=== PATIENT | female | born 1945 | race Caucasian/White ===

== ENCOUNTER → 2016-11-27 | Day surgery (SDC) | payer OTHER ==
[2016-11-24 07:38] VITALS: Ht 160 cm; Wt 76.8 kg
[~2016-11-27] VITALS: Ht 160 cm; Wt 76.8 kg
[~2016-11-27] MED LIST: BUPIVACAINE/EPINEPHRINE 0.5% MPF 1:200,000 30 ML VIAL ONE; CEFAZOLIN 1000MG/55 ML D5W IV SCH; FENTANYL CITRATE INJ 50 MCG/1 ML 2 ML VIAL ONE; HYDROCODONE/ACETAMOPHEN 5/325MG TAB PO PRN; INSUINJ12 SC; LACTATED RINGER'S 1000ML 1,000 ML IV PRN; LACTATED RINGER'S 1000ML 1,000 ML IV SCH; LIDOCAINE HCL 2% 2 ML VIAL (20MG/ML) ONE; LOSA1TAB PO; LVMI SC; MIDAZOLAM HCL 1 MG/ML 2ML VIAL ONE; MoRPHine SULFATE 2 MG/ML CARP IV PRN; ONDANSETRON INJ 2 MG/ML 2 ML VIAL IV PRN; PRLSR20 PO; PROPOFOL IV EMULSION 10 MG/ML 20 ML VIAL IV ONE
--- NOTE | 2016-11-27 07:36 | History & Physical Bridge Note ---
H&P Re-Evaluation Bridge Note: I have examined the patient, reviewed the History & Physical and in the interval since the performance of the History & Physical I have noted the following changes of clinical significance: No changes noted
--- NOTE | 2016-11-27 07:38 | Discharge Instructions-SurgCtr ---
Discharge Instructions Visit Reason for Visit: Port In Place; Hx Of Indolent Lymphoma Discharge Discharge Diagnosis / Problem: desire for port removal Discharge Goals Goal(s): Decrease discomfort, Improve function Activity Recommendations Activity Limitations: resume your previous activity Exercise/Sports Limitations: as tolerated Shower/Bathe: tomorrow Anesthesia . Post Anesthesia Instructions: If you have had General Anesthesia or IV Sedation: * Do not drive today. * Resume driving when surgeon permits. * Do not make important decisions or sign legal documents today. * Call surgeon for: 1. Temperature elevations greater than 101 degrees F. 2. Uncontrollable pain. 3. Excessive bleeding. 4. Persistent nausea and vomiting. 5. Medication intolerance (nausea, vomiting or rash). * For nausea and vomiting use only clear liquids such as: tea, soda, bouillon until nausea subsides, then gradually increase diet as tolerated. * If you have any concerns or questions, call your surgeon's office. If physician is unavailable and it is an emergency, call 911 or go to the nearest emergency room. . Diet Recommendations Home Diet: resume previous diet Procedures Procedures Performed: removal right subclavian mediport Pending Studies Studies pending at discharge: no Medical Emergencies . Who to Call and When: Medical Emergencies: If at any time you feel your situation is an emergency, please call 911 immediately. . Non-Emergent Contact Non-Emergency issues call your: Primary Care Provider, Surgeon Call Non-Emergent contact if: temperature is above 101, wound has increased drainage, wound has increased redness . . "Provider Documentation" section prepared by Reji Russell.
[2016-11-27 08:16] VITALS: TEMP 36.3
--- NOTE | 2016-11-27 08:21 | [facility] Operative Report ---
Operative Report Operative Date Nov 27, 2016. Pre-Operative Diagnosis Port in Place, Hx of Indolent Lymphoma Post-Operative Diagnosis desire for port removal Surgeon Dr. Willie Russell [employer] Surgeon(s) 0 Estimated Blood Loss 5CC Findings normal appearing metal mediport Specimens A. Removed A-Port Anesthesia MAC Complication(s) None Disposition Recovery Room / PACU I attest to the content of the Intraoperative Record and any orders documented therein. Any exceptions are noted below.
--- NOTE | 2016-11-27 08:37 | OPERATIVE REPORT ---
DATE OF OPERATION: 11/27/2016 PREOPERATIVE DIAGNOSIS: Desire for removal of right subclavian MediPort. POSTOPERATIVE DIAGNOSIS: Same. PROCEDURE: Removal of right subclavian MediPort. SURGEON: Dr. Russell. ESTIMATED BLOOD LOSS: 5 mL. COMPLICATIONS: No immediate. ANESTHESIA: Monitored anesthesia care. OPERATION AND FINDINGS: OPERATIVE NOTE: After informed consent was obtained, the patient was taken to the operating suite, placed in supine position. IV sedation was administered by anesthesia and titrated to effect. After adequate sedation was obtained, the right upper chest wall area was sterilely prepped and draped in usual fashion. Marcaine with epinephrine was injected around the previous incision around the port housing itself. Once we had this localized I then made an incision directly over the previous incision. This was carried down through the soft tissue using electrocautery. We were able to bluntly dissect free capsule around the MediPort itself. Once we had the capsule excised I was able cut the previous sutures and gently remove the port with the catheter intact. Pressure was held over the incision site for several. We then thoroughly irrigated the wound. I closed it with 3-0 Vicryl and 4-0 Monocryl. Dermabond glue was used as a dressing. The patient was awakened and transferred to recovery in stable condition. I attest to the content of the Intraoperative Record and any orders documented therein. Any exceptio ns are noted below.
[2016-11-27 08:42] VITALS: BP 135/66; PULSE 58; O2SAT 98
--- NOTE | 2016-11-27 08:45 | Anesthesia Progress Nt - [facility] ---
Anesthesia Post Op Note Date & Time Nov 27, 2016 at 08:44 Vital Signs Pain Intensity: 0 Vital Signs Past 12 Hours Date Time Temp Pulse Resp B/P Pulse Ox O2 Delivery O2 Flow Rate FiO2 11/27/16 08:16 36.3 65 18 114/64 95 Room Air 11/27/16 07:04 36.7 70 18 150/75 96 Room Air Notes Mental Status: alert / awake / arousable, participated in evaluation Nausea / Vomiting: adequately controlled Pain: adequately controlled Airway Patency, RR, SpO2: stable & adequate BP & HR: stable & adequate Hydration State: stable & adequate Anesthetic Complications: no major complications apparent Pt doing well.
== END | disposition home or self-care (01) ==
LOC: X.SURG 06:51
PROVIDERS: ATTEND Surgery
DX: Z45.2 Encounter for adjustment and management of vascular access device (principal); C85.90 Non-Hodgkin lymphoma, unspecified, unspecified site; D64.9 Anemia, unspecified; F41.9 Anxiety disorder, unspecified; I10 Essential (primary) hypertension; E16.2 Hypoglycemia, unspecified; E11.65 Type 2 diabetes mellitus with hyperglycemia; Z79.4 Long term (current) use of insulin; Z92.21 Personal history of antineoplastic chemotherapy

== ENCOUNTER → 2017-02-12 | Outpatient (CLI) | payer OTHER ==
[~2017-02-12] MED LIST changes: -BUPIVACAINE/EPINEPHRINE 0.5% MPF 1:200,000 30 ML VIAL ONE; -CEFAZOLIN 1000MG/55 ML D5W IV SCH; -FENTANYL CITRATE INJ 50 MCG/1 ML 2 ML VIAL ONE; -HYDROCODONE/ACETAMOPHEN 5/325MG TAB PO PRN; -LACTATED RINGER'S 1000ML 1,000 ML IV PRN; -LACTATED RINGER'S 1000ML 1,000 ML IV SCH; -LIDOCAINE HCL 2% 2 ML VIAL (20MG/ML) ONE; -MIDAZOLAM HCL 1 MG/ML 2ML VIAL ONE; -MoRPHine SULFATE 2 MG/ML CARP IV PRN; -ONDANSETRON INJ 2 MG/ML 2 ML VIAL IV PRN; -PROPOFOL IV EMULSION 10 MG/ML 20 ML VIAL IV ONE
[2017-02-12 09:46] LABS: ALT/SGPT 25 U/L (12-78); BLOOD UREA NITROGEN 22 mg/dl (7-18); BUN/CREATININE RATIO 28.1 (10-20); CALCIUM 8.8 mg/dl (8.5-10.1); CARBON DIOXIDE 27 mmol/L (21-32); CHLORIDE 109 mmol/L (98-107); CHOLESTEROL 214 mg/dl (0-200); CREATININE 0.79 mg/dl (0.60-1.20); GLUCOSE 122 mg/dl (70-99); POTASSIUM 4.4 mmol/L (3.5-5.1); SODIUM 141 mmol/L (136-145)
[2017-02-12 09:57] LABS: ALB/GLOB RATIO 1.2 (0.9-2); ALKALINE PHOSPHATASE 106 U/L (45-117); AST/SGOT 22 U/L (15-37); CHOLESTEROL/HDL RATIO 4.7; HDL CHOLESTEROL 46 mg/dl; LDL CHOLESTEROL CALCULATED 140 mg/dl; TRIGLYCERIDES 142 mg/dl (0-150); VERY LOW DENSITY LIPOPROT CALC 28 mg/dl
[2017-02-12 10:12] LABS: ESTIMATED AVERAGE GLUCOSE 157 mg/dl; HA1C FLAG Normal (Normal)
--- NOTE | 2017-02-18 14:24 | CODING QUERY MEDICAL NECESSITY ---
SUPPORTING DIAGNOSIS NEEDED A supporting diagnosis is required for the test/procedure performed on this patient in order for us to be reimbursed by the patient's insurance. Please provide a supporting diagnosis for the following test/procedure listed below next to the test name along with your signature. *If there is no additional diagnosis for this patient that would support the following test/procedure please document that below next to the test/procedure. Test(s)/Procedure(s) that require a supporting diagnosis: * VITAMIN D 25-HYDROXY DIAGNOSIS: * VITAMIN B-12 LEVEL DIAGNOSIS: * DOS: 02/12/17 Provider Signature: Date: Thank you Roxie Simpson Health Information Management Once completed, please kindly fax back to [phone] For questions please call [phone]
== END | disposition home or self-care (01) ==
LOC: C.LAB1850 07:55
PROVIDERS: ATTEND Internal Medicine
DX: E11.65 Type 2 diabetes mellitus with hyperglycemia (principal); I10 Essential (primary) hypertension; E11.9 Type 2 diabetes mellitus without complications; R53.83 Other fatigue; E53.8 Deficiency of other specified B group vitamins

== ENCOUNTER → 2017-09-27 | Outpatient (CLI) | payer OTHER ==
[2017-09-27 09:17] LABS: ESTIMATED AVERAGE GLUCOSE 151 mg/dl; HA1C FLAG Normal (Normal)
[2017-09-27 09:44] LABS: CREATININE RANDOM URINE 75.3 mg/dl
[2017-09-27 09:56] LABS: RATIO 9.5 mcg/mg (0-30.0)
== END | disposition home or self-care (01) ==
LOC: C.LAB 13:10
PROVIDERS: ATTEND Internal Medicine
DX: E11.9 Type 2 diabetes mellitus without complications (principal); E53.8 Deficiency of other specified B group vitamins; E55.9 Vitamin D deficiency, unspecified

== ENCOUNTER → 2018-03-30 | Outpatient (CLI) | payer OTHER ==
[~2018-03-30] MED LIST changes: +OPTIRAY 320 IV PRN
--- NOTE | 2018-03-30 09:10 | DIAGNOSTIC IMAGING REPORT ---
CT OF THE CHEST WITH IV CONTRAST CLINICAL HISTORY: Non-Hodgkin's lymphoma COMPARISON STUDY: 02/15/2015 TECHNIQUE: Following the IV administration of 92 mL of Optiray-320, CT of the thorax was performed from the thoracic inlet to the lung bases. Images are reviewed in the axial, sagittal, and coronal planes. IV contrast was administered without complication. A dose lowering technique was utilized adhering to the principles of ALARA. CT DOSE: FINDINGS: Thyroid: Imaged portions of the thyroid gland are normal in appearance. Thoracic aorta: The thoracic aorta is normal in course and caliber, noting standard 3-vessel arch anatomy. No aneurysm or dissection is seen. Pulmonary vasculature: The pulmonary trunk is normal in caliber. There are no central filling defects identified to suggest pulmonary embolus. Note that this examination was not protocoled for the evaluation of pulmonary emboli. HEART: The heart is mildly enlarged. There are coronary artery calcifications. Lungs and pleural spaces: There are no pleural effusions. There is no focal pulmonary consolidation. Mediastinum: There is no mediastinal lymphadenopathy. Christie: There is no evidence of pathologic hilar adenopathy Axilla: There is no evidence of pathologic axillary lymphadenopathy Upper abdomen: There is a hiatal hernia. There is a partially visualized right renal cyst. Skeletal structures: There are no lytic or blastic osseous lesions. IMPRESSION: 1. No acute intrathoracic findings 2. No evidence of pathologic adenopathy 3. Hiatal hernia 4. No evidence of focal pulmonary consolidation Electronically signed by: Isaac Gilbert M.D. 03/30/2018 9:09 AM Dictated Date/Time: 03/30/2018 9:05 AM
--- NOTE | 2018-03-30 09:17 | DIAGNOSTIC IMAGING REPORT ---
CT ABD/PELVIS IV AND ORAL CONT CLINICAL HISTORY: Non-Hodgkin's lymphoma COMPARISON STUDY: 02/15/2015 TECHNIQUE: Following the IV administration of 92 mL of Optiray-320, CT scan of the abdomen and pelvis was performed from the lung bases to the proximal femurs. Images are reviewed in the axial, sagittal, and coronal planes. IV contrast was administered without complication. A dose lowering technique was utilized adhering to the principles of ALARA. CT DOSE: 827.06 mGy.cm FINDINGS: Lower chest: There is a hiatal hernia. Liver: The contrast-enhanced liver is normal in size, contour, and attenuation. There is no intrahepatic biliary ductal dilatation. The hepatic veins and portal veins are patent. Gallbladder: Unremarkable. Spleen: Normal in size and attenuation. Pancreas: Unremarkable. Adrenal glands: Unremarkable. Kidneys: There are bilateral renal cortical and parapelvic cysts. There are right renal calcifications, likely vascular. Bowel: There are no transition zone to indicate bowel obstruction. There is a somewhat prominent fluid-filled terminal ileum. There are small terminal ileum polyps versus enteric contents. There is colonic diverticulosis. There is no evidence of acute diverticulitis. Peritoneum: There is no intraperitoneal free air or abdominal ascites. Vasculature: The abdominal aorta is normal in course and caliber. Adenopathy: None. Pelvic viscera: The bladder, and pelvic viscera are unremarkable. Skeletal structures: No destructive osseous lesions are seen. IMPRESSION: 1. No evidence of pathologic adenopathy 2. Mildly prominent fluid-filled terminal ileum, but no current evidence of significant obstruction 3. Diverticulosis. No evidence of acute diverticulitis 4. Cortical and parapelvic renal cysts 5. Hiatal hernia 6. Small terminal ileum polyps versus enteric contents Electronically signed by: Isaac Gilbert M.D. 03/30/2018 9:15 AM Dictated Date/Time: 03/30/2018 9:09 AM
== END | disposition home or self-care (01) ==
LOC: C.CTS 08:41
PROVIDERS: ATTEND Nurse Practitioner Family
DX: C83.30 Diffuse large B-cell lymphoma, unspecified site (principal)

== ENCOUNTER 2020-12-27 07:44 | Observation (INO) ==
[2020-12-27] MEDS ORDERED: SODIUM CHLORIDE 0.9% 1000ML 500 ML IV ONE (07:56)
[2020-12-27] MEDS ORDERED: LABETALOL HCL IV 5 MG/ML 20ML IV STA ×2 (07:56→08:54)
[2020-12-27] MEDS ORDERED: OPTIRAY 320 125ml IV ONE (08:09)
--- NOTE | 2020-12-27 08:11 | Emergency Department Note ---
Impression & Plan Word finding difficulty, Slurring of speech, Hypertensive emergency ED Provider Note Provider: Coliln Bustos MD DATE OF SERVICE: 12/27/2020 CHIEF COMPLAINT: Stroke symptoms HISTORY OF PRESENT ILLNESS: Patient is a 75-year-old female with a history of CAD status post CABG, diabetes, diverticulitis, hypertension, and cancer maintained on Plavix currently presenting today with complaint of some right- sided numbness and slurred speech. Patient is present with . Reports that she got up around 630 and things were okay. Did not have breakfast depression came downstairs and states around 7:00 he noticed that she began to have some slurring speech in which she had reported some numbness of her right hand and her right hand was working quite so well. also states he thought he saw a little bit of redness in the right side of her face and called his daughter and then brought her here for further care. Upon arrival the patient does not report significant numbness in her extremities anymore but is somewhat slow to answer and having difficulty talking. Patient denies pain. Patient denies any significant abdominal symptoms. Patient denies a history of similar. Of note the patient was seen by primary care and telehealth 3 days ago with uncontrolled hypertension and some left lower quadrant abdominal pain concerning for possible diverticulitis. Patient was started on Augmentin at that time. Patient at that time per their note did not have acute neurological symptoms documented. REVIEW OF SYSTEMS: A total of 10 review of systems was obtained and negative except as stated above in the HPI. PAST MEDICAL HISTORY: As noted above MEDICATIONS: Reviewed home medication list which includes Plavix. SOCIAL HISTORY: Lives at home with PHYSICAL EXAM: GENERAL: alert and oriented in no acute distress on stretcher Head: normocephalic and atraumatic EYES: No injection, discharge or icterus. PERRL, EOMI. NECK: Trachea midline. Supple. ENT: Mucous membranes pink and moist. LUNGS: Airway patent. No retractions. Breath sounds clear with good air entry bilaterally. HEART: Regular rate and rhythm. No chest wall tenderness ABDOMEN: Soft and non-tender, without guarding or rebound. SKIN: Acyanotic, warm, dry, without rashes EXTREMITIES: Without swelling, tenderness or deformity NEUROLOGICAL: No aphasia. No facial droop or slurred speech however some aphasia and she is slow to speak. Tongue is midline. No pronator drift. 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 Sensation to gross touch normal. EK bpm sinus rhythm with PVC. No PAC noted. No acute ST segment elevation noted. QTc 483. Normal QRS duration. CONTINUOUS CARDIAC MONITORING: was ordered and showed a heart rate of 80 bpm in normal sinus rhythm Patient's laboratory studies and imaging reviewed. Differential includes Infection, dehydration, metabolic abnormality, hypo/hyperglycemia, electrolyte disturbance, anemia, hypoxia, cardiac sources, intracerebral event, toxicologic, neurologic, as well as other pathologies. IMPRESSION/MEDICAL DECISION MAKING: Patient evaluated in room A2 and made a stroke alert given her word finding difficulty. The numbness and clumsiness of her right hand seem to be improved compared to earlier and I do not appreciate a significant slurred speech or facial droop at this time. Patient is significantly hypertensive. 10 mg of IV labetalol was ordered. She was made a stroke alert and taken to CT with angiograms to be completed. Discussed with Dr. Nolasco at [facility] telestroke who evaluated the patient when she returns on the telestroke cart. CT without evidence of intracranial bleed per radiology report; some narrowing of the vertebral and cerebral arteries are noted in the CT angiography per radiology report but no large occlusion. Patient on reassessment continues to be hypertensive and given a second dose of labetalol but her word finding has improved and she is more fluent with her s peech. She now describes more numbness earlier up to the mid forearm on the right side but states that is improved now. Discussion with the telestroke neurologist do not feel TPA is indicated given her improvement of symptoms at this time this may simply be a hypertensive emergency. Patient is on Plavix and given some aspirin per telestroke recommendations. Hypomagnesemic and needs and was ordered for intravenous repletion. Blood work otherwise without severe abnormality. Will discuss with the hospitalist for further observation and care here at the hospital given her symptoms and hypertension. Patient was in agreement this plan. DIAGNOSIS: Slurred speech, hypertensive emergency DISPOSITION: Hospitalist will evaluate Patient was agreeable with this plan. Critical Care I have personally spent 33 minutes of critical care time in the direct management of this patient. This includes bedside care, interpretation of diagnostic studies, and testing, discussion with consultants, patient, and family members, and other required patient management activities. These 33 minutes is in excess of all separately billable procedures. Past Med/Surg History Medical History Chest pain Dehydration Diabetes mellitus TYPE II on Levemir at this time BID Diffuse large B-cell lymphoma of extranodal site (~07/2013) Elevated troponin Elevated troponin Fever (10/21/13) Fever GERD (gastroesophageal reflux disease) Hypertension Hypertensive emergency Hypogammaglobulinemia Kidney disease Lymphoma Metastatic cancer to liver On intra-aortic balloon pump assist Syncope Surgical History H/O tubal ligation History of appendectomy History of open heart surgery History of tonsillectomy S/P CABG x 1 on 09/08/2018; FELIZ to OM1 Family History Mother Myocardial infarction Diabetes Sister Bladder cancer Daughter Diabetes Heart disease Brother Lung cancer Father Lung disease Social History Smoking Status: Never smoker Second Hand Exposure: No; Hx Alcohol Use: No Hx Substance Use: No Preferred Language: Syriac Communication Ability: Effective Visual Impairment: No 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 Verified 12/24/20 11:26 adhesive Allergy Unknown RASH Verified 12/24/20 11:26 latex Allergy Rash Verified 12/24/20 11:26 prednisone AdvReac Intermediate PT CAN Verified 12/24/20 11:26 TOLERATE DEXAMETHASONE [place] Inhibitors AdvReac Unknown Hypotension Verified 12/24/20 11:26 simvastatin AdvReac Unknown Rash Verified 12/24/20 11:26 oxycodone [From OxyContin] AdvReac Vomiting Verified 12/24/20 11:26 Home Meds Home Medications Medication Instructions Recorded Confirmed cholecalciferol (vitamin D3) 125 5,000 units PO DAILY 10/01/19 12/27/20 mcg (5,000 unit) capsule mecobalamin (vitamin B12) 1,000 1,000 mcg SL DAILY 10/01/19 12/27/20 mcg disintegrating tablet,sublingual pen needle, diabetic 32 gauge x #10 ea 10/29/19 12/24/2032" Previous Rx's Medication Instructions Recorded metoprolol tartrate 25 mg tablet 25 mg PO BID #180 tab 06/17/20 omeprazole 20 mg capsule,delayed 20 mg PO DAILY #30 cap 06/18/20 release clopidogrel 75 mg tablet 75 mg PO DAILY 90 Days #90 tab 06/27/20 losartan 100 mg tablet 100 mg PO DAILY #90 tab 08/02/20 atorvastatin 40 mg tablet 40 mg PO DAILY #90 tab 10/14/20 insulin detemir U-100 100 unit/mL See Rx Instructions SQ BID #15 ml 11/14/20 (3 mL) subcutaneous pen amlodipine 10 mg tablet 10 mg PO DAILY #30 tab 12/24/20 amoxicillin 875 mg-potassium 1 tab PO BID #20 tab 12/24/20 clavulanate 125 mg tablet Results & Data (ED) Vital Signs Vital Signs - 24 hr 12/27/20 07:48 12/27/20 08:00 12/27/20 08:19 Temperature 36.8 C Temperature Source Oral Pulse Rate 68 72 Pulse Rate [Left Finger] Pulse Rate from SpO2 Sensor Pulse Rhythm Regular Pulse Strength Normal Respiratory Rate 20 Respiratory Effort / Characteristics Non-Labored Spontaneous Respiratory Depth Normal Respiratory Pattern Regular Blood Pressure 202/74 H 201/73 H Blood Pressure [Right Arm] Blood Pressure Mean 116 115 Blood Pressure Mean [Right Arm] Pulse Oximetry 97 Oxygen Delivery Method Room Air Sepsis Recent Fever Within 48 Hours No Sepsis New/Unexplained Change in Mental Status N/A Sepsis Action Taken by Nursing No Action Required 12/27/20 08:20 12/27/20 08:24 12/27/20 08:27 Temperature Temperature Source Pulse Rate 69 72 71 Pulse Rate [Left Finger] Pulse Rate from SpO2 Sensor 69 72 71 Pulse Rhythm Pulse Strength Respiratory Rate 20 18 Respiratory Effort / Characteristics Respiratory Depth Respiratory Pattern Blood Pressure 202/83 H Blood Pressure [Right Arm] Blood Pressure Mean 109 122 Blood Pressure Mean [Right Arm] Pulse Oximetry 97 98 98 Oxygen Delivery Method Room Air Room Air Room Air Sepsis Recent Fever Within 48 Hours Sepsis New/Unexplained Change in Mental Status Sepsis Action Taken by Nursing 12/27/20 08:30 12/27/20 08:40 12/27/20 08:42 Temperature Temperature Source Pulse Rate 70 74 68 Pulse Rate [Left Finger] 68 Pulse Rate from SpO2 Sensor 70 69 Pulse Rhythm Pulse Strength Respiratory Rate 20 18 Respiratory Effort / Characteristics Respiratory Depth Respiratory Pattern Blood Pressure 198/91 H 199/87 H Blood Pressure [Right Arm] 199/87 H Blood Pressure Mean 126 124 Blood Pressure Mean [Right Arm] 124 Pulse Oximetry 98 98 Oxygen Delivery Method Room Air Room Air Sepsis Recent Fever Within 48 Hours Sepsis New/Unexplained Change in Mental Status Sepsis Action Taken by Nursing 12/27/20 08:43 12/27/20 08:46 12/27/20 08:50 Temperature Temperature Source Pulse Rate 68 68 65 Pulse Rate [Left Finger] Pulse Rate from SpO2 Sensor 68 67 66 Pulse Rhythm Pulse Strength Respiratory Rate 20 Respiratory Effort / Characteristics Respiratory Depth Respiratory Pattern Blood Pressure 211/73 H 184/87 H Blood Pressure [Right Arm] Blood Pressure Mean 119 119 Blood Pressure Mean [Right Arm] Pulse Oximetry 98 97 97 Oxygen Delivery Method Room Air Room Air Room Air Sepsis Recent Fever Within 48 Hours Sepsis New/Unexplained Change in Mental Status Sepsis Action Taken by Nursing 12/27/20 08:54 12/27/20 08:57 12/27/20 09:00 Temperature Temperature Source Pulse Rate 65 63 Pulse Rate [Left Finger] 60 Pulse Rate from SpO2 Sensor 65 64 Pulse Rhythm Pulse Strength Respiratory Rate 18 18 Respiratory Effort / Characteristics Respiratory Depth Respiratory Pattern Blood Pressure 196/77 H 169/72 H Blood Pressure [Right Arm] 184/87 H Blood Pressure Mean 116 104 Blood Pressure Mean [Right Arm] 119 Pulse Oximetry 98 96 96 Oxygen Delivery Method Room Air Room Air Room Air Sepsis Recent Fever Within 48 Hours Sepsis New/Unexplained Change in Mental Status Sepsis Action Taken by Nursing 12/27/20 09:05 12/27/20 09:06 12/27/20 09:14 Temperature Temperature Source Pulse Rate 68 68 Pulse Rate [Left Finger] 66 Pulse Rate from SpO2 Sensor 68 69 Pulse Rhythm Pulse Strength Respiratory Rate 18 20 Respiratory Effort / Characteristics Respiratory Depth Respiratory Pattern Blood Pressure 181/83 H Blood Pressure [Right Arm] 181/83 H Blood Pressure Mean 115 Blood Pressure Mean [Right Arm] 115 Pulse Oximetry 98 98 95 Oxygen Delivery Method Room Air Room Air Room Air Sepsis Recent Fever Within 48 Hours Sepsis New/Unexplained Change in Mental Status Sepsis Action Taken by Nursing 12/27/20 09:15 12/27/20 09:20 12/27/20 09:30 Temperature Temperature Source Pulse Rate 64 63 66 Pulse Rate [Left Finger] 65 Pulse Rate from SpO2 Sensor 63 63 66 Pulse Rhythm Pulse Strength Respiratory Rate 24 20 21 Respiratory Effort / Characteristics Respiratory Depth Respiratory Pattern Blood Pressure 191/87 H 165/73 H 186/75 H Blood Pressure [Right Arm] 191/87 H Blood Pressure Mean 121 103 112 Blood Pressure Mean [Right Arm] 121 Pulse Oximetry 96 97 97 Oxygen Delivery Method Room Air Room Air Room Air Sepsis Recent Fever Within 48 Hours Sepsis New/Unexplained Change in Mental Status Sepsis Action Taken by Nursing 12/27/20 09:40 12/27/20 09:50 12/27/20 09:57 Temperature Temperature Source Pulse Rate 67 66 66 Pulse Rate [Left Finger] Pulse Rate from SpO2 Sensor 68 65 Pulse Rhythm Pulse Strength Respiratory Rate 19 24 Respiratory Effort / Characteristics Respiratory Depth Respiratory Pattern Blood Pressure 182/76 H 188/84 H Blood Pressure [Right Arm] Blood Pressure Mean 111 118 Blood Pressure Mean [Right Arm] Pulse Oximetry 96 98 Oxygen Delivery Method Room Air Room Air Sepsis Recent Fever Within 48 Hours Sepsis New/Unexplained Change in Mental Status Sepsis Action Taken by Nursing 12/27/20 09:58 12/27/20 10:00 12/27/20 10:10 Temperature Temperature Source Pulse Rate 64 62 62 Pulse Rate [Left Finger] Pulse Rate from SpO2 Sensor 64 62 63 Pulse Rhythm Pulse Strength Respiratory Rate 19 19 20 Respiratory Effort / Characteristics Respiratory Depth Respiratory Pattern Blood Pressure 154/86 H 154/79 H Blood Pressure [Right Arm] Blood Pressure Mean 108 104 Blood Pressure Mean [Right Arm] Pulse Oximetry 98 97 97 Oxygen Delivery Method Room Air Room Air Room Air Sepsis Recent Fever Within 48 Hours Sepsis New/Unexplained Change in Mental Status Sepsis Action Taken by Nursing 12/27/20 10:20 12/27/20 10:30 Temperature Temperature Source Pulse Rate 67 61 Pulse Rate [Left Finger] Pulse Rate from SpO2 Sensor 66 60 Pulse Rhythm Pulse Strength Respiratory Rate 18 19 Respiratory Effort / Characteristics Respiratory Depth Respiratory Pattern Blood Pressure 160/88 H 166/74 H Blood Pressure [Right Arm] Blood Pressure Mean 112 104 Blood Pressure Mean [Right Arm] Pulse Oximetry 98 96 Oxygen Delivery Method Room Air Room Air Sepsis Recent Fever Within 48 Hours Sepsis New/Unexplained Change in Mental Status Sepsis Action Taken by Nursing Laboratory Data Result diagrams: 12/27/20 08:07 12/27/20 08:07 Lab Results 12/27/20 12/27/20 12/27/20 Range/Units 08:07 08:07 08:07 WBC 6.37 (4.8-10.8) K/uL RBC 4.78 (4.2-5.4) M/uL Hgb 14.4 (12.0-16.0) g/dL Hct 42.8 (37-47) % MCV 89.5 (80-100) fL MCH 30.1 (25-34) pg MCHC 33.6 (32-36) g/dL RDW Std Deviation 43.1 (36.4-46.3) fL RDW Coeff of Mark 13.2 (11.5-14.5) % Plt Count 203 (130-400) K/uL MPV 11.3 H (7.4-10.4) fL Immature Gran % (Auto) 0.2 % Neut % (Auto) 72.2 % Lymph % (Auto) 19.0 % [place] % (Auto) 7.2 % Eos % (Auto) 1.1 % Baso % (Auto) 0.3 % Neut # (Auto) 4.60 (1.4-6.5) K/uL Lymph # (Auto) 1.21 (1.2-3.4) K/uL [place] # (Auto) 0.46 (0.11-0.59) K/uL Eos # (Auto) 0.07 (0-0.5) K/uL Baso # (Auto) 0.02 (0-0.2) K/uL Immature Gran # (Auto) 0.01 (0.00-0.02) K/uL ESR (0-21) mm/hr PT 10.4 (9.0-12.0) Seconds INR 1.0 (0.9-1.1) APTT 25.0 (21.0-31.0) Seconds PTT Ratio 1.0 Sodium 143 (136-145) mmol/L Potassium 3.3 L (3.5-5.1) mmol/L Chloride 109 H (98-107) mmol/L Carbon Dioxide 27 (21-32) mmol/L Anion Gap 7.0 (3-11) BUN 25 H (7-18) mg/dl Creatinine 0.96 (0.6-1.2) mg/dl Est Cr Clr Drug Dosing 46.5 ml/min Est GFR ( Amer) 66.1 Est GFR (Non-Af Amer) 57.0 BUN/Creatinine Ratio 25.7 H (10-20) Glucose 116 H (70-99) mg/dl Calcium 9.4 (8.5-10.1) mg/dl Magnesium 1.5 L (1.8-2.4) mg/dl Total Bilirubin 0.6 (0.2-1) mg/dl AST 14 L (15-37) U/L ALT 21 (12-78) U/L Alkaline Phosphatase 120 H (45-117) U/L Troponin I < 0.015 (0-0.045) ng/ml Total Protein 7.5 (6.4-8.2) gm/dl Albumin 4.0 (3.4-5.0) gm/dl Globulin 3.5 (2.5-4.0) gm/dl Albumin/Globulin Ratio 1.1 (0.9-2) Urine Color Urine Appearance (Clear) Urine pH (4.5-7.5) Ur Specific [place] (1.000-1.030) Urine Protein (Negative) Urine Glucose (UA) (Negative) Urine Ketones (Negative) Urine Blood (Negative) Urine Nitrite (Negative) Urine Bilirubin (Negative) Urine Urobilinogen (Negative) Ur Leukocyte Esterase (Negative) COVID-19 Eval Order SARS-CoV-2, RNA, NAAT (NEGATIVE) Blood Type Antibody Screen 12/27/20 12/27/20 12/27/20 Range/Units 08:07 08:28 08:45 WBC (4.8-10.8) K/uL RBC (4.2-5.4) M/uL Hgb (12.0-16.0) g/dL Hct (37-47) % MCV (80-100) fL MCH (25-34) pg MCHC (32-36) g/dL RDW Std Deviation (36.4-46.3) fL RDW Coeff of Mark (11.5-14.5) % Plt Count (130-400) K/uL MPV (7.4-10.4) fL Immature Gran % (Auto) % Neut % (Auto) % Lymph % (Auto) % [place] % (Auto) % Eos % (Auto) % Baso % (Auto) % Neut # (Auto) (1.4-6.5) K/uL Lymph # (Auto) (1.2-3.4) K/uL [place] # (Auto) (0.11-0.59) K/uL Eos # (Auto) (0-0.5) K/uL Baso # (Auto) (0-0.2) K/uL Immature Gran # (Auto) (0.00-0.02) K/uL ESR 14 (0-21) mm/hr PT (9.0-12.0) Seconds INR (0.9-1.1) APTT (21.0-31.0) Seconds PTT Ratio Sodium (136-145) mmol/L Potassium (3.5-5.1) mmol/L Chloride (98-107) mmol/L Carbon Dioxide (21-32) mmol/L Anion Gap (3-11) BUN (7-18) mg/dl Creatinine (0.6-1.2) mg/dl Est Cr Clr Drug Dosing ml/min Est GFR ( Amer) Est GFR (Non-Af Amer) BUN/Creatinine Ratio (10-20) Glucose (70-99) mg/dl Calcium (8.5-10.1) mg/dl Magnesium (1.8-2.4) mg/dl Total Bilirubin (0.2-1) mg/dl AST (15-37) U/L ALT (12-78) U/L Alkaline Phosphatase (45-117) U/L Troponin I (0-0.045) ng/ml Total Protein (6.4-8.2) gm/dl Albumin (3.4-5.0) gm/dl Globulin (2.5-4.0) gm/dl Albumin/Globulin Ratio (0.9-2) Urine Color Urine Appearance (Clear) Urine pH (4.5-7.5) Ur Specific [place] (1.000-1.030) Urine Protein (Negative) Urine Glucose (UA) (Negative) Urine Ketones (Negative) Urine Blood (Negative) Urine Nitrite (Negative) Urine Bilirubin (Negative) Urine Urobilinogen (Negative) Ur Leukocyte Esterase (Negative) COVID-19 Eval Order Covid19 [facility]Now [facility] SARS-CoV-2, RNA, NAAT (NEGATIVE) Blood Type A Positive Antibody Screen NEGATIVE 12/27/20 12/27/20 Range/Units 08:45 08:45 WBC (4.8-10.8) K/uL RBC (4.2-5.4) M/uL Hgb (12.0-16.0) g/dL Hct (37-47) % MCV (80-100) fL MCH (25-34) pg MCHC (32-36) g/dL RDW Std Deviation (36.4-46.3) fL RDW Coeff of Mark (11.5-14.5) % Plt Count (130-400) K/uL MPV (7.4-10.4) fL Immature Gran % (Auto) % Neut % (Auto) % Lymph % (Auto) % [place] % (Auto) % Eos % (Auto) % Baso % (Auto) % Neut # (Auto) (1.4-6.5) K/uL Lymph # (Auto) (1.2-3.4) K/uL [place] # (Auto) (0.11-0.59) K/uL Eos # (Auto) (0-0.5) K/uL Baso # (Auto) (0-0.2) K/uL Immature Gran # (Auto) (0.00-0.02) K/uL ESR (0-21) mm/hr PT (9.0-12.0) Seconds INR (0.9-1.1) APTT (21.0-31.0) Seconds PTT Ratio Sodium (136-145) mmol/L Potassium (3.5-5.1) mmol/L Chloride (98-107) mmol/L Carbon Dioxide (21-32) mmol/L Anion Gap (3-11) BUN (7-18) mg/dl Creatinine (0.6-1.2) mg/dl Est Cr Clr Drug Dosing ml/min Est GFR ( Amer) Est GFR (Non-Af Amer) BUN/Creatinine Ratio (10-20) Glucose (70-99) mg/dl Calcium (8.5-10.1) mg/dl Magnesium (1.8-2.4) mg/dl Total Bilirubin (0.2-1) mg/dl AST (15-37) U/L ALT (12-78) U/L Alkaline Phosphatase (45-117) U/L Troponin I (0-0.045) ng/ml Total Protein (6.4-8.2) gm/dl Albumin (3.4-5.0) gm/dl Globulin (2.5-4.0) gm/dl Albumin/Globulin Ratio (0.9-2) Urine Color Yellow Urine Appearance Clear (Clear) Urine pH 7.0 (4.5-7.5) Ur Specific [place] 1.026 (1.000-1.030) Urine Protein Negative (Negative) Urine Glucose (UA) Negative (Negative) Urine Ketones Negative (Negative) Urine Blood Negative (Negative) Urine Nitrite Negative (Negative) Urine Bilirubin Negative (Negative) Urine Urobilinogen Negative (Negative) Ur Leukocyte Esterase Negative (Negative) COVID-19 Eval Order SARS-CoV-2, RNA, NAAT NEGATIVE (NEGATIVE) Blood Type Antibody Screen Administered Medications Acetaminophen (Acetaminophen 325 Mg Tab) 650 mg PO Q4H PRN PRN Reason: Pain Or Fever >101.5 Stop: 01/26/21 12:51 Last Admin: 12/27/20 13:53 Dose: 650 mg Documented by: [id number] Discontinued Medications Aspirin (Aspirin Chew 324 Mg) 324 mg PO NOW STA Stop: 12/27/20 08:55 Last Admin: 12/27/20 09:00 Dose: 324 mg Documented by: [id number] Sodium Chloride (Nss 1000ml) 500 mls @ 999 mls/hr IV .Q31M ONE Stop: 12/27/20 08:26 Last Infusion: 12/27/20 09:01 Dose: 0 mls/hr Documented by: [id number] Admin: 12/27/20 08:29 Dose: 999 mls/hr Documented by: [id number] Magnesium Sulfate/Dextrose (Magnesium Sulfate / D5w) 1 gm in 100 mls @ 200 mls/hr IV Q30M COUNTS INCLUDE 234 BEDS AT THE [facility] Stop: 12/27/20 09:44 Last Infusion: 12/27/20 09:58 Dose: 0 mls/hr Documented by: [id number] Admin: 12/27/20 09:21 Dose: 200 mls/hr Documented by: [id number] Infusion: 12/27/20 09:21 Dose: 0 mls/hr Documented by: [id number] Admin: 12/27/20 08:51 Dose: 200 mls/hr Documented by: [id number] Ioversol (Optiray 320 125ml) 120 ml IV ONCE ONE Stop: 12/27/20 08:10 Last Admin: 12/27/20 08:09 Dose: 120 ml Documented by: [id number] Labetalol HCl (Labetalol Hcl Iv 5 Mg/Ml 20ml) 10 mg IV NOW STA Stop: 12/27/20 07:57 Last Admin: 12/27/20 08:29 Dose: 10 mg Documented by: [id number] Cosigned by: [id number] Labetalol HCl (Labetalol Hcl Iv 5 Mg/Ml 20ml) 10 mg IV NOW STA Stop: 12/27/20 08:55 Last Admin: 12/27/20 08:56 Dose: 10 mg Documented by: [id number] Cosigned by: [id number] Potassium Chloride (Potassium Chloride Crtab 20 Meq Tabcr) 40 meq PO NOW STA Stop: 12/27/20 11:51 Last Admin: 12/27/20 12:57 Dose: 40 meq Documented by: [id number] Discharge Plan Visit Data Chief Complaint: Stroke/CVA Symptoms Stated Complaint: slurred speech r side numb ED Provider: Collin Bustos Discharge Problem: Word finding difficulty, Slurring of speech, Hypertensive emergency Patient Disposition: Admitted As Inpatient Discharge Instructions Interventions: ED Discharge Assessment Last Done: 12/27/20 11:22
[2020-12-27 08:20] LABS: Basophils # (auto) 0.02 K/uL (0-0.2); Basophils % (auto) 0.3 %; Eosinophils # (auto) 0.07 K/uL (0-0.5); Eosinophils % (auto) 1.1 %; Hematocrit (blood only) 42.8 % (37-47); Hemoglobin 14.4 g/dL (12.0-16.0); Immature Granulocytes # (auto) 0.01 K/uL (0.00-0.02); Immature Granulocytes % (auto) 0.2 %; Lymphocytes # (auto) 1.21 K/uL (1.2-3.4); Mean Corpuscular Hemoglobin 30.1 pg (25-34); Mean Corpuscular Hgb Conc 33.6 g/dL (32-36); Mean Corpuscular Volume 89.5 fL (80-100); Mean Platelet Volume 11.3 fL (7.4-10.4); Monocytes # (auto) 0.46 K/uL (0.11-0.59); Monocytes % (auto) 7.2 %; Neutrophils % (auto) 72.2 %; Platelet Count 203 K/uL (130-400); RDW Coefficient of Variation 13.2 % (11.5-14.5); RDW Standard Deviation 43.1 fL (36.4-46.3); Red Blood Count 4.78 M/uL (4.2-5.4); White Blood Count 6.37 K/uL (4.8-10.8)
--- NOTE | 2020-12-27 08:27 | CT Scan Report ---
CT OF THE HEAD WITHOUT CONTRAST CLINICAL HISTORY: Stroke Like Symptoms COMPARISON STUDY: Head CT August 24, 2018. TECHNIQUE: Helical axial images of the head were obtained without IV contrast. Automated exposure con trol was utilized for the study. A dose lowering technique was utilized adhering to the principles o f ALARA. FINDINGS: No acute intracranial hemorrhage, midline shift or mass effect is present. White matter hyp odensities suggest small vessel disease. The ventricular system is unremarkable. The basal cisterns a re patent. No extra-axial collections are present. There are no findings to suggest acute dural sinus thrombosis or acute territorial infarct. No significant calvarial abnormalities are present. Visuali zed portions of the sinuses and mastoid air cells are clear. IMPRESSION: No acute intracranial findings. ACT 112: Negative or not required by law. Electronically signed by: Paul Geller M.D. 12/27/2020 8:25 AM
--- NOTE | 2020-12-27 08:34 | CT Scan Report ---
HEAD & NECK CTA HISTORY: Right hand numbness. Slurred speech. Stroke Like Symptoms TECHNIQUE: Multiaxial CT images of the head were performed following the intravenous administration o f contrast to evaluate the major cerebral vessels. Multiaxial CT images of the neck were also perform ed following the intravenous administration of contrast to evaluate the major cervical vessels. Maxim um intensity projection images were also obtained. A dose lowering technique was utilized adhering to the principles of ALARA. COMPARISON: Head CT 08/22/2018. FINDINGS: There is no mass, hematoma, midline shift, or acute infarct. Calcified plaque within the distal intra cranial vertebral arteries resulting in mild focal stenosis of the distal right vertebral artery and moderate to severe focal stenosis of up to 75% within the distal left vertebral artery best seen on i mage 18 of 252. There is mild focal narrowing within the mid basilar artery. Mild irregularity/narrow ing of the distal bilateral M1 segments. The bilateral ACAs and guitar repair technician show no significant stenosis, oc clusion, or aneurysm. Focal moderate narrowing of 50-60% within the right supraclinoid ICA. Extensive calcified plaque within the bilateral carotid siphons resulting in multifocal mild narrowing. There is also mild narrowing within the left supraclinoid ICA. The major dural venous sinuses appear patent . The aortic arch and proximal great vessels are widely patent. There is no significant stenosis, occ lusion, or dissection identified within the bilateral common carotid, internal carotid, or vertebral arteries. There are poststernotomy changes. No pneumothorax. Calcified plaque within the proximal gre at vessels and proximal left vertebral artery without significant stenosis. There is also mild to mod erate calcified plaque within the left carotid bifurcation. IMPRESSION: 1. Multifocal areas of mild to moderate narrowing within the cerebral arteries as described above mos t pronounced within the intracranial left vertebral artery demonstrating 75% stenosis and within the right supraclinoid ICA demonstrating 50-60% stenosis. However, there is no occlusion or aneurysm iden tified in the [place]. 2. No significant stenosis, occlusion, or dissection identified within the cervical carotid or cervic al vertebral arteries. ACT 112: Negative or not required by law. Electronically signed by: Philip Christina M.D. 12/27/2020 8:32 AM
--- NOTE | 2020-12-27 08:34 | CT Scan Report ---
HEAD & NECK CTA HISTORY: Right hand numbness. Slurred speech. Stroke Like Symptoms TECHNIQUE: Multiaxial CT images of the head were performed following the intravenous administration o f contrast to evaluate the major cerebral vessels. Multiaxial CT images of the neck were also perform ed following the intravenous administration of contrast to evaluate the major cervical vessels. Maxim um intensity projection images were also obtained. A dose lowering technique was utilized adhering to the principles of ALARA. COMPARISON: Head CT 08/22/2018. FINDINGS: There is no mass, hematoma, midline shift, or acute infarct. Calcified plaque within the distal intra cranial vertebral arteries resulting in mild focal stenosis of the distal right vertebral artery and moderate to severe focal stenosis of up to 75% within the distal left vertebral artery best seen on i mage 18 of 252. There is mild focal narrowing within the mid basilar artery. Mild irregularity/narrow ing of the distal bilateral M1 segments. The bilateral ACAs and wet process miller show no significant stenosis, oc clusion, or aneurysm. Focal moderate narrowing of 50-60% within the right supraclinoid ICA. Extensive calcified plaque within the bilateral carotid siphons resulting in multifocal mild narrowing. There is also mild narrowing within the left supraclinoid ICA. The major dural venous sinuses appear patent . The aortic arch and proximal great vessels are widely patent. There is no significant stenosis, occ lusion, or dissection identified within the bilateral common carotid, internal carotid, or vertebral arteries. There are poststernotomy changes. No pneumothorax. Calcified plaque within the proximal gre at vessels and proximal left vertebral artery without significant stenosis. There is also mild to mod erate calcified plaque within the left carotid bifurcation. IMPRESSION: 1. Multifocal areas of mild to moderate narrowing within the cerebral arteries as described above mos t pronounced within the intracranial left vertebral artery demonstrating 75% stenosis and within the right supraclinoid ICA demonstrating 50-60% stenosis. However, there is no occlusion or aneurysm iden tified in the [place]. 2. No significant stenosis, occlusion, or dissection identified within the cervical carotid or cervic al vertebral arteries. ACT 112: Negative or not required by law. Electronically signed by: Philip Christina M.D. 12/27/2020 8:32 AM
[2020-12-27 08:36] LABS: Alanine Aminotransferase 21 U/L (12-78); Aspartate Aminotransferase 14 U/L (15-37); BUN Creatinine Ratio 25.7 (10-20); Blood Urea Nitrogen 25 mg/dl (7-18); Calcium 9.4 mg/dl (8.5-10.1); Carbon Dioxide 27 mmol/L (21-32); Chloride 109 mmol/L (98-107); Creatinine Clr Calc Pharmacy 46.5 ml/min; Est GFR (African American) 66.1; Glucose 116 mg/dl (70-99); Magnesium 1.5 mg/dl (1.8-2.4); Potassium 3.3 mmol/L (3.5-5.1); Sodium 143 mmol/L (136-145)
[2020-12-27 08:41] LABS: Albumin Globulin Ratio 1.1 (0.9-2); Alkaline Phosphatase 120 U/L (45-117); Bilirubin,Total 0.6 mg/dl (0.2-1); Globulin 3.5 gm/dl (2.5-4.0); Total Protein 7.5 gm/dl (6.4-8.2); Troponin I < 0.015 ng/ml (0-0.045)
[2020-12-27 08:42] LABS: Prothrombin Time 10.4 Seconds (9.0-12.0)
[2020-12-27] MEDS: MAGNESIUM SULFATE / D5W 1 GM/100 ML BAG IV SCH ×2 (08:51→09:21)
[2020-12-27] MEDS ORDERED: ASPIRIN CHEW 324 MG PO STA (08:54)
[2020-12-27 09:21] LABS: Appearance Urine Clear (Clear); Bilirubin Urine Negative (Negative); Blood Urine Negative (Negative); Color Urine Yellow; Glucose Urine UA Negative (Negative); Ketones Urine Negative (Negative); Leukocyte Esterase Urine Negative (Negative); Nitrite Urine Negative (Negative); Protein Urine Negative (Negative); Specific Gravity Urine 1.026 (1.000-1.030); Urobilinogen Urine Negative (Negative)
--- NOTE | 2020-12-27 09:39 | XRay Report ---
XR chest 1V portable CLINICAL HISTORY: Stroke Like Symptoms, HTN COMPARISON STUDY: Chest CT October 05, 2019. FINDINGS: Median sternotomy wires are noted. Moderate cardiomegaly is unchanged. There is no evidence for pulmonary edema. Mild left basilar opacity favors atelectasis. A hiatal hernia is again noted. T here is no consolidation to suggest pneumonia. The appearance of the chest is unchanged. IMPRESSION: No acute cardiopulmonary findings. No change in appearance of the chest. ACT 112: Negative or not required by law. Electronically signed by: Paul Geller M.D. 12/27/2020 9:38 AM
--- NOTE | 2020-12-27 10:41 | History & Physical Report ---
Date of Service December 27, 2020 Assessment & Plan (1) Hypertensive emergency: Patient with neurological symptoms in the setting of uncontrolled HTN, no other evidence of end organ damage. - ECG normal - Renal function at baseline - Symptoms consistent with carotid disease and uncontrolled HTN - Control BP over next 24 hours with goal SBP 160-180 and MAPS 80-90. Labatelol PRN have room to increase dose and intervals if needed. - If better control is needed (i.e frequent dosing or consecutive dosing) will add on Cardene drip. - Renal artery ultrasound Patient already took her home medications this morning, will re-initiate in the morning. (2) Carotid artery stenosis: Carotid and Vertebral stenosis - symptomatic if proven stroke on MRI - control BP - patient with history of intolerance to other statins and has been able to tolerate 40mg Atorvastatin - On plavix for SHARI, added on daily ASA - MRI pending - Vascular consulted Symptoms with left sided external and internal carotid disease- Will send ESR to rule out GCA as well. (3) TIA (transient ischemic attack): As above, symptoms resolved. Patient still has some mild slowing with following directions, but and patient feel that she is at her baseline - No obvious loss of visual homlan - Ophthalmology as outpatient - Goal as above control BP optimize medications - Neurology consulted - NIHSS currently 0 - MRI with and without contrast for ischemia evaluation as well as mets -Neurochecks -PT/OT/speech therapy consulted -Continue Plavix and added aspirin, await further neurology recommendations -Some permissive hypertension -Will need Holter monitor for long-term event monitoring for A. fib especially given a history of lone A. fib postop from CABG Not TPA candidate as resolution of symptoms (4) Coronary artery disease: No acute changes on ECG and no other Cardiac symptoms at this time - optimize BP medications starting tomorrow after acute control obtained - ECHO for stroke protocol as well as evaluate any worsening wall motion or hypertrophy (5) Hypercholesteremia: Lipids in morning- continue high dose statin Atrovo 40 (6) Diabetes mellitus type 2 in nonobese: On insulin therapy, continue detemir in house - goal 140-180 - avoid hypoglycemia HGB A1C in morning (7) Diverticulosis of colon: Diverticulitis/diverticulosis- prophylactically placed on Augmentin 875, patient reports that her symptoms have improved and her lower quadarant abdominal pain is better. Will continue while in house. - if patient symptoms worsen- consider CT scan - Diet DM II - Miralax added (8) Hx of CABG: No acute process - optimize medications for risk reduction and BP control (9) Kidney disease: CKD II-III - follow closely in the setting of uncontrolled HTN - Renal ultrasound as above (10) Vertebral artery stenosis: As noted above (11) Hypokalemia: Potassium 3.3 Replace with potassium chloride Follow BMP in the morning (12) Hypomagnesemia: Magnesium low at 1.5 on admission Replaced with IV magnesium sulfate Follow magnesium level in the morning (13) DVT prophylaxis: Heparin SQ Disposition-admit to PCU Full code History of Present Illness Chief Complaint: right arm numbness and dysarthria Primary Care Provider: David Chou MD 75 YOF with past medical history of DMII (on insulin), 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 Patient was r ecently seen by PCP for lower quad abdominal pain on Wednesday and placed on prophylactic Augmentin for Diverticulitis. She was noted at that visit to have elevated blood pressure to 200 systolic and was started on amlodipine. Patient reports that abdominal symptoms have improved since then. The patient was brought to the emergency room by her for concerns of right arm numbness to wrist, dysarthria, expressive aphasia, and right sided facial droop. The patient noted that she was normal when she got in the shower at 630 and her symptoms started around 0730, she checked her blood sugar and it was 170, she then took her BP and noted it was ~180, she took her BP medications and did not feel better so they came to the emergency room. The patient explains that her right arm started with tingling to the wrist, did not note any weakness, but then she noticed bilateral pain behind her eyes and having difficulty forming words and sentences. Her also stated that he noticed her right side of her mouth was drooping. Stroke alert was called and the patient had a non-con CT as well as a CTA of the head and neck. BP on arrival was SBP >210 and MAP 120. The patient started to feel better in the emergency room after her CT scan and after her dose of 10mg labetolol. When I saw the patient, she was forming words and sentences fluently, as well as resolution of the above symptoms. The patient still was experiencing the bilateral frontal headache behind her eyes. NIHSS of 0 on my evaluation, was previously 3. SBP 160-180 and her maps 85. Further review with the patient revealed that the patient reports that home blood pressure readings for the week has had the patient's SBP >180-200, and after taking her medications she reports that she never was below 170. With this elevation of her BP she noticed the associated symptoms of the posterior eye pain as above, left sided scalp and ear pain, she denies any vision changes other than her cataracts, and denies any other cardiac symptoms. Allergies Allergy/AdvReac Type Severity Reaction Status Date / Time oxymetazoline Allergy Mild . Verified 12/24/20 11:26 adhesive Allergy Unknown RASH Verified 12/24/20 11:26 latex Allergy Rash Verified 12/24/20 11:26 prednisone AdvReac Intermediate PT CAN Verified 12/24/20 11:26 TOLERATE DEXAMETHASONE [place] Inhibitors AdvReac Unknown Hypotension Verified 12/24/20 11:26 simvastatin AdvReac Unknown Rash Verified 12/24/20 11:26 oxycodone [From OxyContin] AdvReac Vomiting Verified 12/24/20 11:26 Home Medications Medication Instructions Recorded Confirmed Type cholecalciferol (vitamin D3) 125 5,000 units PO DAILY 10/01/19 12/27/20 History mcg (5,000 unit) capsule mecobalamin (vitamin B12) 1,000 1,000 mcg SL DAILY 10/01/19 12/27/20 History mcg disintegrating tablet,sublingual pen needle, diabetic 32 gauge x #10 ea 10/29/19 12/24/20 History " metoprolol tartrate 25 mg tablet 25 mg PO BID #180 tab 06/17/20 12/27/20 Rx omeprazole 20 mg capsule,delayed 20 mg PO DAILY #30 cap 06/18/20 12/27/20 Rx release clopidogrel 75 mg tablet 75 mg PO DAILY 90 Days #90 tab 06/27/20 12/27/20 Rx losartan 100 mg tablet 100 mg PO DAILY #90 tab 08/02/20 12/27/20 Rx atorvastatin 40 mg tablet 40 mg PO DAILY #90 tab 10/14/20 12/27/20 Rx insulin detemir U-100 100 unit/mL See Rx Instructions SQ BID #15 ml 11/14/20 12/27/20 Rx (3 mL) subcutaneous pen amlodipine 10 mg tablet 10 mg PO DAILY #30 tab 12/24/20 12/27/20 Rx amoxicillin 875 mg-potassium 1 tab PO BID #20 tab 12/24/20 12/27/20 Rx clavulanate 125 mg tablet Past Med/Surg History Medical History (Updated 12/27/20 @ 19:27 by Ashley Greco MD) Chest pain Coronary artery disease Dehydration Diabetes mellitus TYPE II on Levemir at this time BID Diffuse large B-cell lymphoma of extranodal site (~07/2013) Dyslipidemia Elevated troponin Elevated troponin Fever (10/21/13) Fever GERD (gastroesophageal reflux disease) Hypertension Hypertensive emergency Hypogammaglobulinemia Indolent lymphoma Kidney disease Lymphoma Metastatic cancer to liver Non Hodgkin's lymphoma (11/20/13) On intra-aortic balloon pump assist Osteopenia Paroxysmal atrial fibrillation Syncope Vitamin B12 deficiency Vitamin D insufficiency Surgical History H/O tubal ligation History of appendectomy History of open heart surgery History of tonsillectomy S/P CABG x 1 on 09/08/2018; FELIZ to OM1 Family History Mother Myocardial infarction Diabetes Sister Bladder cancer Daughter Diabetes Heart disease Brother Lung cancer Father Lung disease Social History Smoking Status: Never smoker Second Hand Exposure: No; Hx Alcohol Use: No Hx Substance Use: No Preferred Language: Sami Communication Ability: Effective Visual Impairment: No Limitations Battery Builder Required: Yes Beliefs That Will Affect Care: None marital status: Current Living Situation: Spouse current occupational status: retired current occupation: Retired Other Information That Helps Us Care for You: No Feels Safe at Home: Yes Safety Concerns: Feels Safe At This Time Childhood Exposure to Second-Hand Smoke: Yes Dental Care, Regularly: No Physical Activity Frequency: 3-4 Times per Week Seatbelt Use: always Sunscreen Use: No Assistive Devices: None Review of Systems Review of Systems: REVIEW OF SYSTEMS: Constitutional: No fever, sweats or chills Eyes: (+) bilateral posterior eye pain, No diplopia, no worsening or blurred vision ENT: (+) headache, normal hearing, no trouble swallowing Respiratory: No cough, sputum, dyspnea at rest or on exertion Cardiovascular: No chest pain, tightness or palpitations Abdomen: No pain, nausea, vomiting, diarrhea or constipation, has resolved since starting Augmentin Musculoskeletal: (+) left shoulder pain which has been ongoing since her CT surgery, joint pain, calf pain, swelling Neurologic: (+) dysarthria, aphasia, numbness tingling to right arm. No balance problems Psychiatric: No anxiety or depression Skin: No rash or itch Physical Exam Physical Exam: PHYSICAL EXAM: General: awake, alert, no apparent distress Head: Normocephalic, atraumatic ENT: No blurred vision no pharyngeal exudate, mucous membranes moist. Left ear and scalp pain is not present at this time. Neuro: PEERLA, EOM intact, peripheral vision intact and equal bilaterally, no hemianopsia, Slow response to following commands, AAO x 3, speech clear and appropriate, strength intact bilaterally 5/5 right upper and lower, and left lower. 4/5 left upper extremity (patient endorses this has been present since her CABG surgery), no pronator drift. Chest: equal rise and fall of the chest, no accessory muscle use, no heaves or thrills, Clear to auscultation, on room air, Cardiac: Regular rate and rhythm, telemetry reviewed, skin warm dry, cap refill <3 seconds, peripheral pulses +2 no JVD, no murmur, no edema GI: NABS x 4 quadrants, soft, nontender to palpation, no rebound, guarding or tenderness : Spontaneously voiding, no pain, no CVA tenderness, Extremities: Normal inspection, no peripheral edema or erythema, calfs nontender to palpation Psych: Normal mood and affect Skin: no rash or erythema Results & Data Results & Data ([facility]) Vital Signs (Past 12 Hours) Vital Signs Temp Pulse Pulse Resp BP BP Pulse Ox 12/27/20 09:57 66 24 188/84 H 98 12/27/20 09:50 66 12/27/20 09:40 67 19 182/76 H 96 12/27/20 09:30 66 21 186/75 H 97 12/27/20 09:20 63 20 165/73 H 97 12/27/20 09:15 64 65 24 191/87 H 191/87 H 96 12/27/20 09:14 68 20 95 12/27/20 09:06 66 18 181/83 H 98 12/27/20 09:05 68 181/83 H 98 12/27/20 09:00 63 18 169/72 H 96 12/27/20 08:57 65 196/77 H 96 12/27/20 08:54 60 18 184/87 H 98 12/27/20 08:50 65 20 97 12/27/20 08:46 68 184/87 H 97 12/27/20 08:43 68 211/73 H 98 12/27/20 08:42 68 68 18 199/87 H 199/87 H 98 12/27/20 08:40 74 12/27/20 08:30 70 20 198/91 H 98 12/27/20 08:27 71 202/83 H 98 12/27/20 08:24 72 18 98 12/27/20 08:20 69 20 97 12/27/20 08:19 72 12/27/20 08:00 201/73 H 12/27/20 07:48 36.8 C 68 20 202/74 H 97 Laboratory Results Abnormal lab results 12/27/20 12/27/20 Range/Units 08:07 08:07 MPV 11.3 H (7.4-10.4) fL Potassium 3.3 L (3.5-5.1) mmol/L Chloride 109 H (98-107) mmol/L BUN 25 H (7-18) mg/dl BUN/Creatinine Ratio 25.7 H (10-20) Glucose 116 H (70-99) mg/dl Magnesium 1.5 L (1.8-2.4) mg/dl AST 14 L (15-37) U/L Alkaline Phosphatase 120 H (45-117) U/L Diagnostic Findings XR chest 1V portable CLINICAL HISTORY: Stroke Like Symptoms, HTN COMPARISON STUDY: Chest CT October 05, 2019. FINDINGS: Median sternotomy wires are noted. Moderate cardiomegaly is unchanged. There is no evidence for pulmonary edema. Mild left basilar opacity favors atelectasis. A hiatal hernia is again noted. There is no consolidation to suggest pneumonia. The appearance of the chest is unchanged. IMPRESSION: No acute cardiopulmonary findings. No change in appearance of the chest. CT OF THE HEAD WITHOUT CONTRAST CLINICAL HISTORY: Stroke Like Symptoms COMPARISON STUDY: Head CT August 24, 2018. TECHNIQUE: Helical axial images of the head were obtained without IV contrast. Automated exposure control was utilized for the study. A dose lowering technique was utilized adhering to the principles of ALARA. FINDINGS: No acute intracranial hemorrhage, midline shift or mass effect is present. White matter hypodensities suggest small vessel disease. The ventricular system is unremarkable. The basal cisterns are patent. No extra- axial collections are present. There are no findings to suggest acute dural sinus thrombosis or acute territorial infarct. No significant calvarial abnormalities are present. Visualized portions of the sinuses and mastoid air cells are clear. IMPRESSION: No acute intracranial findings. HEAD & NECK CTA HISTORY: Right hand numbness. Slurred speech. Stroke Like Symptoms TECHNIQUE: Multiaxial CT images of the head were performed following the intravenous administration of contrast to evaluate the major cerebral vessels. Multiaxial CT images of the neck were also performed following the intravenous administration of contrast to evaluate the major cervical vessels. Maximum intensity projection images were also obtained. A dose lowering technique was utilized adhering to the principles of ALARA. COMPARISON: Head CT 08/22/2018. FINDINGS: There is no mass, hematoma, midline shift, or acute infarct. Calcified plaque within the distal intracranial vertebral arteries resulting in mild focal stenosis of the distal right vertebral artery and moderate to severe focal stenosis of up to 75% within the distal left vertebral artery best seen on image 18 of 252. There is mild focal narrowing within the mid basilar artery. Mild irregularity/narrowing of the distal bilateral M1 segments. The bilateral ACAs and telephone order clerk show no significant stenosis, occlusion, or aneurysm. Focal moderate narrowing of 50-60% within the right supraclinoid ICA. Extensive calcified plaque within the bilateral carotid siphons resulting in multifocal mild narrowing. There is also mild narrowing within the left supraclinoid ICA. The major dural venous sinuses appear patent. The aortic arch and proximal great vessels are widely patent. There is no significant stenosis, occlusion, or dissection identified within the bilateral common carotid, internal carotid, or vertebral arteries. There are poststernotomy changes. No pneumothorax. Calcified plaque within the proximal great vessels and proximal left vertebral artery without significant stenosis. There is also mild to moderate calcified plaque within the left carotid bifurcation. IMPRESSION: 1. Multifocal areas of mild to moderate narrowing within the cerebral arteries as described above most pronounced within the intracranial left vertebral artery demonstrating 75% stenosis and within the right supraclinoid ICA demonstrating 50-60% stenosis. However, there is no occlusion or aneurysm identified in the jamul of [place]. 2. No significant stenosis, occlusion, or dissection identified within the cervical carotid or cervical vertebral arteries. Medications Administered Discontinued Medications Aspirin (Aspirin Chew 324 Mg) 324 mg PO NOW STA Stop: 12/27/20 08:55 Last Admin: 12/27/20 09:00 Dose: 324 mg Documented by: [id number] Sodium Chloride (Nss 1000ml) 500 mls @ 999 mls/hr IV .Q31M ONE Stop: 12/27/20 08:26 Last Infusion: 12/27/20 09:01 Dose: 0 mls/hr Documented by: [id number] Admin: 12/27/20 08:29 Dose: 999 mls/hr Documented by: [id number] Magnesium Sulfate/Dextrose (Magnesium Sulfate / D5w) 1 gm in 100 mls @ 200 mls/hr IV Q30M ROS Stop: 12/27/20 09:44 Last Infusion: 12/27/20 09:58 Dose: 0 mls/hr Documented by: [id number] Admin: 12/27/20 09:21 Dose: 200 mls/hr Documented by: [id number] Infusion: 12/27/20 09:21 Dose: 0 mls/hr Documented by: [id number] Admin: 12/27/20 08:51 Dose: 200 mls/hr Documented by: [id number] Ioversol (Optiray 320 125ml) 120 ml IV ONCE ONE Stop: 12/27/20 08:10 Last Admin: 12/27/20 08:09 Dose: 120 ml Documented by: [id number] Labetalol HCl (Labetalol Hcl Iv 5 Mg/Ml 20ml) 10 mg IV NOW STA Stop: 12/27/20 07:57 Last Admin: 12/27/20 08:29 Dose: 10 mg Documented by: [id number] Cosigned by: [id number] Labetalol HCl (Labetalol Hcl Iv 5 Mg/Ml 20ml) 10 mg IV NOW STA Stop: 12/27/20 08:55 Last Admin: 12/27/20 08:56 Dose: 10 mg Documented by: [id number] Cosigned by: [id number] ECG Additional Comments: NSR, wide notched p waves, nonspecific flattening of t- waves. Compared to February 2019. Code Status & VTE Plan Code Status Full code VTE Prophylaxis Plan VTE Prophylaxis will be ordered: Yes Supervising Physician Co-Signing Physician Notes LEAD SYSTEMS ANALYST Supervision note: I have personally seen and examined the patient and discussed and verified the sam points of the history and physical along with the plan with JESSICA Adames with the following exceptions and/or additions: Patient presents with acute onset of right-sided facial droop and right upper ex tremity numbness with slurred speech. She has been having significantly elevated blood pressures with headache behind the eyes for the last week, blood pressures in the 200 systolic range. She is also dealing with a recent bout of suspected acute diverticulitis which has improved with treatment with Augmentin. She denies chest pain or shortness of breath. Her symptoms were resolved by the time she was evaluated in the ER. She has not had any return of the symptoms since then. History and ROS reviewed as above Vitals reviewed Gen: AAOx3, NAD HEENT: Anicteric sclerae, EOMI, PERRLA CV: RRR no mgr nl S1S2 Pulm: CTAB no wcr Abd: +BS soft NT ND no masses or hernias Ext: No edema, no calf tenderness Skin: No rashes, warm/dry Neuro: Cranial nerves II through XII intact, full strength throughout except 4+ out of 5 in left upper extremity which is chronic, sensation intact to light touch throughout upper and lower extremities bilaterally, negative pronator drift, gait not tested Laboratory values reviewed Imaging reviewed, MRI negative for acute stroke but shows old lacunar infarcts ECG reviewed 75-year-old female here with symptoms as above, now resolved with TIA and hypertensive emergency. -Slowly control blood pressure over time as above, would most likely increase metoprolol to 50 mg p.o. 3 times daily tomorrow. Use IV labetalol as needed in the meantime Appreciate neurology opinion Continue Plavix but will discontinue aspirin as per neurology No need for vascular intervention-appreciate consultation Renal artery Doppler negative for stenosis We will consult cardiology for blood pressure control given her extensive cardiac history so that they are on board All results reviewed with the patient and her daughter, Marielle, on the phone PG Care Time/CCT Total # of Minutes Spent Total Time Spent with Patient: Total time spent is greater than 50% in coordination of care (as documented) at patient's floor/unit and/or counseling patient: Coding Level of Care Code 12935 Initial Inpt Care Lvl 3 Diagnoses Hypertensive emergency I16.1 Carotid artery stenosis I65.29 TIA (transient ischemic attack) G45.9 Coronary artery disease I25.10 Hypercholesteremia E78.00 Diabetes mellitus type 2 in nonobese E11.9 Diverticulosis of colon K57.30 Hx of CABG Z95.1 Kidney disease N28.9 Vertebral artery stenosis I65.09 Hypokalemia E87.6 Hypomagnesemia E83.42 DVT prophylaxis Z29.9
[2020-12-27] MEDS ORDERED: POTASSIUM CHLORIDE CRTAB 20 MEQ TABCR PO STA (11:50)
[2020-12-27] MEDS ORDERED: GLUCAGON FOR INJ 1 MG VIAL SQ PRN (12:52)
[2020-12-27] MEDS ORDERED: GLUCOSE 40% GEL 15 GM TUBE PO PRN (12:52)
[2020-12-27] MEDS ORDERED: LABETALOL HCL IV 5 MG/ML 20ML IV PRN (12:52)
[2020-12-27] MEDS ORDERED: GLUCOSE 10 TABS/TUBE PO PRN (12:52)
[2020-12-27] MEDS ORDERED: ONDANSETRON INJ 2 MG/ML 2 ML VIAL IV PRN (12:52)
[2020-12-27] MEDS ORDERED: POLYETHYLENE (MIRALAX) 17 GM PACK PO PRN (12:52)
[2020-12-27] MEDS ORDERED: CARBOHYDRATES FOR HYPOGLYCEMIA PO PRN (12:52)
[2020-12-27] MEDS ORDERED: DEXTROSE 50% 50 ML SYRINGE IV PRN (12:52)
[2020-12-27] MEDS ORDERED: PHARMACIST DISCHARGE MED REC CONSULT PRN (12:52)
[2020-12-27] MEDS: ACETAMINOPHEN 325 MG TAB PO PRN (13:53)
--- NOTE | 2020-12-27 14:07 | Consultation ---
Date of Consultation December 27, 2020 Assessment & Plan (1) Carotid artery stenosis: Pt with very mild and very distal R ICA stenosis of approx 50%. Also noted intracranial L vertebral artery stenosis of 75%. Pt's sx are L hemispheric and not likely related to either of these findings. No vascular surgical intervention warranted at this time. Due to intracranial location of these lesions, pt would require consult with neurointerventional radiology if she develops sx related to these lesions. Pt does have mild tenderness to L temporal area, however, her ESR is only 14 and her L sided AUGUSTIN is more likely related to her TIA and hypertensive urgency. Please call if needed. Patient was seen, examined, and chart reviewed. Agree with exam and treatment plan of the Vascular PA. History of Present Illness Reason for Consultation: L vertebral artery stenosis 75%, supraclinoid R ICA stenosis 50%, possible L hemispheric TIA Attending Physician: Ashley Greco MD History of Present Illness 75 yo f with hx of HTN, DMII, dyslipidemia, CAD s/p coronary stenting and CABG, a fib, NSTEMI, non hodgkins lymphoma, GERD, liver mets, admitted with L hemispheric TIA which occurred this AM, seen in consultation today for mild distal carotid stenosis and L vertebral artery stenosis noted on CTA. Pt states she has never had similar sx to this in past. She suddenly developed R forearm and hand numbness/weakness, and then had some cognitive difficulty and difficulty speaking. Her family sent her to ED for eval. States she has been having very high BP at home over past few days, even after taking her usual medications. Had her meds changed this week by PCP d/t the elevated BP. Admits L sided headache and L eye discomfort for past few days, which has occured before and she has seen her airplane engineer for this. Has cataracts. Denies any vision changes. Denies dizziness, confusion, facial droop, palpitations, chest pain, SOB, recent illness, fever, abdpain, N/V, rest pain, claudication, other complaints. Uses a cane to walk for stability. CTA neck demonstrates 75% stenosis of very distal L vertebral artery and approx 50% stenosis of supraclinoid R ICA. Allergies Allergy/AdvReac Type Severity Reaction Status Date / Time oxymetazoline Allergy Mild . Verified 12/24/20 11:26 adhesive Allergy Unknown RASH Verified 12/24/20 11:26 latex Allergy Rash Verified 12/24/20 11:26 prednisone AdvReac Intermediate PT CAN Verified 12/24/20 11:26 TOLERATE DEXAMETHASONE [place] Inhibitors AdvReac Unknown Hypotension Verified 12/24/20 11:26 simvastatin AdvReac Unknown Rash Verified 12/24/20 11:26 oxycodone [From OxyContin] AdvReac Vomiting Verified 12/24/20 11:26 Home Medications Medication Instructions Recorded Confirmed Type cholecalciferol (vitamin D3) 125 5,000 units PO DAILY 10/01/19 12/27/20 History mcg (5,000 unit) capsule mecobalamin (vitamin B12) 1,000 1,000 mcg SL DAILY 10/01/19 12/27/20 History mcg disintegrating tablet,sublingual pen needle, diabetic 32 gauge x #10 ea 10/29/19 12/24/20 History " metoprolol tartrate 25 mg tablet 25 mg PO BID #180 tab 06/17/20 12/27/20 Rx omeprazole 20 mg capsule,delayed 20 mg PO DAILY #30 cap 06/18/20 12/27/20 Rx release clopidogrel 75 mg tablet 75 mg PO DAILY 90 Days #90 tab 06/27/20 12/27/20 Rx losartan 100 mg tablet 100 mg PO DAILY #90 tab 08/02/20 12/27/20 Rx atorvastatin 40 mg tablet 40 mg PO DAILY #90 tab 10/14/20 12/27/20 Rx insulin detemir U-100 100 unit/mL See Rx Instructions SQ BID #15 ml 11/14/20 12/27/20 Rx (3 mL) subcutaneous pen amlodipine 10 mg tablet 10 mg PO DAILY #30 tab 12/24/20 12/27/20 Rx amoxicillin 875 mg-potassium 1 tab PO BID #20 tab 12/24/20 12/27/20 Rx clavulanate 125 mg tablet Patient History Medical History (Updated 12/27/20 @ 19:27 by Ashley Greco MD) Chest pain Coronary artery disease Dehydration Diabetes mellitus TYPE II on Levemir at this time BID Diffuse large B-cell lymphoma of extranodal site (~07/2013) Dyslipidemia Elevated troponin Elevated troponin Fever (10/21/13) Fever GERD (gastroesophageal reflux disease) Hypertension Hypertensive emergency Hypogammaglobulinemia Indolent lymphoma Kidney disease Lymphoma Metastatic cancer to liver Non Hodgkin's lymphoma (11/20/13) On intra-aortic balloon pump assist Osteopenia Paroxysmal atrial fibrillation Syncope Vitamin B12 deficiency Vitamin D insufficiency Surgical History H/O tubal ligation History of appendectomy History of open heart surgery History of tonsillectomy S/P CABG x 1 on 09/08/2018; FELIZ to OM1 Family History Mother Myocardial infarction Diabetes Sister Bladder cancer Daughter Diabetes Heart disease Brother Lung cancer Father Lung disease Social History Smoking Status: Never smoker Second Hand Exposure: No; Hx Alcohol Use: No Hx Substance Use: No Preferred Language: Georgian Communication Ability: Effective Visual Impairment: No Limitations Paralegal Specialist Required: Yes Beliefs That Will Affect Care: None marital status: Current Living Situation: Spouse current occupational status: retired current occupation: Retired Other Information That Helps Us Care for You: No Feels Safe at Home: Yes Safety Concerns: Feels Safe At This Time Childhood Exposure to Second-Hand Smoke: Yes Dental Care, Regularly: No Physical Activity Frequency: 3-4 Times per Week Seatbelt Use: always Sunscreen Use: No Assistive Devices: None Review of Systems Review of Systems: All systems reviewed & are unremarkable except as noted in HPI & below Physical Exam Constitutional: WD/WN, vitals as above healthy appearing and comfortable; not in distress Eyes: PERRL, conjunctivae normal, anicteric sclerae (tenderness over L temporal area) ENMT: Ears: no hearing impairment Neck: normal visual inspection; + trachea not midline Respiratory: normal respiratory effort, lungs clear to auscultation Cardiovascular: Rate/Rhythm: regular rate and regular rhythm Vessels: femoral pulses present, posterior tibial pulses present, dorsalis pedis pulses present, brachial pulses present, radial pulses present and + temporal artery tenderness (Left); no carotid bruit and + abnormal peripheral pulses Extremities: normal capillary refill; no edema Gastrointestinal (Abdomen): normal bowel sounds, soft, nontender, no hepatosplenomegaly Musculoskeletal: Extremities: + abnormal strength (RUE 4/5 construction equipment 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, LUE 5/5) Skin: no rashes, warm and dry Neurologic: moves all extremities and awake; no focal motor deficits and not confused Psychiatric: A+Ox3, euthymic affect Results & Data ([facility]) Vital Signs (Past 12 Hours) Vital Signs Temp Pulse Pulse Resp BP BP Pulse Ox 12/27/20 11:35 36.5 C 59 L 15 197/73 H 97 12/27/20 10:50 62 18 162/69 H 97 12/27/20 10:40 62 17 158/85 H 96 12/27/20 10:30 61 19 166/74 H 96 12/27/20 10:20 67 18 160/88 H 98 12/27/20 10:10 62 20 154/79 H 97 12/27/20 10:00 62 19 154/86 H 97 12/27/20 09:58 64 19 98 12/27/20 09:57 66 24 188/84 H 98 12/27/20 09:50 66 12/27/20 09:40 67 19 182/76 H 96 12/27/20 09:30 66 21 186/75 H 97 12/27/20 09:20 63 20 165/73 H 97 12/27/20 09:15 64 65 24 191/87 H 191/87 H 96 12/27/20 09:14 68 20 95 12/27/20 09:06 66 18 181/83 H 98 12/27/20 09:05 68 181/83 H 98 12/27/20 09:00 63 18 169/72 H 96 12/27/20 08:57 65 196/77 H 96 12/27/20 08:54 60 18 184/87 H 98 12/27/20 08:50 65 20 97 12/27/20 08:46 68 184/87 H 97 12/27/20 08:43 68 211/73 H 98 12/27/20 08:42 68 68 18 199/87 H 199/87 H 98 12/27/20 08:40 74 12/27/20 08:30 70 20 198/91 H 98 12/27/20 08:27 71 202/83 H 98 12/27/20 08:24 72 18 98 12/27/20 08:20 69 20 97 12/27/20 08:19 72 12/27/20 08:00 201/73 H 12/27/20 07:48 36.8 C 68 20 202/74 H 97
--- NOTE | 2020-12-27 14:38 | Neurology Consultation ---
Date of Consultation December 27, 2020 Assessment & Plan (1) Slurring of speech: Radha Butler is a 75 yo woman w/ PMH of DM, HTN, HLD, GERD, h/o diffuse B cell lymphoma, CAD s/p cardiac stents and CABG, clifton-operative AFIB on plavix and recent diagnosis of diverticulitis currently on Augmentin who p/t [facility] with acute onset of right sided numbness and dysarthria. Symptom localization: genu of the internal capsule vs basis pontis Stroke mechanism: cardioembolic vs lacunar/lipohyalinosis Stroke WorkUp: - CT head: shows no hemorrhage or new hypodensity, chronic small infarct in the right cerebellum noted. - CTA head/neck: shows diffuse intracranial atherosclerosis with moderate to severe stenosis of the left V4 segment intracranially, multifocal narrowing of the basilar artery, minimal stenosis of the left ICA at the bifurcation, mild right ICA stenosis in the supraclinoid segment, with no other LVO, high-grade stenosis or aneurysm noted - MRI brain: no acute infarct, moderate SVID, moderate to severe generalized atrophy w/ ex vacuo dilation, chronic punctuate infarcts in bilateral cerebellum (right > left) - TTE: pending - Telemetry: pending - A1c: pending - FLP: pending - Troponin: pending Stroke Management: - Acute treatment: ASA - Continuous cardiac monitoring, will consider Holter monitor as outpatient if telemetry here unrevealing - Vitals, Neurochecks, NIHSS per unit routine - BP parameters: SBP CAP 180, restart home anti-hypertensives, would not drop blood pressure by more than 25-30% first 24 hours to prevent stroke - Complete ischemic stroke workup with TTE without bubble, A1c, fasting lipid panel - Consult speech, PT, OT for supportive management - Will academic counselor concerning stroke education, smoking cessation, healthy diet, physical activity, weight loss - Follow up with PCP for assistance with outpatient goals (BP <130/80, LDL <70, A1c <7) Secondary Stroke Prevention: - Antiplatelet: continue home plavix 75mg daily - Anticoagulation: Not indicated at this time - Statin: Atorvastatin 40mg daily HTN: - BP parameters, as above - Restart home BP meds (amlodipine, losartan, metoprolol) FEN/GI: - Diet: NPO until cleared by Speech evaluation - Monitor lytes and replete PRN Glucose Control: - Sliding scale insulin and accuchecks per primary team to avoid hyperglycemia Headache: - ok to give PO or IV tylenol, would avoid opiates/NSAIDs if possible Thank you for this interesting consult. Plan of care was discussed with primary team. Please call with any questions. (2) Hypertensive emergency: (3) Coronary artery disease: (4) Diabetes mellitus type 2 in nonobese: (5) Dyslipidemia: (6) Indolent lymphoma: History of Present Illness Attending Physician: Ashley Greco MD History of Present Illness Radha Butler is a 75 yo woman w/ PMH of DM, HTN, HLD, GERD, h/o diffuse B cell lymphoma, CAD s/p cardiac stents and CABG, clifton-operative AFIB on plavix and recent diagnosis of diverticulitis currently on Augmentin who p/t [facility] with acute onset of right sided numbness and dysarthria. 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 In the ED, she was afebrile, BP 202/74, heart rate 68, respiratory rate 20, satting 97% on room air. Labs notable for WBC 6.37, hemoglobin 14.4, platelets 203, sodium 143, potassium 3.3, BUN 25, creatinine 0.96, glucose 116, INR 1.0, LFTs within normal troponin negative, ESR 14, UA no infection, Covid negative. Imaging independently reviewed. CT head shows no hemorrhage or new hypodensity, chronic small infarct in the right cerebellum noted. CTA head and neck shows diffuse intracranial atherosclerosis with moderate to severe stenosis of the left V4 segment intracranially, multifocal narrowing of the basilar artery, minimal stenosis of the left ICA at the bifurcation, mild right ICA stenosis in the supraclinoid segment, with no other LVO, high-grade stenosis or aneurysm noted. MRI brain pending. On evaluation, she reports that she was in her normal state of health until this morning. She had woken up, taken a shower and was taking her morning meds when she noticed acute onset of RUE numbness/tingling and slurred speech. [place] like symptoms were resolved by the time she received "a medication" in the ED. Endorses having an ongoing headache that has been present for the last 2 weeks and has woken her up a few times. Also endorses having very uncontrolled BP recently despite taking medications. Stroke Workflow: Where patient arrived from: home CT ASPECT: 10 Time IV tpa is given: NA tPA bolus: NA tPA dose: NA If tpa not given, why not: rapid improvement of symptoms to baseline If delay >60min after hospital arrival, why: NA If no IA therapy, why not: No LVO on CTA Patient Features: Admission NIHSS: 0 Admission Modified Patrick Scale: 0-1 Time patient last seen well: 6:30am on 12/27/20 Wake up stroke: No Intubation status: Not intubated Stroke Risk Factors: Hypertension: Y Hyperlipidemia: Y Atrial Fib: Y, remote history clifton-operatively Tobacco: N Diabetes: Y Taking NOAC or warfarin: N Allergies Allergy/AdvReac Type Severity Reaction Status Date / Time oxymetazoline Allergy Mild . Verified 12/24/20 11:26 adhesive Allergy Unknown RASH Verified 12/24/20 11:26 latex Allergy Rash Verified 12/24/20 11:26 prednisone AdvReac Intermediate PT CAN Verified 12/24/20 11:26 TOLERATE DEXAMETHASONE [place] Inhibitors AdvReac Unknown Hypotension Verified 12/24/20 11:26 simvastatin AdvReac Unknown Rash Verified 12/24/20 11:26 oxycodone [From OxyContin] AdvReac Vomiting Verified 12/24/20 11:26 Home Medications Medication Instructions Recorded Confirmed Type cholecalciferol (vitamin D3) 125 5,000 units PO DAILY 10/01/19 12/27/20 History mcg (5,000 unit) capsule mecobalamin (vitamin B12) 1,000 1,000 mcg SL DAILY 10/01/19 12/27/20 History mcg disintegrating tablet,sublingual pen needle, diabetic 32 gauge x #10 ea 10/29/19 12/24/20 History " metoprolol tartrate 25 mg tablet 25 mg PO BID #180 tab 06/17/20 12/27/20 Rx omeprazole 20 mg capsule,delayed 20 mg PO DAILY #30 cap 06/18/20 12/27/20 Rx release clopidogrel 75 mg tablet 75 mg PO DAILY 90 Days #90 tab 06/27/20 12/27/20 Rx losartan 100 mg tablet 100 mg PO DAILY #90 tab 08/02/20 12/27/20 Rx atorvastatin 40 mg tablet 40 mg PO DAILY #90 tab 10/14/20 12/27/20 Rx insulin detemir U-100 100 unit/mL See Rx Instructions SQ BID #15 ml 11/14/20 12/27/20 Rx (3 mL) subcutaneous pen amlodipine 10 mg tablet 10 mg PO DAILY #30 tab 12/24/20 12/27/20 Rx amoxicillin 875 mg-potassium 1 tab PO BID #20 tab 12/24/20 12/27/20 Rx clavulanate 125 mg tablet Patient History Medical History Chest pain Dehydration Diabetes mellitus TYPE II on Levemir at this time BID Diffuse large B-cell lymphoma of extranodal site (~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) Elevated troponin Elevated troponin Fever (10/21/13) Fever GERD (gastroesophageal reflux disease) Hypertension Hypertensive emergency Hypogammaglobulinemia Kidney disease Lymphoma Metastatic cancer to liver On intra-aortic balloon pump assist Syncope Surgical History H/O tubal ligation History of appendectomy History of open heart surgery History of tonsillectomy S/P CABG x 1 on 09/08/2018; FELIZ to OM1 Family History Mother Myocardial infarction Diabetes Sister Bladder cancer Daughter Diabetes Heart disease Brother Lung cancer Father Lung disease Social History Smoking Status: Never smoker Second Hand Exposure: No; Hx Alcohol Use: No Hx Substance Use: No Preferred Language: Faroese Communication Ability: Effective Visual Impairment: No Limitations Highway Maintenance Supervisor Required: Yes Beliefs That Will Affect Care: None marital status: Current Living Situation: Spouse current occupational status: retired current occupation: Retired Other Information That Helps Us Care for You: No Feels Safe at Home: Yes Safety Concerns: Feels Safe At This Time Childhood Exposure to Second-Hand Smoke: Yes Dental Care, Regularly: No Physical Activity Frequency: 3-4 Times per Week Seatbelt Use: always Sunscreen Use: No Assistive Devices: Cane, Denture - Upper and Denture - Lower Review of Systems Review of Systems: 14 point review of systems completed and negative except as in HPI. Exam (Neuro) Physical Exam: General Exam: GEN: NAD, sitting in wheelchair HEENT: No conjunctival injection, no rhinorrhea. CV: RRR on monitor, no significant edema. PULM: Nonlabored respirations on room air. Neuro Exam: MS: Awake and Alert. Oriented to person, place, and date. Speech fluent and appropriate without dysarthria or paraphasic errors. Language intact including naming, comprehension, repetition. Cognition and memory grossly intact. Attention intact. No neglect. CN: Visual godinez full, + blink to threat bilaterally. No extinction to double simultaneous stimuli. Unable to visualize fundi on fundoscopic exam. PERRLA OU. EOMI without nystagmus. Facial sensation intact to LT. Facial muscles full and symmetric. Hearing intact to conversation. Uvula midline with symmetric palatal elevation. Shoulder shrug normal. Tongue midline. MOTOR: Normal bulk and tone. No pronator drift. BUE strength 5/5 at deltoids, biceps, triceps, wrist flexors and extensors, and finger flexors bilaterally. BLE strength 5-/5 at iliopsoas, hamstrings, quadriceps, tibialis anterior, and gastrocnemius bilaterally. REFLEXES: 1+ at biceps, triceps, brachioradialis, trace patella, and absent Achilles bilaterally. Flexor plantar responses bilaterally. SENSORY: Intact to LT throughout, no extinction to double simultaneous stimuli. Decreased vibration in BLEs up to the knees. COORDINATION: No dysmetria or ataxia on [id number]-[id number] bilaterally. Normal Mekhi bilaterally. GAIT: Deferred due to physical status. NIH STROKE SCALE 1A. Level of Consciousness (0-3) = 0 1B. LOC Questions (0-2) = 0 1C. LOC Commands (0-2) = 0 2. Best Horizontal Gaze (0-2) = 0 3. Visual Godinez (0-3) = 0 4. Facial Palsy (0-3) = 0 5. Motor Arm Right (0-4) = 0 Left (0-4) = 0 6. Motor Leg Right (0-4) = 0 Left (0-4) = 0 7. Limb Ataxia (0-2) = 0 8. Sensory (0-2) = 0 9. Best Language (0-3) = 0 10. Dysarthria (0-2) = 0 11. Extinction and Inattention (0-2) = 0 NIHSS TOTAL = 0 Results & Data ([facility]) Vital Signs (Past 12 Hours) Vital Signs Temp Pulse Pulse Resp BP BP Pulse Ox 12/27/20 11:35 36.5 C 59 L 15 197/73 H 97 12/27/20 10:50 62 18 162/69 H 97 12/27/20 10:40 62 17 158/85 H 96 12/27/20 10:30 61 19 166/74 H 96 12/27/20 10:20 67 18 160/88 H 98 12/27/20 10:10 62 20 154/79 H 97 12/27/20 10:00 62 19 154/86 H 97 12/27/20 09:58 64 19 98 12/27/20 09:57 66 24 188/84 H 98 12/27/20 09:50 66 12/27/20 09:40 67 19 182/76 H 96 12/27/20 09:30 66 21 186/75 H 97 12/27/20 09:20 63 20 165/73 H 97 12/27/20 09:15 64 65 24 191/87 H 191/87 H 96 12/27/20 09:14 68 20 95 12/27/20 09:06 66 18 181/83 H 98 12/27/20 09:05 68 181/83 H 98 12/27/20 09:00 63 18 169/72 H 96 12/27/20 08:57 65 196/77 H 96 12/27/20 08:54 60 18 184/87 H 98 12/27/20 08:50 65 20 97 12/27/20 08:46 68 184/87 H 97 12/27/20 08:43 68 211/73 H 98 12/27/20 08:42 68 68 18 199/87 H 199/87 H 98 12/27/20 08:40 74 12/27/20 08:30 70 20 198/91 H 98 12/27/20 08:27 71 202/83 H 98 12/27/20 08:24 72 18 98 12/27/20 08:20 69 20 97 12/27/20 08:19 72 12/27/20 08:00 201/73 H 12/27/20 07:48 36.8 C 68 20 202/74 H 97 PG Care Time/CCT Total # of Minutes Spent Total Time Spent with Patient: Total time spent is greater than 50% in coordination of care (as documented) at patient's floor/unit and/or counseling patient: Coding Level of Care Code 69359 Initial Inpt Care Lvl 3 Diagnoses Slurring of speech R47.81 Hypertensive emergency I16.1 Coronary artery disease I25.10 Diabetes mellitus type 2 in nonobese E11.9 Dyslipidemia E78.5 Indolent lymphoma C85.90
--- NOTE | 2020-12-27 15:00 | Ultrasound Report ---
DOPPLER ULTRASOUND OF THE RENAL ARTERIES CLINICAL HISTORY: HTN emergency vs. urgency COMPARISON STUDY: CT of the abdomen and pelvis October 05, 2019. TECHNIQUE: Grayscale, color and duplex Doppler sonography of the abdominal aorta and bilateral renal arteries was performed FINDINGS: Bilateral renal arteries and veins are patent. Peak systolic velocity within the abdominal aorta was 133 cm/s. Peak systolic velocity within the right renal artery was 104 cm/s. Peak systolic velocity within the left renal artery was 109 cm second. Segmental waveforms within each kidney are n ormal. Disc systolic upstrokes were noted. IMPRESSION: No sonographic evidence of renal artery stenosis. ACT 112: Negative or not required by law. Electronically signed by: Paul Geller M.D. 12/27/2020 2:59 PM
[2020-12-27] MEDS ORDERED: GADOBUTROL 65ML VIAL IV ONE (15:09)
--- NOTE | 2020-12-27 15:32 | Magnetic Resonance Report ---
MRI OF THE BRAIN WITHOUT AND WITH IV CONTRAST CLINICAL HISTORY: aphasia resolved, with 75% MRAIO stenosis COMPARISON STUDY: MRI the brain September 29, 2013. Head CT and CTA of the head performed earlier toraman guillory. TECHNIQUE: Utilizing a 1.5 Kiley magnet and dedicated coil, multiplanar, multiecho imaging of the br ain was performed pre and postcontrast administration. IV administration of 8 mL of Gadavist contras t was uneventful. FINDINGS: There are no foci of restricted diffusion to suggest acute infarct. No acute intracranial h emorrhage, midline shift or mass effect is present. Ventricular system is unremarkable. Basal cistern s are patent. There are no extra-axial collections. Flow-voids for the major intracranial vessels are present. Exam is mildly compromised by motion artifact however is diagnostic. White matter T2 hyperi ntense foci favor small vessel disease. There are old lacunar infarcts within the bilateral cerebella r hemispheres. There is no intracranial mass or pathologic enhancement. IMPRESSION: 1. No acute intracranial findings. 2. No intracranial mass or pathologic enhancement. 3. Matter T2 hyperintense foci suggestive of moderate small vessel disease. 3. A few old lacunar infarcts within the bilateral cerebellar hemispheres. ACT 112: Negative or not required by law. Electronically signed by: Paul Geller M.D. 12/27/2020 3:31 PM
[2020-12-27] MEDS: HEPARIN SOD 5,000 UNIT/0.5 ML VIAL SQ SCH ×2 (16:37→19:50)
--- NOTE | 2020-12-27 17:50 | XCELERA ---
[id number]
--- NOTE | 2020-12-27 18:08 | Electrocardiogram Report ---
Test Reason : Blood Pressure : / mmHG Vent. Rate : 076 BPM Atrial Rate : 076 BPM P-R Int : 152 ms QRS Dur : 084 ms QT Int : 430 ms P-R-T Axes : 063 009 074 degrees QTc Int : 483 ms Sinus rhythm with occasional Premature ventricular complexes Possible Left atrial enlargement Inferior infarct (cited on or before 23-AUG-2018) Abnormal ECG When compared with ECG of 13-FEB-2019 09:05, Premature ventricular complexes are now Present T wave inversion no longer evident in Anterior leads QT has lengthened Confirmed by Antwon Carrillo ([id number]) on 12/27/2020 6:08:13 PM Referred By: REFERRED SELF Confirmed By:Antwon Carrillo
--- NOTE | 2020-12-27 18:13 | Electrocardiogram Report ---
Test Reason : Blood Pressure : / mmHG Vent. Rate : 060 BPM Atrial Rate : 060 BPM P-R Int : 162 ms QRS Dur : 088 ms QT Int : 454 ms P-R-T Axes : 058 011 038 degrees QTc Int : 454 ms Normal sinus rhythm Possible Left atrial enlargement Cannot rule out Inferior infarct (cited on or before 23-AUG-2018) Nonspecific T wave abnormality Abnormal ECG When compared with ECG of 27-DEC-2020 08:05, (unconfirmed) Premature ventricular complexes are no longer Present Confirmed by Antwon Carrillo ([id number]) on 12/27/2020 6:12:31 PM Referred By: REFERRED SELF Confirmed By:Antwon Carrillo
[2020-12-27] MEDS: INSULIN DETEMIR FLEXPEN/FLEX TOUCH 100 UNITS/ML 3ML SQ SCH (19:49)
[2020-12-27] MEDS: METOPROLOL TARTRATE 25 MG TAB PO SCH (19:50)
[2020-12-27] MEDS: AMOXICILLIN/CLAVULANATE 875 MG TAB PO SCH (19:50)
[2020-12-28 05:26] LABS: Basophils # (auto) 0.02 K/uL (0-0.2); Basophils % (auto) 0.3 %; Eosinophils # (auto) 0.12 K/uL (0-0.5); Eosinophils % (auto) 2.1 %; Hematocrit (blood only) 38.8 % (37-47); Hemoglobin 12.8 g/dL (12.0-16.0); Immature Granulocytes # (auto) 0.01 K/uL (0.00-0.02); Immature Granulocytes % (auto) 0.2 %; Lymphocytes # (auto) 1.42 K/uL (1.2-3.4); Lymphocytes % (auto) 24.6 %; Mean Corpuscular Hemoglobin 29.9 pg (25-34); Mean Corpuscular Volume 90.7 fL (80-100); Mean Platelet Volume 11.7 fL (7.4-10.4); Monocytes # (auto) 0.36 K/uL (0.11-0.59); Monocytes % (auto) 6.2 %; Neutrophils # (auto) 3.84 K/uL (1.4-6.5); Neutrophils % (auto) 66.6 %; Platelet Count 182 K/uL (130-400); RDW Coefficient of Variation 13.5 % (11.5-14.5); RDW Standard Deviation 44.2 fL (36.4-46.3); Red Blood Count 4.28 M/uL (4.2-5.4); White Blood Count 5.77 K/uL (4.8-10.8)
[2020-12-28 05:35] LABS: Prothrombin Time 10.3 Seconds (9.0-12.0)
[2020-12-28 06:08] LABS: BUN Creatinine Ratio 23.7 (10-20); Calcium 8.9 mg/dl (8.5-10.1); Creatinine Clr Calc Pharmacy 55.6 ml/min; Est GFR (African American) 78.8; Magnesium 2.2 mg/dl (1.8-2.4); Potassium 3.9 mmol/L (3.5-5.1)
[2020-12-28 06:23] LABS: Estimated Average Glucose 163 mg/dl; Hemoglobin A1C 7.3 % (4.5-5.6)
[2020-12-28] MEDS: HEPARIN SOD 5,000 UNIT/0.5 ML VIAL SQ SCH ×3 (06:25→20:16)
[2020-12-28] MEDS: CLOPIDOGREL BISULFATE 75 MG TAB PO SCH (07:59)
[2020-12-28] MEDS: CYANOCOBALAMIN 500 MCG TABLET (VITAMIN B-12) PO SCH (07:59)
[2020-12-28] MEDS: CHOLECALCIFEROL 1,000 UNITS 25 MCG TAB PO SCH (07:59)
[2020-12-28] MEDS: METOPROLOL TARTRATE 25 MG TAB PO SCH ×2 (08:00→20:16)
[2020-12-28] MEDS: amLODIPine BESYLATE 5 MG TAB PO SCH (08:00)
[2020-12-28] MEDS: INSULIN DETEMIR FLEXPEN/FLEX TOUCH 100 UNITS/ML 3ML SQ SCH ×2 (08:00→20:15)
[2020-12-28] MEDS: AMOXICILLIN/CLAVULANATE 875 MG TAB PO SCH ×2 (08:00→20:15)
[2020-12-28] MEDS: ATORVASTATIN 40 MG TAB PO SCH (08:00)
[2020-12-28] MEDS: LOSARTAN POTASSIUM 50 MG TAB PO SCH (08:00)
[2020-12-28] MEDS: PANTOprazole 40 MG TAB PO SCH (08:00)
[2020-12-28] MEDS ORDERED: ASPIRIN 81 MG ECTAB PO SCH (09:00)
--- NOTE | 2020-12-28 10:20 | Neurology Progress Note ---
Date of Service December 28, 2020 Assessment & Plan (1) Slurring of speech: Radha Butler is a 75 yo woman w/ PMH of DM, HTN, HLD, GERD, h/o diffuse B cell lymphoma, CAD s/p cardiac stents and CABG, clifton-operative AFIB on plavix and recent diagnosis of diverticulitis currently on Augmentin who p/t [facility] with acute onset of right sided numbness and dysarthria. Symptom localization: genu of the internal capsule vs basis pontis Stroke mechanism: most likely HTNsive urgency, less likely cardioembolic vs lacunar/lipohyalinosis as no stroke on MRI and symptoms difficult to localize as a TIA Stroke WorkUp: - CT head: shows no hemorrhage or new hypodensity, chronic small infarct in the right cerebellum noted. - CTA head/neck: shows diffuse intracranial atherosclerosis with moderate to severe stenosis of the left V4 segment intracranially, multifocal narrowing of the basilar artery, minimal stenosis of the left ICA at the bifurcation, mild right ICA stenosis in the supraclinoid segment, with no other LVO, high-grade stenosis or aneurysm noted - MRI brain: no acute infarct, moderate SVID, moderate to severe generalized atrophy w/ ex vacuo dilation, chronic punctuate infarcts in bilateral cerebellum (right > left) - TTE: EF 60-65%, moderate LVH, grade I diastolic dysfunction - Telemetry: NSR - A1c: 7.3 - FLP: 58 - Troponin: negative Stroke Management: - Acute treatment: ASA - Continuous cardiac monitoring, will consider Holter monitor as outpatient if telemetry here unrevealing - Vitals, Neurochecks, NIHSS per unit routine - BP parameters: SBP CAP 180, restart home anti-hypertensives, would not drop blood pressure by more than 25-30% first 24 hours to prevent stroke - Complete ischemic stroke workup with TTE without bubble, A1c, fasting lipid panel - Consult speech, PT, OT for supportive management - Will baby counselor concerning stroke education, smoking cessation, healthy diet, physical activity, weight loss - Follow up with PCP for assistance with outpatient goals (BP <130/80, LDL <70, A1c <7) - Follow up with HOSSEIN Borrego, in neurology clinic in 6-8 weeks Secondary Stroke Prevention: - Antiplatelet: continue home plavix 75mg daily - Anticoagulation: Not indicated at this time - Statin: Atorvastatin 40mg daily HTN: - BP parameters, as above - Restart home BP meds (amlodipine, losartan, metoprolol) FEN/GI: - Monitor lytes and replete PRN Glucose Control: - Sliding scale insulin and accuchecks per primary team to avoid hyperglycemia Headache: - ok to give PO or IV tylenol, would avoid opiates/NSAIDs if possible Thank you for this interesting consult. Plan of care was discussed with primary team. Please call with any questions. (2) Hypertensive emergency: (3) Coronary artery disease: (4) Diabetes mellitus type 2 in nonobese: (5) Dyslipidemia: (6) Indolent lymphoma: Admission and Anticipated Discharge Date Admission Date: December 27, 2020 Subjective NAEs overnight. She reports that she is doing much better. No residual neurologic symptoms at this time. Has mild residual posterior headache/neck pain that improves with tylenol. Review of Systems Review of Systems: 14 point review of systems completed and negative except as in HPI. Results & Data ([facility]) Vital Signs (Past 12 Hours) Vital Signs Temp Pulse Pulse Resp BP BP Pulse Ox 12/28/20 08:00 57 L 12/28/20 07:57 36.4 C L 62 18 161/71 H 96 12/28/20 03:29 36.6 C 62 18 154/68 H 95 12/28/20 02:00 60 21 94 12/28/20 01:00 63 20 94 12/28/20 00:00 36.8 C 65 19 150/85 H 95 Exam (Neuro) Physical Exam: General Exam: GEN: NAD, sitting in wheelchair HEENT: No conjunctival injection, no rhinorrhea. CV: RRR on monitor, no significant edema. PULM: Nonlabored respirations on room air. Neuro Exam: MS: Awake and Alert. Oriented to person, place, and date. Speech fluent and appropriate without dysarthria or paraphasic errors. Language intact including naming, comprehension, repetition. Cognition and memory grossly intact. Attention intact. No neglect. CN: Visual holman full, + blink to threat bilaterally. No extinction to double simultaneous stimuli. Unable to visualize fundi on fundoscopic exam. PERRLA OU. EOMI without nystagmus. Facial sensation intact to LT. Facial muscles full and symmetric. Hearing intact to conversation. Uvula midline with symmetric palatal elevation. Shoulder shrug normal. Tongue midline. MOTOR: Normal bulk and tone. No pronator drift. BUE strength 5/5 at deltoids, biceps, triceps, wrist flexors and extensors, and finger flexors bilaterally. BLE strength 5-/5 at iliopsoas, hamstrings, quadriceps, tibialis anterior, and gastrocnemius bilaterally. REFLEXES: 1+ at biceps, triceps, brachioradialis, trace patella, and absent Achilles bilaterally. Flexor plantar responses bilaterally. SENSORY: Intact to LT throughout, no extinction to double simultaneous stimuli. Decreased vibration in BLEs up to the knees. COORDINATION: No dysmetria or ataxia on [id number] bilaterally. Normal Mekhi bilaterally. GAIT: Deferred due to physical status. NIH STROKE SCALE 1A. Level of Consciousness (0-3) = 0 1B. LOC Questions (0-2) = 0 1C. LOC Commands (0-2) = 0 2. Best Horizontal Gaze (0-2) = 0 3. Visual Holman (0-3) = 0 4. Facial Palsy (0-3) = 0 5. Motor Arm Right (0-4) = 0 Left (0-4) = 0 6. Motor Leg Right (0-4) = 0 Left (0-4) = 0 7. Limb Ataxia (0-2) = 0 8. Sensory (0-2) = 0 9. Best Language (0-3) = 0 10. Dysarthria (0-2) = 0 11. Extinction and Inattention (0-2) = 0 NIHSS TOTAL = 0 PG Care Time/CCT Total # of Minutes Spent Total Time Spent with Patient: Total time spent is greater than 50% in coordination of care (as documented) at patient's floor/unit and/or counseling patient: Coding Level of Care Code 04759 Subseq Hosp Care Lvl 3 Diagnoses Slurring of speech R47.81 Hypertensive emergency I16.1 Coronary artery disease I25.10 Diabetes mellitus type 2 in nonobese E11.9 Dyslipidemia E78.5 Indolent lymphoma C85.90
--- NOTE | 2020-12-28 13:05 | Cardiology Consultation ---
Date of Consultation December 28, 2020 Assessment & Plan (1) Hypertensive emergency: (2) TIA (transient ischemic attack): (3) Coronary artery disease: (4) S/P CABG (coronary artery bypass graft): (5) S/P drug eluting coronary stent placement: (6) Vertebral artery stenosis: ASSESSMENT/PLAN: 1. Hypertensive emergency: Blood pressure has improved and is more near her baseline. Most recent blood pressure was normal. She was placed on amlodipine 10 mg only a few days prior to presentation. She may not yet be experiencing the full effect of this medication. If blood pressure becomes more elevated, would consider chlorthalidone 25 mg daily if no contraindications. We discussed the importance of a low-sodium diet. Otherwise, can continue beta-renae, ARB, and calcium channel renae. Would not further tolerate beta-renae given mild bradycardia. Currently asymptomatic. 2. TIA: She has been seen by Neurology. She believes she is back to baseline. 3. CAD s/p RCA and LAD PCI and FELIZ to Cx: No angina. Continue anti-platelet therapy indefinitely. Continue beta-renae and high-intensity statin therapy. 4. Vertebral artery stenosis: She has been seen by vascular. 5. Disposition: Patient care discussed with Dr. Greco of the primary hospitalist service. Please call with any other questions or concerns. Follow- up with primary director of veterans affairs, Dr. Christina in the outpatient setting. Thank you for allowing me to participate in the care of your patient. Please call for any other questions or concerns. Sincerely, Kishor Jimenes M.D. History of Present Illness Reason for Consultation: Hypertensive emergency Requesting Physician: Ashley Greco MD Attending Physician: Ashley Greco MD History of Present Illness Mrs. Butler is a pleasant 75-year-old female with a history significant for CAD s/p PCI and CABG x 1, hypertension, carotid artery stenosis, dyslipidemia, CKD, diffuse B-cell lymphoma (2013) status post chemotherapy. Her primary director of veterans affairs is Dr. Christina. Her cardiac history is notable for multivessel CAD noted on 08/22/2018 catheterization, when she underwent PCI of culprit RCA with 4 drug-eluting stents. On 09/07/2018 as part of a staged PCI, she underwent 2 drug-eluting stents in the proximal to mid LAD, which was complicated by dissection in the mid segment distal to prior stents. Stent delivery was unsuccessful to the dissected area and during attempts, the third stent dislodged from the balloon on deployed. [place] [facility] [place] and underwent FELIZ to circumflex as it was deemed that the LAD territory had infarcted. LV systolic function on 12/27/2020 was normal with normal wall motion based on echo. She has had issues over time with hypertension. Her blood pressure has tended to be elevated but over the past few weeks, much more significantly elevated. She reports that her systolic blood pressure at home has been ranging 180 up to 245 mmHg. When significantly elevated, she would feel jittery but otherwise had been mostly asymptomatic until yesterday. She developed right-sided facial droop, right upper extremity numbness and incoordination, as well as dysarthria with expressive aphasia. She believes that her symptoms lasted for approximately 1 hour before resolving. Her systolic blood pressure on presentation was in the low 200s. She reports that she has been compliant with her home medications of losartan 100 mg daily and metoprolol 25 mg twice daily. Within the last week, she was placed on amlodipine 10 mg daily (12/24/2020) due to severe hypertension noted in the outpatient setting. While here, she received 1 dose of intravenous labetalol and otherwise continued on her home meds. Her blood pressure improved overnight and most recent blood pressure 132/59 mmHg is the best blood pressure so far this hospitalization. She admits that she adds salt to her meals at home, but not breakfast. She consumes lunch meat, potato chips, pretzels but avoids canned goods. She feels back to her baseline from a neurologic standpoint and would like to go home today. She denies chest pain, shortness of breath, syncope, near-syncope, palpitations, edema, or bleeding. Review of systems: As above. Review of systems otherwise negative/unremarkable. Family history: Mother at 56 with IA. Social history: She denies tobacco, alcohol, or drug abuse. She lives at home with her . She has 5 children. She was unaccompanied. Allergies Allergy/AdvReac Type Severity Reaction Status Date / Time oxymetazoline Allergy Mild . Verified 12/24/20 11:26 adhesive Allergy Unknown RASH Verified 12/24/20 11:26 latex Allergy Rash Verified 12/24/20 11:26 prednisone AdvReac Intermediate PT CAN Verified 12/24/20 11:26 TOLERATE DEXAMETHASONE [place] Inhibitors AdvReac Unknown Hypotension Verified 12/24/20 11:26 simvastatin AdvReac Unknown Rash Verified 12/24/20 11:26 oxycodone [From OxyContin] AdvReac Vomiting Verified 12/24/20 11:26 Home Medications Medication Instructions Recorded Confirmed Type cholecalciferol (vitamin D3) 125 5,000 units PO DAILY 10/01/19 12/27/20 History mcg (5,000 unit) capsule mecobalamin (vitamin B12) 1,000 1,000 mcg SL DAILY 10/01/19 12/27/20 History mcg disintegrating tablet,sublingual pen needle, diabetic 32 gauge x #10 ea 10/29/19 12/24/20 History " metoprolol tartrate 25 mg tablet 25 mg PO BID #180 tab 06/17/20 12/27/20 Rx omeprazole 20 mg capsule,delayed 20 mg PO DAILY #30 cap 06/18/20 12/27/20 Rx release clopidogrel 75 mg tablet 75 mg PO DAILY 90 Days #90 tab 06/27/20 12/27/20 Rx losartan 100 mg tablet 100 mg PO DAILY #90 tab 08/02/20 12/27/20 Rx atorvastatin 40 mg tablet 40 mg PO DAILY #90 tab 10/14/20 12/27/20 Rx insulin detemir U-100 100 unit/mL See Rx Instructions SQ BID #15 ml 11/14/20 12/27/20 Rx (3 mL) subcutaneous pen amlodipine 10 mg tablet 10 mg PO DAILY #30 tab 12/24/20 12/27/20 Rx amoxicillin 875 mg-potassium 1 tab PO BID #20 tab 12/24/20 12/27/20 Rx clavulanate 125 mg tablet Patient History Medical History Chest pain Coronary artery disease Dehydration Diabetes mellitus TYPE II on Levemir at this time BID Diffuse large B-cell lymphoma of extranodal site (~07/2013) Dyslipidemia Elevated troponin Elevated troponin Fever (10/21/13) Fever GERD (gastroesophageal reflux disease) Hypertension Hypertensive emergency Hypogammaglobulinemia Indolent lymphoma Kidney disease Lymphoma Metastatic cancer to liver Non Hodgkin's lymphoma (11/20/13) On intra-aortic balloon pump assist Osteopenia Paroxysmal atrial fibrillation Syncope Vitamin B12 deficiency Vitamin D insufficiency Surgical History H/O tubal ligation History of appendectomy History of open heart surgery History of tonsillectomy S/P CABG x 1 on 09/08/2018; FELIZ to OM1 Family History Mother Myocardial infarction Diabetes Sister Bladder cancer Daughter Diabetes Heart disease Brother Lung cancer Father Lung disease Social History Smoking Status: Never smoker Second Hand Exposure: No; Hx Alcohol Use: No Hx Substance Use: No Preferred Language: Tajik Communication Ability: Effective Visual Impairment: No Limitations Helpdesk Specialist Required: Yes Beliefs That Will Affect Care: None marital status: Current Living Situation: Spouse current occupational status: retired current occupation: Retired Other Information That Helps Us Care for You: No Feels Safe at Home: Yes Safety Concerns: Feels Safe At This Time Childhood Exposure to Second-Hand Smoke: Yes Dental Care, Regularly: No Physical Activity Frequency: 3-4 Times per Week Seatbelt Use: always Sunscreen Use: No Assistive Devices: Cane and Walker Physical Exam Physical Exam: Gen.: No acute distress. Alert. HEENT: Anicteric sclera. Neck: No JVD. No bruits. Normal carotid upstrokes bilaterally. Cardiac: No ventricular heave. Regular near 60 beats per minute. Normal S1-S2. No murmurs, rubs, or gallops. Pulmonary: Clear to auscultation bilaterally without wheezes, rales, or rhonchi. Abdomen: Soft, nontender, nondistended, with normoactive bowel sounds. No bruits noted. Extremities: 2+ radial pulses bilaterally. 2+ posterior tibialis pulses bilaterally. No edema or cyanosis. Psychiatric: Affect appears appropriate. Results & Data ([facility]) Vital Signs (Past 12 Hours) Vital Signs Temp Pulse Pulse Resp BP Pulse Ox 12/28/20 12:15 36.8 C 55 L 17 132/59 L 95 12/28/20 08:00 57 L 12/28/20 07:57 36.4 C L 62 18 161/71 H 96 12/28/20 03:29 36.6 C 62 18 154/68 H 95 12/28/20 02:00 60 21 94 12/28/20 01:00 63 20 94 Diagnostic Findings Echo report reviewed from 12/27/2020: Normal LV size, wall motion, systolic function. EF 60-65%. Moderate LVH. Mild AI. Telemetry personally reviewed: Sinus rhythm. No arrhythmia. ECG personally reviewed: ECG 12/27/2020 at 11:01 a.m.: Sinus rhythm 60 beats per minute. Anterolateral T-wave abnormality. Compared to ECG on 02/13/2019, anterior T-wave inversion has resolved. Anterolateral T-wave abnormalities are similar. Renal artery duplex report from 12/27/2020 reviewed: No evidence of renal artery stenosis. Brain MRI 12/27/2020: No acute intracranial findings. Moderate small-vessel disease. Old lacunar infarcts within the bilateral cerebellar hemispheres. Neck CTA 12/27/2020: Mild to moderate narrowing within the cerebral arteries including intracranial left vertebral artery 75% and right supraclinoid ICA 50- 60%. No aneurysm. Medications Administered Current Inpatient Medications Acetaminophen (Acetaminophen 325 Mg Tab) 650 mg PO Q4H PRN PRN Reason: Pain Or Fever >101.5 Stop: 01/26/21 12:51 Last Admin: 12/27/20 13:53 Dose: 650 mg Documented by: Amlodipine Besylate (Amlodipine Besylate 5 Mg Tab) 10 mg PO DAILY [facility] Stop: 01/27/21 08:59 Last Admin: 12/28/20 08:00 Dose: 10 mg Documented by: Amoxicillin/Clavulanate Potassium (Amoxicillin/Clavulanate 875 Mg Tab) 1 tab PO BID [facility] Stop: 01/06/21 20:59 Last Admin: 12/28/20 08:00 Dose: 1 tab Documented by: Atorvastatin Calcium (Atorvastatin 40 Mg Tab) 40 mg PO DAILY ROS Stop: 01/27/21 08:59 Last Admin: 12/28/20 08:00 Dose: 40 mg Documented by: Clopidogrel Bisulfate (Clopidogrel Bisulfate 75 Mg Tab) 75 mg PO DAILY [facility] Stop: 01/27/21 08:59 Last Admin: 12/28/20 07:59 Dose: 75 mg Documented by: Cyanocobalamin (Cyanocobalamin 500 Mcg Tablet (Vitamin B-12)) 1,000 mcg PO DAILY [facility] Stop: 01/27/21 08:59 Last Admin: 12/28/20 07:59 Dose: 1,000 mcg Documented by: Dextrose (Dextrose 50% 50 Ml Syringe) 25 - 50 ml IV UD PRN; Protocol PRN Reason: Hypoglycemia Protocol Stop: 01/26/21 12:51 Glucagon (Glucagon For Inj 1 Mg Vial) 1 mg SQ UD PRN; Protocol PRN Reason: Hypoglycemia Protocol Stop: 01/26/21 12:51 Glucose (Glucose 10 Tabs/Tube) 4 - 8 tabs PO UD PRN; Protocol PRN Reason: Hypoglycemia Protocol Stop: 01/26/21 12:51 Glucose (Glucose 40% Gel 15 Gm Tube) 15 - 30 gm PO UD PRN; Protocol PRN Reason: Hypoglycemia Protocol Stop: 01/26/21 12:51 Heparin Sodium (Porcine) (Heparin Sod 5,000 Unit/0.5 Ml Vial) 5,000 units SQ Q8 ROS Stop: 01/26/21 13:59 Last Admin: 12/28/20 06:25 Dose: 5,000 units Documented by: Insulin Detemir (Insulin Detemir Flexpen/Flex Touch 100 Units/Ml 3ml) 12 units SQ BID ROS Stop: 01/26/21 20:59 Last Admin: 12/28/20 08:00 Dose: 12 units Documented by: Labetalol HCl (Labetalol Hcl Iv 5 Mg/Ml 20ml) 10 mg IV Q1H PRN PRN Reason: SBP >190 MAP > 95 Stop: 01/26/21 12:51 Losartan Potassium (Losartan Potassium 50 Mg Tab) 100 mg PO DAILY ROS Stop: 01/27/21 08:59 Last Admin: 12/28/20 08:00 Dose: 100 mg Documented by: Metoprolol Tartrate (Metoprolol Tartrate 25 Mg Tab) 25 mg PO BID ROS Stop: 01/26/21 20:59 Last Admin: 12/28/20 08:00 Dose: 25 mg Documented by: Miscellaneous (Carbohydrates For Hypoglycemia ) 15 - 30 gm PO UD PRN PRN Reason: Hypoglycemia Protocol Stop: 01/26/21 12:51 Miscellaneous Information (Pharmacist Discharge Med Rec Consult) 1 ea N/A UD PRN PRN Reason: Consult Stop: 01/26/21 12:51 Ondansetron HCl (Ondansetron Inj 2 Mg/Ml 2 Ml Vial) 4 mg IV Q6H PRN PRN Reason: Nausea Stop: 01/26/21 12:51 Pantoprazole Sodium (Pantoprazole 40 Mg Tab) 40 mg PO DAILY ROS Stop: 01/27/21 08:59 Last Admin: 12/28/20 08:00 Dose: 40 mg Documented by: Polyethylene Glycol (Polyethylene (Miralax) 17 Gm Pack) 17 gm PO DAILY PRN PRN Reason: Constipation Stop: 01/26/21 12:51 Vitamin D (Cholecalciferol 1,000 Units 25 Mcg Tab) 5,000 units PO DAILY ROS Stop: 01/27/21 08:59 Last Admin: 12/28/20 07:59 Dose: 5,000 units Documented by: PG Care Time/CCT Total # of Minutes Spent Total Time Spent with Patient: Total time spent is greater than 50% in coordination of care (as documented) at patient's floor/unit and/or counseling patient: Coding Level of Care Code 29310 Initial Inpt Care Lvl 3 Diagnoses Hypertensive emergency I16.1 TIA (transient ischemic attack) G45.9 Coronary artery disease I25.10 S/P CABG (coronary artery bypass graft) Z95.1 S/P drug eluting coronary stent placement Z95.5 Vertebral artery stenosis I65.09
--- NOTE | 2020-12-28 15:59 | Hospitalist Progress Note ---
Date of Service December 28, 2020 Assessment & Plan (1) Hypertensive emergency: Patient with neurological symptoms od right sided facial droop,RUE numbness, slurred speech in the setting of uncontrolled HTN, no other evidence of end organ damage. MRI brain negative for acute CVA, showed bilateral small old lacunar infarcts in cerebellum ECHO preserved EF, mod LVH, mild AI, no WMAs - ECG normal - Renal function at baseline - Symptoms consistent with carotid disease and uncontrolled HTN - Renal artery ultrasound negative BPs now improved, had been in 2202 systolic for 1 week prior to admission - only received 1 dose of IV labetalol in ER, otherwise recently started on amlodipine 10mg daily 2 days prior to admission and likely not optimally effective yet -continue amlodipine 10mg daily, metoprolol 25mg bid (cannot titrate up due to HR 50-60s, and losartan 100mg daily -add on chlorthalidone 12.5mg today and then increase to 25mg qAM tomorrow -continue to monitor -APAP prn headache ESR and CRP normal ruling out GSA Appreciate Cardiology consultation (2) Carotid artery stenosis: MARIO 50-60%, LICA mild stenosis Asymptomatic Needs continued medical management, no vascular intervention Not a candidate for enrollment in CREST2 trial as per my discussion with Neuro - control BP as above - patient with history of intolerance to other statins and has been able to tolerate 40mg Atorvastatin--> could consider increasing to 80mg daily if can tolerate - On plavix for SHARI and CAD, HOWEVER could consider adding ASA for DAPT with acceptance of increased risk of GI bleeding as per my d/w Neurology-will discuss with family and patient -appreciate Vascular Surgery consult-no need for intervention (3) TIA (transient ischemic attack): As above, symptoms resolved. Likely related to hypertensive urgency rather than true TIA as per Neuro as not clearly localized Controlling BP continue Plavix, statin as above Neuro checks -Will need Holter monitor for long-term event monitoring for A. fib especially given a history of lone A. fib postop from CABG Not TPA candidate as resolution of symptoms (4) Coronary artery disease: No acute changes on ECG and no other Cardiac symptoms at this time troponin negative on admission ECHO no WMAs, EF preserved Appreciate Cardiology consult continue Plavix, metoprolol, statin, losartan (5) Hypercholesteremia: Lipids controlled- continue high dose statin Atorva 40 (6) Diabetes mellitus type 2 in nonobese: On insulin therapy, continue detemir in house - goal 140-180 - avoid hypoglycemia or hyperglycemia HGB A1C controlled at 7.3% (7) Diverticulosis of colon: Diverticulitis/diverticulosis- empirically placed on Augmentin 875 bid prior to admission by PCP, patient reports that her symptoms have improved and her lower quadrant abdominal pain is resolved, is nontender on exam. Will continue while in house. - if patient symptoms worsen- consider CT scan - Diet DM II (8) Hx of CABG: as above in CAD (9) Kidney disease: CKD II-III - follow closely in the setting of uncontrolled HTN - Renal ultrasound as above (10) Vertebral artery stenosis: 75% stenosis LEFT vert and mild focal distal stenosis LEFT vert Medical management only at this time despite known old lacunar infarcts in cerebellum as per Neuro---> Vertebral artery intervention in the setting of calcified plaque buildup is extremely risky and is not intervened upon unless acute thrombosis No need for Neurovascular eval continue Plavix, consider adding on ASA with increased risk of bleeding as above continue statin and BP control (11) Hypokalemia: replaced and resolved (12) Hypomagnesemia: Magnesium low at 1.5 on admission Replaced with IV magnesium sulfate and resolved (13) DVT prophylaxis: Heparin SQ Disposition-continued stay for BP control, possible dc to home tomorrow Awaiting PT/OT consults Care discussed at length on phone with friend of the patient who is a physician, Dr. Cuauhtemoc Bhatti. Called daughter, Marielle, and left voicemail Full code Admission and Anticipated Discharge Date Admission Date: December 27, 2020 Subjective Pt reports still mild left sided headache, BPs are improved but remain in the 140s-150s systolic. No CP or SOB, no nausea or abd pain. No slurred speech or numbness or weakness anywhere. Tele with SB -NSR rates 50s-60s. Discussed her care at length with Neurology and Cardiology today. Review of Systems Review of Systems: All systems reviewed & are unremarkable except as noted in HPI & below Physical Exam Constitutional: WD/WN, vitals as above Eyes: + anicteric sclerae and EOM intact bilaterally; no eyelid abnormality ENMT: external ear and nose normal, oropharynx normal Neck: trachea midline, no thyromegaly Respiratory: normal respiratory effort, lungs clear to auscultation Cardiovascular: RRR, no murmur, no edema Chest (Breasts): Chest: normal inspection of chest Gastrointestinal (Abdomen): normal bowel sounds, soft, nontender, no hepatosplenomegaly Musculoskeletal: Extremities: extremities normal to inspection; no cyanosis and no clubbing Skin: no rashes, warm and dry Neurologic: CN's II-XI intact bilaterally, moves all extremities, + focal motor deficit (only mild 4+/5 strength in LUE, otherwise 5/5 throughout) and awake; not confused Motor/Sensory: no sensory deficit Psychiatric: Orientation: alert, oriented to person, oriented to place and cooperative Eye Contact: good eye contact Speech: normal rate/rhythm/volume of speech Affect: euthymic affect Lymphatic: no lymphedema Results & Data Results & Data ([facility]) Vital Signs (Past 12 Hours) Vital Signs Temp Pulse Pulse Resp BP Pulse Ox 12/28/20 12:15 36.8 C 55 L 17 132/59 L 95 12/28/20 08:00 57 L 12/28/20 07:57 36.4 C L 62 18 161/71 H 96 Laboratory Results 12/28/20 12/28/20 12/28/20 Range/Units 16:28 11:32 07:34 WBC (4.8-10.8) K/uL RBC (4.2-5.4) M/uL Hgb (12.0-16.0) g/dL Hct (37-47) % MCV (80-100) fL MCH (25-34) pg MCHC (32-36) g/dL RDW Std Deviation (36.4-46.3) fL RDW Coeff of Mark (11.5-14.5) % Plt Count (130-400) K/uL MPV (7.4-10.4) fL Immature Gran % (Auto) % Neut % (Auto) % Lymph % (Auto) % [place] % (Auto) % Eos % (Auto) % Baso % (Auto) % Neut # (Auto) (1.4-6.5) K/uL Lymph # (Auto) (1.2-3.4) K/uL [place] # (Auto) (0.11-0.59) K/uL Eos # (Auto) (0-0.5) K/uL Baso # (Auto) (0-0.2) K/uL Immature Gran # (Auto) (0.00-0.02) K/uL PT (9.0-12.0) Seconds INR (0.9-1.1) Sodium (136-145) mmol/L Potassium (3.5-5.1) mmol/L Chloride (98-107) mmol/L Carbon Dioxide (21-32) mmol/L Anion Gap (3-11) BUN (7-18) mg/dl Creatinine (0.6-1.2) mg/dl Est Cr Clr Drug Dosing ml/min Est GFR ( Amer) Est GFR (Non-Af Amer) BUN/Creatinine Ratio (10-20) Glucose (70-99) mg/dl POC Glucose 124 H 145 H 138 H (70-99) mg/dl Estimat Average Glucose mg/dl Hemoglobin A1c (4.5-5.6) % Calcium (8.5-10.1) mg/dl Magnesium (1.8-2.4) mg/dl Triglycerides (0-150) mg/dl Cholesterol (0-200) mg/dl LDL Cholesterol, Calc mg/dl VLDL Cholesterol, Calc mg/dl HDL Cholesterol mg/dl Cholesterol/HDL Ratio 12/28/20 12/28/20 12/28/20 Range/Units 04:36 04:36 04:36 WBC 5.77 (4.8-10.8) K/uL RBC 4.28 (4.2-5.4) M/uL Hgb 12.8 (12.0-16.0) g/dL Hct 38.8 (37-47) % MCV 90.7 (80-100) fL MCH 29.9 (25-34) pg MCHC 33.0 (32-36) g/dL RDW Std Deviation 44.2 (36.4-46.3) fL RDW Coeff of Mark 13.5 (11.5-14.5) % Plt Count 182 (130-400) K/uL MPV 11.7 H (7.4-10.4) fL Immature Gran % (Auto) 0.2 % Neut % (Auto) 66.6 % Lymph % (Auto) 24.6 % [place] % (Auto) 6.2 % Eos % (Auto) 2.1 % Baso % (Auto) 0.3 % Neut # (Auto) 3.84 (1.4-6.5) K/uL Lymph # (Auto) 1.42 (1.2-3.4) K/uL [place] # (Auto) 0.36 (0.11-0.59) K/uL Eos # (Auto) 0.12 (0-0.5) K/uL Baso # (Auto) 0.02 (0-0.2) K/uL Immature Gran # (Auto) 0.01 (0.00-0.02) K/uL PT 10.3 (9.0-12.0) Seconds INR 1.0 (0.9-1.1) Sodium (136-145) mmol/L Potassium (3.5-5.1) mmol/L Chloride (98-107) mmol/L Carbon Dioxide (21-32) mmol/L Anion Gap (3-11) BUN (7-18) mg/dl Creatinine (0.6-1.2) mg/dl Est Cr Clr Drug Dosing ml/min Est GFR ( Amer) Est GFR (Non-Af Amer) BUN/Creatinine Ratio (10-20) Glucose (70-99) mg/dl POC Glucose (70-99) mg/dl Estimat Average Glucose 163 mg/dl Hemoglobin A1c 7.3 H (4.5-5.6) % Calcium (8.5-10.1) mg/dl Magnesium (1.8-2.4) mg/dl Triglycerides (0-150) mg/dl Cholesterol (0-200) mg/dl LDL Cholesterol, Calc mg/dl VLDL Cholesterol, Calc mg/dl HDL Cholesterol mg/dl Cholesterol/HDL Ratio 12/28/20 12/27/20 Range/Units 04:36 19:47 WBC (4.8-10.8) K/uL RBC (4.2-5.4) M/uL Hgb (12.0-16.0) g/dL Hct (37-47) % MCV (80-100) fL MCH (25-34) pg MCHC (32-36) g/dL RDW Std Deviation (36.4-46.3) fL RDW Coeff of Mark (11.5-14.5) % Plt Count (130-400) K/uL MPV (7.4-10.4) fL Immature Gran % (Auto) % Neut % (Auto) % Lymph % (Auto) % [place] % (Auto) % Eos % (Auto) % Baso % (Auto) % Neut # (Auto) (1.4-6.5) K/uL Lymph # (Auto) (1.2-3.4) K/uL [place] # (Auto) (0.11-0.59) K/uL Eos # (Auto) (0-0.5) K/uL Baso # (Auto) (0-0.2) K/uL Immature Gran # (Auto) (0.00-0.02) K/uL PT (9.0-12.0) Seconds INR (0.9-1.1) Sodium 143 (136-145) mmol/L Potassium 3.9 D (3.5-5.1) mmol/L Chloride 112 H (98-107) mmol/L Carbon Dioxide 27 (21-32) mmol/L Anion Gap 4.0 (3-11) BUN 20 H (7-18) mg/dl Creatinine 0.83 (0.6-1.2) mg/dl Est Cr Clr Drug Dosing 55.6 ml/min Est GFR ( Amer) 78.8 Est GFR (Non-Af Amer) 68.0 BUN/Creatinine Ratio 23.7 H (10-20) Glucose 146 H (70-99) mg/dl POC Glucose 120 H (70-99) mg/dl Estimat Average Glucose mg/dl Hemoglobin A1c (4.5-5.6) % Calcium 8.9 (8.5-10.1) mg/dl Magnesium 2.2 (1.8-2.4) mg/dl Triglycerides 172 H (0-150) mg/dl Cholesterol 130 (0-200) mg/dl LDL Cholesterol, Calc 58 mg/dl VLDL Cholesterol, Calc 34 mg/dl HDL Cholesterol 38 mg/dl Cholesterol/HDL Ratio 3 PG Care Time/CCT Total # of Minutes Spent Total Time Spent with Patient: Total time spent is greater than 50% in coordination of care (as documented) at patient's floor/unit and/or counseling patient: Coding Level of Care Code 72228 Subseq Hosp Care Lvl 3 Diagnoses Hypertensive emergency I16.1 Carotid artery stenosis I65.29 TIA (transient ischemic attack) G45.9 Coronary artery disease I25.10 Hypercholesteremia E78.00 Diabetes mellitus type 2 in nonobese E11.9 Diverticulosis of colon K57.30 Hx of CABG Z95.1 Kidney disease N28.9 Vertebral artery stenosis I65.09 Hypokalemia E87.6 Hypomagnesemia E83.42 DVT prophylaxis Z29.9
[2020-12-28] MEDS: ACETAMINOPHEN 325 MG TAB PO PRN (16:06)
[2020-12-28] MEDS ORDERED: CHLORTHALIDONE 25 MG TAB PO ONE (16:13)
[2020-12-29 05:40] LABS: Prothrombin Time 10.3 Seconds (9.0-12.0)
[2020-12-29 05:41] LABS: Basophils # (auto) 0.03 K/uL (0-0.2); Basophils % (auto) 0.5 %; Eosinophils # (auto) 0.15 K/uL (0-0.5); Eosinophils % (auto) 2.7 %; Hemoglobin 13.3 g/dL (12.0-16.0); Immature Granulocytes # (auto) 0.01 K/uL (0.00-0.02); Immature Granulocytes % (auto) 0.2 %; Mean Corpuscular Hemoglobin 29.9 pg (25-34); Mean Corpuscular Hgb Conc 33.3 g/dL (32-36); Mean Corpuscular Volume 89.9 fL (80-100); Mean Platelet Volume 11.8 fL (7.4-10.4); Monocytes # (auto) 0.55 K/uL (0.11-0.59); Neutrophils # (auto) 3.17 K/uL (1.4-6.5); Neutrophils % (auto) 57.6 %; Platelet Count 174 K/uL (130-400); RDW Coefficient of Variation 13.2 % (11.5-14.5); RDW Standard Deviation 43.8 fL (36.4-46.3); Red Blood Count 4.45 M/uL (4.2-5.4); White Blood Count 5.51 K/uL (4.8-10.8)
[2020-12-29] MEDS: HEPARIN SOD 5,000 UNIT/0.5 ML VIAL SQ SCH ×2 (05:42→14:15)
[2020-12-29 06:04] LABS: BUN Creatinine Ratio 18.5 (10-20); Calcium 9.6 mg/dl (8.5-10.1); Creatinine Clr Calc Pharmacy 52.2 ml/min; Est GFR (African American) 73.5; Est GFR (Non-African American) 63.4; Potassium 3.7 mmol/L (3.5-5.1)
[2020-12-29] MEDS ORDERED: CHLORTHALIDONE 25 MG TAB PO SCH (09:00)
[2020-12-29] MEDS ORDERED: ASPIRIN 81 MG ECTAB PO SCH (09:45)
[2020-12-29] MEDS: LOSARTAN POTASSIUM 50 MG TAB PO SCH (09:51)
[2020-12-29] MEDS: CLOPIDOGREL BISULFATE 75 MG TAB PO SCH (09:51)
[2020-12-29] MEDS: AMOXICILLIN/CLAVULANATE 875 MG TAB PO SCH (09:51)
[2020-12-29] MEDS: METOPROLOL TARTRATE 25 MG TAB PO SCH (09:51)
[2020-12-29] MEDS: amLODIPine BESYLATE 5 MG TAB PO SCH (09:52)
[2020-12-29] MEDS: PANTOprazole 40 MG TAB PO SCH (09:52)
[2020-12-29] MEDS: ATORVASTATIN 40 MG TAB PO SCH (09:52)
[2020-12-29] MEDS: CHOLECALCIFEROL 1,000 UNITS 25 MCG TAB PO SCH (09:52)
[2020-12-29] MEDS: CYANOCOBALAMIN 500 MCG TABLET (VITAMIN B-12) PO SCH (09:52)
[2020-12-29] MEDS: INSULIN DETEMIR FLEXPEN/FLEX TOUCH 100 UNITS/ML 3ML SQ SCH (09:53)
[2020-12-29] MEDS ORDERED: STROKE PATIENT DISCHARGE STA (10:13)
--- NOTE | 2020-12-29 11:55 | Cardiology Progress Note ---
Date of Service December 29, 2020 Assessment & Plan (1) Hypertensive emergency: (2) TIA (transient ischemic attack): (3) Coronary artery disease: (4) S/P CABG (coronary artery bypass graft): (5) S/P drug eluting coronary stent placement: (6) Vertebral artery stenosis: ASSESSMENT/PLAN: 1. Hypertensive emergency: She had 1 episode of severe hypertension overnight at 211/89 mmHg, but 2 minutes later was back to 162/60 mmHg. Blood pressure has been better controlled since then. Chlorthalidone was initiated yesterday at 12.5 mg and then 25 mg this morning. If blood pressure needs further management, could consider hydralazine, but for now, would continue with current meds and watch for the full effect of her new regimen. We once again discussed the importance of a low-sodium diet. Would not further tolerate beta-renae given mild bradycardia. Currently asymptomatic. 2. TIA: She has been seen by Neurology. She believes she is back to baseline. 3. CAD s/p RCA and LAD PCI and FELIZ to Cx: No angina/heart failure symptoms. Continue anti-platelet therapy indefinitely. Continue beta-renae and high- intensity statin therapy. 4. Vertebral artery stenosis: She has been seen by vascular. 5. Disposition: Please call with any other questions or concerns. Follow-up with primary turf grower, Dr. Christina in the outpatient setting. Admission and Anticipated Discharge Date Admission Date: December 27, 2020 Subjective She denies any recurrent stroke-like symptoms. She denies chest pain, shortness of breath, syncope, near-syncope, palpitations, or edema. Review of systems: As above. Physical Exam Physical Exam: Gen.: No acute distress. Alert. HEENT: Anicteric sclera. Neck: No JVD. Cardiac: No ventricular heave. Regular. Normal S1-S2. No murmurs, rubs, or gallops. Pulmonary: Clear to auscultation bilaterally without wheezes, rales, or rhonchi. Abdomen: Soft, nontender, nondistended, with normoactive bowel sounds. No bruits noted. Extremities: 2+ radial pulses bilaterally. 2+ posterior tibialis pulses bilaterally. No edema or cyanosis. Psychiatric: Affect appears appropriate. Results & Data ([facility]) Vital Signs (Past 12 Hours) Vital Signs Temp Pulse Pulse Resp BP BP Pulse Ox 12/29/20 08:00 36.6 C 59 L 65 16 159/70 H 96 12/29/20 06:37 36.6 C 12/29/20 06:30 59 L 25 H 12/29/20 06:20 58 L 20 12/29/20 06:10 59 L 21 12/29/20 06:00 59 L 19 12/29/20 05:50 58 L 14 12/29/20 05:40 59 L 37 H 12/29/20 05:30 59 L 19 12/29/20 05:20 60 18 12/29/20 05:11 70 19 12/29/20 05:09 61 14 138/65 12/29/20 04:30 62 23 12/29/20 04:20 58 L 18 12/29/20 04:10 61 19 12/29/20 04:00 36.6 C 58 L 19 12/29/20 03:50 58 L 18 12/29/20 03:40 59 L 18 12/29/20 03:30 60 17 12/29/20 03:20 59 L 20 12/29/20 03:10 61 20 12/29/20 03:00 62 23 12/29/20 02:50 58 L 18 12/29/20 02:40 56 L 17 12/29/20 02:30 55 L 18 12/29/20 02:20 56 L 17 12/29/20 02:10 56 L 18 12/29/20 02:00 57 L 18 12/29/20 01:50 82 30 H 12/29/20 01:40 56 L 17 12/29/20 01:30 56 L 18 12/29/20 01:20 58 L 19 12/29/20 01:10 58 L 19 12/29/20 01:00 59 L 22 12/29/20 00:50 59 L 22 12/29/20 00:40 56 L 19 12/29/20 00:30 56 L 19 12/29/20 00:20 55 L 20 12/29/20 00:10 65 27 H 12/29/20 00:08 55 L 21 162/60 H 12/29/20 00:06 58 L 14 211/89 H 12/29/20 00:00 36.4 C L 54 L 23 12/28/20 23:50 52 L 17 Laboratory Results Laboratory Results - last 24 hr 12/28/20 12/28/20 12/29/20 16:28 21:30 04:35 WBC 5.51 RBC 4.45 Hgb 13.3 Hct 40.0 MCV 89.9 MCH 29.9 MCHC 33.3 RDW Std Deviation 43.8 RDW Coeff of Mark 13.2 Plt Count 174 MPV 11.8 H Immature Gran % (Auto) 0.2 Neut % (Auto) 57.6 Lymph % (Auto) 29.0 [place] % (Auto) 10.0 Eos % (Auto) 2.7 Baso % (Auto) 0.5 Neut # (Auto) 3.17 Lymph # (Auto) 1.60 [place] # (Auto) 0.55 Eos # (Auto) 0.15 Baso # (Auto) 0.03 Immature Gran # (Auto) 0.01 PT INR Sodium Potassium Chloride Carbon Dioxide Anion Gap BUN Creatinine Est Cr Clr Drug Dosing Est GFR ( Amer) Est GFR (Non-Af Amer) BUN/Creatinine Ratio Glucose POC Glucose 124 H 99 Calcium 12/29/20 12/29/20 12/29/20 04:35 04:35 07:38 WBC RBC Hgb Hct MCV MCH MCHC RDW Std Deviation RDW Coeff of Mark Plt Count MPV Immature Gran % (Auto) Neut % (Auto) Lymph % (Auto) [place] % (Auto) Eos % (Auto) Baso % (Auto) Neut # (Auto) Lymph # (Auto) [place] # (Auto) Eos # (Auto) Baso # (Auto) Immature Gran # (Auto) PT 10.3 INR 1.0 Sodium 142 Potassium 3.7 Chloride 110 H Carbon Dioxide 26 Anion Gap 6.0 BUN 16 Creatinine 0.88 Est Cr Clr Drug Dosing 52.2 Est GFR ( Amer) 73.5 Est GFR (Non-Af Amer) 63.4 BUN/Creatinine Ratio 18.5 Glucose 94 POC Glucose 104 H Calcium 9.6 12/29/20 11:31 WBC RBC Hgb Hct MCV MCH MCHC RDW Std Deviation RDW Coeff of Mark Plt Count MPV Immature Gran % (Auto) Neut % (Auto) Lymph % (Auto) [place] % (Auto) Eos % (Auto) Baso % (Auto) Neut # (Auto) Lymph # (Auto) [place] # (Auto) Eos # (Auto) Baso # (Auto) Immature Gran # (Auto) PT INR Sodium Potassium Chloride Carbon Dioxide Anion Gap BUN Creatinine Est Cr Clr Drug Dosing Est GFR ( Amer) Est GFR (Non-Af Amer) BUN/Creatinine Ratio Glucose POC Glucose 137 H Calcium Diagnostic Findings Telemetry personally reviewed: Sinus rhythm. Medications Administered Current Inpatient Medications Acetaminophen (Acetaminophen 325 Mg Tab) 650 mg PO Q4H PRN PRN Reason: Pain Or Fever >101.5 Stop: 01/26/21 12:51 Last Admin: 12/28/20 16:06 Dose: 650 mg Documented by: Amlodipine Besylate (Amlodipine Besylate 5 Mg Tab) 10 mg PO DAILY [facility] Stop: 01/27/21 08:59 Last Admin: 12/29/20 09:52 Dose: 10 mg Documented by: Amoxicillin/Clavulanate Potassium (Amoxicillin/Clavulanate 875 Mg Tab) 1 tab PO BID [facility] Stop: 01/06/21 20:59 Last Admin: 12/29/20 09:51 Dose: 1 tab Documented by: Aspirin (Aspirin 81 Mg Ectab) 81 mg PO QAM [facility] Stop: 01/28/21 09:44 Last Admin: 12/29/20 09:50 Dose: 81 mg Documented by: Atorvastatin Calcium (Atorvastatin 40 Mg Tab) 40 mg PO DAILY [facility] Stop: 01/27/21 08:59 Last Admin: 12/29/20 09:52 Dose: 40 mg Documented by: Chlorthalidone (Chlorthalidone 25 Mg Tab) 25 mg PO QAM [facility] Stop: 01/28/21 08:59 Last Admin: 12/29/20 09:53 Dose: 25 mg Documented by: Clopidogrel Bisulfate (Clopidogrel Bisulfate 75 Mg Tab) 75 mg PO DAILY [facility] Stop: 01/27/21 08:59 Last Admin: 12/29/20 09:51 Dose: 75 mg Documented by: Cyanocobalamin (Cyanocobalamin 500 Mcg Tablet (Vitamin B-12)) 1,000 mcg PO DAILY [facility] Stop: 01/27/21 08:59 Last Admin: 12/29/20 09:52 Dose: 1,000 mcg Documented by: Dextrose (Dextrose 50% 50 Ml Syringe) 25 - 50 ml IV UD PRN; Protocol PRN Reason: Hypoglycemia Protocol Stop: 01/26/21 12:51 Glucagon (Glucagon For Inj 1 Mg Vial) 1 mg SQ UD PRN; Protocol PRN Reason: Hypoglycemia Protocol Stop: 01/26/21 12:51 Glucose (Glucose 10 Tabs/Tube) 4 - 8 tabs PO UD PRN; Protocol PRN Reason: Hypoglycemia Protocol Stop: 01/26/21 12:51 Glucose (Glucose 40% Gel 15 Gm Tube) 15 - 30 gm PO UD PRN; Protocol PRN Reason: Hypoglycemia Protocol Stop: 01/26/21 12:51 Heparin Sodium (Porcine) (Heparin Sod 5,000 Unit/0.5 Ml Vial) 5,000 units SQ Q8 ROS Stop: 01/26/21 13:59 Last Admin: 12/29/20 05:42 Dose: Not Given Documented by: Insulin Detemir (Insulin Detemir Flexpen/Flex Touch 100 Units/Ml 3ml) 12 units SQ BID ROS Stop: 01/26/21 20:59 Last Admin: 12/29/20 09:53 Dose: 12 units Documented by: Labetalol HCl (Labetalol Hcl Iv 5 Mg/Ml 20ml) 10 mg IV Q1H PRN PRN Reason: SBP >190 MAP > 95 Stop: 01/26/21 12:51 Losartan Potassium (Losartan Potassium 50 Mg Tab) 100 mg PO DAILY ROS Stop: 01/27/21 08:59 Last Admin: 12/29/20 09:51 Dose: 100 mg Documented by: Metoprolol Tartrate (Metoprolol Tartrate 25 Mg Tab) 25 mg PO BID [facility] Stop: 01/26/21 20:59 Last Admin: 12/29/20 09:51 Dose: 25 mg Documented by: Miscellaneous (Carbohydrates For Hypoglycemia ) 15 - 30 gm PO UD PRN PRN Reason: Hypoglycemia Protocol Stop: 01/26/21 12:51 Ondansetron HCl (Ondansetron Inj 2 Mg/Ml 2 Ml Vial) 4 mg IV Q6H PRN PRN Reason: Nausea Stop: 01/26/21 12:51 Pantoprazole Sodium (Pantoprazole 40 Mg Tab) 40 mg PO DAILY ROS Stop: 01/27/21 08:59 Last Admin: 12/29/20 09:52 Dose: 40 mg Documented by: Polyethylene Glycol (Polyethylene (Miralax) 17 Gm Pack) 17 gm PO DAILY PRN PRN Reason: Constipation Stop: 01/26/21 12:51 Vitamin D (Cholecalciferol 1,000 Units 25 Mcg Tab) 5,000 units PO DAILY ROS Stop: 01/27/21 08:59 Last Admin: 12/29/20 09:52 Dose: 5,000 units Documented by: PG Care Time/CCT Total # of Minutes Spent Total Time Spent with Patient: Total time spent is greater than 50% in coordination of care (as documented) at patient's floor/unit and/or counseling patient: Coding Level of Care Code 98891 Subseq Hosp Care Lvl 3 Diagnoses Hypertensive emergency I16.1 TIA (transient ischemic attack) G45.9 Coronary artery disease I25.10 S/P CABG (coronary artery bypass graft) Z95.1 S/P drug eluting coronary stent placement Z95.5 Vertebral artery stenosis I65.09
--- NOTE | 2020-12-29 12:20 | Neurology Progress Note ---
Date of Service December 29, 2020 Assessment & Plan (1) Slurring of speech: Radha Butler is a 75 yo woman w/ PMH of DM, HTN, HLD, GERD, h/o diffuse B cell lymphoma, CAD s/p cardiac stents and CABG, clifton-operative AFIB on plavix and recent diagnosis of diverticulitis currently on Augmentin who p/t [facility] with acute onset of right sided numbness and dysarthria. Symptom localization: genu of the internal capsule vs basis pontis Stroke mechanism: most likely HTNsive urgency, less likely cardioembolic vs lacunar/lipohyalinosis as no stroke on MRI and symptoms difficult to localize as a TIA Stroke WorkUp: - CT head: shows no hemorrhage or new hypodensity, chronic small infarct in the right cerebellum noted. - CTA head/neck: shows diffuse intracranial atherosclerosis with moderate to severe stenosis of the left V4 segment intracranially, multifocal narrowing of the basilar artery, minimal stenosis of the left ICA at the bifurcation, mild right ICA stenosis in the supraclinoid segment, with no other LVO, high-grade stenosis or aneurysm noted - MRI brain: no acute infarct, moderate SVID, moderate to severe generalized atrophy w/ ex vacuo dilation, chronic punctuate infarcts in bilateral cerebellum (right > left) - TTE: EF 60-65%, moderate LVH, grade I diastolic dysfunction - Telemetry: NSR - A1c: 7.3 - FLP: 58 - Troponin: negative Stroke Management: - Continuous cardiac monitoring, will consider Holter monitor as outpatient if telemetry here unrevealing - Vitals, Neurochecks, NIHSS per unit routine - BP parameters: SBP CAP 180 - Consult speech, PT, OT for supportive management - Will residential counselor concerning stroke education, smoking cessation, healthy diet, physical activity, weight loss - Follow up with PCP for assistance with outpatient goals (BP <130/80, LDL <70, A1c <7) - Follow up with HOSSEIN Borrego, in neurology clinic in 6-8 weeks Secondary Stroke Prevention: - Antiplatelet: continue home plavix 75mg daily, start ASA 81mg daily for maximal medical therapy - Anticoagulation: Not indicated at this time - Statin: Atorvastatin 40mg daily HTN: - BP parameters, as above - Continue home BP meds (amlodipine, losartan, metoprolol) FEN/GI: - Monitor lytes and replete PRN Glucose Control: - Sliding scale insulin and accuchecks per primary team to avoid hyperglycemia Headache: - ok to give PO or IV tylenol, would avoid opiates/NSAIDs if possible Thank you for this interesting consult. Plan of care was discussed with primary team. Please call with any questions. (2) Hypertensive emergency: (3) Coronary artery disease: (4) Diabetes mellitus type 2 in nonobese: (5) Dyslipidemia: (6) Indolent lymphoma: Admission and Anticipated Discharge Date Admission Date: December 27, 2020 Subjective NAEs overnight. Reports that headaches have resolved since her BP has been be tter controlled. Inquired about intervention for her intracranial stenosis. Discussed with her and daughter that intervention is not indicated as risk far outweighs any benefit. Recommend maximal medical therapy ([place] [facility] [place] Review of Systems Review of Systems: 10 point review of systems completed and negative except as in HPI. Results & Data ([facility]) Vital Signs (Past 12 Hours) Vital Signs Temp Pulse Pulse Resp BP BP Pulse Ox 12/29/20 12:06 36.5 C 71 19 141/62 H 94 12/29/20 08:00 36.6 C 59 L 65 16 159/70 H 96 12/29/20 06:37 36.6 C 12/29/20 06:30 59 L 25 H 12/29/20 06:20 58 L 20 12/29/20 06:10 59 L 21 12/29/20 06:00 59 L 19 12/29/20 05:50 58 L 14 12/29/20 05:40 59 L 37 H 12/29/20 05:30 59 L 19 12/29/20 05:20 60 18 12/29/20 05:11 70 19 12/29/20 05:09 61 14 138/65 12/29/20 04:30 62 23 12/29/20 04:20 58 L 18 12/29/20 04:10 61 19 12/29/20 04:00 36.6 C 58 L 19 12/29/20 03:50 58 L 18 12/29/20 03:40 59 L 18 12/29/20 03:30 60 17 12/29/20 03:20 59 L 20 12/29/20 03:10 61 20 12/29/20 03:00 62 23 12/29/20 02:50 58 L 18 12/29/20 02:40 56 L 17 12/29/20 02:30 55 L 18 12/29/20 02:20 56 L 17 12/29/20 02:10 56 L 18 12/29/20 02:00 57 L 18 12/29/20 01:50 82 30 H 12/29/20 01:40 56 L 17 12/29/20 01:30 56 L 18 12/29/20 01:20 58 L 19 12/29/20 01:10 58 L 19 12/29/20 01:00 59 L 22 12/29/20 00:50 59 L 22 12/29/20 00:40 56 L 19 12/29/20 00:30 56 L 19 12/29/20 00:20 55 L 20 Exam (Neuro) Physical Exam: General Exam: GEN: NAD, sitting in chair HEENT: No conjunctival injection, no rhinorrhea. CV: RRR on monitor, no significant edema. PULM: Nonlabored respirations on room air. NIH STROKE SCALE 1A. Level of Consciousness (0-3) = 0 1B. LOC Questions (0-2) = 0 1C. LOC Commands (0-2) = 0 2. Best Horizontal Gaze (0-2) = 0 3. Visual Godinez (0-3) = 0 4. Facial Palsy (0-3) = 0 5. Motor Arm Right (0-4) = 0 Left (0-4) = 0 6. Motor Leg Right (0-4) = 0 Left (0-4) = 0 7. Limb Ataxia (0-2) = 0 8. Sensory (0-2) = 0 9. Best Language (0-3) = 0 10. Dysarthria (0-2) = 0 11. Extinction and Inattention (0-2) = 0 NIHSS TOTAL = 0 PG Care Time/CCT Total # of Minutes Spent Total Time Spent with Patient: Total time spent is greater than 50% in coordination of care (as documented) at patient's floor/unit and/or counseling patient: Coding Level of Care Code 01959 Subseq Hosp Care Lvl 2 Diagnoses Slurring of speech R47.81 Hypertensive emergency I16.1 Coronary artery disease I25.10 Diabetes mellitus type 2 in nonobese E11.9 Dyslipidemia E78.5 Indolent lymphoma C85.90
--- NOTE | 2021-01-02 22:49 | Discharge Summary ---
Date of Service December 29, 2020 Admission HPI Per Admitting Provider 75 YOF with past medical history of DMII (on insulin), 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 Patient was recently seen by PCP for lower quad abdominal pain on Wednesday and placed on prophylactic Augmentin for Diverticulitis. She was noted at that visit to have elevated blood pressure to 200 systolic and was started on amlodipine. Patient reports that abdominal symptoms have improved since then. The patient was brought to the emergency room by her for concerns of right arm numbness to wrist, dysarthria, expressive aphasia, and right sided facial droop. The patient noted that she was normal when she got in the shower at 630 and her symptoms started around 0730, she checked her blood sugar and it was 170, she then took her BP and noted it was ~180, she took her BP medications and did not feel better so they came to the emergency room. The patient explains that her right arm started with tingling to the wrist, did not note any weakness, but t hen she noticed bilateral pain behind her eyes and having difficulty forming words and sentences. Her also stated that he noticed her right side of her mouth was drooping. Stroke alert was called and the patient had a non-con CT as well as a CTA of the head and neck. BP on arrival was SBP >210 and MAP 120. The patient started to feel better in the emergency room after her CT scan and after her dose of 10mg labetolol. When I saw the patient, she was forming words and sentences fluently, as well as resolution of the above symptoms. The patient still was experiencing the bilateral frontal headache behind her eyes. NIHSS of 0 on my evaluation, was previously 3. SBP 160-180 and her maps 85. Further review with the patient revealed that the patient reports that home blood pressure readings for the week has had the patient's SBP >180-200, and after taking her medications she reports that she never was below 170. With this elevation of her BP she noticed the associated symptoms of the posterior eye pain as above, left sided scalp and ear pain, she denies any vision changes other than her cataracts, and denies any other cardiac symptoms. Principal Diagnosis Hypertensive emergency, possible TIA Discharge Exam Constitutional WD/WN, vitals as above Eyes + anicteric sclerae and EOM intact bilaterally; no eyelid abnormality ENMT external ear and nose normal, oropharynx normal Neck trachea midline, no thyromegaly Respiratory normal respiratory effort, lungs clear to auscultation Cardiovascular RRR, no murmur, no edema Chest (Breasts) Chest: normal inspection of chest Gastrointestinal (Abdomen) normal bowel sounds, soft, nontender, no hepatosplenomegaly Musculoskeletal Extremities: extremities normal to inspection; no cyanosis and no clubbing Skin no rashes, warm and dry Neurologic CN's II-XI intact bilaterally, moves all extremities, + focal motor deficit (only mild 4+/5 strength in LUE, otherwise 5/5 throughout) and awake; not confused Motor/Sensory: no sensory deficit Psychiatric Orientation: alert, oriented to person, oriented to place and cooperative Eye Contact: good eye contact Speech: normal rate/rhythm/volume of speech Affect: euthymic affect Lymphatic no lymphedema Discharge Data Allergies Allergy/AdvReac Type Severity Reaction Status Date / Time oxymetazoline Allergy Mild . Verified 01/02/21 11:23 adhesive Allergy Unknown RASH Verified 01/02/21 11:23 latex Allergy Rash Verified 01/02/21 11:23 prednisone AdvReac Intermediate PT CAN Verified 01/02/21 11:23 TOLERATE DEXAMETHASONE [place] Inhibitors AdvReac Unknown Hypotension Verified 01/02/21 11:23 simvastatin AdvReac Unknown Rash Verified 01/02/21 11:23 oxycodone [From OxyContin] AdvReac Vomiting Verified 01/02/21 11:23 Consultations 12/27/20 09:09 ED Decision to Admit Stat 12/27/20 12:52 Consult Case Management - Discharge Planning Routine Consult Neurology Routine Consult Vascular Surgery Routine 12/27/20 19:17 Consult Cardiology Routine Ordered Studies 12/27/20 07:56 CT angio head w con Stat CT angio neck with con Stat CT head/brain wo con Stat 12/27/20 12:52 MR brain wo/w con Urgent 12/27/20 13:30 US duplex renal artery Routine ECHO Hospital Course (1) Hypertensive emergency: Patient with neurological symptoms od right sided facial droop,RUE numbness, slurred speech in the setting of uncontrolled HTN, no other evidence of end organ damage. MRI brain negative for acute CVA, showed bilateral small old lacunar infarcts in cerebellum ECHO preserved EF, mod LVH, mild AI, no WMAs - ECG with some anterolateral TW changes variable - Renal function at baseline - Symptoms consistent with carotid disease and uncontrolled HTN - Renal artery ultrasound negative BPs now much improved, had been in 220 systolic for 1 week prior to admission - only received 1 dose of IV labetalol in ER, otherwise recently started on amlodipine 10mg daily 2 days prior to admission and likely not optimally effective yet -started on chlorthalidone 25mg daily here as well -continue amlodipine 10mg daily, metoprolol 25mg bid (cannot titrate up due to HR 50-60s), losartan 100mg daily -continue to monitor BPs at home tid and keep log book for PCP, Cardiology -APAP prn headache ESR and CRP normal ruling out GSA Appreciate Cardiology consultation-f/u as outpt (2) Carotid artery stenosis: MARIO 50-60%, LICA mild stenosis Asymptomatic Needs continued medical management, no vascular intervention Not a candidate for enrollment in CREST2 trial as per my discussion with Neuro - control BP as above - patient with history of intolerance to other statins and has been able to tolerate 40mg Atorvastatin--> could consider increasing to 80mg daily if can tolerate-defer to PCP and/or Cardiology as outpt - On plavix for SHARI and CAD, HOWEVER added on ASA for DAPT with acceptance of increased risk of GI bleeding as per my d/w Neurology-I did discuss with family and patient who are agreeable to adding ASA -appreciate Vascular Surgery consult-no need for intervention (3) TIA (transient ischemic attack): As above, symptoms resolved. Likely related to hypertensive urgency rather than true TIA as per Neuro as not clearly localized-there was some question as to whether pt had left facial numbness as well Controlling BP continue Plavix, statin, and added ASA as above -is on PPI for GI protection in setting of DAPT -Will need Holter monitor for long-term event monitoring for A. fib especially given a history of lone A. fib postop from CABG-ordered at time of discharge through [employer] Not TPA candidate as resolution of symptoms -advised to f/u with Neuro in 1-2 months (4) Coronary artery disease: No acute changes on ECG and no other Cardiac symptoms at this time troponin negative on admission ECHO no WMAs, EF preserved Appreciate Cardiology consult continue Plavix, metoprolol, statin, losartan (5) Hypercholesteremia: Lipids controlled- continue high dose statin Atorva 40 (6) Diabetes mellitus type 2 in nonobese: On insulin therapy HGB A1C controlled at 7.3% (7) Diverticulosis of colon: Diverticulitis/diverticulosis- empirically placed on Augmentin 875 bid prior to admission by PCP, patient reports that her symptoms have improved and her lower quadrant abdominal pain is resolved, is nontender on exam. Continued po abx here and complete 10 day course at home (8) Hx of CABG: as above in CAD (9) Kidney disease: CKD II-III - follow closely in the setting of uncontrolled HTN - Renal ultrasound as above (10) Vertebral artery stenosis: 75% stenosis distal LEFT vert and mild focal distal stenosis RIGHT vert Medical management only at this time despite known old lacunar infarcts in cerebellum as per Neuro---> Vertebral artery intervention in the setting of calcified plaque buildup is extremely risky and is not intervened upon unless acute thrombosis No need for Neurovascular eval continue Plavix, and adding on ASA with increased risk of bleeding as above continue statin and BP control (11) Hypokalemia: replaced and resolved (12) Hypomagnesemia: Magnesium low at 1.5 on admission Replaced with IV magnesium sulfate and resolved (13) DVT prophylaxis: Heparin SQ Disposition-stable for dc to home Care discussed at length on phone with daughterMarielle Full code Total Time Total Time Spent Total Time Spent (In Minutes): 45 min Total Time Includes: Examination of the Patient, Discharge Planning, Medication Reconciliation and Communication With Other Providers (Cardiology, Neurology) Discharge Plan Discharge Items Patient Disposition: Home - Self-Care Reason For Visit: HTN URGENCY VS. CVA Discharge Diagnosis: Hypertensive urgency, Possible TIA Condition on Discharge: Good Activity: Resume your previous activity Non-emergency contact: Primary Care Provider, Endoscopy Technician and Neurologist Call non-emergency contact if: you have any medication questions and your symptoms worsen Follow-up/Referrals: David Chou MD [Primary Care Provider] - 01/02/21 11:20 am (Please follow up within 1 week.) Damien Christina MD [Physician] - 01/07/21 1:30 pm (WITHIN ONE WEEK) Donna Bustos MD [Physician] - 02/21/21 2:00 pm (Please follow up within [address] Bustos or Margoth Reis PA-C.) Diet: Carb Consistent or DM2 and Low Sodium (2gm) Addtl Attending Provider Instructions: You were admitted with stroke-like symptoms that resolved after your blood pressure was brought down. This may have been a Transient Ischemic Attack (TIA) or mini stroke, but may have also been due to your significantly elevated blood pressure. You recently started on a new medication called amlodipine and this should be continued. You were also started on a new water pill called chlorthalidone 25mg daily and this will help bring your blood pressure down further. Please check your blood pressure three times a day at home and keep a log for your PCP. It is recommended that you have a cardiac event monitor to look for atrial fibrillation which is an irregular heart rhythm that can lead to strokes. Arrangements will be made to send this to your house to wear for 1 month. Please focus on eating much less sodium in your diet. Because of your plaque build up in multiple arteries of the brain and risk for stroke, you were started on aspirin 81mg once daily to be taken IN ADDITION TO your Plavix (clopidogrel). There is no role for intervention or surgery on the blockages in your blood vessels. You can discuss this further with Neurology and Cardiology at your subsequent follow up visits. Cardiology will continue to follow these blockages over time. Continue to keep good control over your diabetes. Finish out 5 more days of the antibiotic for your diverticulitis. Follow up with Cardiology, Neurology, and your PCP. Risk Factors for Stroke: You can reduce your chances of stroke by working with your medical provider to adopt a healthy lifestyle. Some specific ways to lower your chance of stroke are: * If you are a smoker, now is the time to stop smoking cigarettes * If you are diabetic, improve the control of your blood sugars * Avoid excessive amounts of alcohol * Control high blood pressure * Lose weight if you are overweight * Be sure to lead an active lifestyle * Eat a healthy diet low in salt, cholesterol and fat You should know about other risk factors for stroke that you are unable to control. These include: * Age 55 years or older * Male gender * Certain racial groups: , or / * Family History of Stroke, Mini stroke or Heart Attack * Sickle Cell Disease Follow Up: It is important for you to keep your follow up appointments with your medical provider. Who to Call and When: Medical Emergencies: Call 911 immediately if you experience any of the following warning signs and symptoms of Stroke: * Sudden numbness or weakness of the face, arm or leg, especially on one side of the body * Sudden confusion, trouble speaking or understanding * Sudden trouble seeing in one or both eyes * Sudden trouble walking, dizziness, loss of balance or coordination * Sudden severe headache with no cause Do not delay calling 911 if you experience any warning signs or symptoms of a stroke. Delay in seeking medical attention may affect what treatments can be given to you. . Pending Studies at Discharge: No Stand-Alone Forms: My [facility] Medications and DC Order Prescriptions: New aspirin 81 mg Tablet,Delayed Release (Dr/Ec) 81 mg PO QAM Qty: 30 RF: 0 chlorthalidone 25 mg Tablet 25 mg PO QAM Qty: 30 RF: 0 Continued metoprolol tartrate 25 mg tablet 25 mg PO BID Qty: 180 RF: 3 omeprazole 20 mg capsule,delayed release(DR/EC) 20 mg PO DAILY Qty: 30 RF: 5 clopidogrel 75 mg tablet 75 mg PO DAILY 90 Days Qty: 90 RF: 2 losartan 100 mg tablet 100 mg PO DAILY Qty: 90 RF: 3 atorvastatin 40 mg tablet 40 mg PO DAILY Qty: 90 RF: 11 Levemir FlexTouch U-100 Insuln 100 unit/mL (3 mL) insulin pen See Rx Instructions SQ BID Qty: 15 RF: 3 (DME) pen needle, diabetic [BD Ultra-Fine Komal Pen Needle] 32 gauge x 5/32" needle See Rx Instructions .ROUTE .MEDSUPPLY Qty: 10 RF: 0 amoxicillin-pot clavulanate [Augmentin] 875-125 mg tablet 1 tab PO BID Qty: 20 RF: 0 amlodipine [Norvasc] 10 mg tablet 10 mg PO DAILY Qty: 30 RF: 1 cholecalciferol (vitamin D3) 5,000 unit capsule 5,000 units PO DAILY RF: 0 mecobalamin (vitamin B12) 1,000 mcg tablet,disintegrating 1,000 mcg SL DAILY RF: 0 Discharge Orders: Discharge Order (Routine); Ordered 12/29/20 Ordered By: Ashley Orlando/Other Patient Handouts: Tips for Using Less Salt, Managing Type 2 Diabetes Admission Data Admit Date/Time: 12/27/20 10:32 Attending Provider: Ashley Greco Admit Provider: Ashley Greco Primary Care Provider: David Chou V. Other Providers: Ashley Greco ; Donna Bustos ; Jay Ribeiro ; Yimi Jimenes Other Interventions: Discharge Summary Assessment (RN) Last Done: 12/29/20 14:11 Coding Level of Care Code 03001 OBS Care - Discharge Diagnoses Hypertensive emergency I16.1 Carotid artery stenosis I65.29 TIA (transient ischemic attack) G45.9 Coronary artery disease I25.10 Hypercholesteremia E78.00 Diabetes mellitus type 2 in nonobese E11.9 Diverticulosis of colon K57.30 Hx of CABG Z95.1 Kidney disease N28.9 Vertebral artery stenosis I65.09 Hypokalemia E87.6 Hypomagnesemia E83.42 DVT prophylaxis Z29.9
== END 2020-12-29 14:46 | disposition home or self-care (01) ==
LOC: ED 07:44 → INTOOBSV 10:32 → 1E 10:32

== ENCOUNTER 2024-02-17 08:17 | Inpatient (IN) ==
[2024-02-17] MEDS: SODIUM CHLORIDE 0.9% 500 ML IV STA (08:39)
[2024-02-17] MEDS: ONDANSETRON INJ 2 MG/ML 2 ML VIAL IV STA (08:39)
[2024-02-17 09:03] LABS: Basophils # (auto) 0.04 K/uL (0.00-0.20); Basophils % (auto) 0.4 %; Eosinophils # (auto) 0.02 K/uL (0.00-0.50); Eosinophils % (auto) 0.2 %; Hematocrit (blood only) 38.2 % (37.0-47.0); Hemoglobin 12.7 g/dl (12.0-16.0); Immature Granulocytes # (auto) 0.06 K/uL (0.01-0.20); Immature Granulocytes % (auto) 0.5 %; Lymphocytes # (auto) 0.63 K/uL (1.20-3.40); Lymphocytes % (auto) 5.6 %; Mean Corpuscular Hemoglobin 29.7 pg (25.0-34.0); Mean Corpuscular Hgb Conc 33.2 g/dL (32.0-36.0); Mean Corpuscular Volume 89.5 fL (80.0-100.0); Mean Platelet Volume 11.8 fL (9.4-12.4); Monocytes # (auto) 0.66 K/uL (0.11-0.59); Monocytes % (auto) 5.8 %; Neutrophils # (auto) 9.93 K/uL (1.40-6.50); Neutrophils % (auto) 87.5 %; Platelet Count 216 K/uL (130-400); RDW Coefficient of Variation 12.9 % (11.5-14.5); RDW Standard Deviation 42.5 fL (36.4-46.3); Red Blood Count 4.27 M/uL (4.20-5.40); White Blood Count 11.34 K/ul (4.8-10.8)
--- NOTE | 2024-02-17 09:16 | Emergency Department Note ---
Impression & Plan Cholecystitis, acute with cholelithiasis, Abdominal pain, Vomiting ED Provider Note NAME: MAURO CORNEJO AGE: 78 SEX: F : 1945 ARRIVES VIA: Walk-In INFORMANT: Patient, ED PROVIDER(S): Harry Bah MD CHIEF COMPLAINT: Abdominal pain, nausea vomiting MEDICAL DECISION MAKING: Patient presents due to concern for abdominal pain nausea vomiting. IV was established and blood work is obtained. Patient did have a CT abdomen pelvis ordered and was ordered IV morphine and Zofran along with IV fluids. CT does show concern for acute cholecystitis. I did speak with the medicine service and put in consult for general surgery. After some time manage I did receive message with the hospitalist from the surgical service that they were concerned given a remote prior history of a liver lesion that thought may have been metastatic liver disease would preclude them from performing her gallbladder surgery. I subsequently did speak with general surgery Dr. Amilcar Shane who stated they were concerned about the possible margins that may be needed if the patient did have gallbladder or cystic duct malignancy. She also thought that the patient may need an ERCP for biopsy of the cystic duct. I did speak with radiology about whether or not there was any imaging to better evaluate this. I spoke with Dr. Merrill as well as Dr. Geller. I did attempt to have radiology speak with Dr. Amilcar Shane to further discuss the questionable findings although radiology believes that this is likely just inflammation from the likely cholecystitis. I did convey these recommendations to the patient and the patient's family. I subsequently did talk to [facility] Kelli Quintero with general surgery as well as Dr. Payan with GI. Dr. Payan stated that they could not perform a biopsy of the cystic duct via ERCP and this was not something that was possible. Dr. Quintero with general surgery stated that if the patient was sent to [facility] they would just take her gallbladder out. She stated that if there was concern for malignancy they was sent for path. I rediscussed this with the hospitalist service as well as general surgery team to make them aware of [facility]'s recommendations. After further discussion patient was admitted to the medicine service with general surgery consults. Discussion w/ other healthcare providers: JESSICA Serra Dr. general surgery Dr. Geller radiology Dr. Escamilla radiology Dr. Schuyler LAMB [facility] Dr. Quintero general surgery [facility] Petar Jackson PA-C and Dr. Espinosa inpatient medicine service Prior /Outside records reviewed: Patient was seen in the emergency department on February complaining of similar symptoms. At that time the patient did have blood work completed which showed a normal white count H&H and platelet count patient's kidney function was at virtual baseline with creatinine 1.36. BG was 150. Patient did have mild elevation alk phosphatase at 112 but this has been chronic. Elevated her LFTs were unremarkable. Lipase was not elevated. Differential diagnosis: Differential abdominal pain for Diagnostics, as interpreted by me: ECG: None Cardiac monitoring: An order was placed for continuous cardiac monitoring. The monitor shows a rate of 85 with sinus rhythm. Patient was placed on pulse oximetry Medical decision rules: None Imaging studies: I informally interpreted the patient's CT abdomen/pelvis that showed pericholecystic inflammatory changes with formal report to follow. HPI: Patient presents due to concern for abdominal pain and nausea vomiting. The patient states that her symptoms began around 1 AM this morning. It is bandlike in the upper abdomen and the patient vomited approxifour times. This does feel similar to her symptoms when she presented the emergency department 2 days ago. Patient was told that her workup was unremarkable. The patient did tried to take a Tylenol and Mylanta but is unsure as to whether not she vomited these to this morning. No blood in the vomit no alcohol tobacco or drug use. The patient does have a known prior history of stents and bypass and states that this does not feel similar to when she required this. Patient denies any blood in the urine or stool no dysuria. The patient did have bowel movement this morning which is normal PAST MEDICAL HISTORY: See Below PAST SURGICAL HISTORY: See Below SOCIAL HISTORY: See Below HOME MEDICATIONS: See Below ALLERGIES: See Below VITALS: See Below PHYSICAL EXAMINATION: GENERAL: NAD, non-toxic. EYE EXAM: Normal conjunctiva. PERRL, no anisocoria and EOM's grossly intact w/o pain. OROPHARYNX: Moist mucus membranes, grossly normal dentition. NECK: Trachea midline, no stridor. LUNGS: Clear to auscultation. Normal chest wall mechanics. HEART: NSR, no MRG. ABDOMEN: Abdomen soft, upper abdominal pain, no masses, no rebound or guarding. BACK: No CVA TTP. SKIN: No rashes and no bruising. UPPER EXTREMITIES: Upper extremities are grossly normal. LOWER EXTREMITIES: Grossly normal, no edema. NEURO EXAM: A&O x3, cranial nerves II-XII grossly intact, normal speech, moves all 4 extremities. 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 History of malignant neoplasm of skin Osteopenia Paroxysmal atrial fibrillation Vitamin B12 deficiency Vitamin D insufficiency Dehydration Postoperative atrial fibrillation On intra-aortic balloon pump assist Elevated troponin Syncope NSTEMI (non-ST elevated myocardial infarction) Chest pain Diabetes mellitus TYPE II on Levemir at this time BID GERD (gastroesophageal reflux disease) Elevated troponin Hypertensive emergency Non Hodgkin's lymphoma (11/20/13) Hypogammaglobulinemia Fever Fever (10/21/13) Anemia Metastatic cancer to liver Kidney disease Diffuse large B-cell lymphoma of extranodal site (~07/2013) Surgical History History of open heart surgery S/P CABG (coronary artery bypass graft) S/P CABG x 1 on 09/08/2018; FELIZ to OM1 History of tonsillectomy History of appendectomy H/O tubal ligation Family History Mother Myocardial infarction Diabetes Sister Bladder cancer Daughter Diabetes Heart disease Brother Lung cancer Father Lung disease Denies family history of Ovarian cancer Prostate cancer Breast cancer Colorectal cancer Social History Smoking Status: Never smoker Second Hand Exposure: No; Do You Dip or Chew Tobacco: No; Hx Alcohol Use: No Hx Substance Use: No Preferred Language: [place] Communication Ability: Effective Visual Impairment: No Limitations Hearing Ability: Normal Review Coordinator Required: No Beliefs That Will Affect Care: None marital status: Current Living Situation: Spouse Current Living Situation Comment: lives with Júnior current occupational status: retired current occupation: Retired Other Information That Helps Us Care for You: No Feels Safe at Home: Yes Safety Concerns: Feels Safe At This Time Childhood Exposure to Second-Hand Smoke: Yes Dental Care, Regularly: No Physical Activity Frequency: Daily Seatbelt Use: always Sunscreen Use: Yes Assistive Devices: Cane and Walker Allergies Allergies Allergy/AdvReac Type Severity Reaction Status Date / Time oxymetazoline Allergy Mild . Verified 02/17/24 11:23 adhesive Allergy Unknown RASH Verified 02/17/24 11:23 latex Allergy Rash Verified 02/17/24 11:23 prednisone AdvReac Intermediate PT CAN Verified 02/17/24 11:23 TOLERATE DEXAMETHASONE KINGTSON Inhibitors AdvReac Unknown Hypotension Verified 02/17/24 11:23 simvastatin AdvReac Unknown Rash Verified 02/17/24 11:23 oxycodone [From OxyContin] AdvReac Vomiting Verified 02/17/24 11:23 Home Meds Home Medications Medication Instructions Recorded Confirmed cholecalciferol (vitamin D3) 125 5,000 units PO QDD 10/01/19 02/17/24 mcg (5,000 unit) capsule (Dialyvite Vitamin D) mecobalamin (vitamin B12) 1,000 1,000 mcg sublingual QAM 10/01/19 02/17/24 mcg disintegrating tablet,sublingual Previous Rx's Medication Instructions Recorded blood-glucose meter (OneTouch #1 ea 12/03/22 Ultra2 Meter) lancets 30 gauge (OneTouch Delica #100 ea 12/03/22 Lancets) pen needle, diabetic 32 gauge x #200 ea 03/09/23" (BD Ultra-Fine Komal Pen Needle) aspirin 81 mg tablet,delayed 81 mg PO DAILY #90 tabs 06/09/23 release (Adult Low Dose Aspirin) chlorthalidone 25 mg tablet 25 mg PO QAM #90 tabs 09/06/23 losartan 100 mg tablet (Cozaar) 100 mg PO QAM #90 tabs 09/07/23 amlodipine 10 mg tablet (Norvasc) 10 mg PO QAM #90 tabs 09/13/23 insulin glargine 100 unit/mL (3 30 unit (0.3 mL) subcut QAM #30 mL 10/25/23 mL) subcutaneous pen (Lantus Solostar U-100 Insulin) omeprazole 20 mg capsule,delayed 20 mg PO DAILYBB #30 caps 11/19/23 release atorvastatin 40 mg tablet (Lipitor) 40 mg PO QAM #100 tabs 12/01/23 glipizide 5 mg tablet 5 mg PO PM #90 tabs 12/13/23 clopidogrel 75 mg tablet (Plavix) 75 mg PO QAM #90 tabs 12/28/23 blood sugar diagnostic (OneTouch #100 ea 01/13/24 Ultra Test strips) Results & Data (ED) Vital Signs Vital Signs - 24 hr 02/17/24 08:24 02/17/24 09:09 02/17/24 09:12 Temperature 36.6 C Temperature Source Temporal Artery Scan Pulse Rate 72 59 L Pulse Rate [Finger] 56 L Respiratory Rate 20 16 Respiratory Effort / Characteristics Non-Labored Non-Labored Respiratory Depth Normal Normal Blood Pressure 160/72 H Blood Pressure [Right Arm] 156/56 H Blood Pressure Mean 101 Blood Pressure Mean [Right Arm] 89 Pulse Oximetry 98 95 Oxygen Delivery Method Room Air Room Air Sepsis Recent Fever Within 48 Hours No Sepsis New/Unexplained Change in Mental Status No Sepsis Action Taken by Nursing No Action Required Home Medications Current Medication List: was personally reviewed by me Laboratory Data Attestation: I reviewed the patient's lab results. 02/21/24 06:24 02/21/24 06:24 Lab Results 02/17/24 02/17/24 02/17/24 Range/Units 08:44 10:40 10:48 WBC 11.34 H (4.8-10.8) K/ul RBC 4.27 (4.20-5.40) M/uL Hgb 12.7 (12.0-16.0) g/dl Hct 38.2 (37.0-47.0) % MCV 89.5 (80.0-100.0) fL MCH 29.7 (25.0-34.0) pg MCHC 33.2 (32.0-36.0) g/dL RDW Std Deviation 42.5 (36.4-46.3) fL RDW Coeff of Mark 12.9 (11.5-14.5) % Plt Count 216 (130-400) K/uL MPV 11.8 (9.4-12.4) fL Immature Gran % (Auto) 0.5 % Neut % (Auto) 87.5 % Lymph % (Auto) 5.6 % [place] % (Auto) 5.8 % Eos % (Auto) 0.2 % Baso % (Auto) 0.4 % Neut # (Auto) 9.93 H (1.40-6.50) K/uL Lymph # (Auto) 0.63 L (1.20-3.40) K/uL [place] # (Auto) 0.66 H (0.11-0.59) K/uL Eos # (Auto) 0.02 (0.00-0.50) K/uL Baso # (Auto) 0.04 (0.00-0.20) K/uL Immature Gran # (Auto) 0.06 (0.01-0.20) K/uL Sodium 136 (136-145) mmol/L Potassium TNP 4.4 D Chloride 102 (98-107) mmol/L Carbon Dioxide 27 (21-32) mmol/L Anion Gap 7 (3-11) BUN 30 H (6-23) mg/dl Creatinine 1.29 H (0.6-1.2) mg/dl Est Cr Clr Drug Dosing Not Reportable Est GFR ( Amer) 45.3 ml/min Est GFR (Non-Af Amer) 39.1 ml/min BUN/Creatinine Ratio 23.3 H (10-20) Glucose 162 H (70-99(Fasting)) mg/dl POC Glucose (70-99) mg/dl Calcium 9.9 (8.6-10.3) mg/dl Total Bilirubin 0.6 (0.2-1.0) mg/dl AST TNP 15 ALT 16 (7-52) U/L Alkaline Phosphatase 115 H (34-104) U/L Troponin I High Sens 3.3 (0-14) pg/ml Total Protein 7.7 (6.0-8.3) gm/dl Albumin 4.4 (3.4-5.0) gm/dl Globulin 3.3 (2.5-4.0) gm/dl Albumin/Globulin Ratio 1.3 (0.9-2) Lipase 19 (11-82) U/L Urine Color Yellow Urine Appearance Clear (Clear) Urine pH 6.0 (4.5-7.5) Ur Specific [place] 1.023 (1.000-1.030) Urine Protein Negative (Negative) Urine Glucose (UA) Negative (Negative) Urine Ketones Negative (Negative) Urine Blood Negative (Negative) Urine Nitrite Negative (Negative) Urine Bilirubin Negative (Negative) Urine Urobilinogen Negative (Negative) Ur Leukocyte Esterase Negative (Negative) 02/17/24 Range/Units 13:08 WBC (4.8-10.8) K/ul RBC (4.20-5.40) M/uL Hgb (12.0-16.0) g/dl Hct (37.0-47.0) % MCV (80.0-100.0) fL MCH (25.0-34.0) pg MCHC (32.0-36.0) g/dL RDW Std Deviation (36.4-46.3) fL RDW Coeff of Mark (11.5-14.5) % Plt Count (130-400) K/uL MPV (9.4-12.4) fL Immature Gran % (Auto) % Neut % (Auto) % Lymph % (Auto) % [place] % (Auto) % Eos % (Auto) % Baso % (Auto) % Neut # (Auto) (1.40-6.50) K/uL Lymph # (Auto) (1.20-3.40) K/uL [place] # (Auto) (0.11-0.59) K/uL Eos # (Auto) (0.00-0.50) K/uL Baso # (Auto) (0.00-0.20) K/uL Immature Gran # (Auto) (0.01-0.20) K/uL Sodium (136-145) mmol/L Potassium Chloride (98-107) mmol/L Carbon Dioxide (21-32) mmol/L Anion Gap (3-11) BUN (6-23) mg/dl Creatinine (0.6-1.2) mg/dl Est Cr Clr Drug Dosing Est GFR ( Amer) ml/min Est GFR (Non-Af Amer) ml/min BUN/Creatinine Ratio (10-20) Glucose (70-99(Fasting)) mg/dl POC Glucose 139 H (70-99) mg/dl Calcium (8.6-10.3) mg/dl Total Bilirubin (0.2-1.0) mg/dl AST ALT (7-52) U/L Alkaline Phosphatase (34-104) U/L Troponin I High Sens (0-14) pg/ml Total Protein (6.0-8.3) gm/dl Albumin (3.4-5.0) gm/dl Globulin (2.5-4.0) gm/dl Albumin/Globulin Ratio (0.9-2) Lipase (11-82) U/L Urine Color Urine Appearance (Clear) Urine pH (4.5-7.5) Ur Specific [place] (1.000-1.030) Urine Protein (Negative) Urine Glucose (UA) (Negative) Urine Ketones (Negative) Urine Blood (Negative) Urine Nitrite (Negative) Urine Bilirubin (Negative) Urine Urobilinogen (Negative) Ur Leukocyte Esterase (Negative) Administered Medications Amlodipine Besylate (Amlodipine Besylate 5 Mg Tab) 10 mg PO [facility] Stop: 03/20/24 08:59 Last Admin: 02/20/24 09:08 Dose: 10 mg Documented By: Admin: 02/19/24 08:59 Dose: 10 mg Documented By: ANTONI Aspirin (Aspirin 81 Mg Ectab) 81 mg PO [facility] Stop: 03/19/24 14:59 Last Admin: 02/20/24 09:08 Dose: 81 mg Documented By: Admin: 02/19/24 08:59 Dose: 81 mg Documented By: Admin: 02/18/24 16:27 Dose: 81 mg Documented By: GUERRERO Acetaminophen (Ofirmev) 1,000 mg in 100 mls @ 400 mls/hr IV Q8H PRN PRN Reason: pain(1-4),headache,fever Stop: 02/24/24 18:59 Last Infusion: 02/21/24 07:17 Dose: Infused Documented By: Admin: 02/21/24 06:46 Dose: 400 mls/hr Documented By: Infusion: 02/20/24 21:06 Dose: Infused Documented By: Admin: 02/20/24 20:47 Dose: 400 mls/hr Documented By: Infusion: 02/19/24 20:34 Dose: Infused Documented By: Admin: 02/19/24 20:13 Dose: 400 mls/hr Documented By: Infusion: 02/18/24 20:29 Dose: Infused Documented By: Admin: 02/18/24 20:00 Dose: 400 mls/hr Documented By: Infusion: 02/18/24 08:51 Dose: Infused Documented By: Admin: 02/18/24 08:27 Dose: 400 mls/hr Documented By: Infusion: 02/17/24 21:31 Dose: Infused Documented By: JOSÉ ANTONIO Admin: 02/17/24 20:49 Dose: 400 mls/hr Documented By: JOSÉ ANTONIO Pantoprazole Sodium 40 mg/ (Syringe) 10 mls @ 5 mls/min IV DAILY@1100 ROS Stop: 03/19/24 10:59 Last Admin: 02/20/24 11:09 Dose: 5 mls/min Documented By: Admin: 02/19/24 10:31 Dose: 5 mls/min Documented By: Admin: 02/18/24 12:24 Dose: 5 mls/min Documented By: KRYS Ceftriaxone Sodium 2,000 mg/ (Dextrose) 50 mls @ 100 mls/hr IV Q24H ROS; Protocol Stop: 02/28/24 12:29 Last Infusion: 02/20/24 11:52 Dose: Infused Documented By: Admin: 02/20/24 11:18 Dose: 100 mls/hr Documented By: Infusion: 02/19/24 13:16 Dose: Infused Documented By: Admin: 02/19/24 12:42 Dose: 100 mls/hr Documented By: Infusion: 02/18/24 13:00 Dose: Infused Documented By: Admin: 02/18/24 12:23 Dose: 100 mls/hr Documented By: KRYS Metronidazole (Flagyl) 500 mg in 100 mls @ 100 mls/hr IV Q8H ROS; Protocol Stop: 02/27/24 20:59 Last Infusion: 02/21/24 07:17 Dose: Infused Documented By: Admin: 02/21/24 06:07 Dose: 100 mls/hr Documented By: Infusion: 02/20/24 22:25 Dose: Infused Documented By: Admin: 02/20/24 20:48 Dose: 100 mls/hr Documented By: Infusion: 02/20/24 12:47 Dose: Infused Documented By: Admin: 02/20/24 11:51 Dose: 100 mls/hr Documented By: Infusion: 02/20/24 06:37 Dose: Infused Documented By: Admin: 02/20/24 05:23 Dose: 100 mls/hr Documented By: Infusion: 02/19/24 21:45 Dose: Infused Documented By: Admin: 02/19/24 20:36 Dose: 100 mls/hr Documented By: Infusion: 02/19/24 14:17 Dose: Infused Documented By: Admin: 02/19/24 13:15 Dose: 100 mls/hr Documented By: Infusion: 02/19/24 06:55 Dose: Infused Documented By: Admin: 02/19/24 05:31 Dose: 100 mls/hr Documented By: Infusion: 02/18/24 21:41 Dose: Infused Documented By: Admin: 02/18/24 20:31 Dose: 100 mls/hr Documented By: Infusion: 02/18/24 13:43 Dose: Infused Documented By: Admin: 02/18/24 12:24 Dose: 100 mls/hr Documented By: Infusion: 02/18/24 05:52 Dose: Infused Documented By: JOSÉ ANTONIO Admin: 02/18/24 04:46 Dose: 100 mls/hr Documented By: JOSÉ ANTONIO Infusion: 02/17/24 23:16 Dose: Infused Documented By: JOSÉ ANTONIO Admin: 02/17/24 21:31 Dose: 100 mls/hr Documented By: JOSÉ ANTONIO Potassium Chloride 20 meq/ (Dextrose/Sodium Chloride) 1,010 mls @ 80 mls/hr IV .[id number] ROS Stop: 03/22/24 02:59 Last Admin: 02/21/24 03:47 Dose: 80 mls/hr Documented By: DANILO Lactated Ringer's (Lr) 1,000 mls @ 15 mls/hr IV .Q24H ROS Stop: 03/22/24 08:44 Last Admin: 02/21/24 09:39 Dose: 15 mls/hr Documented By: HERBERTR Insulin Aspart (Insulin Aspart Per Unit Charge) 0 units SC ACHS ROS Stop: 03/19/24 11:29 Last Admin: 02/21/24 07:57 Dose: Not Given Documented By: CICI Co-signed By: STEWART Admin: 02/20/24 20:31 Dose: Not Given Documented By: DANILO Co-signed By: JOYA Admin: 02/20/24 16:45 Dose: Not Given Documented By: Admin: 02/20/24 11:52 Dose: Not Given Documented By: Admin: 02/20/24 08:41 Dose: Not Given Documented By: Admin: 02/19/24 21:45 Dose: Not Given Documented By: DANILO Co-signed By: NATALIE Admin: 02/19/24 16:39 Dose: Not Given Documented By: Admin: 02/19/24 12:11 Dose: Not Given Documented By: Admin: 02/19/24 08:56 Dose: Not Given Documented By: Admin: 02/18/24 20:48 Dose: Not Given Documented By: DANILO Co-signed By: LORETO Admin: 02/18/24 16:28 Dose: Not Given Documented By: Admin: 02/18/24 12:24 Dose: Not Given Documented By: KRYS Ondansetron HCl (Ondansetron Inj 2 Mg/Ml 2 Ml Vial) 4 mg IV Q6H PRN PRN Reason: Nausea And Vomiting Stop: 03/18/24 11:17 Last Admin: 02/20/24 18:27 Dose: 4 mg Documented By: Admin: 02/19/24 10:31 Dose: 4 mg Documented By: Admin: 02/18/24 04:50 Dose: 4 mg Documented By: JOSÉ ANTONIO Discontinued Medications Enoxaparin Sodium (Enoxaparin Inj 40 Mg/0.4 Ml Syr) 40 mg SQ QAM ROS Stop: 03/19/24 14:59 Last Admin: 02/20/24 09:08 Dose: 40 mg Documented By: Admin: 02/19/24 08:58 Dose: 40 mg Documented By: Admin: 02/18/24 16:27 Dose: 40 mg Documented By: GUERRERO Sodium Chloride (Nss) 500 mls @ 999 mls/hr IV .Q31M STA Stop: 02/17/24 08:56 Last Infusion: 02/17/24 14:04 Dose: Infused Documented By: Admin: 02/17/24 08:39 Dose: 999 mls/hr Documented By: DRE Sodium Chloride (Nss) 500 mls @ 999 mls/hr IV .Q31M ONE Stop: 02/17/24 10:10 Last Infusion: 02/17/24 14:06 Dose: Infused Documented By: Admin: 02/17/24 09:52 Dose: 999 mls/hr Documented By: PINA Piperacillin Sod/Tazobactam Sod (Zosyn) 4.5 gm in 100 mls @ 200 mls/hr IV NOW ONE Stop: 02/17/24 11:05 Last Admin: 02/17/24 12:03 Dose: Not Given Documented By: RSO Ceftriaxone Sodium 2,000 mg/ (Dextrose) 50 mls @ 100 mls/hr IV NOW STA; Protocol Stop: 02/17/24 12:18 Last Infusion: 02/17/24 13:00 Dose: Infused Documented By: Admin: 02/17/24 12:23 Dose: 100 mls/hr Documented By: ROS Metronidazole (Flagyl) 500 mg in 100 mls @ 100 mls/hr IV NOW STA; Protocol Stop: 02/17/24 12:23 Last Infusion: 02/17/24 14:04 Dose: Infused Documented By: Admin: 02/17/24 12:58 Dose: 100 mls/hr Documented By: ROS Acetaminophen (Ofirmev) 1,000 mg in 100 mls @ 400 mls/hr IV NOW STA Stop: 02/17/24 12:03 Last Infusion: 02/17/24 13:00 Dose: Infused Documented By: Admin: 02/17/24 12:25 Dose: 400 mls/hr Documented By: ROS Parenteral Electrolytes (Plasma-Lyte A Ph 7.4) 1,000 mls @ 100 mls/hr IV .Q10H [facility] Stop: 02/17/24 21:14 Last Infusion: 02/17/24 23:51 Dose: Infused Documented By: JOSÉ ANTONIO Infusion: 02/17/24 23:51 Dose: 0 mls/hr Documented By: JOSÉ ANTONIO Admin: 02/17/24 14:44 Dose: 100 mls/hr Documented By: ROS Parenteral Electrolytes (Plasma-Lyte A Ph 7.4) 1,000 mls @ 100 mls/hr IV .Q10H ROS Stop: 02/18/24 19:29 Last Infusion: 02/18/24 20:48 Dose: Infused Documented By: Admin: 02/18/24 08:28 Dose: 100 mls/hr Documented By: Infusion: 02/18/24 08:28 Dose: Infused Documented By: Admin: 02/17/24 23:44 Dose: 100 mls/hr Documented By: SW Indocyanine Green (Indocyanine Green 25 Mg Vial) 2.5 mg INJ ONE ONE Stop: 02/21/24 08:40 Last Admin: 02/21/24 09:41 Dose: 2.5 mg Documented By: BG Insulin Aspart (Insulin Aspart Per Unit Charge) 0 units SC Q6 ROS Stop: 03/18/24 11:59 Last Admin: 02/18/24 05:56 Dose: 1 units Documented By: JOSÉ ANTONIO Co-signed By: JOSÉ LUIS Admin: 02/17/24 23:51 Dose: Not Given Documented By: JOSÉ ANTONIO Co-signed By: JOSÉ LUIS Admin: 02/17/24 18:22 Dose: Not Given Documented By: Admin: 02/17/24 13:10 Dose: Not Given Documented By: ROS Insulin Glargine (Lantus Per Unit Charge) 10 units SQ BID ROS Stop: 03/18/24 20:59 Last Admin: 02/18/24 08:37 Dose: 5 units Documented By: KRYS Co-signed By: ROMA Admin: 02/17/24 20:47 Dose: 10 units Documented By: JOSÉ ANTONIO Co-signed By: KALEB Insulin Glargine (Lantus Per Unit Charge) 5 units SQ BID [facility] Stop: 03/19/24 20:59 Last Admin: 02/19/24 09:00 Dose: 5 units Documented By: ANTONI Co-signed By: GUERRERO Admin: 02/18/24 20:54 Dose: 5 units Documented By: DANILO Co-signed By: LORETO Ioversol (Optiray 320 100ml) 93 ml IV ONCE ONE Stop: 02/17/24 10:00 Last Admin: 02/17/24 09:59 Dose: 93 ml Documented By: MINNIE Miscellaneous (Patient's Height &/Or Weight Needed) 1 each N/A NOW STA Stop: 02/17/24 11:25 Last Admin: 02/17/24 13:04 Dose: 1 each Documented By: ROS Morphine Sulfate (Morphine Sulfate 4 Mg/Ml 1 Ml Carp\\Vial) 4 mg IV NOW STA Stop: 02/17/24 09:40 Last Admin: 02/17/24 09:50 Dose: 4 mg Documented By: PINA Morphine Sulfate (Morphine Sulfate 2 Mg/Ml Carp) 2 mg IV Q4H PRN PRN Reason: Pain(5+) Stop: 03/02/24 11:12 Last Admin: 02/20/24 05:23 Dose: 2 mg Documented By: DANILO Ondansetron HCl (Ondansetron Inj 2 Mg/Ml 2 Ml Vial) 4 mg IV NOW STA Stop: 02/17/24 08:27 Last Admin: 02/17/24 08:39 Dose: 4 mg Documented By: HS Imaging Data Radiologist's Impression: Chest/Abdomen X-ray 02/17/24 08:58 PA CHEST RADIOGRAPH AND UPRIGHT AND SUPINE AP RADIOGRAPHS OF THE ABDOMEN CLINICAL HISTORY: Abd pain, N/V, hiatal hernia COMPARISON STUDY: CT of the abdomen and pelvis February 15, 2024. Chest radiograph March 06, 2022. Chest CT June 04, 2022. FINDINGS: There is no pneumothorax or pleural effusion. Cardiomegaly is unchanged. There are median sternotomy wires. A hiatal hernia is again noted. There is no consolidation or evidence for pulmonary edema. No free air is evident. The bowel gas pattern is normal. There is moderate vascular calcification. IMPRESSION: 1. No free air or evidence for a bowel obstruction. 2. No acute cardiopulmonary findings. ACT 112: Negative or not required by law. Electronically signed by: Paul Geller M.D. 02/17/2024 10:31 AM Abdomen/Pelvis CT 02/17/24 09:39 CT SCAN OF THE ABDOMEN AND PELVIS WITH IV CONTRAST CLINICAL HISTORY: Upper abdominal pain. Nausea and vomiting. COMPARISON STUDY: Abdominal CT dated 02/15/2024. TECHNIQUE: Following the IV administration of 93 cc of Optiray 320, CT scan of the abdomen and pelvis is performed from the lung bases to the proximal femora. Images are reviewed in the axial, sagittal, and coronal planes. IV contrast was administered without complication. A dose lowering technique was utilized adhering to the principles of ALARA. CT DOSE: 1148.54 mGy.cm FINDINGS: Lung bases: The patient is status post midline sternotomy. The heart is enlarged and without pericardial effusion. The coronary arteries are densely calcified. There is a moderate to large hiatal hernia. There is bibasilar scarring/atelectasis. No airspace consolidation or pleural effusion is identified. Liver: The contrast-enhanced liver is normal in size, contour, and attenuation. There is mild central intrahepatic biliary ductal dilatation. The hepatic veins and portal veins are patent. Gallbladder: The gallbladder is distended, and the wall is thickened/edematous with surrounding infiltration and fluid. Calcified gallstones are observed. Findings are consistent with acute cholecystitis. There is nonspecific thickening and enhancement within the wall of the cystic duct seen on image #86. Spleen: Normal in size and attenuation. Peripherally calcified splenic artery aneurysms measure up to 11 mm. Pancreas: Unremarkable. Adrenal glands: Unremarkable. Kidneys: The contrast enhanced kidneys demonstrate mild cortical atrophy and are without hydronephrosis. The kidneys enhance symmetrically. Renal sinus cysts are seen bilaterally. Scattered cortical cysts measure up to 2.1 cm. Additional subcentimeter cortical hypodensities also likely represent cysts but are too small for definitive characterization. There are numerous bilateral renovascular calcifications. No calculi are clearly identified. Abdominal vasculature: The abdominal aorta is normal in course and caliber noting advanced atherosclerotic calcification. Bowel: There is moderate to advanced colonic diverticulosis without CT evidence of acute diverticulitis. No bowel obstruction is seen. Duodenal diverticula are noted. The appendix is not identified and reportedly surgically absent Peritoneum: There is no intraperitoneal free air or abdominal ascites. There is a fat-containing umbilical hernia. Lymphadenopathy: None. Pelvic viscera: The bladder, uterus, and adnexa are normal as visualized. Skeletal structures: The skeletal structures are osteopenic. There is moderate lumbosacral spondylosis. Sclerotic changes noted in the pubic symphysis. No lytic or blastic lesions are seen. IMPRESSION: 1. Cholelithiasis with acute cholecystitis. Surgical evaluation is advised. 2. There is nonspecific focal wall thickening and enhancement of the cystic duct. This may be inflammatory. An underlying neoplastic process is considered less likely but is not entirely excluded. 3. Colonic diverticulosis without CT evidence of acute diverticulitis. 3. Hiatal hernia. 4. Additional findings as above. ACT 112: Negative or not required by law. Electronically signed by: Sanju Escamilla M.D. 02/17/2024 10:24 AM Discharge Plan Visit Data Chief Complaint: Abdominal Pain Stated Complaint: ABD PAINS, VOMITING ED Provider: Antwon Pal Discharge Problem: Cholecystitis, acute with cholelithiasis, Abdominal pain, Vomiting Patient Disposition: Admitted As Inpatient Discharge Instructions Interventions: ED Discharge Assessment Last Done: 02/17/24 14:23 Discharge Problem: Cholecystitis, acute with cholelithiasis Qualifiers: Biliary obstruction: without biliary obstruction Qualified Code(s): K80.00 - Calculus of gallbladder with acute cholecystitis without obstruction Abdominal pain Qualifiers: Abdominal location: upper abdomen, unspecified Qualified Code(s): R10.10 - Upper abdominal pain, unspecified Vomiting Qualifiers: Vomiting type: unspecified Nausea presence: with nausea Qualified Code(s): R 11.2 - Nausea with vomiting, unspecified
[2024-02-17 09:48] LABS: Alanine Aminotransferase 16 U/L (7-52); Albumin Globulin Ratio 1.3 (0.9-2); Albumin Level 4.4 gm/dl (3.4-5.0); Alkaline Phosphatase 115 U/L (34-104); Anion Gap 7 (3-11); BUN Creatinine Ratio 23.3 (10-20); Bilirubin,Total 0.6 mg/dl (0.2-1.0); Blood Urea Nitrogen 30 mg/dl (6-23); Calcium 9.9 mg/dl (8.6-10.3); Carbon Dioxide 27 mmol/L (21-32); Chloride 102 mmol/L (98-107); Est GFR (African American) 45.3 ml/min; Est GFR (Non-African American) 39.1 ml/min; Globulin 3.3 gm/dl (2.5-4.0); Glucose 162 mg/dl (70-99(Fasting)); Lipase 19 U/L (11-82); Sodium 136 mmol/L (136-145); Total Protein 7.7 gm/dl (6.0-8.3)
[2024-02-17] MEDS: MoRPHine SULFATE 4 MG/ML 1 ML CARP\\VIAL IV STA (09:50)
[2024-02-17] MEDS: SODIUM CHLORIDE 0.9% 500 ML IV ONE (09:52)
[2024-02-17] MEDS: OPTIRAY 320 100ml IV ONE (09:59)
--- NOTE | 2024-02-17 10:26 | CT Scan Report ---
CT SCAN OF THE ABDOMEN AND PELVIS WITH IV CONTRAST CLINICAL HISTORY: Upper abdominal pain. Nausea and vomiting. COMPARISON STUDY: Abdominal CT dated 02/15/2024. TECHNIQUE: Following the IV administration of 93 cc of Optiray 320, CT scan of the abdomen and pelvi s is performed from the lung bases to the proximal femora. Images are reviewed in the axial, sagittal , and coronal planes. IV contrast was administered without complication. A dose lowering technique wa s utilized adhering to the principles of ALARA. CT DOSE: 1148.54 mGy.cm FINDINGS: Lung bases: The patient is status post midline sternotomy. The heart is enlarged and without pericard ial effusion. The coronary arteries are densely calcified. There is a moderate to large hiatal hernia . There is bibasilar scarring/atelectasis. No airspace consolidation or pleural effusion is identifie d. Liver: The contrast-enhanced liver is normal in size, contour, and attenuation. There is mild central intrahepatic biliary ductal dilatation. The hepatic veins and portal veins are patent. Gallbladder: The gallbladder is distended, and the wall is thickened/edematous with surrounding infil tration and fluid. Calcified gallstones are observed. Findings are consistent with acute cholecystiti s. There is nonspecific thickening and enhancement within the wall of the cystic duct seen on image # 86. Spleen: Normal in size and attenuation. Peripherally calcified splenic artery aneurysms measure up to 11 mm. Pancreas: Unremarkable. Adrenal glands: Unremarkable. Kidneys: The contrast enhanced kidneys demonstrate mild cortical atrophy and are without hydronephros is. The kidneys enhance symmetrically. Renal sinus cysts are seen bilaterally. Scattered cortical cys ts measure up to 2.1 cm. Additional subcentimeter cortical hypodensities also likely represent cysts but are too small for definitive characterization. There are numerous bilateral renovascular calcific ations. No calculi are clearly identified. Abdominal vasculature: The abdominal aorta is normal in course and caliber noting advanced atheroscle rotic calcification. Bowel: There is moderate to advanced colonic diverticulosis without CT evidence of acute diverticulit is. No bowel obstruction is seen. Duodenal diverticula are noted. The appendix is not identified and reportedly surgically absent Peritoneum: There is no intraperitoneal free air or abdominal ascites. There is a fat-containing umbi lical hernia. Lymphadenopathy: None. Pelvic viscera: The bladder, uterus, and adnexa are normal as visualized. Skeletal structures: The skeletal structures are osteopenic. There is moderate lumbosacral spondylosi s. Sclerotic changes noted in the pubic symphysis. No lytic or blastic lesions are seen. IMPRESSION: 1. Cholelithiasis with acute cholecystitis. Surgical evaluation is advised. 2. There is nonspecific focal wall thickening and enhancement of the cystic duct. This may be inflamm atory. An underlying neoplastic process is considered less likely but is not entirely excluded. 3. Colonic diverticulosis without CT evidence of acute diverticulitis. 3. Hiatal hernia. 4. Additional findings as above. ACT 112: Negative or not required by law. Electronically signed by: Sanju Escamilla M.D. 02/17/2024 10:24 AM
--- NOTE | 2024-02-17 10:32 | XRay Report ---
PA CHEST RADIOGRAPH AND UPRIGHT AND SUPINE AP RADIOGRAPHS OF THE ABDOMEN CLINICAL HISTORY: Abd pain, N/V, hiatal hernia COMPARISON STUDY: CT of the abdomen and pelvis February 15, 2024. Chest radiograph March 06, 2022. Chest CT June 04, 2022. FINDINGS: There is no pneumothorax or pleural effusion. Cardiomegaly is unchanged. There are median sternotomy wires. A hiatal hernia is again noted. There is no consolidation or evidence for pulmonary edema. No free air is evident. The bowel gas pattern is normal. There is moderate vascular calcifica tion. IMPRESSION: 1. No free air or evidence for a bowel obstruction. 2. No acute cardiopulmonary findings. ACT 112: Negative or not required by law. Electronically signed by: Paul Geller M.D. 02/17/2024 10:31 AM
[2024-02-17 10:59] LABS: Appearance Urine Clear (Clear); Bilirubin Urine Negative (Negative); Blood Urine Negative (Negative); Color Urine Yellow; Glucose Urine UA Negative (Negative); Ketones Urine Negative (Negative); Leukocyte Esterase Urine Negative (Negative); Nitrite Urine Negative (Negative); Protein Urine Negative (Negative); Specific Gravity Urine 1.023 (1.000-1.030); Urobilinogen Urine Negative (Negative)
--- NOTE | 2024-02-17 11:00 | History & Physical Report ---
Date of Service February 17, 2024 Assessment & Plan (1) Cholecystitis, acute with cholelithiasis: Plan: -Will admit to med/surge once General Surgery examines the patient and deems her stable for our facility -Presented to the ED with ongoing intermittent RUQ abdominal pain, nausea, and non-bloody emesis -Was seen on 02/15/24 in the [facility] ED but workup at that time was unremarkable -Noted to have a leukocytosis today with LFT's WNL -CT of the abd/pelvis w/IV con shows signs consistent with Cholelithiasis with acute cholecystitis. -Initially ordered a dose of zosyn in the ED, did not receive prior to admission -Will start Ceftriaxone and flagyl instead -Currently receiving her second 500 mL NSS bolus in the ED >Will start maintenance Plasmalyte x 1 bag after 2nd NSS bolus is complete -Pain control with tylenol and morphine -Zofran for nausea -Strict NPO -Hold chemical DVT PPX for now, start BL SCD's -AM CBC, CMP, mag, PT/INR (2) Abdominal pain: Plan: -Appears to be associated with her acute cholecystitis -Rest of care per cholecystitis plan (3) Vomiting: Plan: -See cholecystitis plan (4) Coronary artery disease: Plan: -No recent chest pain -Would resume aspirin, plavix, when surgery is comfortable from a bleeding risk perspective -Continue statin when able (5) Diabetes mellitus type 2 in nonobese: Plan: -Monitor BSG q6h while NPO, goal is 110-160 -Start CF of 50 q6h while npo -Normally takes 30 units lantus qam, will adjust to 10 units BID for now with poor oral intake -Adjust regimen as needed (6) GERD (gastroesophageal reflux disease): Plan: -Will start daily IV pantoprazole while NPO (7) Hypertension: Plan: -Stable -Will hold amlodipine, losartan, and chlorthalidone in the perioperative period to avoid hypotension (8) B-cell lymphoma: Plan: -Has been in remission -Continue to follow with Heme/onc on discharge Plan The patient was discussed with Dr. Espinosa at the time of the admission History of Present Illness Chief Complaint: Abdominal pain Primary Care Provider: David Chou MD Radha Butler is an 78 year old female with a PMH significant for multivessel CAD (RCA PCI with 4 SHARI in the setting of NSTEMI; post PCI to proximal mid LAD--undeployed stent inside mid LAD stent, late-mid LAD dissection. Post single vessel CABG with FELIZ to circumflex), HFpEF, TIA, HTN, GERD, diffuse B-cell lymphoma (in remission) who presented to the [facility] ED on 02/17/24 with abdominal pain. Remained stable in the ED. Labs were significant for a leukocytosis of 11 with neutrophil predominance of 9, stable LFT's, Chest/abd xray was read as negative for acute findings. CT of the abd/pelvis w/IV con was read as "1. Cholelithiasis with acute cholecystitis. Surgical evaluation is advised. 2. There is nonspecific focal wall thickening and enhancement of the cystic duct. This may be inflammatory. An underlying neoplastic process is considered less likely but is not entirely excluded. 3. Colonic diverticulosis without CT evidence of acute diverticulitis. 3. Hiatal hernia. 4. Additional findings as above.". Prior to admission the patient was given a dose of Zosyn, 1L NSS, 4 mg IV morphine, and 4 mg IV zofran. General Surgery was consulted in the ED At the time of the exam the patient was sitting in bed in no acute distress with family bedside. She states that she has been having intermittent RUQ abdominal pain for months. Usually starts in the RUQ and radiates to the LUQ. Exacerbated with eating. After she was discharged from the ED on 02/14 her symptoms resolved until 0100 this am when her pain woke her from sleep. Has experienced multiple episodes of nausea and non-bloody emesis today. Denies recent fever, chills, chest pain, SOB, dysuria, hematuria, diarrhea, melena, LE swelling, and recent trauma. States LLE is always "a little" more swollen than the RLE since she had her CABG. Is a full code and would want her and Daughter make decisions for her if she could not make them herself. Did not have any am meds prior to arrival. Please refer to Dr. Espinosa's attestation for any changes to the treatment plan Allergies Allergy/AdvReac Type Severity Reaction Status Date / Time oxymetazoline Allergy Mild . Verified 02/17/24 11:23 adhesive Allergy Unknown RASH Verified 02/17/24 11:23 latex Allergy Rash Verified 02/17/24 11:23 prednisone AdvReac Intermediate PT CAN Verified 02/17/24 11:23 TOLERATE DEXAMETHASONE [place] Inhibitors AdvReac Unknown Hypotension Verified 02/17/24 11:23 simvastatin AdvReac Unknown Rash Verified 02/17/24 11:23 oxycodone [From OxyContin] AdvReac Vomiting Verified 02/17/24 11:23 Home Medications Medication Instructions Recorded Confirmed Type cholecalciferol (vitamin D3) 125 5,000 units PO QDD 10/01/19 02/17/24 History mcg (5,000 unit) capsule (Dialyvite Vitamin D) mecobalamin (vitamin B12) 1,000 1,000 mcg sublingual QAM 10/01/19 02/17/24 History mcg disintegrating tablet,sublingual blood-glucose meter (OneTouch #1 ea 12/03/22 12/16/23 Rx Ultra2 Meter) lancets 30 gauge (OneTouch Delica #100 ea 12/03/22 12/16/23 Rx Lancets) pen needle, diabetic 32 gauge x #200 ea 03/09/23 12/16/23 Rx 5/32" (BD Ultra-Fine Komal Pen Needle) aspirin 81 mg tablet,delayed 81 mg PO DAILY #90 tabs 06/09/23 02/17/24 Rx release (Adult Low Dose Aspirin) chlorthalidone 25 mg tablet 25 mg PO QAM #90 tabs 09/06/23 02/17/24 Rx losartan 100 mg tablet (Cozaar) 100 mg PO QAM #90 tabs 09/07/23 02/17/24 Rx amlodipine 10 mg tablet (Norvasc) 10 mg PO QAM #90 tabs 09/13/23 02/17/24 Rx insulin glargine 100 unit/mL (3 30 unit (0.3 mL) subcut QAM #30 mL 10/25/23 02/17/24 Rx mL) subcutaneous pen (Lantus Solostar U-100 Insulin) omeprazole 20 mg capsule,delayed 20 mg PO DAILYBB #30 caps 11/19/23 02/17/24 Rx release atorvastatin 40 mg tablet (Lipitor) 40 mg PO QAM #100 tabs 12/01/23 02/17/24 Rx glipizide 5 mg tablet 5 mg PO PM #90 tabs 12/13/23 02/17/24 Rx clopidogrel 75 mg tablet (Plavix) 75 mg PO QAM #90 tabs 12/28/23 02/17/24 Rx blood sugar diagnostic (OneTouch #100 ea 01/13/24 Rx Ultra Test strips) amoxicillin 875 mg-potassium 1 tab PO BID #10 tabs 02/23/24 Rx clavulanate 125 mg tablet 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 History of malignant neoplasm of skin Osteopenia Paroxysmal atrial fibrillation Vitamin B12 deficiency Vitamin D insufficiency Dehydration Postoperative atrial fibrillation On intra-aortic balloon pump assist Elevated troponin Syncope NSTEMI (non-ST elevated myocardial infarction) Chest pain Diabetes mellitus TYPE II on Levemir at this time BID GERD (gastroesophageal reflux disease) Elevated troponin Hypertensive emergency Non Hodgkin's lymphoma (11/20/13) Hypogammaglobulinemia Fever Fever (10/21/13) Anemia Metastatic cancer to liver Kidney disease Diffuse large B-cell lymphoma of extranodal site (~07/2013) Surgical History (Updated 02/23/24 @ 14:22 by Sherly Lamb RN) Hx laparoscopic cholecystectomy (02/21/24) Robotic Assisted Laparoscopic Cholecystectomy(Not Applicable) - Deepthi Kumar DO History of open heart surgery S/P CABG (coronary artery bypass graft) S/P CABG x 1 on 09/08/2018; FELIZ to OM1 History of tonsillectomy History of appendectomy H/O tubal ligation Family History Mother Myocardial infarction Diabetes Sister Bladder cancer Daughter Diabetes Heart disease Brother Lung cancer Father Lung disease Denies family history of Ovarian cancer Prostate cancer Breast cancer Colorectal cancer Social History Smoking Status: Never smoker Second Hand Exposure: No; Do You Dip or Chew Tobacco: No; Hx Alcohol Use: No Hx Substance Use: No Preferred Language: Lao Communication Ability: Effective Visual Impairment: No Limitations Hearing Ability: Normal Customer Manager Required: No Beliefs That Will Affect Care: None marital status: Current Living Situation: Spouse Current Living Situation Comment: lives with Júnior current occupational status: retired current occupation: Retired Other Information That Helps Us Care for You: No Feels Safe at Home: Yes Safety Concerns: Feels Safe At This Time Childhood Exposure to Second-Hand Smoke: Yes Dental Care, Regularly: No Physical Activity Frequency: Daily Seatbelt Use: always Sunscreen Use: Yes Assistive Devices: Cane and Walker Physical Exam Physical Exam: Physical Exam: General: In no acute distress, stated age, well-nourished, good hygiene HEENT: Normocephalic, atraumatic, no scleral icterus, pupils around round, symmetrical, and reactive to light, moist mucus membranes, trachea midline, no thyromegaly Chest/Pulm: No respiratory distress, symmetrical chest expansion, clear breath sounds throughout Cardiac: RRR, no murmurs noted Abdomen: Negative for ascites and bruising, normoactive bowel sounds, soft, tender to palpation in the RUQ without rebound tenderness, + velez's sign Musculoskeletal: Symmetrical and without signs of acute trauma, upper and lower extremities with full ROM, no atrophy, spasticity, or flaccidity Extremities: Radial, dorsalis pedis, and posterior tibial pulses are intact and symmetrical, mild swelling in the LLE compared to right Skin: Warm, dry, no rashes , lesions, or scars noted Neuro: Alert and oriented to person, place, month, year, and president, no focal defects, no tremors noted Psych: No acute distress, calm and cooperative during the exam Results & Data Results & Data Vital Signs (Past 12 Hours) Vital Signs Temp Pulse Pulse Resp BP BP Pulse Ox 02/17/24 10:22 72 14 150/84 H 97 02/17/24 09:12 59 L 02/17/24 09:09 56 L 16 156/56 H 95 02/17/24 08:24 36.6 C 72 20 160/72 H 98 O2 Del Method 02/17/24 10:22 Room Air 02/17/24 09:12 02/17/24 09:09 Room Air 02/17/24 08:24 Room Air Laboratory Results Abnormal lab results 02/17/24 Range/Units 08:44 WBC 11.34 H (4.8-10.8) K/ul Neut # (Auto) 9.93 H (1.40-6.50) K/uL Lymph # (Auto) 0.63 L (1.20-3.40) K/uL Collin # (Auto) 0.66 H (0.11-0.59) K/uL BUN 30 H (6-23) mg/dl Creatinine 1.29 H (0.6-1.2) mg/dl BUN/Creatinine Ratio 23.3 H (10-20) Glucose 162 H (70-99(Fasting)) mg/dl Alkaline Phosphatase 115 H (34-104) U/L Diagnostic Findings Chest/Abdomen X-ray 02/17/24 08:58 PA CHEST RADIOGRAPH AND UPRIGHT AND SUPINE AP RADIOGRAPHS OF THE ABDOMEN CLINICAL HISTORY: Abd pain, N/V, hiatal hernia COMPARISON STUDY: CT of the abdomen and pelvis February 15, 2024. Chest radiograph March 06, 2022. Chest CT June 04, 2022. FINDINGS: There is no pneumothorax or pleural effusion. Cardiomegaly is unchanged. There are median sternotomy wires. A hiatal hernia is again noted. There is no consolidation or evidence for pulmonary edema. No free air is evident. The bowel gas pattern is normal. There is moderate vascular calcification. IMPRESSION: 1. No free air or evidence for a bowel obstruction. 2. No acute cardiopulmonary findings. ACT 112: Negative or not required by law. Electronically signed by: Paul Geller M.D. 02/17/2024 10:31 AM Abdomen/Pelvis CT 02/17/24 09:39 CT SCAN OF THE ABDOMEN AND PELVIS WITH IV CONTRAST CLINICAL HISTORY: Upper abdominal pain. Nausea and vomiting. COMPARISON STUDY: Abdominal CT dated 02/15/2024. TECHNIQUE: Following the IV administration of 93 cc of Optiray 320, CT scan of the abdomen and pelvis is performed from the lung bases to the proximal femora. Images are reviewed in the axial, sagittal, and coronal planes. IV contrast was administered without complication. A dose lowering technique was utilized adhering to the principles of ALARA. CT DOSE: 1148.54 mGy.cm FINDINGS: Lung bases: The patient is status post midline sternotomy. The heart is enlarged and without pericardial effusion. The coronary arteries are densely calcified. There is a moderate to large hiatal hernia. There is bibasilar scarring/atelectasis. No airspace consolidation or pleural effusion is identified. Liver: The contrast-enhanced liver is normal in size, contour, and attenuation. There is mild central intrahepatic biliary ductal dilatation. The hepatic veins and portal veins are patent. Gallbladder: The gallbladder is distended, and the wall is thickened/edematous with surrounding infiltration and fluid. Calcified gallstones are observed. Findings are consistent with acute cholecystitis. There is nonspecific thickening and enhancement within the wall of the cystic duct seen on image #86. Spleen: Normal in size and attenuation. Peripherally calcified splenic artery aneurysms measure up to 11 mm. Pancreas: Unremarkable. Adrenal glands: Unremarkable. Kidneys: The contrast enhanced kidneys demonstrate mild cortical atrophy and are without hydronephrosis. The kidneys enhance symmetrically. Renal sinus cysts are seen bilaterally. Scattered cortical cysts measure up to 2.1 cm. Additional subcentimeter cortical hypodensities also likely represent cysts but are too small for definitive characterization. There are numerous bilateral renovascular calcifications. No calculi are clearly identified. Abdominal vasculature: The abdominal aorta is normal in course and caliber noting advanced atherosclerotic calcification. Bowel: There is moderate to advanced colonic diverticulosis without CT evidence of acute diverticulitis. No bowel obstruction is seen. Duodenal diverticula are noted. The appendix is not identified and reportedly surgically absent Peritoneum: There is no intraperitoneal free air or abdominal ascites. There is a fat-containing umbilical hernia. Lymphadenopathy: None. Pelvic viscera: The bladder, uterus, and adnexa are normal as visualized. Skeletal structures: The skeletal structures are osteopenic. There is moderate lumbosacral spondylosis. Sclerotic changes noted in the pubic symphysis. No lytic or blastic lesions are seen. IMPRESSION: 1. Cholelithiasis with acute cholecystitis. Surgical evaluation is advised. 2. There is nonspecific focal wall thickening and enhancement of the cystic duct. This may be inflammatory. An underlying neoplastic process is considered less likely but is not entirely excluded. 3. Colonic diverticulosis without CT evidence of acute diverticulitis. 3. Hiatal hernia. 4. Additional findings as above. ACT 112: Negative or not required by law. Electronically signed by: Sanju Escamilla M.D. 02/17/2024 10:24 AM ECG Additional Comments: Normal sinus rhythm Possible Left atrial enlargement Nonspecific ST and T wave abnormality Abnormal ECG When compared with ECG of 15-FEB-2024 18:07, (unconfirmed) Nonspecific T wave abnormality no longer evident in Inferior leads Code Status & VTE Plan Code Status Full code VTE Prophylaxis Plan VTE Prophylaxis will be ordered: Yes Supervising Physician Co-Signing Physician Notes I personally saw and examined the patient. I verified all sam points and agree with Petar Jackson PA-C with the following exceptions and/or additions: 78 year old female presents to the ER with RUQ pain. Ongoing intermittently for months, exacerbated with eating, significant worse and constant starting at 1am today with associated nausea, vomiting. O/E HS RRR, no murmurs, Chest CTAB, Abdo RUQ tenderness without guarding or rebound A/P Acute cholecystitis - Ceftriaxone, metronidazole IV, consult surgery, monitor LFTs, lipase WNL, no CBD dilatation, diet per surgery. Delay in admission due to initially surgery were unsure whether they would want to transfer. PG Care Time/CCT Total # of Minutes Spent Total Time Spent: 80 Total Time Spent with Patient: Total time spent is greater than 50% in coordination of care (as documented) at patient's floor/unit and/or counseling patient: C[place] [address] INT INP/OBS CARE 3/75MIN Patient Type Established Medical Decision Making High Complexity Diagnoses Cholecystitis, acute with cholelithiasis K80.00 Abdominal pain R10.9 Vomiting R11.10 Coronary artery disease I25.10 Diabetes mellitus type 2 in nonobese E11.9 GERD (gastroesophageal reflux disease) K21.9 Hypertension I10 B-cell lymphoma C85.10
[2024-02-17] MEDS ORDERED: DEXTROSE 50% 50 ML SYRINGE IV PRN (11:14)
[2024-02-17] MEDS ORDERED: GLUCOSE 40% GEL 15 GM TUBE PO PRN (11:14)
[2024-02-17] MEDS ORDERED: CARBOHYDRATES FOR HYPOGLYCEMIA PO PRN (11:14)
[2024-02-17] MEDS ORDERED: GLUCOSE 10 TAB/TUBE PO PRN (11:14)
[2024-02-17] MEDS ORDERED: GLUCAGON FOR INJ 1 MG VIAL SQ PRN (11:14)
[2024-02-17 11:25] LABS: Potassium 4.4 mmol/L (3.5-5.1)
[2024-02-17] MEDS: PIPERACILLIN/TAZOBACTAM 4.5 GM/100 ML BAG IV ONE (12:03)
[2024-02-17] MEDS: cefTRIAXone SODIUM 2,000 MG in DEXTROSE 5 % MINI-B 50 ML IV STA (12:23)
[2024-02-17] MEDS: ACETAMINOPHEN 1,000 MG/100 ML VIAL IV STA (12:25)
[2024-02-17] MEDS: metroNIDAZOLE 500 MG/100 ML BAG IV STA (12:58)
[2024-02-17] MEDS: Patient's HEIGHT &/or WEIGHT Needed STA (13:04)
[2024-02-17] MEDS: INSULIN ASPART PER UNIT CHARGE SC SCH (13:10)
[2024-02-17] MEDS: PLASMA-LYTE A 1,000 ML IV SCH ×2 (14:44→23:44)
--- NOTE | 2024-02-17 17:24 | Surgery Consultation ---
<Statement entered by Deepthi Kumar, - 02/18/24 11:39> This case was discussed with the surgical PA Date of Consultation February 17, 2024 Assessment & Plan (1) Cholecystitis, acute with cholelithiasis: Patient is a pleasant 78 yo female with c/o abdominal pain, nausea vomiting. Patient reports she has had a 4 month history of indigestion, nausea and occasionally vomiting intermittent with abdominal pain. Patient reports she was seen in the ER two days ago and was sent home with no explanation of her symptoms. She represented to the ER this AM with increasing abdominal pain, nausea and vomiting. On exam is in no acute distress, abdomen is soft TTP in RUQ and RLQ, VSS , afebrile , WBC elevated at 11. A CT scan is reading 1 Cholelithiasis with acute cholecystitis. Surgical evaluation is advised. 2. There is nonspecific focal wall thickening and enhancement of the cystic duct. This may be inflammatory. An underlying neoplastic process is considered less likely but is not entirely excluded. 3. Colonic diverticulosis without CT evidence of acute diverticulitis. 3. Hiatal hernia. admit to medicine RUQ U/S ordered May have ice chips/sips but would not advance past this given recent vomiting IV Fluids for hydration IV antiemetic PRN IV continue antibiotics IV analgesic PRN Consult cardiology for surgical clearance Hold Plavix, may have Heparin if needed last dose of Plavix was yesterday 02/16/24 it is preferred if this is held for 5 days prior to any surgical intervention (2) H/O lymphoma: hx of metastatic B cell lymphoma Dr. Kumar spoke with Dr. Geller in radiology about CT scan Radiology believes that thickening of cystic duct is from inflammation from a gallstone and not neoplastic in nature. History of Present Illness Reason for Consultation: acute cholecystitis Requesting Physician: Dr. Bah History of Present Illness Patient is a pleasant 78 yo female with PMH of metastatic B- Cell Lymphoma, HLD, osteopenia CAD, carotid artery stenosis, TIA, DM2, HTN Multivessel disease, GERD, Diverticulosis, S/p cardiac stents x7. That presented to the [facility] ER with c/o abdominal pain, nausea vomiting. Patient reports she has had a 4 month history of indigestion, nausea and occasionally vomiting intermittent with abdominal pain. Patient reports she was seen in the ER two days ago and was sent home with no explanation of her symptoms. She represented to the ER this AM with increasing abdominal pain, nausea and vomiting. Denies CP, SOB, fever chills. Takes Plavix and last dose was yesterday. Past surgical history of open appendectomy, open tubal ligation, and open heart surgery in 2018. Allergies Allergy/AdvReac Type Severity Reaction Status Date / Time oxymetazoline Allergy Mild . Verified 02/17/24 11:23 adhesive Allergy Unknown RASH Verified 02/17/24 11:23 latex Allergy Rash Verified 02/17/24 11:23 prednisone AdvReac Intermediate PT CAN Verified 02/17/24 11:23 TOLERATE DEXAMETHASONE [place] Inhibitors AdvReac Unknown Hypotension Verified 02/17/24 11:23 simvastatin AdvReac Unknown Rash Verified 02/17/24 11:23 oxycodone [From OxyContin] AdvReac Vomiting Verified 02/17/24 11:23 Home Medications Medication Instructions Recorded Confirmed Type cholecalciferol (vitamin D3) 125 5,000 units PO QDD 10/01/19 02/17/24 History mcg (5,000 unit) capsule (Dialyvite Vitamin D) mecobalamin (vitamin B12) 1,000 1,000 mcg sublingual QAM 10/01/19 02/17/24 History mcg disintegrating tablet,sublingual blood-glucose meter (OneTouch #1 ea 12/03/22 12/16/23 Rx Ultra2 Meter) lancets 30 gauge (OneTouch Delica #100 ea 12/03/22 12/16/23 Rx Lancets) pen needle, diabetic 32 gauge x #200 ea 03/09/23 12/16/23 Rx 5/32" (BD Ultra-Fine Komal Pen Needle) aspirin 81 mg tablet,delayed 81 mg PO DAILY #90 tabs 06/09/23 02/17/24 Rx release (Adult Low Dose Aspirin) chlorthalidone 25 mg tablet 25 mg PO QAM #90 tabs 09/06/23 02/17/24 Rx losartan 100 mg tablet (Cozaar) 100 mg PO QAM #90 tabs 09/07/23 02/17/24 Rx amlodipine 10 mg tablet (Norvasc) 10 mg PO QAM #90 tabs 09/13/23 02/17/24 Rx insulin glargine 100 unit/mL (3 30 unit (0.3 mL) subcut QAM #30 mL 10/25/23 02/17/24 Rx mL) subcutaneous pen (Lantus Solostar U-100 Insulin) omeprazole 20 mg capsule,delayed 20 mg PO DAILYBB #30 caps 11/19/23 02/17/24 Rx release atorvastatin 40 mg tablet (Lipitor) 40 mg PO QAM #100 tabs 12/01/23 02/17/24 Rx glipizide 5 mg tablet 5 mg PO PM #90 tabs 12/13/23 02/17/24 Rx clopidogrel 75 mg tablet (Plavix) 75 mg PO QAM #90 tabs 12/28/23 02/17/24 Rx blood sugar diagnostic (OneTouch #100 ea 01/13/24 Rx Ultra Test strips) Patient History Medical History Nausea COVID-19 Elevated serum creatinine Hypertensive emergency Slurring of speech Word finding difficulty Coronary artery disease Dyslipidemia 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 History of malignant neoplasm of skin Osteopenia Paroxysmal atrial fibrillation Vitamin B12 deficiency Vitamin D insufficiency Dehydration Postoperative atrial fibrillation On intra-aortic balloon pump assist Elevated troponin Syncope NSTEMI (non-ST elevated myocardial infarction) Chest pain Diabetes mellitus TYPE II on Levemir at this time BID GERD (gastroesophageal reflux disease) Elevated troponin Hypertensive emergency Non Hodgkin's lymphoma (11/20/13) Hypogammaglobulinemia Fever Fever (10/21/13) Anemia Metastatic cancer to liver Kidney disease Diffuse large B-cell lymphoma of extranodal site (~07/2013) Surgical History History of open heart surgery S/P CABG (coronary artery bypass graft) S/P CABG x 1 on 09/08/2018; FELIZ to OM1 History of tonsillectomy History of appendectomy H/O tubal ligation Family History Mother Myocardial infarction Diabetes Sister Bladder cancer Daughter Diabetes Heart disease Brother Lung cancer Father Lung disease Denies family history of Ovarian cancer Prostate cancer Breast cancer Colorectal cancer Social History Smoking Status: Never smoker Second Hand Exposure: No; Do You Dip or Chew Tobacco: No; Hx Alcohol Use: No Hx Substance Use: No Preferred Language: Japanese Communication Ability: Effective Visual Impairment: No Limitations Hearing Ability: Normal Insurance Claim Auditor Required: Yes Beliefs That Will Affect Care: None marital status: Current Living Situation: Spouse current occupational status: retired current occupation: Retired Feels Safe at Home: Yes Childhood Exposure to Second-Hand Smoke: Yes Dental Care, Regularly: No Physical Activity Frequency: Daily Seatbelt Use: always Sunscreen Use: Yes Assistive Devices: None Review of Systems Constitutional: no fever, no chills and no fatigue Ear, Nose, Mouth, Throat: no hearing loss Respiratory: no dyspnea and no dyspnea on exertion Cardiovascular: no chest pain and no dyspnea on exertion Gastrointestinal: + abdominal pain, + bloating, + heartbur n, + nausea and + vomiting; no change in bowel habits Genitourinary: no dysuria Musculoskeletal: no muscle weakness Integumentary: no rash Psychiatric: no confusion Physical Exam Physical Exam: alert oriented Constitutional: cooperative and comfortable; no acute distress ENMT: external ear and nose normal, oropharynx normal Respiratory: normal respiratory effort and able to speak in complete sentences; no respiratory distress Cardiovascular: Rate/Rhythm: regular rate Gastrointestinal (Abdomen): Inspection/Auscultation: + abdominal surgical scar; abdomen not distended Percussion/Palpation: + abdomen tender (RUQ ), + guarding and abdomen soft; abdomen not firm Musculoskeletal: no cyanosis or clubbing, extremities motor strength 5/5 Skin: no rashes, warm and dry Psychiatric: A+Ox3, euthymic affect Results & Data Vital Signs (Past 12 Hours) Vital Signs Temp Pulse Pulse Resp BP BP Pulse Ox 02/17/24 14:23 70 18 158/65 H 93 02/17/24 14:00 70 18 158/65 H 93 02/17/24 12:00 68 18 152/68 H 93 02/17/24 10:22 72 14 150/84 H 97 02/17/24 09:12 59 L 02/17/24 09:09 56 L 16 156/56 H 95 02/17/24 08:24 97.9 F 72 20 160/72 H 98 O2 Del Method 02/17/24 14:23 Room Air 02/17/24 14:00 Room Air 02/17/24 12:00 Room Air 02/17/24 10:22 Room Air 02/17/24 09:12 02/17/24 09:09 Room Air 02/17/24 08:24 Room Air [employer] [phone] CT Scan Report Patient: MAURO CORNEJO Admit Date: 02/17/24 MR#: [id number] Address1: [facility] Acct ID:[id number] Address2: Date: 1945 [facility] Zip: [place] [id number] Age: 78 Location: ED Sex: F Room/Bed: Att Phy: Diagnosis: ABD PAINS, VOMITING Meme Phy: RV. Cabrera MD Service Date: 02/17/24 Fam Phy: Interpreting Phy: Sanju Escamilla MDAdmit Phy: Ordering Phy: Harry Bah MD cc: ~ CT SCAN OF THE ABDOMEN AND PELVIS WITH IV CONTRAST CLINICAL HISTORY: Upper abdominal pain. Nausea and vomiting. COMPARISON STUDY: Abdominal CT dated 02/15/2024. TECHNIQUE: Following the IV administration of 93 cc of Optiray 320, CT scan of the abdomen and pelvis is performed from the lung bases to the proximal femora. Images are reviewed in the axial, sagittal, and coronal planes. IV contrast was administered without complication. A dose lowering technique was utilized adhering to the principles of ALARA. CT DOSE: 1148.54 mGy.cm FINDINGS: Lung bases: The patient is status post midline sternotomy. The heart is enlarged and without pericardial effusion. The coronary arteries are densely calcified. There is a moderate to large hiatal hernia. There is bibasilar scarring/atelectasis. No airspace consolidation or pleural effusion is identified. Liver: The contrast-enhanced liver is normal in size, contour, and attenuation. There is mild central intrahepatic biliary ductal dilatation. The hepatic veins and portal veins are patent. Gallbladder: The gallbladder is distended, and the wall is thickened/edematous with surrounding infiltration and fluid. Calcified gallstones are observed. Findings are consistent with acute cholecystitis. There is nonspecific thickening and enhancement within the wall of the cystic duct seen on image #86. Spleen: Normal in size and attenuation. Peripherally calcified splenic artery aneurysms measure up to 11 mm. Pancreas: Unremarkable. Adrenal glands: Unremarkable. Kidneys: The contrast enhanced kidneys demonstrate mild cortical atrophy and are without hydronephrosis. The kidneys enhance symmetrically. Renal sinus cysts are seen bilaterally. Scattered cortical cysts measure up to 2.1 cm. Additional subcentimeter cortical hypodensities also likely represent cysts but are too small for definitive characterization. There are numerous bilateral renovascular calcifications. No calculi are clearly identified. Abdominal vasculature: The abdominal aorta is normal in course and caliber noting advanced atherosclerotic calcification. Bowel: There is moderate to advanced colonic diverticulosis without CT evidence of acute diverticulitis. No bowel obstruction is seen. Duodenal diverticula are noted. The appendix is not identified and reportedly surgically absent Peritoneum: There is no intraperitoneal free air or abdominal ascites. There is a fat-containing umbilical hernia. Lymphadenopathy: None. Pelvic viscera: The bladder, uterus, and adnexa are normal as visualized. Skeletal structures: The skeletal structures are osteopenic. There is moderate lumbosacral spondylosis. Sclerotic changes noted in the pubic symphysis. No lytic or blastic lesions are seen. IMPRESSION: 1. Cholelithiasis with acute cholecystitis. Surgical evaluation is advised. 2. There is nonspecific focal wall thickening and enhancement of the cystic duct. This may be inflammatory. An underlying neoplastic process is considered less likely but is not entirely excluded. 3. Colonic diverticulosis without CT evidence of acute diverticulitis. 3. Hiatal hernia. 4. Additional findings as above. ACT 112: Negative or not required by law. Electronically signed by: Sanju Escamilla M.D. 02/17/2024 10:24 AM Dictated: 02/17/24 1008 Transcribed: 02/17/24 1008 Results CMP Results: Na 136 mmol/L (136-145) 02/17/24 K 4.4 mmol/L (3.5-5.1) 02/17/24 Cl 102 mmol/L (98-107) 02/17/24 CO2 27 mmol/L (21-32) 02/17/24 Anion Gap 7 (3-11) 02/17/24 BUN 30 mg/dl (6-23) H 02/17/24 Creatinine 1.29 mg/dl (0.6-1.2) H 02/17/24 Estimated GFR ( Amer) 45.3 ml/min 02/17/24 Estimated GFR (Non-Af Amer) 39.1 ml/min 02/17/24 BUN/Creatinine Ratio 23.3 (10-20) H 02/17/24 Glu 162 mg/dl (70-99(Fasting)) H 02/17/24 Ca 9.9 mg/dl (8.6-10.3) 02/17/24 Phosphorus Level 2.9 mg/dl (2.5-4.9) 03/06/22 Total Bilirubin 0.6 mg/dl (0.2-1.0) 02/17/24 AST 15 U/L (13-39) 02/17/24 ALT 16 U/L (7-52) 02/17/24 Alkaline Phosphatase 115 U/L (34-104) H 02/17/24 TP 7.7 gm/dl (6.0-8.3) 02/17/24 Albumin 4.4 gm/dl (3.4-5.0) 02/17/24 Globulin 3.3 gm/dl (2.5-4.0) 02/17/24 Albumin/Globulin Ratio 1.3 (0.9-2) 02/17/24 Lactate Dehydrogenase 172 U/L (86-244) 08/20/23 Results Complete Blood Count Results: RBC 4.27 M/uL (4.20-5.40) 02/17/24 WBC 11.34 K/ul (4.8-10.8) H 02/17/24 Hgb 12.7 g/dl (12.0-16.0) 02/17/24 Hct 38.2 % (37.0-47.0) 02/17/24 Plt Count 216 K/uL (130-400) 02/17/24 PG Care Time/CCT Total # of Minutes Spent Total Time Spent with Patient: Total time spent is greater than 50% in coordination of care (as documented) at patient's floor/unit and/or counseling patient: Coding Level of Care Code 21018 INT INP/OBS CARE MIN Diagnoses Cholecystitis, acute with cholelithiasis K80.00 H/O lymphoma Z85.72
[2024-02-17] MEDS: LANTUS PER UNIT CHARGE SQ SCH (20:47)
[2024-02-17] MEDS: ACETAMINOPHEN 1,000 MG/100 ML VIAL IV PRN (20:49)
[2024-02-17] MEDS: metroNIDAZOLE 500 MG/100 ML BAG IV SCH (21:31)
--- NOTE | 2024-02-18 00:42 | Ultrasound Report ---
Exam(s): US GALLBLADDER EXAM: US Abdomen Limited, Gallbladder CLINICAL HISTORY: Reason for exam: RUQ pain. TECHNIQUE: Real-time ultrasound of the right upper quadrant with image documentation. COMPARISON: CT dated 02/15/2024, MRI/MRCP dated 08/23/2023 FINDINGS: Gallbladder: Gallbladder stones. Mild gallbladder wall thickening, 4 mm. Distended gallbladder. No pericholecystic fluid. Unable to assess sonographic May's sign due to pain medication. Common bile duct: Common bile duct 5.3 mm. No stones. No dilation. Pancreas: Unremarkable as visualized. Right kidney: Right kidney 10.9 cm in length. Small right renal cysts, largest 1.3 cm. No hydronephrosis. IMPRESSION: Cholelithiasis. Mild wall thickening and gallbladder distention. Findings are equivocal for acute cholecystitis. Electronically signed by: Smiley Amaya M.D. 02/18/24 00:40 AM
[2024-02-18] MEDS: ONDANSETRON INJ 2 MG/ML 2 ML VIAL IV PRN (04:50)
--- NOTE | 2024-02-18 08:44 | Hospitalist Progress Note ---
Date of Service February 18, 2024 Assessment & Plan (1) Cholecystitis, acute with cholelithiasis: Plan: Ongoing nausea/vomiting once a month over the past 3-4 months, increased belching and "burning" in her abdomen. Was seen in ER 02/14 and discharged with possible GERD/hiatal hernia contributing however represented and CTAP findings noting cholelithiasis w/ acute cholecystitis. Notable her ALP was elevated to 115 and has had intermittent elevations of such. TB wnl IVF: Plasmalyte @ 100cc/hr ordered, IV Ceftriaxone/Flagyl Pain control, antiemetics NPO x chips/sips on admission General surgery consulted RUQ U/S obtained--> equivocal for cholecystitis WBC now wnl, afebrile Remains on IV Ceftriaxone, Flagyl IVF x 2 L ordered, monitor for need for additional LFTs w mild elevation but normal TB, mild tenderness to RUQ but no further n/v. Lipase wnl as added to AM labs Seen by general surgery this morning, ok w/ full liquid diet and will monitor. Planning for surgery on Wednesday, NPO at midnight Wednesday Cardiology consulted, clear for surgery, ok w/ holding plavix. Recs to continue aspirin -> messaged Dr Kumar to see if ok to resume in the meantime as was held on admission Monitor labs/exam on repeat DVT proph: SCDs in meantime ordered (2) Abdominal pain: Plan: Appears to be associated with her acute cholecystitis Rest of care per cholecystitis plan monitor w/ diet (3) Vomiting: Plan: No further vomiting reported but had been NPO x ice chips/sips Advancing diet per surgery above, antiemetics available as needed (4) Coronary artery disease: Plan: Hx Multivessel post RCA PCI with 4 SHARI in the setting of NSTEMI; post PCI to proximal mid LAD--undeployed stent inside mid LAD stent, late-mid LAD dissection. Post single vessel CABG with FELIZ to circumflex. Also with Cerebrovascular diseaseleft vertebral 75%, 50 to 60% distal right ICA on CTA 12/2020. Carotid duplex 08/2023 <50%. Notable lacunar strokes seen on MRI in the past, patient alert/oriented and nonfocal on examination No reports of CP Holding ASA/plavix on admission as above but messaging surgery to see if able to resume her ASA 81mg in the meantime No need for telemetry monitoring at this time Cardiology consulted for pre-op clearance -- ok to hold home HTN but if able to take PO can resume amlodipine/losartan as needed Resume statin when able but will hold off for now given LFT elevation If needing to use IV BP meds/metoprolol would need moved to monitored bed (5) Diabetes mellitus type 2 in nonobese: Plan: BSG AC/HS, glargine scheduled 10u BID given poor PO intake and NPO status (on 30u QAM at home) Asked RN to provide 5u glargine this morning given was still NPO, advancing diet as above and will continue sliding scale/adjustment if needed POC on most recent finger stick 117 prior to lunch Monitor (6) GERD (gastroesophageal reflux disease): Plan: IV protonix daily while NPO (on omeprazole 20mg daily at home) -- will continue IV for now in case issues w/ PO intake but if remaning stable can consider PO tomorrow and back to IV for wednesday for surgery (7) Hypertension: Plan: Stable at present time, 133/74 Home amlodipine, losartan, chlorthalidone hold on admission to prevent hypotension for potential surgery. Surgery not planned until Wednesday. Does NOT appear volume overloaded and will continue to hold chlorthalidone -- notable ordered IVF, timed for 2bags at present. Monitor Orders to resume amlodipine in AM 4/6 monitor for need for losartan if taking PO but will hold for now (8) B-cell lymphoma: Plan: Followed by Dr Cohen, hx lymphoma, diffuse large B cell, 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 Discussed this w/ patient/ in room and daughter on phone. Can reach out to Dr Cohen if needed but discussed will be sending GB for path during surgery as well Plan Continued inpatient stay, surgery planned for Wednesday Messaged Dr Kumar to see if ok w/ resuming baby aspirin or if ok w/ ordering chemoproph for patient. Will continue SCDs for now but will need to monitor Admission and Anticipated Discharge Date Admission Date: February 17, 2024 Supervising Physician Co-Signing Physician Notes The patient was not seen by me. The chart was reviewed. Case discussed with HOSSEIN Singh. Agree with assessment and plan Subjective Evaluated this morning, Atul in room. Just got done seeing surgery. Pain 4/10, given Tylenol this morning, needed morphine last night. Has been one ice chips/sips. Got some Zofran overnight for nausea and no nausea/vomiting reported at present.Denies abdominal pain but is tender RUQ on exam. Surgery ok w/ giving full liquid diet -- discussed to alert of any worsening symptoms. Discussed waiting til Wednesday due to her Plavix to prevent bleeding, cardiology consult ordered. She notes she was seen this morning by Dr Christina and cleared for surgery. No cp/sob reported. She is alert/oriented. Will plan to update her daughter this morning per request. Physical Exam Physical Exam: General: WD/WN female sitting up in bed, at bedside, just seen by general surgeon and PRINCESS, NAD HEENT: head atraumatic, normocephalic, mmm, trachea midline Resp; even/unlabored, no w/c/r, on room air CV: RRR, no significant murmur, no pitting edema/calf tenderness (chronic LLE greater than RLE due to SVG grafting for her CABG) GI: +BS, soft, no significant distension, +mild RUQ tenderness, no rebound/guarding : no gordon MSK/Neuro: nonfocal, answering questions appropriately, following commands Psych: AOx3 Results & Data Results & Data Vital Signs (Past 12 Hours) Vital Signs Temp Pulse Resp BP Pulse Ox O2 Del Method 02/18/24 07:40 36.7 C 89 16 133/74 97 Room Air 02/17/24 21:19 36.6 C 77 18 146/76 H 92 Room Air Laboratory Results 02/18/24 02/18/24 02/18/24 Range/Units 11:37 08:59 05:51 WBC 7.54 (4.8-10.8) K/ul RBC 4.09 L (4.20-5.40) M/uL Hgb 12.1 (12.0-16.0) g/dl Hct 37.0 (37.0-47.0) % MCV 90.5 (80.0-100.0) fL MCH 29.6 (25.0-34.0) pg MCHC 32.7 (32.0-36.0) g/dL RDW Std Deviation 42.9 (36.4-46.3) fL RDW Coeff of Mark 13.0 (11.5-14.5) % Plt Count 194 (130-400) K/uL MPV 11.8 (9.4-12.4) fL Immature Gran % (Auto) 0.3 % Neut % (Auto) 79.3 % Lymph % (Auto) 10.6 % Aiken % (Auto) 8.8 % Eos % (Auto) 0.5 % Baso % (Auto) 0.5 % Neut # (Auto) 5.98 (1.40-6.50) K/uL Lymph # (Auto) 0.80 L (1.20-3.40) K/uL Aiken # (Auto) 0.66 H (0.11-0.59) K/uL Eos # (Auto) 0.04 (0.00-0.50) K/uL Baso # (Auto) 0.04 (0.00-0.20) K/uL Immature Gran # (Auto) 0.02 (0.01-0.20) K/uL PT 10.9 (9.0-12.0) Seconds INR 1.0 (0.9-1.1) Sodium 136 (136-145) mmol/L Potassium 4.2 (3.5-5.1) mmol/L Chloride 102 (98-107) mmol/L Carbon Dioxide 27 (21-32) mmol/L Anion Gap 7 (3-11) BUN 18 (6-23) mg/dl Creatinine 1.03 (0.6-1.2) mg/dl Est Cr Clr Drug Dosing 46.5 ml/min Est GFR ( Amer) 59.5 ml/min Est GFR (Non-Af Amer) 51.3 ml/min BUN/Creatinine Ratio 17.5 (10-20) Glucose 133 H (70-99(Fasting)) mg/dl POC Glucose 117 H 161 H (70-99) mg/dl Calcium 9.1 (8.6-10.3) mg/dl Magnesium 2.0 (1.7-2.4) mg/dl Total Bilirubin 0.5 (0.2-1.0) mg/dl AST 41 H (13-39) U/L ALT 53 H (7-52) U/L Alkaline Phosphatase 126 H (34-104) U/L Total Protein 6.6 (6.0-8.3) gm/dl Albumin 3.8 (3.4-5.0) gm/dl Globulin 2.8 (2.5-4.0) gm/dl Albumin/Globulin Ratio 1.4 (0.9-2) Lipase 8 L (11-82) U/L 02/17/24 02/17/24 02/17/24 Range/Units 23:44 20:35 17:52 WBC (4.8-10.8) K/ul RBC (4.20-5.40) M/uL Hgb (12.0-16.0) g/dl Hct (37.0-47.0) % MCV (80.0-100.0) fL MCH (25.0-34.0) pg MCHC (32.0-36.0) g/dL RDW Std Deviation (36.4-46.3) fL RDW Coeff of Mark (11.5-14.5) % Plt Count (130-400) K/uL MPV (9.4-12.4) fL Immature Gran % (Auto) % Neut % (Auto) % Lymph % (Auto) % Aiken % (Auto) % Eos % (Auto) % Baso % (Auto) % Neut # (Auto) (1.40-6.50) K/uL Lymph # (Auto) (1.20-3.40) K/uL Aiken # (Auto) (0.11-0.59) K/uL Eos # (Auto) (0.00-0.50) K/uL Baso # (Auto) (0.00-0.20) K/uL Immature Gran # (Auto) (0.01-0.20) K/uL PT (9.0-12.0) Seconds INR (0.9-1.1) Sodium (136-145) mmol/L Potassium (3.5-5.1) mmol/L Chloride (98-107) mmol/L Carbon Dioxide (21-32) mmol/L Anion Gap (3-11) BUN (6-23) mg/dl Creatinine (0.6-1.2) mg/dl Est Cr Clr Drug Dosing ml/min Est GFR ( Amer) ml/min Est GFR (Non-Af Amer) ml/min BUN/Creatinine Ratio (10-20) Glucose (70-99(Fasting)) mg/dl POC Glucose 138 H 144 H 107 H (70-99) mg/dl Calcium (8.6-10.3) mg/dl Magnesium (1.7-2.4) mg/dl Total Bilirubin (0.2-1.0) mg/dl AST (13-39) U/L ALT (7-52) U/L Alkaline Phosphatase (34-104) U/L Total Protein (6.0-8.3) gm/dl Albumin (3.4-5.0) gm/dl Globulin (2.5-4.0) gm/dl Albumin/Globulin Ratio (0.9-2) Lipase (11-82) U/L Diagnostic Findings Chest/Abdomen X-ray 02/17/24 08:58 PA CHEST RADIOGRAPH AND UPRIGHT AND SUPINE AP RADIOGRAPHS OF THE ABDOMEN CLINICAL HISTORY: Abd pain, N/V, hiatal hernia COMPARISON STUDY: CT of the abdomen and pelvis February 15, 2024. Chest radiograph March 06, 2022. Chest CT June 04, 2022. FINDINGS: There is no pneumothorax or pleural effusion. Cardiomegaly is unchanged. There are median sternotomy wires. A hiatal hernia is again noted. There is no consolidation or evidence for pulmonary edema. No free air is evident. The bowel gas pattern is normal. There is moderate vascular calcification. IMPRESSION: 1. No free air or evidence for a bowel obstruction. 2. No acute cardiopulmonary findings. ACT 112: Negative or not required by law. Electronically signed by: Paul Geller M.D. 02/17/2024 10:31 AM Abdomen/Pelvis CT 02/17/24 09:39 CT SCAN OF THE ABDOMEN AND PELVIS WITH IV CONTRAST CLINICAL HISTORY: Upper abdominal pain. Nausea and vomiting. COMPARISON STUDY: Abdominal CT dated 02/15/2024. TECHNIQUE: Following the IV administration of 93 cc of Optiray 320, CT scan of the abdomen and pelvis is performed from the lung bases to the proximal femora. Images are reviewed in the axial, sagittal, and coronal planes. IV contrast was administered without complication. A dose lowering technique was utilized adhering to the principles of ALARA. CT DOSE: 1148.54 mGy.cm FINDINGS: Lung bases: The patient is status post midline sternotomy. The heart is enlarged and without pericardial effusion. The coronary arteries are densely calcified. There is a moderate to large hiatal hernia. There is bibasilar scarring/atelectasis. No airspace consolidation or pleural effusion is identified. Liver: The contrast-enhanced liver is normal in size, contour, and attenuation. There is mild central intrahepatic biliary ductal dilatation. The hepatic veins and portal veins are patent. Gallbladder: The gallbladder is distended, and the wall is thickened/edematous with surrounding infiltration and fluid. Calcified gallstones are observed. Findings are consistent with acute cholecystitis. There is nonspecific thickening and enhancement within the wall of the cystic duct seen on image #86. Spleen: Normal in size and attenuation. Peripherally calcified splenic artery aneurysms measure up to 11 mm. Pancreas: Unremarkable. Adrenal glands: Unremarkable. Kidneys: The contrast enhanced kidneys demonstrate mild cortical atrophy and are without hydronephrosis. The kidneys enhance symmetrically. Renal sinus cysts are seen bilaterally. Scattered cortical cysts measure up to 2.1 cm. Additional subcentimeter cortical hypodensities also likely represent cysts but are too small for definitive characterization. There are numerous bilateral renovascular calcifications. No calculi are clearly identified. Abdominal vasculature: The abdominal aorta is normal in course and caliber noting advanced atherosclerotic calcification. Bowel: There is moderate to advanced colonic diverticulosis without CT evidence of acute diverticulitis. No bowel obstruction is seen. Duodenal diverticula are noted. The appendix is not identified and reportedly surgically absent Peritoneum: There is no intraperitoneal free air or abdominal ascites. There is a fat-containing umbilical hernia. Lymphadenopathy: None. Pelvic viscera: The bladder, uterus, and adnexa are normal as visualized. Skeletal structures: The skeletal structures are osteopenic. There is moderate lumbosacral spondylosis. Sclerotic changes noted in the pubic symphysis. No lytic or blastic lesions are seen. IMPRESSION: 1. Cholelithiasis with acute cholecystitis. Surgical evaluation is advised. 2. There is nonspecific focal wall thickening and enhancement of the cystic duct. This may be inflammatory. An underlying neoplastic process is considered less likely but is not entirely excluded. 3. Colonic diverticulosis without CT evidence of acute diverticulitis. 3. Hiatal hernia. 4. Additional findings as above. ACT 112: Negative or not required by law. Electronically signed by: Sanju Escamilla M.D. 02/17/2024 10:24 AM Gallbladder Ultrasound 02/17/24 15:20 Exam(s): US GALLBLADDER EXAM: US Abdomen Limited, Gallbladder CLINICAL HISTORY: Reason for exam: RUQ pain. TECHNIQUE: Real-time ultrasound of the right upper quadrant with image documentation. COMPARISON: CT dated 02/15/2024, MRI/MRCP dated 08/23/2023 FINDINGS: Gallbladder: Gallbladder stones. Mild gallbladder wall thickening, 4 mm. Distended gallbladder. No pericholecystic fluid. Unable to assess sonographic May's sign due to pain medication. Common bile duct: Common bile duct 5.3 mm. No stones. No dilation. Pancreas: Unremarkable as visualized. Right kidney: Right kidney 10.9 cm in length. Small right renal cysts, largest 1.3 cm. No hydronephrosis. IMPRESSION: Cholelithiasis. Mild wall thickening and gallbladder distention. Findings are equivocal for acute cholecystitis. Electronically signed by: Smiley Amaya M.D. 02/18/24 00:40 AM PG Care Time/CCT Total # of Minutes Spent Total Time Spent with Patient: Total time spent is greater than 50% in coordination of care (as documented) at patient's floor/unit and/or counseling patient: Coding Level of Care Code 02361 SUB INP/OBS CARE 3/50MIN Diagnoses Cholecystitis, acute with cholelithiasis K80.00 Abdominal pain R10.9 Vomiting R11.10 Coronary artery disease I25.10 Diabetes mellitus type 2 in nonobese E11.9 GERD (gastroesophageal reflux disease) K21.9 Hypertension I10 B-cell lymphoma C85.10
[2024-02-18 09:34] LABS: Basophils # (auto) 0.04 K/uL (0.00-0.20); Basophils % (auto) 0.5 %; Eosinophils # (auto) 0.04 K/uL (0.00-0.50); Eosinophils % (auto) 0.5 %; Hemoglobin 12.1 g/dl (12.0-16.0); Immature Granulocytes # (auto) 0.02 K/uL (0.01-0.20); Immature Granulocytes % (auto) 0.3 %; Lymphocytes % (auto) 10.6 %; Mean Corpuscular Hemoglobin 29.6 pg (25.0-34.0); Mean Corpuscular Hgb Conc 32.7 g/dL (32.0-36.0); Mean Corpuscular Volume 90.5 fL (80.0-100.0); Mean Platelet Volume 11.8 fL (9.4-12.4); Monocytes # (auto) 0.66 K/uL (0.11-0.59); Monocytes % (auto) 8.8 %; Neutrophils # (auto) 5.98 K/uL (1.40-6.50); Neutrophils % (auto) 79.3 %; Platelet Count 194 K/uL (130-400); RDW Standard Deviation 42.9 fL (36.4-46.3); Red Blood Count 4.09 M/uL (4.20-5.40); White Blood Count 7.54 K/ul (4.8-10.8)
[2024-02-18 09:56] LABS: Prothrombin Time 10.9 Seconds (9.0-12.0)
[2024-02-18 09:57] LABS: Albumin Globulin Ratio 1.4 (0.9-2); Albumin Level 3.8 gm/dl (3.4-5.0); BUN Creatinine Ratio 17.5 (10-20); Bilirubin,Total 0.5 mg/dl (0.2-1.0); Calcium 9.1 mg/dl (8.6-10.3); Creatinine Clr Calc Pharmacy 46.5 ml/min; Est GFR (African American) 59.5 ml/min; Est GFR (Non-African American) 51.3 ml/min; Globulin 2.8 gm/dl (2.5-4.0); Potassium 4.2 mmol/L (3.5-5.1); Total Protein 6.6 gm/dl (6.0-8.3)
--- NOTE | 2024-02-18 11:28 | Cardiology Consultation ---
Date of Consultation February 18, 2024 Assessment & Plan (1) Coronary artery disease: --Multivessel post RCA PCI with 4 SHARI in the setting of NSTEMI; post PCI to proximal mid LAD--undeployed stent inside mid LAD stent, late-mid LAD dissection. Post single vessel CABG with FELIZ to circumflex. 2. Preserved LV function--echo 10/2023 3. Post cardiac surgery atrial fibrillation 4. Hypertension 5. Type 2 diabetes--on insulin 6. Prior diffuse B-cell lymphoma--post chemotherapy, remission since 2013 7. Cerebrovascular diseaseleft vertebral 75%, 50 to 60% distal right ICA on CTA 12/2020. Carotid duplex 08/2023 <50% 8. Cholelithiasis with acute cystitis Patient stable from a cardiac standpoint. No active cardiac conditions. Remains active at home without any recent change in exercise tolerance. Baseline METS >4 On exam today no signs of heart failure. Electrically stable on telemetry. ECG unchanged. Echo 4 months ago showed normal biventricular function and no valve pathology. Patient relatively low risk for planned cholecystectomy. Okay to proceed with surgery without additional cardiac testing. Clopidogrel can be held as needed. Ideally would continue aspirin 81 mg throughout perioperative course if able. Restart clopidogrel when safe from a surgical standpoint. Continue to hold home antihypertensives. If able to take p.o. can resume amlodipine, losartan if needed. Otherwise IV metoprolol if BP becomes an issue. Please contact if new issues arise. History of Present Illness Attending Physician: Jesús Bustillos MD History of Present Illness Mrs. Butler is a very pleasant 78 year-old with complex coronary artery disease known to me from the outpatient setting admitted with abdominal pain, cholelithiasis with acute cholecystitis. Cardiology consulted for preoperative evaluation. Patient has multivessel CAD and previously underwent PCI to RCA 08/2018 with 4 SHARI. Later underwent staged PCI of LAD which was complicated by LAD dissection with loss of undeployed stent. Postevent transferred to [facility] where eventually underwent single-vessel CABG with FELIZ to circumflex. Since that time has done well, LV function recovered with resolution of prior apical wall motion abnormality. Other medical issues include prior TIA with known moderate right ICA, left vertebral disease. Type 2 diabetes, hypertension, dyslipidemia and remote diffuse B-cell lymphoma in remission since 2013. Echo 10/2023mild LVH, EF 55%, normal RV, no valve pathology At baseline patient active. Prior to abdominal pain had been feeling well. Denies any recent chest pain, palpitations or new presyncope. No new heart failure symptoms. 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 Allergies Allergy/AdvReac Type Severity Reaction Status Date / Time oxymetazoline Allergy Mild . Verified 02/17/24 11:23 adhesive Allergy Unknown RASH Verified 02/17/24 11:23 latex Allergy Rash Verified 02/17/24 11:23 prednisone AdvReac Intermediate PT CAN Verified 02/17/24 11:23 TOLERATE DEXAMETHASONE [place] Inhibitors AdvReac Unknown Hypotension Verified 02/17/24 11:23 simvastatin AdvReac Unknown Rash Verified 02/17/24 11:23 oxycodone [From OxyContin] AdvReac Vomiting Verified 02/17/24 11:23 Home Medications Medication Instructions Recorded Confirmed Type cholecalciferol (vitamin D3) 125 5,000 units PO QDD 10/01/19 02/17/24 History mcg (5,000 unit) capsule (Dialyvite Vitamin D) mecobalamin (vitamin B12) 1,000 1,000 mcg sublingual QAM 10/01/19 02/17/24 History mcg disintegrating tablet,sublingual blood-glucose meter (OneTouch #1 ea 12/03/22 12/16/23 Rx Ultra2 Meter) lancets 30 gauge (OneTouch Delica #100 ea 12/03/22 12/16/23 Rx Lancets) pen needle, diabetic 32 gauge x #200 ea 03/09/23 12/16/23 Rx 5/32" (BD Ultra-Fine Komal Pen Needle) aspirin 81 mg tablet,delayed 81 mg PO DAILY #90 tabs 06/09/23 02/17/24 Rx release (Adult Low Dose Aspirin) chlorthalidone 25 mg tablet 25 mg PO QAM #90 tabs 09/06/23 02/17/24 Rx losartan 100 mg tablet (Cozaar) 100 mg PO QAM #90 tabs 09/07/23 02/17/24 Rx amlodipine 10 mg tablet (Norvasc) 10 mg PO QAM #90 tabs 09/13/23 02/17/24 Rx insulin glargine 100 unit/mL (3 30 unit (0.3 mL) subcut QAM #30 mL 10/25/23 02/17/24 Rx mL) subcutaneous pen (Lantus Solostar U-100 Insulin) omeprazole 20 mg capsule,delayed 20 mg PO DAILYBB #30 caps 11/19/23 02/17/24 Rx release atorvastatin 40 mg tablet (Lipitor) 40 mg PO QAM #100 tabs 12/01/23 02/17/24 Rx glipizide 5 mg tablet 5 mg PO PM #90 tabs 12/13/23 02/17/24 Rx clopidogrel 75 mg tablet (Plavix) 75 mg PO QAM #90 tabs 12/28/23 02/17/24 Rx blood sugar diagnostic (OneTouch #100 ea 01/13/24 Rx Ultra Test strips) Patient History Medical History Nausea COVID-19 Elevated serum creatinine Hypertensive emergency Slurring of speech Word finding difficulty Coronary artery disease Dyslipidemia 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 History of malignant neoplasm of skin Osteopenia Paroxysmal atrial fibrillation Vitamin B12 deficiency Vitamin D insufficiency Dehydration Postoperative atrial fibrillation On intra-aortic balloon pump assist Elevated troponin Syncope NSTEMI (non-ST elevated myocardial infarction) Chest pain Diabetes mellitus TYPE II on Levemir at this time BID GERD (gastroesophageal reflux disease) Elevated troponin Hypertensive emergency Non Hodgkin's lymphoma (11/20/13) Hypogammaglobulinemia Fever Fever (10/21/13) Anemia Metastatic cancer to liver Kidney disease Diffuse large B-cell lymphoma of extranodal site (~07/2013) Surgical History History of open heart surgery S/P CABG (coronary artery bypass graft) S/P CABG x 1 on 09/08/2018; FELIZ to OM1 History of tonsillectomy History of appendectomy H/O tubal ligation Family History Mother Myocardial infarction Diabetes Sister Bladder cancer Daughter Diabetes Heart disease Brother Lung cancer Father Lung disease Denies family history of Ovarian cancer Prostate cancer Breast cancer Colorectal cancer Social History Smoking Status: Never smoker Second Hand Exposure: No; Do You Dip or Chew Tobacco: No; Hx Alcohol Use: No Hx Substance Use: No Preferred Language: Ghanaian Communication Ability: Effective Visual Impairment: No Limitations Hearing Ability: Normal Banking Management Consulting Manager Required: No Beliefs That Will Affect Care: None marital status: Current Living Situation: Spouse Current Living Situation Comment: lives with Júnior current occupational status: retired current occupation: Retired Other Information That Helps Us Care for You: No Feels Safe at Home: Yes Safety Concerns: Feels Safe At This Time Childhood Exposure to Second-Hand Smoke: Yes Dental Care, Regularly: No Physical Activity Frequency: Daily Seatbelt Use: always Sunscreen Use: Yes Assistive Devices: Cane and Walker Review of Systems Review of Systems: All systems reviewed & are unremarkable except as noted in HPI & below Physical Exam Physical Exam: General: Comfortable HEENT: Sclerae anicteric Lungs: Clear to auscultation bilaterally, no crackles or wheezes Cardiac: Regular rate and rhythm, no murmurs. Vascular: 2+ radial No bruits Abdomen: Soft, nontender Extremities: Well perfused, no peripheral edema Neuro: Nonfocal Psych: Alert orient x3, normal affect and mood Results & Data Vital Signs (Past 12 Hours) Vital Signs Temp Pulse Resp BP Pulse Ox O2 Del Method 02/18/24 07:40 98.1 F 89 16 133/74 97 Room Air PG Care Time/CCT Total # of Minutes Spent Total Time Spent with Patient: Total time spent is greater than 50% in coordination of care (as documented) at patient's floor/unit and/or counseling patient: Coding Level of Care Code 25587 INT INP/OBS CARE 2/55MIN Diagnoses Coronary artery disease I25.10
--- NOTE | 2024-02-18 12:07 | Surgery Progress Note ---
<Statement entered by Deepthi Kumar, - 02/18/24 12:28> I have seen this patient with the surgical BAR MANAGER and agree with the plan. Date of Service February 18, 2024 Assessment & Plan (1) Cholecystitis, acute with cholelithiasis: Plan: patient cleared by Cardiology for surgery tentative surgery date this Wednesday Continue to hold Plavix May have full liquids , NPO MN Wednesday AM WBC 7 Continue IV antibiotics Patient seen with Dr. Kumar [facility] General surgery covering the weekend Admission and Anticipated Discharge Date Admission Date: February 17, 2024 Subjective Patient resting in bed mild abd pain RUQ No n/v Review of Systems Constitutional: no fever, no chills and no fatigue Ear, Nose, Mouth, Throat: no hearing loss Respiratory: no dyspnea and no dyspnea on exertion Cardiovascular: no chest pain and no dyspnea on exertion Gastrointestinal: + abdominal pain; no nausea and no vomit ing Genitourinary: no dysuria Musculoskeletal: no muscle weakness Integumentary: no rash Psychiatric: no confusion Physical Exam Physical Exam: alert oriented Constitutional: cooperative and comfortable; no acute distress ENMT: external ear and nose normal, oropharynx normal Respiratory: normal respiratory effort and able to speak in complete sentences; no respiratory distress Cardiovascular: Rate/Rhythm: regular rate Gastrointestinal (Abdomen): Inspection/Auscultation: + abdominal surgical scar; abdomen not distended Percussion/Palpation: + abdomen tender (RUQ ) and abdomen soft; abdomen not firm Musculoskeletal: no cyanosis or clubbing, extremities motor strength 5/5 Skin: no rashes, warm and dry Psychiatric: A+Ox3, euthymic affect Results & Data Vital Signs (Past 12 Hours) Vital Signs Temp Pulse Resp BP Pulse Ox O2 Del Method 02/18/24 07:40 98.1 F 89 16 133/74 97 Room Air Results CMP Results: Na 136 mmol/L (136-145) 02/18/24 K 4.2 mmol/L (3.5-5.1) 02/18/24 Cl 102 mmol/L (98-107) 02/18/24 CO2 27 mmol/L (21-32) 02/18/24 Anion Gap 7 (3-11) 02/18/24 BUN 18 mg/dl (6-23) 02/18/24 Creatinine 1.03 mg/dl (0.6-1.2) 02/18/24 Estimated GFR ( Amer) 59.5 ml/min 02/18/24 Estimated GFR (Non-Af Amer) 51.3 ml/min 02/18/24 BUN/Creatinine Ratio 17.5 (10-20) 02/18/24 Glu 133 mg/dl (70-99(Fasting)) H 02/18/24 Ca 9.1 mg/dl (8.6-10.3) 02/18/24 Phosphorus Level 2.9 mg/dl (2.5-4.9) 03/06/22 Total Bilirubin 0.5 mg/dl (0.2-1.0) 02/18/24 AST 41 U/L (13-39) H 02/18/24 ALT 53 U/L (7-52) H 02/18/24 Alkaline Phosphatase 126 U/L (34-104) H 02/18/24 TP 6.6 gm/dl (6.0-8.3) 02/18/24 Albumin 3.8 gm/dl (3.4-5.0) 02/18/24 Globulin 2.8 gm/dl (2.5-4.0) 02/18/24 Albumin/Globulin Ratio 1.4 (0.9-2) 02/18/24 Lactate Dehydrogenase 172 U/L (86-244) 08/20/23 Results Complete Blood Count Results: RBC 4.09 M/uL (4.20-5.40) L 02/18/24 WBC 7.54 K/ul (4.8-10.8) 02/18/24 Hgb 12.1 g/dl (12.0-16.0) 02/18/24 Hct 37.0 % (37.0-47.0) 02/18/24 Plt Count 194 K/uL (130-400) 02/18/24 PG Care Time/CCT Total # of Minutes Spent Total Time Spent with Patient: Total time spent is greater than 50% in coordination of care (as documented) at patient's floor/unit and/or counseling patient: Coding Level of Care Code 96190 SUB INP/OBS CARE 12/09MIN Diagnoses Cholecystitis, acute with cholelithiasis K80.00
[2024-02-18] MEDS: cefTRIAXone SODIUM 2,000 MG in DEXTROSE 5 % MINI-B 50 ML IV SCH (12:23)
[2024-02-18] MEDS: INSULIN ASPART PER UNIT CHARGE SC SCH (12:24)
[2024-02-18] MEDS: PANTOprazole 40 MG in SYRINGE 0 ML IV SCH (12:24)
[2024-02-18] MEDS: ENOXAPARIN INJ 40 MG/0.4 ML SYR SQ SCH (16:27)
[2024-02-18] MEDS: ASPIRIN 81 MG ECTAB PO SCH (16:27)
[2024-02-18] MEDS: LANTUS PER UNIT CHARGE SQ SCH (20:54)
--- NOTE | 2024-02-19 06:14 | Electrocardiogram Report ---
Test Reason : Blood Pressure : / mmHG Vent. Rate : 081 BPM Atrial Rate : 081 BPM P-R Int : 158 ms QRS Dur : 080 ms QT Int : 394 ms P-R-T Axes : 050 020 088 degrees QTc Int : 457 ms Normal sinus rhythm Possible Left atrial enlargement Nonspecific ST and T wave abnormality Abnormal ECG When compared with ECG of 15-FEB-2024 18:07, No significant change Confirmed by Yimi Jimenes ([id number]) on 02/19/2024 6:13:57 AM Referred By: REFERRED SELF Confirmed By:Yimi Jimenes
[2024-02-19 06:49] LABS: Basophils # (auto) 0.06 K/uL (0.00-0.20); Basophils % (auto) 0.9 %; Eosinophils # (auto) 0.14 K/uL (0.00-0.50); Eosinophils % (auto) 2.1 %; Hematocrit (blood only) 36.6 % (37.0-47.0); Hemoglobin 12.2 g/dl (12.0-16.0); Immature Granulocytes # (auto) 0.04 K/uL (0.01-0.20); Immature Granulocytes % (auto) 0.6 %; Lymphocytes # (auto) 0.88 K/uL (1.20-3.40); Lymphocytes % (auto) 13.2 %; Mean Corpuscular Hemoglobin 29.8 pg (25.0-34.0); Mean Corpuscular Hgb Conc 33.3 g/dL (32.0-36.0); Mean Corpuscular Volume 89.5 fL (80.0-100.0); Mean Platelet Volume 11.8 fL (9.4-12.4); Monocytes # (auto) 0.61 K/uL (0.11-0.59); Monocytes % (auto) 9.2 %; Neutrophils # (auto) 4.92 K/uL (1.40-6.50); Platelet Count 205 K/uL (130-400); RDW Coefficient of Variation 12.8 % (11.5-14.5); RDW Standard Deviation 42.2 fL (36.4-46.3); Red Blood Count 4.09 M/uL (4.20-5.40); White Blood Count 6.65 K/ul (4.8-10.8)
[2024-02-19 07:09] LABS: Albumin Globulin Ratio 1.3 (0.9-2); Albumin Level 3.8 gm/dl (3.4-5.0); BUN Creatinine Ratio 15.5 (10-20); Bilirubin,Total 0.5 mg/dl (0.2-1.0); Calcium 9.4 mg/dl (8.6-10.3); Creatinine Clr Calc Pharmacy 42.8 ml/min; Est GFR (African American) 54.9 ml/min; Est GFR (Non-African American) 47.4 ml/min; Globulin 2.9 gm/dl (2.5-4.0); Magnesium 2.1 mg/dl (1.7-2.4); Total Protein 6.7 gm/dl (6.0-8.3)
[2024-02-19 07:12] LABS: Prothrombin Time 10.9 Seconds (9.0-12.0)
--- NOTE | 2024-02-19 08:57 | Hospitalist Progress Note ---
Date of Service February 19, 2024 Assessment & Plan (1) Cholecystitis, acute with cholelithiasis: Plan: Ongoing nausea/vomiting once a month over the past 3-4 months, increased belching and "burning" in her abdomen. Was seen in ER 02/14 and discharged with possible GERD/hiatal hernia contributing however represented and CTAP findings noting cholelithiasis w/ acute cholecystitis. Notable her ALP was elevated to 115 and has had intermittent elevations of such. TB wnl RUQ U/S equivocal for cholecystitis General surgery consulted, planning to have surgery on TUESDAY 02/20 due to plavix use/bleeding risk Cards consulted for cardiac clearance, see note --> Plavix/aspirin was on hold on admission, however discussed w/ Dr Fabien Shane afternoon 02/17 to see about resuming ASA and was ok w/ such. Home amlodipine resumed, BP stable. IVF w/ plasmalyte, discontinued w/ advancement of diet to prevent volume overload and did not appear overly dehydrated Diet: full liquid/low fat/DM II diet for now, tolerating Continue Ceftriaxone/Flagyl IV WBC wnl, afebrile LFTs w/ mild elevation in AST/ALT/ALP on 02/17, improvement on repeat w/ normal AST/ALT however ALP remains elevated 122. TB wnl. Lipase normal Pain control, antiemetics as needed NPO wednesday at midnight for surgery on Wednesday DVT proph: Lovenox SQ, ok'd by surgery and added on 02/17. Last dose WEDNESDAY AM Monitor labs in AM/exam on repeat (2) Abdominal pain: Plan: Appears to be associated with her acute cholecystitis Rest of care per cholecystitis plan monitor w/ diet (3) Vomiting: Plan: No further vomiting reported but had been NPO x ice chips/sips Advanced diet per surgery as above and tolerating and LFTs improved but did have some nausea this morning and RN to provide zofran x 1 and alert of any worsened symptoms (4) Coronary artery disease: Plan: Hx Multivessel post RCA PCI with 4 SHARI in the setting of NSTEMI; post PCI to proximal mid LAD--undeployed stent inside mid LAD stent, late-mid LAD dissection. Post single vessel CABG with FELIZ to circumflex. Also with Cerebrovascular diseaseleft vertebral 75%, 50 to 60% distal right ICA on CTA 12/2020. Carotid duplex 08/2023 <50%. Notable lacunar strokes seen on MRI in the past, patient alert/oriented and nonfocal on examination No reports of CP Held ASA/plavix on admission as above but able to resume her ASA 81mg daily per surgery/discussion 02/17 Cardiology consulted for pre-op clearance -- ok to hold home HTN but if able to take PO can resume amlodipine/losartan as needed --> resumed amlodpine but monitor for need for losartan but will hold off for now. No need for telemetry monitoring at this time If needing to use IV BP meds/metoprolol would need moved to monitored bed Resume statin when able but will hold off for now given LFT elevation (5) Diabetes mellitus type 2 in nonobese: Plan: BSG AC/HS, glargine scheduled 10u BID given poor PO intake and NPO status (on 30u QAM at home) Asked RN to provide 5u glargine AM 02/17 and decreased to 5u BID given borderline BSGs and was NPO to prevent hypoglycemia --> Patient POC 110s this morning, given her 5u glargine but discontinuing further and monitor with sliding scale and can adjust as needed given no elevations above 140s and most recently 102 this afternoon prior to lunch (6) GERD (gastroesophageal reflux disease): Plan: IV protonix daily (on omeprazole 20mg daily at home) -- could transition to PO while awaiting surgery but will continue for now (7) Hypertension: Plan: Stable at present time, 128/72 Home amlodipine resumed as above, losartan remains on hold but can resume if needed Was provided 2L IVF and will hold off any further for now, does not appear to be volume overloaded and would want to prevent dehydration given liquid diet for above Monitor (8) B-cell lymphoma: Plan: Followed by Dr Cohen, hx lymphoma, diffuse large B cell, 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 Discussed this w/ patient/ in room and daughter on phone. Can reach out to Dr Cohen if needed but discussed will be sending GB for path during surgery as well Plan Continued inpatient stay, surgery planned for Wednesday Will need to have Lovenox HELD after tomorrow morning's dose, NPO at midnight wednesday night Updated in room 02/18, daughter by phone regarding plan on 02/17 as asked by patient and instructed daughter to contact nursing if need for any update/questions/concerns. Admission and Anticipated Discharge Date Admission Date: February 17, 2024 Supervising Physician Co-Signing Physician Notes The patient was not seen by me. The chart was reviewed. Case discussed with HOSSEIN Singh. Agree with assessment and plan Subjective Evaluated this morning, at bedside. Patient seen by surgery this morning, continues to wait for sugery wednesday. Discussed labs improved/stable. Afebrile. Patient tolerating diet, does endorse some RUQ discomfort, some nausea ths morning but no vomiting. RN to provide dose of zofran. Discussed if any worsening pain or n/v will back down diet. Some occasional R scapular discomfort patient notes after Easter dinner when she tried to have a bite of everything to try and had increased abdominal bloating. Discussed symptoms of increased bloating/RUQ discomfort and n/v classic for gallbladder pathology and likely source of her ongoing symptoms. No fever/chills, chest pain or shortness of breath. No evidence for volume overload at present time, home chlorthalidone on hold. AMlodipine resumed for BP control. Will also have RN check BSG, hold further glargine and use SSI for now. Questions/concerns addressed at this time. Physical Exam Physical Exam: General: WD/WN female sitting up in bed, at bedside, does report some nausea following breakfast but no vomiting, not in any acute distress HEENT: head atraumatic, normocephalic, mmm, trachea midline Resp; even/unlabored, no w/c/r, on room air CV: RRR, no significant murmur, no pitting edema/calf tenderness (chronic LLE greater than RLE due to SVG grafting for her CABG) GI: +BS, soft, no significant distension, +mild RUQ/epigastric tenderness, no rebound/guarding : no gordon MSK/Neuro: nonfocal, answering questions appropriately, following commands Psych: AOx3, cooperative with exam, pleasant Results & Data Results & Data Vital Signs (Past 12 Hours) Vital Signs Temp Pulse Resp BP Pulse Ox O2 Del Method 02/19/24 07:27 36.5 C 67 18 128/72 95 Room Air Laboratory Results 02/19/24 02/19/24 02/18/24 Range/Units 07:43 05:59 20:36 WBC 6.65 (4.8-10.8) K/ul RBC 4.09 L (4.20-5.40) M/uL Hgb 12.2 (12.0-16.0) g/dl Hct 36.6 L (37.0-47.0) % MCV 89.5 (80.0-100.0) fL MCH 29.8 (25.0-34.0) pg MCHC 33.3 (32.0-36.0) g/dL RDW Std Deviation 42.2 (36.4-46.3) fL RDW Coeff of Mark 12.8 (11.5-14.5) % Plt Count 205 (130-400) K/uL MPV 11.8 (9.4-12.4) fL Immature Gran % (Auto) 0.6 % Neut % (Auto) 74.0 % Lymph % (Auto) 13.2 % [place] % (Auto) 9.2 % Eos % (Auto) 2.1 % Baso % (Auto) 0.9 % Neut # (Auto) 4.92 (1.40-6.50) K/uL Lymph # (Auto) 0.88 L (1.20-3.40) K/uL [place] # (Auto) 0.61 H (0.11-0.59) K/uL Eos # (Auto) 0.14 (0.00-0.50) K/uL Baso # (Auto) 0.06 (0.00-0.20) K/uL Immature Gran # (Auto) 0.04 (0.01-0.20) K/uL PT 10.9 (9.0-12.0) Seconds INR 1.0 (0.9-1.1) Sodium 139 (136-145) mmol/L Potassium 4.0 (3.5-5.1) mmol/L Chloride 104 (98-107) mmol/L Carbon Dioxide 28 (21-32) mmol/L Anion Gap 7 (3-11) BUN 17 (6-23) mg/dl Creatinine 1.10 (0.6-1.2) mg/dl Est Cr Clr Drug Dosing 42.8 ml/min Est GFR ( Amer) 54.9 ml/min Est GFR (Non-Af Amer) 47.4 ml/min BUN/Creatinine Ratio 15.5 (10-20) Glucose 123 H (70-99(Fasting)) mg/dl POC Glucose 114 H 129 H (70-99) mg/dl Calcium 9.4 (8.6-10.3) mg/dl Magnesium 2.1 (1.7-2.4) mg/dl Total Bilirubin 0.5 (0.2-1.0) mg/dl AST 24 (13-39) U/L ALT 38 (7-52) U/L Alkaline Phosphatase 122 H (34-104) U/L Total Protein 6.7 (6.0-8.3) gm/dl Albumin 3.8 (3.4-5.0) gm/dl Globulin 2.9 (2.5-4.0) gm/dl Albumin/Globulin Ratio 1.3 (0.9-2) Lipase (11-82) U/L 02/18/24 02/18/24 02/18/24 Range/Units 16:22 11:37 08:59 WBC 7.54 (4.8-10.8) K/ul RBC 4.09 L (4.20-5.40) M/uL Hgb 12.1 (12.0-16.0) g/dl Hct 37.0 (37.0-47.0) % MCV 90.5 (80.0-100.0) fL MCH 29.6 (25.0-34.0) pg MCHC 32.7 (32.0-36.0) g/dL RDW Std Deviation 42.9 (36.4-46.3) fL RDW Coeff of Mark 13.0 (11.5-14.5) % Plt Count 194 (130-400) K/uL MPV 11.8 (9.4-12.4) fL Immature Gran % (Auto) 0.3 % Neut % (Auto) 79.3 % Lymph % (Auto) 10.6 % Dunn % (Auto) 8.8 % Eos % (Auto) 0.5 % Baso % (Auto) 0.5 % Neut # (Auto) 5.98 (1.40-6.50) K/uL Lymph # (Auto) 0.80 L (1.20-3.40) K/uL Dunn # (Auto) 0.66 H (0.11-0.59) K/uL Eos # (Auto) 0.04 (0.00-0.50) K/uL Baso # (Auto) 0.04 (0.00-0.20) K/uL Immature Gran # (Auto) 0.02 (0.01-0.20) K/uL PT 10.9 (9.0-12.0) Seconds INR 1.0 (0.9-1.1) Sodium 136 (136-145) mmol/L Potassium 4.2 (3.5-5.1) mmol/L Chloride 102 (98-107) mmol/L Carbon Dioxide 27 (21-32) mmol/L Anion Gap 7 (3-11) BUN 18 (6-23) mg/dl Creatinine 1.03 (0.6-1.2) mg/dl Est Cr Clr Drug Dosing 46.5 ml/min Est GFR ( Amer) 59.5 ml/min Est GFR (Non-Af Amer) 51.3 ml/min BUN/Creatinine Ratio 17.5 (10-20) Glucose 133 H (70-99(Fasting)) mg/dl POC Glucose 105 H 117 H (70-99) mg/dl Calcium 9.1 (8.6-10.3) mg/dl Magnesium 2.0 (1.7-2.4) mg/dl Total Bilirubin 0.5 (0.2-1.0) mg/dl AST 41 H (13-39) U/L ALT 53 H (7-52) U/L Alkaline Phosphatase 126 H (34-104) U/L Total Protein 6.6 (6.0-8.3) gm/dl Albumin 3.8 (3.4-5.0) gm/dl Globulin 2.8 (2.5-4.0) gm/dl Albumin/Globulin Ratio 1.4 (0.9-2) Lipase 8 L (11-82) U/L PG Care Time/CCT Total # of Minutes Spent Total Time Spent with Patient: Total time spent is greater than 50% in coordination of care (as documented) at patient's floor/unit and/or counseling patient: Coding Level of Care Code 63919 SUB INP/OBS CARE MIN Diagnoses Cholecystitis, acute with cholelithiasis K80.00 Biliary obstruction: without biliary obstruction Abdominal pain R10.10 Abdominal location: upper abdomen, unspecified Vomiting R11.2 Nausea presence: with nausea Vomiting type: unspecified Coronary artery disease I25.10 Diabetes mellitus type 2 in nonobese E11.9 GERD (gastroesophageal reflux disease) K21.9 Hypertension I10 B-cell lymphoma C85.10 (1) Cholecystitis, acute with cholelithiasis Biliary obstruction: without biliary obstruction Qualified Code(s): K80.00 - Calculus of gallbladder with acute cholecystitis without obstruction (2) Abdominal pain Abdominal location: upper abdomen, unspecified Qualified Code(s): R10.10 - Upper abdominal pain, unspecified (3) Vomiting Nausea presence: with nausea Vomiting type: unspecified Qualified Code(s): R11.2 - Nausea with vomiting, unspecified
[2024-02-19] MEDS: amLODIPine BESYLATE 5 MG TAB PO SCH (08:59)
--- NOTE | 2024-02-19 12:01 | Surgery Progress Note ---
Date of Service February 19, 2024 Assessment & Plan (1) Cholecystitis, acute with cholelithiasis: Plan: Plavix being held. Awaiting lap isi on Wednesday. No new recommendations. Should be npo after MN Wednesday. Admission and Anticipated Discharge Date Admission Date: February 17, 2024 Subjective Overall stable. Awaiting lap isi on Wednesday. Pain is improving. Nausea yesterday but none today. No new complaints. Physical Exam Constitutional: WD/WN, vitals as above Respiratory: normal respiratory effort, lungs clear to auscultation Cardiovascular: Rate/Rhythm: regular rate and regular rhythm Gastrointestinal (Abdomen): normal bowel sounds, soft, nontender, no hepatosplenomegaly Neurologic: awake; no focal motor deficits Psychiatric: A+Ox3, euthymic affect Results & Data Vital Signs (Past 12 Hours) Vital Signs Temp Pulse Resp BP Pulse Ox O2 Del Method 02/19/24 07:27 36.5 C 67 18 128/72 95 Room Air Laboratory Results Abnormal lab results 02/18/24 02/18/24 02/18/24 Range/Units 08:59 16:22 20:36 RBC (4.20-5.40) M/uL Hct (37.0-47.0) % Lymph # (Auto) (1.20-3.40) K/uL [place] # (Auto) (0.11-0.59) K/uL Glucose (70-99(Fasting)) mg/dl POC Glucose 105 H 129 H (70-99) mg/dl Alkaline Phosphatase (34-104) U/L Lipase 8 L (11-82) U/L 02/19/24 02/19/24 02/19/24 Range/Units 05:59 07:43 11:40 RBC 4.09 L (4.20-5.40) M/uL Hct 36.6 L (37.0-47.0) % Lymph # (Auto) 0.88 L (1.20-3.40) K/uL [place] # (Auto) 0.61 H (0.11-0.59) K/uL Glucose 123 H (70-99(Fasting)) mg/dl POC Glucose 114 H 102 H (70-99) mg/dl Alkaline Phosphatase 122 H (34-104) U/L Lipase (11-82) U/L (1) Cholecystitis, acute with cholelithiasis Biliary obstruction: without biliary obstruction Qualified Code(s): K80.00 - Calculus of gallbladder with acute cholecystitis without obstruction
[2024-02-20] MEDS: MoRPHine SULFATE 2 MG/ML CARP IV PRN (05:23)
[2024-02-20 07:25] LABS: Basophils # (auto) 0.05 K/uL (0.00-0.20); Basophils % (auto) 0.7 %; Eosinophils # (auto) 0.24 K/uL (0.00-0.50); Eosinophils % (auto) 3.4 %; Hematocrit (blood only) 36.4 % (37.0-47.0); Hemoglobin 12.3 g/dl (12.0-16.0); Immature Granulocytes # (auto) 0.03 K/uL (0.01-0.20); Immature Granulocytes % (auto) 0.4 %; Lymphocytes # (auto) 0.74 K/uL (1.20-3.40); Lymphocytes % (auto) 10.5 %; Mean Corpuscular Hemoglobin 30.1 pg (25.0-34.0); Mean Corpuscular Hgb Conc 33.8 g/dL (32.0-36.0); Mean Platelet Volume 11.8 fL (9.4-12.4); Monocytes # (auto) 0.67 K/uL (0.11-0.59); Monocytes % (auto) 9.5 %; Neutrophils % (auto) 75.5 %; Platelet Count 220 K/uL (130-400); RDW Coefficient of Variation 12.7 % (11.5-14.5); RDW Standard Deviation 41.7 fL (36.4-46.3); Red Blood Count 4.09 M/uL (4.20-5.40); White Blood Count 7.03 K/ul (4.8-10.8)
[2024-02-20 07:43] LABS: Albumin Globulin Ratio 1.3 (0.9-2); Albumin Level 3.7 gm/dl (3.4-5.0); BUN Creatinine Ratio 17.6 (10-20); Bilirubin,Total 0.4 mg/dl (0.2-1.0); Calcium 9.3 mg/dl (8.6-10.3); Creatinine Clr Calc Pharmacy 39.5 ml/min; Est GFR (African American) 49.9 ml/min; Est GFR (Non-African American) 43.1 ml/min; Globulin 2.8 gm/dl (2.5-4.0); Potassium 3.9 mmol/L (3.5-5.1); Total Protein 6.5 gm/dl (6.0-8.3)
--- NOTE | 2024-02-20 08:33 | Hospitalist Progress Note ---
Date of Service February 20, 2024 Assessment & Plan (1) Cholecystitis, acute with cholelithiasis: Plan: Ongoing nausea/vomiting once a month over the past 3-4 months, increased belching and "burning" in her abdomen. IVF x 2 L provided on admission CTAP c/w acute cholecystitis. ALP elevation as well RUQ US equiv for acute cholecystitis Gen surg consulted, wanting to wait til 02/20 due to plavix use/bleeding risk. Cleared by cards for surgery, recs to continue ASA which was discussed w/ surgery and OK, resumed Ceftriaxone/Flagyl continued WBC wnl, afebrile LFTs stable, AST/ALT no further elevation. Lipase wnl ALP 115 from 122 and will continue to monitor Full liquid/low fat/DM II diet, tolerating w/ prn antiemetics NPO after midnight for OR in AM Will order D5NS@ 80cc to start overnight while NPO (see below) Pain control as needed - switched morphine to diladid IV due to nausea from such. Tylenol IV continued/extended DVT Proph: SCDs, Lovenox SQ added 02/17 as ok w/ surgery --> HOLDING after this morning dose Labs in AM (2) Diabetes mellitus type 2 in nonobese: Plan: BSG AC/HS, glargine scheduled 10u BID given poor PO intake and NPO status (on 30u QAM at home) on admission Asked RN to provide 5u glargine AM 02/17 and decreased to 5u BID given borderline BSGs and was NPO to prevent hypoglycemia --> Patient POC 110s in AM on 02/18 despite cutting her glargine in half and this was STOPPED BSGs have been WELL controlled WITHOUT any long acting (OR SHORT ACTING) while inpatient. Will add D5 to IVF while NPO at midnight to prevent issues Hypoglycemia protocol meds available, Monitor (3) Abdominal pain: Plan: Appears to be associated with her acute cholecystitis, stable w/ plan as outlined above. Pain meds adjusted and will monitor (4) Vomiting: Plan: No further vomiting reported, occasional nausea/pain as above and medications ordered as needed (5) Coronary artery disease: Plan: Hx Multivessel post RCA PCI with 4 SHARI in the setting of NSTEMI; post PCI to proximal mid LAD--undeployed stent inside mid LAD stent, late-mid LAD dissection. Post single vessel CABG with FELIZ to circumflex. Also with Cerebrovascular diseaseleft vertebral 75%, 50 to 60% distal right ICA on CTA 12/2020. Carotid duplex 08/2023 <50%. Notable lacunar strokes seen on MRI in the past, patient alert/oriented and nonfocal on examination No reports of CP Held ASA/plavix on admission as above but able to resume her ASA 81mg daily per surgery/discussion 02/17 Cardiology consulted for pre-op clearance -- ok to hold home HTN but if able to take PO can resume amlodipine/losartan as needed --> resumed amlodipine and BPs stable, will hold off losartan given BP 110/67 this morning and monitor to resume No need for telemetry monitoring at this time If needing to use IV BP meds/metoprolol would need moved to monitored bed Holding statin given above/LFT elevation - monitor post-op to resume (6) GERD (gastroesophageal reflux disease): Plan: IV protonix daily (on omeprazole 20mg daily at home), transition to PO post-op (7) Hypertension: Plan: Stable at present time Home amlodipine resumed as above Losartan remains on hold and will monitor need/ability to resume post-op Home chlorthalidone on hold -- NO VOLUME overload, monitor to resume (8) B-cell lymphoma: Plan: Followed by Dr Cohen, hx lymphoma, diffuse large B cell, 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 Discussed this w/ patient/ in room and daughter on phone. Can reach out to Dr Cohen if needed but discussed will be sending GB for path during surgery as well Plan Continued inpatient stay, Lovenox stopped after this morning's dose, continue ASA/SCDs NPO at midnight Updated in room 02/18, daughter by phone regarding plan on 02/17 as asked by patient and instructed daughter to contact nursing if need for any update/questions/concerns. Admission and Anticipated Discharge Date Admission Date: February 17, 2024 Supervising Physician Co-Signing Physician Notes The patient was not seen by me. The chart was reviewed. Case discussed with HOSSEIN Singh. Agree with assessment and plan Subjective Evaluated this morning, sitting up in bed. Reports she felt nauseated from morphine this morning for pain, wanting to avoid further. Had intolerance to OxyContin in the past. Tramadol does do much. She notes she doesn't really or hasn't ever really taken much for pain other than occasional OTC Tylenol. Discussed will transition to Dilaudid for post-op pain. She notes the IV Tylenol has been effective and will continue such. Moved her bowels, liquid x 4 yesterday due to liquid diet. NO blood reported. No nausea/significant pain for now. Discussed insulin being held and monitoring BSgs. No CP/SOB, no fevers/chills. Occasional RUQ pain/pain w/ inspiration to her R ribs/scapular region, likely from GB. LFTs improved/stable on repeat, afebrile. NPO at midnight for surgery tomorrow. Physical Exam Physical Exam: General: WD/WN female sitting up in bed, NAD but reporting wanting to avoid further morphine/continue tylenol IV HEENT: head atraumatic, normocephalic, mmm, trachea midline Resp; even/unlabored, no w/c/r, on room air 97% CV: RRR, no significant murmur, no pitting edema/calf tenderness (chronic LLE greater than RLE due to SVG grafting for her CABG) GI: +BS, soft, no significant distension, +mild RUQ/epigastric tenderness, no rebound/guarding : no gordon MSK/Neuro: nonfocal, answering questions appropriately, following commands Psych: AOx3, cooperative with exam, pleasant Results & Data Results & Data Vital Signs (Past 12 Hours) Vital Signs Temp Pulse Resp BP Pulse Ox O2 Del Method 02/20/24 07:00 36.6 C 65 16 110/67 97 Room Air Laboratory Results 02/20/24 02/20/24 02/19/24 Range/Units 07:54 06:29 20:49 WBC 7.03 (4.8-10.8) K/ul RBC 4.09 L (4.20-5.40) M/uL Hgb 12.3 (12.0-16.0) g/dl Hct 36.4 L (37.0-47.0) % MCV 89.0 (80.0-100.0) fL MCH 30.1 (25.0-34.0) pg MCHC 33.8 (32.0-36.0) g/dL RDW Std Deviation 41.7 (36.4-46.3) fL RDW Coeff of Mark 12.7 (11.5-14.5) % Plt Count 220 (130-400) K/uL MPV 11.8 (9.4-12.4) fL Immature Gran % (Auto) 0.4 % Neut % (Auto) 75.5 % Lymph % (Auto) 10.5 % [place] % (Auto) 9.5 % Eos % (Auto) 3.4 % Baso % (Auto) 0.7 % Neut # (Auto) 5.30 (1.40-6.50) K/uL Lymph # (Auto) 0.74 L (1.20-3.40) K/uL [place] # (Auto) 0.67 H (0.11-0.59) K/uL Eos # (Auto) 0.24 (0.00-0.50) K/uL Baso # (Auto) 0.05 (0.00-0.20) K/uL Immature Gran # (Auto) 0.03 (0.01-0.20) K/uL Sodium 139 (136-145) mmol/L Potassium 3.9 (3.5-5.1) mmol/L Chloride 105 (98-107) mmol/L Carbon Dioxide 26 (21-32) mmol/L Anion Gap 8 (3-11) BUN 21 (6-23) mg/dl Creatinine 1.19 (0.6-1.2) mg/dl Est Cr Clr Drug Dosing 39.5 ml/min Est GFR ( Amer) 49.9 ml/min Est GFR (Non-Af Amer) 43.1 ml/min BUN/Creatinine Ratio 17.6 (10-20) Glucose 115 H (70-99(Fasting)) mg/dl POC Glucose 119 H 106 H (70-99) mg/dl Calcium 9.3 (8.6-10.3) mg/dl Magnesium 2.0 (1.7-2.4) mg/dl Total Bilirubin 0.4 (0.2-1.0) mg/dl AST 22 (13-39) U/L ALT 30 (7-52) U/L Alkaline Phosphatase 115 H (34-104) U/L Total Protein 6.5 (6.0-8.3) gm/dl Albumin 3.7 (3.4-5.0) gm/dl Globulin 2.8 (2.5-4.0) gm/dl Albumin/Globulin Ratio 1.3 (0.9-2) 02/19/24 02/19/24 Range/Units 16:34 11:40 WBC (4.8-10.8) K/ul RBC (4.20-5.40) M/uL Hgb (12.0-16.0) g/dl Hct (37.0-47.0) % MCV (80.0-100.0) fL MCH (25.0-34.0) pg MCHC (32.0-36.0) g/dL RDW Std Deviation (36.4-46.3) fL RDW Coeff of Mark (11.5-14.5) % Plt Count (130-400) K/uL MPV (9.4-12.4) fL Immature Gran % (Auto) % Neut % (Auto) % Lymph % (Auto) % [place] % (Auto) % Eos % (Auto) % Baso % (Auto) % Neut # (Auto) (1.40-6.50) K/uL Lymph # (Auto) (1.20-3.40) K/uL [place] # (Auto) (0.11-0.59) K/uL Eos # (Auto) (0.00-0.50) K/uL Baso # (Auto) (0.00-0.20) K/uL Immature Gran # (Auto) (0.01-0.20) K/uL Sodium (136-145) mmol/L Potassium (3.5-5.1) mmol/L Chloride (98-107) mmol/L Carbon Dioxide (21-32) mmol/L Anion Gap (3-11) BUN (6-23) mg/dl Creatinine (0.6-1.2) mg/dl Est Cr Clr Drug Dosing ml/min Est GFR ( Amer) ml/min Est GFR (Non-Af Amer) ml/min BUN/Creatinine Ratio (10-20) Glucose (70-99(Fasting)) mg/dl POC Glucose 88 102 H (70-99) mg/dl Calcium (8.6-10.3) mg/dl Magnesium (1.7-2.4) mg/dl Total Bilirubin (0.2-1.0) mg/dl AST (13-39) U/L ALT (7-52) U/L Alkaline Phosphatase (34-104) U/L Total Protein (6.0-8.3) gm/dl Albumin (3.4-5.0) gm/dl Globulin (2.5-4.0) gm/dl Albumin/Globulin Ratio (0.9-2) PG Care Time/CCT Total # of Minutes Spent Total Time Spent with Patient: Total time spent is greater than 50% in coordination of care (as documented) at patient's floor/unit and/or counseling patient: Coding Level of Care Code 09757 SUB INP/OBS CARE 3/50MIN Diagnoses Cholecystitis, acute with cholelithiasis K80.00 Biliary obstruction: without biliary obstruction Diabetes mellitus type 2 in nonobese E11.9 Abdominal pain R10.10 Abdominal location: upper abdomen, unspecified Vomiting R11.2 Nausea presence: with nausea Vomiting type: unspecified Coronary artery disease I25.10 GERD (gastroesophageal reflux disease) K21.9 Hypertension I10 B-cell lymphoma C85.10 (1) Cholecystitis, acute with cholelithiasis Biliary obstruction: without biliary obstruction Qualified Code(s): K80.00 - Calculus of gallbladder with acute cholecystitis without obstruction (3) Abdominal pain Abdominal location: upper abdomen, unspecified Qualified Code(s): R10.10 - Upper abdominal pain, unspecified (4) Vomiting Nausea presence: with nausea Vomiting type: unspecified Qualified Code(s): R11.2 - Nausea with vomiting, unspecified
[2024-02-20] MEDS ORDERED: HYDROmorphone INJ 0.5 MG/0.5 ML SYR IV PRN (09:20)
--- NOTE | 2024-02-20 11:42 | Surgery Progress Note ---
Date of Service February 20, 2024 Assessment & Plan (1) Cholecystitis, acute with cholelithiasis: Plan: Plavix being held. Awaiting lap isi on Wednesday. No new recommendations. Should be npo after MN Wednesday (order is in place). Admission and Anticipated Discharge Date Admission Date: February 17, 2024 Subjective Overall feels stable. Anxious to have surgery tomorrow. No worsening symptoms. Physical Exam Constitutional: WD/WN, vitals as above Gastrointestinal (Abdomen): normal bowel sounds, soft, nontender, no hepatosplenomegaly Neurologic: awake; no focal motor deficits Psychiatric: A+Ox3, euthymic affect Results & Data Vital Signs (Past 12 Hours) Vital Signs Temp Pulse Resp BP Pulse Ox O2 Del Method 02/20/24 07:00 36.6 C 65 16 110/67 97 Room Air Laboratory Results Abnormal lab results 02/19/24 02/19/24 02/20/24 Range/Units 11:40 20:49 06:29 RBC 4.09 L (4.20-5.40) M/uL Hct 36.4 L (37.0-47.0) % Lymph # (Auto) 0.74 L (1.20-3.40) K/uL [place] # (Auto) 0.67 H (0.11-0.59) K/uL Glucose 115 H (70-99(Fasting)) mg/dl POC Glucose 102 H 106 H (70-99) mg/dl Alkaline Phosphatase 115 H (34-104) U/L 02/20/24 Range/Units 07:54 RBC (4.20-5.40) M/uL Hct (37.0-47.0) % Lymph # (Auto) (1.20-3.40) K/uL [place] # (Auto) (0.11-0.59) K/uL Glucose (70-99(Fasting)) mg/dl POC Glucose 119 H (70-99) mg/dl Alkaline Phosphatase (34-104) U/L (1) Cholecystitis, acute with cholelithiasis Biliary obstruction: without biliary obstruction Qualified Code(s): K80.00 - Calculus of gallbladder with acute cholecystitis without obstruction
[2024-02-21] MEDS ORDERED: NSS + 20MEQ KCL 20 MEQ/1,000 ML BAG IV SCH (03:00)
[2024-02-21] MEDS: POTASSIUM CHLORIDE 20 MEQ in D5W AND NSS 1,000 ML IV SCH (03:47)
[2024-02-21 06:59] LABS: Hematocrit (blood only) 36.6 % (37.0-47.0); Hemoglobin 11.9 g/dl (12.0-16.0); Mean Corpuscular Hemoglobin 29.5 pg (25.0-34.0); Mean Corpuscular Hgb Conc 32.5 g/dL (32.0-36.0); Mean Corpuscular Volume 90.6 fL (80.0-100.0); Mean Platelet Volume 11.6 fL (9.4-12.4); Platelet Count 223 K/uL (130-400); RDW Coefficient of Variation 12.6 % (11.5-14.5); RDW Standard Deviation 41.4 fL (36.4-46.3); Red Blood Count 4.04 M/uL (4.20-5.40)
[2024-02-21 07:29] LABS: Albumin Level 3.6 gm/dl (3.4-5.0); Bilirubin Direct 0.1 mg/dl (0-0.2); Bilirubin,Total 0.4 mg/dl (0.2-1.0); Calcium 9.1 mg/dl (8.6-10.3); Creatinine Clr Calc Pharmacy 39.5 ml/min; Est GFR (African American) 49.9 ml/min; Est GFR (Non-African American) 43.1 ml/min; Magnesium 1.9 mg/dl (1.7-2.4); Total Protein 6.4 gm/dl (6.0-8.3)
--- NOTE | 2024-02-21 08:21 | Hospitalist Progress Note ---
Date of Service February 21, 2024 Assessment & Plan (1) Cholecystitis, acute with cholelithiasis: Plan: Ongoing nausea/vomiting once a month over the past 3-4 months, increased belching and "burning" in her abdomen. IVF x 2 L provided on admission CTAP c/w acute cholecystitis. ALP elevation as well RUQ US equiv for acute cholecystitis Gen surg consulted, wanting to wait til 02/20 due to plavix use/bleeding risk. Cleared by cards for surgery, recs to continue ASA which was discussed w/ surgery and OK, resumed Ceftriaxone/Flagyl IV WBC wnl, remains afebrile LFTs w/ improvement, only minimal elevation in ALP today at 109, ongoing RUQ discomfort NPO this morning for surgery with Dr Kumar D5NS for IVF given DM/borderline BSGs days prior. Adjustment to SSI following surgery if needed Pain control, antiemetics prn -- most benefit from IV tylenol which has been extended. Changed morphine to dilaudid per req/morphine making her nauseated. Last BM 02/19 DVT Proph: SCDs, Lovenox SQ LAST DOSE 02/19, defer resuming following surgery at discretion of surgery Monitor labs on repeat (2) Diabetes mellitus type 2 in nonobese: Plan: BSG AC/HS, glargine scheduled 10u BID given poor PO intake and NPO status (on 30u QAM at home) on admission Decreased to 5u BID but then HELD further given no need for long or short acting w SSI to prevent hypoglycemia, likely from poor PO intake 2nd to above D5 to IVF as above, monitor for need to resume glargine but will use SSI for now (3) Abdominal pain: Plan: Appears to be associated with her acute cholecystitis, stable w/ plan as outlined above. Pain meds adjusted and controlled w/ tylenol for now. Dilaudid available as outined if needed (4) Vomiting: Plan: No further vomiting reported occasional nausea/pain as above and medications ordered as needed (5) Coronary artery disease: Plan: Hx Multivessel post RCA PCI with 4 SHARI in the setting of NSTEMI; post PCI to proximal mid LAD--undeployed stent inside mid LAD stent, late-mid LAD dissec tion. Post single vessel CABG with FELIZ to circumflex. Also with Cerebrovascular diseaseleft vertebral 75%, 50 to 60% distal right ICA on CTA 12/2020. Carotid duplex 08/2023 <50%. Notable lacunar strokes seen on MRI in the past, patient alert/oriented and nonfocal on examination No reports of CP Held ASA/plavix on admission as above but able to resume her ASA 81mg daily per surgery/discussion 02/17 Cardiology consulted for pre-op clearance -- ok to hold home HTN but if able to take PO can resume amlodipine/losartan as needed --> resumed amlodipine and BPs stable, will hold off losartan given BP 118/63 this morning and will monitor for ability to resume post-op if renal function remaining stable No need for telemetry monitoring at this time, no CP reported. 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 Discussed this w/ patient/ in room and daughter on phone. Can reach out to Dr Cohen if needed but discussed will be sending GB for path during surgery as well and need f/u Plan DVT proph: SCDs continued, Lovenox to resume post-op once ok by surgery and will need to inquire timing to resume plavix if safe from bleeding risk pending how surgery goes Dispo: Continued inpatient stay, NPO for OR this morning Will place orders for PT for following surgery (noting had been ambulating in halls day prior w/ walker without any significant issue) Atul updated at bedside 02/20 Admission and Anticipated Discharge Date Admission Date: February 17, 2024 Subjective Patient evaluated this morning, resting in bed, at bedside. RUQ discomfort at times, not much of appetite yesterday afternoon. Reports she is ready for surgery and to get this over with . Got some Tylenol for pain which has been effective. Zofran available for nausea. No CP/SOB, no increased LE edema and remains OFF her diuretics. Last dose Lovenox SQ yesterday morning. Is NPO for surgery, RN just getting call to give report to take down for procedure. Questions/concerns addressed at this time. Physical Exam Physical Exam: General: WD/WN female sitting up in bed, NAD, at bedside, HEENT: head atraumatic, normocephalic, mmm, trachea midline Resp; even/unlabored, no w/c/r, on room air 92% CV: RRR, no significant murmur, no pitting edema/calf tenderness (chronic LLE greater than RLE due to SVG grafting for her CABG-- NOT PITTING EDEMA), pulses present GI: +BS, soft, no significant distension, +mild RUQ tenderness, no rebound/guarding : no gordon MSK/Neuro: nonfocal, answering questions appropriately, following commands Psych: AOx3, cooperative with exam, pleasant but anxious for procedure Results & Data Results & Data Vital Signs (Past 12 Hours) Vital Signs Temp Pulse Resp BP Pulse Ox O2 Del Method 02/21/24 07:06 36.8 C 61 18 118/63 92 Room Air 02/20/24 23:28 36.4 C L 62 126/64 94 Room Air Laboratory Results 02/21/24 02/21/24 02/21/24 Range/Units 06:24 06:02 00:12 WBC 5.90 (4.8-10.8) K/ul RBC 4.04 L (4.20-5.40) M/uL Hgb 11.9 L (12.0-16.0) g/dl Hct 36.6 L (37.0-47.0) % MCV 90.6 (80.0-100.0) fL MCH 29.5 (25.0-34.0) pg MCHC 32.5 (32.0-36.0) g/dL RDW Std Deviation 41.4 (36.4-46.3) fL RDW Coeff of Mark 12.6 (11.5-14.5) % Plt Count 223 (130-400) K/uL MPV 11.6 (9.4-12.4) fL Sodium 138 (136-145) mmol/L Potassium 4.0 (3.5-5.1) mmol/L Chloride 105 (98-107) mmol/L Carbon Dioxide 26 (21-32) mmol/L Anion Gap 7 (3-11) BUN 19 (6-23) mg/dl Creatinine 1.19 (0.6-1.2) mg/dl Est Cr Clr Drug Dosing 39.5 ml/min Est GFR ( Amer) 49.9 ml/min Est GFR (Non-Af Amer) 43.1 ml/min BUN/Creatinine Ratio 16.0 (10-20) Glucose 164 H (70-99(Fasting)) mg/dl POC Glucose 155 H 117 H (70-99) mg/dl Calcium 9.1 (8.6-10.3) mg/dl Magnesium 1.9 (1.7-2.4) mg/dl Total Bilirubin 0.4 (0.2-1.0) mg/dl Direct Bilirubin 0.1 (0-0.2) mg/dl AST 39 (13-39) U/L ALT 35 (7-52) U/L Alkaline Phosphatase 109 H (34-104) U/L Total Protein 6.4 (6.0-8.3) gm/dl Albumin 3.6 (3.4-5.0) gm/dl 02/20/24 02/20/24 02/20/24 Range/Units 20:25 16:40 11:49 WBC (4.8-10.8) K/ul RBC (4.20-5.40) M/uL Hgb (12.0-16.0) g/dl Hct (37.0-47.0) % MCV (80.0-100.0) fL MCH (25.0-34.0) pg MCHC (32.0-36.0) g/dL RDW Std Deviation (36.4-46.3) fL RDW Coeff of Mark (11.5-14.5) % Plt Count (130-400) K/uL MPV (9.4-12.4) fL Sodium (136-145) mmol/L Potassium (3.5-5.1) mmol/L Chloride (98-107) mmol/L Carbon Dioxide (21-32) mmol/L Anion Gap (3-11) BUN (6-23) mg/dl Creatinine (0.6-1.2) mg/dl Est Cr Clr Drug Dosing ml/min Est GFR ( Amer) ml/min Est GFR (Non-Af Amer) ml/min BUN/Creatinine Ratio (10-20) Glucose (70-99(Fasting)) mg/dl POC Glucose 110 H 144 H 134 H (70-99) mg/dl Calcium (8.6-10.3) mg/dl Magnesium (1.7-2.4) mg/dl Total Bilirubin (0.2-1.0) mg/dl Direct Bilirubin (0-0.2) mg/dl AST (13-39) U/L ALT (7-52) U/L Alkaline Phosphatase (34-104) U/L Total Protein (6.0-8.3) gm/dl Albumin (3.4-5.0) gm/dl PG Care Time/CCT Total # of Minutes Spent Total Time Spent with Patient: Total time spent is greater than 50% in coordination of care (as documented) at patient's floor/unit and/or counseling patient: Coding Level of Care Code 78741 SUB INP/OBS CARE 350MIN Diagnoses Cholecystitis, acute with cholelithiasis K80.00 Biliary obstruction: without biliary obstruction Diabetes mellitus type 2 in nonobese E11.9 Abdominal pain R10.10 Abdominal location: upper abdomen, unspecified Vomiting R11.2 Nausea presence: with nausea Vomiting type: unspecified Coronary artery disease I25.10 GERD (gastroesophageal reflux disease) K21.9 Hypertension I10 B-cell lymphoma C85.10 (1) Cholecystitis, acute with cholelithiasis Biliary obstruction: without biliary obstruction Qualified Code(s): K80.00 - Calculus of gallbladder with acute cholecystitis without obstruction (3) Abdominal pain Abdominal location: upper abdomen, unspecified Qualified Code(s): R10.10 - Upper abdominal pain, unspecified (4) Vomiting Nausea presence: with nausea Vomiting type: unspecified Qualified Code(s): R11.2 - Nausea with vomiting, unspecified
[2024-02-21] MEDS ORDERED: ONDANSETRON INJ 2 MG/ML 2 ML VIAL ONE (08:55)
[2024-02-21] MEDS ORDERED: fentaNYL citrate PF 100 MCG/2 ML VIAL ONE ×4 (08:55→16:15)
[2024-02-21] MEDS ORDERED: LIDOCAINE 2% 2 ML VIAL/AMP(20MG/ML) INFIL ONE (08:55)
[2024-02-21] MEDS ORDERED: PROPOFOL IV EMULSION 10 MG/ML 20 ML VIAL IV ONE (08:55)
--- NOTE | 2024-02-21 09:11 | History & Physical Bridge Note ---
Date of Service February 21, 2024 History & Physical Bridge Note I have examined the patient, reviewed the History & Physical and in the interval since the performance of the History & Physical I have noted the following changes of clinical significance: no changes noted. Patient transfer to [facility] for planned robotic cholecystectomy, possible laparoscopic, possible open cholecystectomy and all other indicated procedures.
--- NOTE | 2024-02-21 09:34 | Anesthesiology Consultation ---
Date of Service February 21, 2024 Assessment & Plan (1) Encounter for pre-operative examination: Chart Review Chart Review: Acceptable Risk for Surgery and Patient NOT seen in Pre Admission Testing Consults Requested none History Surgery Operation Date: 02/21/24 13:20 Proposed Procedures p Robotic Laparoscopic Cholecystectomy, Possible Open - Deepthi Shane DO Height/Weight Height: 5 ft 5 in Weight: 80.6 kg Allergies Allergy/AdvReac Type Severity Reaction Status Date / Time oxymetazoline Allergy Mild . Verified 02/17/24 11:23 adhesive Allergy Unknown RASH Verified 02/17/24 11:23 latex Allergy Rash Verified 02/17/24 11:23 prednisone AdvReac Intermediate PT CAN Verified 02/17/24 11:23 TOLERATE DEXAMETHASONE [place] Inhibitors AdvReac Unknown Hypotension Verified 02/17/24 11:23 simvastatin AdvReac Unknown Rash Verified 02/17/24 11:23 oxycodone [From OxyContin] AdvReac Vomiting Verified 02/17/24 11:23 Medications Home Medications Medication Instructions Recorded Confirmed Last Taken cholecalciferol (vitamin D3) 125 5,000 units PO QDD 10/01/19 02/17/24 02/16/24 mcg (5,000 unit) capsule (Dialyvite Vitamin D) mecobalamin (vitamin B12) 1,000 1,000 mcg sublingual QAM 10/01/19 02/17/24 02/16/24 mcg disintegrating tablet,sublingual blood-glucose meter (OneTouch #1 ea 12/03/22 12/16/23 Unknown Ultra2 Meter) lancets 30 gauge (OneTouch Delica #100 ea 12/03/22 12/16/23 Unknown Lancets) pen needle, diabetic 32 gauge x #200 ea 03/09/23 12/16/23 Unknown " (BD Ultra-Fine Komal Pen Needle) aspirin 81 mg tablet,delayed 81 mg PO DAILY #90 tabs 06/09/23 02/17/24 02/16/24 release (Adult Low Dose Aspirin) chlorthalidone 25 mg tablet 25 mg PO QAM #90 tabs 09/06/23 02/17/24 02/16/24 losartan 100 mg tablet (Cozaar) 100 mg PO QAM #90 tabs 09/07/23 02/17/24 02/16/24 amlodipine 10 mg tablet (Norvasc) 10 mg PO QAM #90 tabs 09/13/23 02/17/24 02/16/24 insulin glargine 100 unit/mL (3 30 unit (0.3 mL) subcut QAM #30 mL 10/25/23 02/17/24 02/16/24 mL) subcutaneous pen (Lantus Solostar U-100 Insulin) omeprazole 20 mg capsule,delayed 20 mg PO DAILYBB #30 caps 11/19/23 02/17/24 02/16/24 release atorvastatin 40 mg tablet (Lipitor) 40 mg PO QAM #100 tabs 12/01/23 02/17/24 02/16/24 glipizide 5 mg tablet 5 mg PO PM #90 tabs 12/13/23 02/17/24 02/16/24 clopidogrel 75 mg tablet (Plavix) 75 mg PO QAM #90 tabs 12/28/23 02/17/24 02/16/24 blood sugar diagnostic (OneTouch #100 ea 01/13/24 Unknown Ultra Test strips) Active Medications Generic Name Dose Route Start Last Admin Trade Name Freq PRN Reason Stop Dose Admin Amlodipine Besylate 10 mg 02/19/24 09:00 02/20/24 09:08 Amlodipine Besylate 5 Mg Tab PO 03/20/24 08:59 10 mg QAM ROS Administration Aspirin 81 mg 02/18/24 15:00 02/20/24 09:08 Aspirin 81 Mg Ectab PO 03/19/24 14:59 81 mg QAM ROS Administration Acetaminophen 1,000 mg in 100 mls @ 400 mls/hr 02/17/24 19:00 02/21/24 07:17 Ofirmev IV 02/24/24 18:59 Infused Q8H PRN Infusion pain(1-4),headache,fever Pantoprazole Sodium 40 mg/ 10 mls @ 5 mls/min 02/18/24 11:00 02/20/24 11:09 Syringe IV 03/19/24 10:59 5 mls/min DAILY@1100 ROS Administration Ceftriaxone Sodium 2,000 mg/ 50 mls @ 100 mls/hr 02/18/24 12:30 02/20/24 11:52 Dextrose IV 02/28/24 12:29 Infused Q24H ROS Infusion Protocol Metronidazole 500 mg in 100 mls @ 100 mls/hr 02/17/24 21:00 02/21/24 07:17 Flagyl IV 02/27/24 20:59 Infused Q8H ROS Infusion Protocol Potassium Chloride 20 meq/ 1,010 mls @ 80 mls/hr 02/21/24 03:00 02/21/24 03:47 Dextrose/Sodium Chloride IV 03/22/24 02:59 80 mls/hr .[id number] ROS Administration Insulin Aspart 0 units 02/18/24 11:30 02/21/24 07:57 Insulin Aspart Per Unit Charge SC 03/19/24 11:29 Not Given ACHS ROS Ondansetron HCl 4 mg 02/17/24 11:18 02/20/24 18:27 Ondansetron Inj 2 Mg/Ml 2 Ml Vial IV 03/18/24 11:17 4 mg Q6H PRN Administration Nausea And Vomiting NPO Date Last Intake of Fluids: 02/20/24 Time Last Intake of Fluids: 23:59 Date Last Intake of Solids: 02/20/24 Time Last Intake of Solids: 18:00 Past Medical History Medical History Nausea COVID-19 Elevated serum creatinine Hypertensive emergency Slurring of speech Word finding difficulty Coronary artery disease Dyslipidemia 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 History of malignant neoplasm of skin Osteopenia Paroxysmal atrial fibrillation Vitamin B12 deficiency Vitamin D insufficiency Dehydration Postoperative atrial fibrillation On intra-aortic balloon pump assist Elevated troponin Syncope NSTEMI (non-ST elevated myocardial infarction) Chest pain Diabetes mellitus TYPE II on Levemir at this time BID GERD (gastroesophageal reflux disease) Elevated troponin Hypertensive emergency Non Hodgkin's lymphoma (11/20/13) Hypogammaglobulinemia Fever Fever (10/21/13) Anemia Metastatic cancer to liver Kidney disease Diffuse large B-cell lymphoma of extranodal site (~07/2013) Past Family History Family History Mother Myocardial infarction Diabetes Sister Bladder cancer Daughter Diabetes Heart disease Brother Lung cancer Father Lung disease Denies family history of Ovarian cancer Prostate cancer Breast cancer Colorectal cancer Past Surgical History Surgical History History of open heart surgery S/P CABG (coronary artery bypass graft) S/P CABG x 1 on 09/08/2018; FELIZ to OM1 History of tonsillectomy History of appendectomy H/O tubal ligation Social History Smoking Status: Never smoker Do You Dip or Chew Tobacco: No Hx Alcohol Use: No Hx Substance Use: No substance use type: does not use Physical Exam Vital Signs Last Vital Signs Temp 98.1 F 02/21/24 09:22 Pulse 69 02/21/24 09:22 Resp 20 02/21/24 09:22 BP 141/61 H 02/21/24 09:22 Pulse Ox 94 02/21/24 09:22 O2 Del Method Room Air 02/21/24 09:22 Testing Laboratory Results 02/21/24 06:24 02/21/24 06:24 PT 10.9 Seconds (9.0-12.0) 02/19/24 05:59 INR 1.0 (0.9-1.1) 02/19/24 05:59 Urine Color Yellow 02/17/24 10:40 Urine Appearance Clear (Clear) 02/17/24 10:40 Urine pH 6.0 (4.5-7.5) 02/17/24 10:40 Ur Specific [place] 1.023 (1.000-1.030) 02/17/24 10:40 Urine Protein Negative (Negative) 02/17/24 10:40 Urine Glucose (UA) Negative (Negative) 02/17/24 10:40 Urine Ketones Negative (Negative) 02/17/24 10:40 Urine Nitrite Negative (Negative) 02/17/24 10:40 Ur Leukocyte Esterase Negative (Negative) 02/17/24 10:40 02/21/24 02/21/24 06:02 00:12 POC Glucose 155 H 117 H
[2024-02-21] MEDS ORDERED: ATROPINE SULFATE 0.1 MG/ML 10ML SYR IV PRN (09:35)
[2024-02-21] MEDS ORDERED: ePHEDrine sulfate 50 MG/ML AMP IV PRN (09:35)
[2024-02-21] MEDS ORDERED: ONDANSETRON INJ 2 MG/ML 2 ML VIAL IV PRN (09:35)
[2024-02-21] MEDS: LACTATED RINGER'S 1,000 ML IV SCH ×2 (09:39→18:33)
[2024-02-21] MEDS: INDOCYANINE GREEN 25 MG VIAL INJ ONE (09:41)
[2024-02-21] MEDS ORDERED: GLYCOPYRROLATE 0.2 MG/ML VIAL ONE (10:46)
[2024-02-21] MEDS ORDERED: ESMOLOL HCL INJ 10 MG/ML 10ML VIAL IV ONE (10:46)
[2024-02-21] MEDS ORDERED: SUGAMMADEX SODIUM 200 MG/2 ML VIAL IV ONE (10:46)
[2024-02-21] MEDS ORDERED: ROCURONIUM BROMIDE 10 MG/ML 5 ML VIAL IV ONE (11:32)
[2024-02-21] MEDS ORDERED: ALBUMIN HUMAN 5% 12.5 GM/250 ML VIAL IV ONE (11:59)
[2024-02-21] MEDS: TISSEEL FIBRIN SEALANT 4ML TOP ONE (15:45)
[2024-02-21] MEDS: BUPIVACAINE 0.5 % 5 MG/1 ML MPF 30ML VIAL ONE (16:10)
--- NOTE | 2024-02-21 16:33 | Post Operative Brief Note ---
PG Immediate Post Op with CF Date of Surgery February 21, 2024 Pre & Post Diagnosis Operation Date: 02/21/24 13:20 Pre-Op Diagnosis: Cholelithiasis with Acute cholecystitis Post-Op Diagnosis: Cholelithiasis with Acute cholecystitis I identified the patient and participated in the time-out.: Yes Procedure Operation Date: 02/21/24 13:20 Actual Procedures p Robotic Assisted Laparoscopic Cholecystectomy(Not Applicable) - Deepthi Kumar DO Surgeon Deepthi Kumar DO Application Support Developer [facility] Estimated Blood Loss 20 Findings See Below Specimens Specimen Description: A: Gallbladder and contents Drains Davi Drain (19 fr) and Other (patient straight cathed at end of procedure 150 mL out) Anesthesia Type General Complications No immediate complications
[2024-02-21] MEDS: fentaNYL citrate PF 100 MCG/2 ML VIAL IV PRN (16:41)
--- NOTE | 2024-02-21 17:07 | Anesthesiology Progress Note ---
Date of Service February 21, 2024 Anesthesia Post Procedure Vital Signs Vital Signs: Temp Pulse Pulse Resp BP Pulse Ox O2 Del Method 02/21/24 16:55 73 18 130/56 L 96 Room Air 02/21/24 16:45 66 15 135/58 L 100 Oxymask 02/21/24 16:35 80 18 140/65 99 Oxymask 02/21/24 16:25 36.1 C L 84 20 119/55 L 99 Oxymask 02/21/24 09:22 36.7 C 69 20 141/61 H 94 Room Air 02/21/24 07:06 36.8 C 61 18 118/63 92 Room Air 02/20/24 23:28 36.4 C L 62 126/64 94 Room Air O2 Flow Rate 02/21/24 16:55 02/21/24 16:45 8 02/21/24 16:35 8 02/21/24 16:25 8 02/21/24 09:22 02/21/24 07:06 02/20/24 23:28 Pain Intensity Right Abdomen: Pain Intensity: 2 Abdomen: Pain Intensity: 10 Transfer of Care Handoff Completed per policy Notes Mental Status: alert / awake / arousable Patient Amnestic to Procedure: Yes Nausea / Vomiting: adequately controlled Pain: adequately controlled Airway Patency, RR, SpO2: stable & adequate BP & HR: stable & adequate Hydration State: stable & adequate Anesthetic Complications: no major complications apparent
[2024-02-21] MEDS ORDERED: traMADol HCL 50 MG TABLET PO PRN (17:21)
[2024-02-21] MEDS: HYDROmorphone INJ 0.5 MG/0.5 ML SYR IV PRN (17:36)
[2024-02-22 08:12] LABS: Hematocrit (blood only) 32.4 % (37.0-47.0); Hemoglobin 10.7 g/dl (12.0-16.0); Mean Corpuscular Hemoglobin 29.8 pg (25.0-34.0); Mean Corpuscular Volume 90.3 fL (80.0-100.0); Platelet Count 219 K/uL (130-400); RDW Coefficient of Variation 12.8 % (11.5-14.5); RDW Standard Deviation 42.2 fL (36.4-46.3); Red Blood Count 3.59 M/uL (4.20-5.40); White Blood Count 13.07 K/ul (4.8-10.8)
[2024-02-22 08:29] LABS: Albumin Globulin Ratio 1.3 (0.9-2); Albumin Level 3.4 gm/dl (3.4-5.0); Bilirubin,Total 0.3 mg/dl (0.2-1.0); Calcium 8.7 mg/dl (8.6-10.3); Creatinine Clr Calc Pharmacy 35.4 ml/min; Est GFR (African American) 43.6 ml/min; Est GFR (Non-African American) 37.7 ml/min; Globulin 2.6 gm/dl (2.5-4.0); Magnesium 1.8 mg/dl (1.7-2.4); Potassium 4.3 mmol/L (3.5-5.1)
--- NOTE | 2024-02-22 08:39 | Operative Report ---
PG Post Operative Report Pre & Post Diagnosis Operation Date: 02/21/24 13:20 Pre-Op Diagnosis: Cholelithiasis with Acute cholecystitis Post-Op Diagnosis: Cholelithiasis with Acute cholecystitis I identified the patient and participated in the time-out.: Yes Procedure Operation Date: 02/21/24 13:20 Actual Procedures p Robotic Assisted Laparoscopic Cholecystectomy(Not Applicable) - Deepthi Kumar DO Surgeon Deepthi Kumar DO Equip Maint Eng [facility] Estimated Blood Loss 20 Findings See Below Very difficult gallbladder, aberrant anatomy Specimens Gallbladder Anesthesia Type General Complications No immediate complication Indications Acute cholecystitis Description of Procedure Indocyanine green had been administered prior to the start of the procedure. The patient was brought back to the operating room placed on the operating room table in supine position. She was connected to cardiac and oxygen monitoring. SCDs were applied to bilateral lower extremities. Supplemental O2 was provided. The patient was administered general anesthesia and a secure airway was established. The abdomen was prepped and draped in typical sterile fashion and timeout was conducted. Local anesthetic was injected in the skin and subcutaneous tissues just superior lateral to the umbilicus. A stab incision was made. A Veress needle was used to gain access to the intra-abdominal space and pneumoperitoneum was established local pressure 15 mmHg. An 8 mm robotic trocar was inserted. 2 additional robotic trocars were inserted under direct visualization at each of the right and left mid abdomen, a fourth trocar was inserted at the left upper quadrant. Local anesthetic was injected prior to insertion of each stab incision created for the trocar insertion site. The operating table was positioned in reverse Trendelenburg and left side down. The robot was docked. At the console the gallbladder was noted to be very thickened and distended. It was not possible to grasp the gallbladder with the robotic graspers. The gallbladder was punctured incidentally and drained. Suction was used. The fluid that was drained was hydropic clear fluid. The gallbladder was then retracted superiorly up over the liver and very thickened peritoneal and serosal tissue completely encased the gallbladder wall. Firefly was immediately turned on to help determine the location of the biliary drainage from the gallbladder. While the liver and duodenum fluoresced, the biliary ductal structures did not so this was of no help during the entire procedure. This was checked off-and-on throughout the procedure many many times and was still unable to provide in the additional information with regards to ductal anatomy. The thick peritoneum encasing the lower portion of the gallbladder was bluntly and carefully teased until the tissue broke away exposing gallbladder wall. This tissue was again extremely dense, thickened and very edematous. The tissues were all very friable. There were a lot of of the points of bleeding during the course which was controlled with very gentle cautery and pressure when felt to be more safe. What appeared to be the infundibulum was finally exposed and careful blunt dissection continued to further identify the point at which the cystic duct with takeoff from the gallbladder wall. Due to the extremely thickened peritoneal attachments still remaining on the underside of the gallbladder wall there was no clear delineation as to whether or not the CBD was not part of what appeared to be the infundibulum. At this time Dr. Barraza arrived for input. This is when a dome down approach was recommended. Upon approaching the dome down approach there were multiple areas of bleeding vessels from the liver bed to the gallbladder wall. These were controlled with either cautery or clips. An enlarged cystic artery also came into view which was clipped and transected. The backside wall of the gallbladder was punctured during the blunt dissection process again towards the infundibulum as this is where things were extremely adhesed still to an encasing rind of peritoneum at the lower edge of the gallbladder. The gallbladder was very carefully and gingerly dissected down to the area previously seen anteriorly. The inside of the gallbladder was inspected through the tears that had been In an effort to identify a cystic duct orifice. This was not confirmed along any areas of the gallbladder that had already been dissected and thus indicated the cystic duct was the area first thought earlier on in the case coalescing from the suspected infundibulum. Because the cystic duct appeared to be extremely short just before diving very posteriorly behind more encasing tissue in the region of expected CBD location, the gallbladder was stabled above this area and somewhat on the infundibulum just below the most proximal tear of the gallbladder. Again firefly was tried multiple times throughout this procedure and the ductal system would not never fluoresce. The duodenum and liver fluoresce throughout the entire procedure. The area was copiously irrigated. Hemostasis was checked for and was achieved using gentle cautery of the liver bed. The gallbladder was placed in Endo Catch bag and removed. This was placed in a label container sent to pathology for further analysis. Excess irrigant was suctioned away. Tisseel was placed at the liver bed and over the staple line of the infundibulum. A 19 [place] Davi drain was inserted at the right upper quadrant liver bed. The patient tolerated the procedure well. She was awakened from anesthesia, the secure airway was removed and she was transferred to recovery in stable condition. Please add modifier if available for level of difficulty. I attest to the content of the Intraoperative Record and any orders documented therein. Any exceptions are noted below.
--- NOTE | 2024-02-22 08:49 | Surgery Progress Note ---
<Statement entered by Deepthi Kumar DO - 02/22/24 17:44> I have seen and discussed this case with the surgical PA. I agree with the plan Date of Service February 22, 2024 Assessment & Plan (1) Cholecystitis, acute with cholelithiasis: Plan: POD#1 robotic lap isi WBC 13, Hbg 10.7, LFTs show Tb 0.3, AST 81, ALT 71, Alkp 106. Vitals are stable Patient feeling overall well outside of some post surgical discomfort Incisions c/d/i and BHUMIKA drain with serosang output, 60cc documented Will adv diet as tolerates May need one more day in house, but we will see how she fairs Will need f/u in the office within 1-2 weeks time. Will dispo to home with drain Admission and Anticipated Discharge Date Admission Date: February 17, 2024 Subjective Patient states she feels okay, but a little "rough" in regards to abdominal soreness. She had some nausea last evening that has resolved. She is currently tolerating clears without issues. Pain overall manageable. She is voiding. Physical Exam Physical Exam: awake/alert, no distress Gastrointestinal (Abdomen): Inspection/Auscultation: + abdominal surgical incision (c/d/i with skin glue) and + abdominal surgical drain present (serosang); abdomen not distended Percussion/Palpation: + abdomen tender (expected clifton incisional discomfort, worse in RUQ) and abdomen soft Results & Data Vital Signs (Past 12 Hours) Vital Signs Temp Pulse Resp BP Pulse Ox O2 Del Method 02/22/24 07:56 98.4 F 80 16 155/77 H 93 Room Air 02/22/24 03:25 99.1 F 78 14 143/69 H 90 Room Air 02/21/24 23:37 98.4 F 87 14 120/66 95 Room Air 02/21/24 22:30 Room Air PG Care Time/CCT Total # of Minutes Spent Total Time Spent with Patient: Total time spent is greater than 50% in coordination of care (as documented) at patient's floor/unit and/or counseling patient: Coding Level of Care Code 59491 Post Operative Follow-Up Diagnoses Cholecystitis, acute with cholelithiasis K80.00 Biliary obstruction: without biliary obstruction (1) Cholecystitis, acute with cholelithiasis Biliary obstruction: without biliary obstruction Qualified Code(s): K80.00 - Calculus of gallbladder with acute cholecystitis without obstruction
[2024-02-22] MEDS: POLYETHYLENE (MIRALAX) 17 GM PACK PO SCH (17:31)
--- NOTE | 2024-02-22 22:25 | Hospitalist Progress Note ---
Date of Service February 22, 2024 Assessment & Plan (1) Cholecystitis, acute with cholelithiasis: Plan: Ongoing nausea/vomiting once a month over the past 3-4 months, increased belching and "burning" in her abdomen. IVF x 2 L provided on admission CTAP c/w acute cholecystitis. ALP elevation as well RUQ US equiv for acute cholecystitis Gen surg consulted, wanting to wait til 02/20 due to plavix use/bleeding risk. Cleared by cards for surgery, recs to continue ASA which was discussed w/ surgery and OK, resumed Ceftriaxone/Flagyl IV WBC wnl, remains afebrile LFTs w/ improvement, only minimal elevation in ALP today at 109, ongoing RUQ discomfort S?P cholecystectomy D5NS for IVF given DM/borderline BSGs days prior. Adjustment to SSI following surgery if needed Pain control, antiemetics prn -- most benefit from IV tylenol which has been extended. Changed morphine to dilaudid per req/morphine making her nauseated. Last BM 02/19 DVT Proph: SCDs, Lovenox SQ LAST DOSE 02/19, defer resuming following surgery at discretion of surgery Monitor labs on repeat (2) Diabetes mellitus type 2 in nonobese: Plan: BSG AC/HS, glargine scheduled 10u BID given poor PO intake and NPO status (on 30u QAM at home) on admission Decreased to 5u BID but then HELD further given no need for long or short acting w SSI to prevent hypoglycemia, likely from poor PO intake 2nd to above D5 to IVF as above, monitor for need to resume glargine but will use SSI for now (3) Abdominal pain: Plan: Appears to be associated with her acute cholecystitis, stable w/ plan as outlined above. Pain meds adjusted and controlled w/ tylenol for now. Dilaudid available as outined if needed (4) Vomiting: Plan: No further vomiting reported occasional nausea/pain as above and medications ordered as needed (5) Coronary artery disease: Plan: Hx Multivessel post RCA PCI with 4 SHARI in the setting of NSTEMI; post PCI to proximal mid LAD--undeployed stent inside mid LAD stent, late-mid LAD dissection. Post single vessel CABG with FELIZ to circumflex. Also with Cerebrovascular diseaseleft vertebral 75%, 50 to 60% distal right ICA on CTA 12/2020. Carotid duplex 08/2023 <50%. Notable lacunar strokes seen on MRI in the past, patient alert/oriented and nonfocal on examination No reports of CP Held ASA/plavix on admission as above but able to resume her ASA 81mg daily per surgery/discussion 02/17 Cardiology consulted for pre-op clearance -- ok to hold home HTN but if able to take PO can resume amlodipine/losartan as needed --> resumed amlodipine and BPs stable, will hold off losartan given BP 118/63 this morning and will monitor for ability to resume post-op if renal function remaining stable No need for telemetry monitoring at this time, no CP reported. 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 Discussed this w/ patient/ in room and daughter on phone. Can reach out to Dr Cohen if needed but discussed will be sending GB for path during surgery as well and need f/u Plan DVT proph: SCDs continued, Lovenox to resume post-op once ok by surgery and will need to inquire timing to resume plavix if safe from bleeding risk pending how surgery goes Dispo: Continued inpatient stay, NPO for OR this morning Will place orders for PT for following surgery (noting had been ambulating in halls day prior w/ walker without any significant issue) Admission and Anticipated Discharge Date Admission Date: February 17, 2024 Subjective 78 female reports no new symptoms. Patient reports feeling better. Review of Systems Review of Systems: All systems reviewed & are unremarkable except as noted in HPI & below Physical Exam Physical Exam: General: WD/WN female sitting up in bed, NAD HEENT: head atraumatic, normocephalic, mmm, trachea midline Resp; even/unlabored, no w/c/r, on room air 92% CV: RRR GI: +BS, soft, no significant distension, +mild RUQ tenderness at site of incision, no rebound/guarding : no gordon MSK/Neuro: nonfocal, answering questions appropriately, following commands Psych: AOx3, cooperative with exam, pleasant Results & Data Results & Data Vital Signs (Past 12 Hours) Vital Signs Temp Pulse Resp BP Pulse Ox O2 Del Method 02/22/24 19:24 36.8 C 74 14 152/72 H 94 Room Air 02/22/24 15:19 37.0 C 82 16 147/68 H 95 Room Air 02/22/24 11:10 37.7 C H 84 18 151/68 H 93 Room Air PG Care Time/CCT Total # of Minutes Spent Total Time Spent with Patient: Total time spent is greater than 50% in coordination of care (as documented) at patient's floor/unit and/or counseling patient: Coding Level of Care Code 92908 SUB INP/OBS CARE 2/35MIN Diagnoses Cholecystitis, acute with cholelithiasis K80.00 Biliary obstruction: without biliary obstruction Diabetes mellitus type 2 in nonobese E11.9 Abdominal pain R10.10 Abdominal location: upper abdomen, unspecified Vomiting R11.2 Nausea presence: with nausea Vomiting type: unspecified Coronary artery disease I25.10 GERD (gastroesophageal reflux disease) K21.9 Hypertension I10 B-cell lymphoma C85.10 (1) Cholecystitis, acute with cholelithiasis Biliary obstruction: without biliary obstruction Qualified Code(s): K80.00 - Calculus of gallbladder with acute cholecystitis without obstruction (3) Abdominal pain Abdominal location: upper abdomen, unspecified Qualified Code(s): R10.10 - Upper abdominal pain, unspecified (4) Vomiting Nausea presence: with nausea Vomiting type: unspecified Qualified Code(s): R11.2 - Nausea with vomiting, unspecified
[2024-02-23 08:11] LABS: Basophils # (auto) 0.05 K/uL (0.00-0.20); Basophils % (auto) 0.4 %; Eosinophils # (auto) 0.04 K/uL (0.00-0.50); Eosinophils % (auto) 0.4 %; Hematocrit (blood only) 31.2 % (37.0-47.0); Hemoglobin 10.2 g/dl (12.0-16.0); Immature Granulocytes % (auto) 0.9 %; Lymphocytes # (auto) 0.93 K/uL (1.20-3.40); Lymphocytes % (auto) 8.3 %; Mean Corpuscular Hemoglobin 29.5 pg (25.0-34.0); Mean Corpuscular Hgb Conc 32.7 g/dL (32.0-36.0); Mean Corpuscular Volume 90.2 fL (80.0-100.0); Mean Platelet Volume 11.4 fL (9.4-12.4); Monocytes # (auto) 0.87 K/uL (0.11-0.59); Monocytes % (auto) 7.8 %; Neutrophils # (auto) 9.21 K/uL (1.40-6.50); Neutrophils % (auto) 82.2 %; Platelet Count 228 K/uL (130-400); RDW Coefficient of Variation 13.1 % (11.5-14.5); RDW Standard Deviation 43.5 fL (36.4-46.3); Red Blood Count 3.46 M/uL (4.20-5.40)
[2024-02-23 08:30] LABS: Albumin Globulin Ratio 1.4 (0.9-2); Albumin Level 3.4 gm/dl (3.4-5.0); BUN Creatinine Ratio 16.7 (10-20); Bilirubin,Total 0.4 mg/dl (0.2-1.0); Calcium 8.8 mg/dl (8.6-10.3); Creatinine Clr Calc Pharmacy 43.6 ml/min; Est GFR (African American) 56.1 ml/min; Est GFR (Non-African American) 48.4 ml/min; Globulin 2.5 gm/dl (2.5-4.0); Potassium 4.2 mmol/L (3.5-5.1); Total Protein 5.9 gm/dl (6.0-8.3)
--- NOTE | 2024-02-23 09:48 | Surgery Progress Note ---
<Statement entered by Deepthi Kumar DO - 02/23/24 16:53> This patient was seen and examined this am. I agree with the plan. May return to the office next week for drain assessment and removal if appropriate at that time. Date of Service February 23, 2024 Assessment & Plan (1) Cholecystitis, acute with cholelithiasis: Plan: POD#2 robotic lap isi WBC 10, Hbg 10, LFTs show Tb 0.4, AST 62, ALT 66, Alkp 91. Vitals are stable Patient feeling well overall Incisions c/d/i and BHUMIKA drain with serosang output, 125cc documented Tolerating regular diet Recommend home on 5 more days PO abx and may resume plavix tomorrow Will need f/u in the office within 1-2 weeks time. Will dispo to home with drain Admission and Anticipated Discharge Date Admission Date: February 17, 2024 Subjective Patient reports feeling well. Abdominal pain manageable, hurts with bending, but otherwise fine. No nausea/vomiting. Tolerating diet. + bowel function Physical Exam Physical Exam: awake/alert, no distress Gastrointestinal (Abdomen): Inspection/Auscultation: + abdominal surgical incision (c/d/i with skin glue) and + abdominal surgical drain present (s erosang); abdomen not distended Percussion/Palpation: + abdomen tender (expected clifton incisional discomfort, worse in RUQ) and abdomen soft Results & Data Vital Signs (Past 12 Hours) Vital Signs Temp Pulse Resp BP Pulse Ox O2 Del Method 02/23/24 07:49 99.1 F 87 18 138/77 90 Room Air PG Care Time/CCT Total # of Minutes Spent Total Time Spent with Patient: Total time spent is greater than 50% in coordination of care (as documented) at patient's floor/unit and/or counseling patient: Coding Level of Care Code 76111 SUB INP/OBS CARE 12/09MIN Diagnoses Cholecystitis, acute with cholelithiasis K80.00 Biliary obstruction: without biliary obstruction (1) Cholecystitis, acute with cholelithiasis Biliary obstruction: without biliary obstruction Qualified Code(s): K80.00 - Calculus of gallbladder with acute cholecystitis without obstruction
--- NOTE | 2024-02-26 22:12 | Discharge Summary ---
Date of Service February 23, 2024 Admission HPI Per Admitting Provider Radha Butler is an 78 year old female with a PMH significant for multivessel CAD (RCA PCI with 4 SHARI in the setting of NSTEMI; post PCI to proximal mid LAD--undeployed stent inside mid LAD stent, late-mid LAD dissection. Post single vessel CABG with FELIZ to circumflex), HFpEF, TIA, HTN, GERD, diffuse B-cell lymphoma (in remission) who presented to the [facility] ED on 02/17/24 with abdominal pain. Remained stable in the ED. Labs were significant for a leukocytosis of 11 with neutrophil predominance of 9, stable LFT's, Chest/abd xray was read as negative for acute findings. CT of the abd/pelvis w/IV con was read as "1. Cholelithiasis with acute cholecystitis. Surgical evaluation is advised. 2. There is nonspecific focal wall thickening and enhancement of the cystic duct. This may be inflammatory. An underlying ne oplastic process is considered less likely but is not entirely excluded. 3. Colonic diverticulosis without CT evidence of acute diverticulitis. 3. Hiatal hernia. 4. Additional findings as above.". Prior to admission the patient was given a dose of Zosyn, 1L NSS, 4 mg IV morphine, and 4 mg IV zofran. General Surgery was consulted in the ED At the time of the exam the patient was sitting in bed in no acute distress with family bedside. She states that she has been having intermittent RUQ abdominal pain for months. Usually starts in the RUQ and radiates to the LUQ. Exacerbated with eating. After she was discharged from the ED on 02/14 her symptoms resolved until 0100 this am when her pain woke her from sleep. Has experienced multiple episodes of nausea and non-bloody emesis today. Denies recent fever, chills, chest pain, SOB, dysuria, hematuria, diarrhea, melena, LE swelling, and recent trauma. States LLE is always "a little" more swollen than the RLE since she had her CABG. Is a full code and would want her and Daughter make decisions for her if she could not make them herself. Did not have any am meds prior to arrival. Principal Diagnosis cholecystitis with cholecystectomy Discharge Exam General: WD/WN female sitting up in bed, NAD HEENT: head atraumatic, normocephalic, mmm, trachea midline Resp; even/unlabored, no w/c/r, on room air 92% CV: RRR GI: +BS, soft, no significant distension, +mild RUQ tenderness at site of incision, no rebound/guarding : no gordon MSK/Neuro: nonfocal, answering questions appropriately, following commands Psych: AOx3, cooperative with exam, pleasant Discharge Data Allergies Allergy/AdvReac Type Severity Reaction Status Date / Time oxymetazoline Allergy Mild . Verified 02/24/24 14:36 adhesive Allergy Unknown RASH Verified 02/24/24 14:36 latex Allergy Rash Verified 02/24/24 14:36 prednisone AdvReac Intermediate PT CAN Verified 02/24/24 14:36 TOLERATE DEXAMETHASONE [place] Inhibitors AdvReac Unknown Hypotension Verified 02/24/24 14:36 simvastatin AdvReac Unknown Rash Verified 02/24/24 14:36 oxycodone [From OxyContin] AdvReac Vomiting Verified 02/24/24 14:36 Consultations 02/17/24 10:36 Consult General Surgery Routine 02/17/24 10:37 ED Decision to Admit Stat 02/18/24 08:28 Consult Cardiology Routine Procedures Performed Operation Date: 02/21/24 13:20 Actual Procedures p Robotic Assisted Laparoscopic Cholecystectomy(Not Applicable) - Deepthi Kumar DO Ordered Studies 02/17/24 09:39 CT abd pelvis IV con only Stat 02/17/24 15:20 US gallbladder Stat Hospital Course (1) Cholecystitis, acute with cholelithiasis: -Will admit to med/surge once General Surgery examines the patient and deems her stable for our facility -Presented to the ED with ongoing intermittent RUQ abdominal pain, nausea, and non-bloody emesis -Was seen on 02/15/24 in the [facility] ED but workup at that time was unremarkable -Noted to have a leukocytosis today with LFT's WNL -CT of the abd/pelvis w/IV con shows signs consistent with Cholelithiasis with acute cholecystitis. -Initially ordered a dose of zosyn in the ED, did not receive prior to admission -treated Ceftriaxone and flagyl instead Robotic Assisted Laparoscopic Cholecystectomy was completed on 02/21/24 Patient will complete 7 days of antibiotics post procedure with 5 more days of augmentin. (2) Abdominal pain: -Appears to be associated with her acute cholecystitis -Rest of care per cholecystitis plan Symptoms resolved (3) Vomiting: -See cholecystitis plan (4) Coronary artery disease: -No recent chest pain - resume aspirin, plavix (5) Diabetes mellitus type 2 in nonobese: -resume home meds (6) GERD (gastroesophageal reflux disease): -Will start daily IV pantoprazole while inhouse. (7) Hypertension: -Stable resume home meds but will hold chlorthalidone given BP has not been as elevated. (8) B-cell lymphoma: -Has been in remission -Continue to follow with Heme/onc on discharge Total Time Total Time Spent Total Time Spent (In Minutes): 32 Discharge Plan Discharge Items Patient Disposition: Home - Self-Care Reason For Visit: CHOLELITHIASIS WITH ACUTE CHOLECYSTITIS Discharge Diagnosis: laparoscopic cholecystectomy Activity: Per Instructions section Lifting: No more than 10 pounds Bathing Comment: may shower; no soaking in tubs/pools x 2 weeks Exercise/Sports: Wait until after follow-up appointment Driving/Machine Use: no driving while on narcotics for pain Non-emergency contact: Primary Care Provider, Surgeon and Pt Sitter Call non-emergency contact if: you have any medication questions, your pain is worsening, you have a fever, your temperature is above 101.5, your wound has increased redness, your wound has increased drainage and your wound pain has increased Follow-up/Referrals: David Chou MD [Primary Care Provider] - Deepthi Kumar DO [Physician] - (Please call to schedule follow up in the clinic within 2 weeks ) Diet: Low Fat Addtl Attending Provider Instructions: You have skin glue over your incisions called dermabond. you may shower with this on. It will tend to dissolve and fall off within a couple weeks. Do not pick at the skin glue You will be discharged to home with a surgical drain in place. Care for drain as you have been instructed prior to discharge from the hospital. Keep drain to bulb suction. Otherwise empty it 2-3x/daily and record output, bring a log with you to the office . You may purchase Tylenol over the counter if needed for additional pain control over the next few days. Take per manufacturers instructions Addtl Household Manager Provider Instructions: Start first dose of antibiotic tomorrow 411 in the AM Pending Studies at Discharge: Yes Studies:: surgical pathology Stand-Alone Forms: My [facility], Smoking Cessation Medications and DC Order Prescriptions: New amoxicillin-pot clavulanate 875-125 mg tablet 1 tab PO BID Qty: 10 0RF Continued (DME) pen needle, diabetic [BD Ultra-Fine Komal Pen Needle] 32 gauge x 5/32" needle See Rx Instructions .ROUTE .MEDSUPPLY Qty: 200 3RF Rx Instructions: As directed for use with Levemir pen twice daily losartan [Cozaar] 100 mg tablet 100 mg PO QAM Qty: 90 3RF amlodipine [Norvasc] 10 mg tablet 10 mg PO QAM Qty: 90 3RF insulin glargine [Lantus Solostar U-100 Insulin] 100 unit/mL (3 mL) insulin pen 30 unit subcut QAM Qty: 30 3RF omeprazole 20 mg capsule,delayed release(DR/EC) 20 mg PO DAILYBB Qty: 30 5RF atorvastatin [Lipitor] 40 mg tablet 40 mg PO QAM Qty: 100 3RF glipizide 5 mg tablet 5 mg PO PM Qty: 90 1RF Rx Instructions: dinner only clopidogrel [Plavix] 75 mg tablet 75 mg PO QAM Qty: 90 0RF (DME) OneTouch Ultra Test Strip See Rx Instructions .Route Qty: 100 3RF Rx Instructions: Twice daily and as needed for DM on Insulin aspirin [Adult Low Dose Aspirin] 81 mg tablet,delayed release (DR/EC) 81 mg PO DAILY Qty: 90 3RF (DME) lancets [OneTouch Delica Lancets] 30 gauge misc See Rx Instructions .Route Qty: 100 0RF Rx Instructions: Twice daily and as neeed for DM on Insulin (DME) blood-glucose meter [OneTouch Ultra2 Meter] Misc See Rx Instructions .Route Qty: 1 0RF Rx Instructions: Up to twice daily and as needed for DM on Isulin Discontinued chlorthalidone 25 mg tablet 25 mg PO QAM Qty: 90 3RF Discharge Orders: Discharge Order (Routine); Ordered 02/23/24 Ordered By: Yariel Orlando/Other Patient Handouts: DVT Post Op Prevention Admission Data Admit Date/Time: 02/17/24 13:21 Attending Provider: Yariel Simmons Admit Provider: Cholo Espinosa Primary Care Provider: David Chou V. Other Providers: Deepthi Kumar; Cholo Espinosa; Fernando Ruggiero Other Interventions: Discharge Summary Assessment (RN) Last Done: 02/23/24 15:51 Coding Level of Care Code 55458 INP/OBS DISCH >30 MIN Diagnoses Cholecystitis, acute with cholelithiasis K80.00 Biliary obstruction: without biliary obstruction Abdominal pain R10.10 Abdominal location: upper abdomen, unspecified Vomiting R11.2 Nausea presence: with nausea Vomiting type: unspecified Coronary artery disease I25.10 Diabetes mellitus type 2 in nonobese E11.9 GERD (gastroesophageal reflux disease) K21.9 Hypertension I10 B-cell lymphoma C85.10
== END 2024-02-23 16:40 | disposition home or self-care (01) | DRG 418 ==
LOC: ED 08:17 → 3N 13:21 → SUATTDRO 13:21 → 3N 14:23

== ENCOUNTER 2025-05-19 16:51 | Observation (INO) ==
--- NOTE | 2025-05-19 17:06 | Emergency Department Note ---
Impression & Plan Elevated troponin, Nausea & vomiting, Acute upper abdominal pain, Acute hypokalemia ED Provider Note NAME: MAURO CORNEJO AGE: 79 SEX: F : 1945 ARRIVES VIA: Ambulance INFORMANT: Patient, ED PROVIDER(S): Harry Bah MD CHIEF COMPLAINT: Nausea vomiting, abdominal pain MEDICAL DECISION MAKING: Patient presents with above. IV was established and blood work was obtained along with an EKG troponin. Chest and abdominal series also ordered. Patient with no current pain on exam. Patient was ordered IV fluids and IV Zofran in addition to IV Pepcid. Patient's blood work shows a white count of 11.8 with a normal hemoglobin and platelet count. The patient's kidney function unremarkable. Mild hypokalemia 3.2. Patient does have slight elevation in troponin at 19.6 but is new compared to prior. Chest and abdominal x-rays grossly unremarkable by my read. No obvious pneumonia. Patient without abdominal pain. Upon reassessment patient states that she still has some mild nausea but again no pain no chest pain. EKG appears grossly unchanged with the patient was ordered 243 of aspirin as a precaution in addition to additional IV fluids. I did speak with the on-call hospital service and the patient was admitted to medicine service. Discussion w/ other healthcare providers: Dr. Cevallos inpatient medicine service Prior /Outside records reviewed: none Differential diagnosis: Gastroenteritis, food borne illness, infection, appendicitis, diverticulitis, inflammatory bowel disease, obstruction among others were considered. Diagnostics, as interpreted by me: ECG: Normal sinus rhythm, rate of 90, normal intervals, normal axis no ST elevations, ST depressions laterally and in the high lateral leads. Q wave noted inferiorly. This appears grossly unchanged from comparison EKG February 17, 2024. Cardiac monitoring: An order was placed for continuous cardiac monitoring. The monitor shows a rate of 89 with sinus rhythm. Patient was placed on pulse oximetry Medical decision rules: none Imaging studies: I informally interpreted the patient's chest and abdominal x-ray does not show evidence of obvious pneumonia with formal report to follow. HPI: Patient presents to concern for nausea vomiting and abdominal pain. The patient reports that she has felt somewhat unwell yesterday while she was at a picnic felt as though she had to go the bathroom and felt very lightheaded and dizzy almost to the point where she is unsure whether or not she passed out. The patient states that she went home and this morning had associated nausea vomiting and abdominal pain in the upper abdomen that felt like "a knife." Patient did not take anything for symptoms at home. No known sick contacts or any recent travel. No changes in diet or new foods. Patient denies any falls or trauma. Patient denies any chest pains or shortness of breath. No oxygen use no cough or fever. No leg swelling. Patient states that she did have part of her gallbladder removed in the past. PAST MEDICAL HISTORY: See Below PAST SURGICAL HISTORY: See Below SOCIAL HISTORY: See Below HOME MEDICATIONS: See Below ALLERGIES: See Below VITALS: See Below PHYSICAL EXAMINATION: GENERAL: NAD, non-toxic. Nasal cannula in place. Emesis bag in hand. EYE EXAM: Normal conjunctiva. PERRL, no anisocoria and EOM's grossly intact w/o pain. OROPHARYNX: Moist mucus membranes, grossly normal dentition. NECK: Trachea midline, no stridor. LUNGS: Clear to auscultation. Normal chest wall mechanics. HEART: NSR, no MRG. ABDOMEN: Abdomen soft, non-tender, no masses, no rebound or guarding. BACK: No CVA TTP. SKIN: No rashes and no bruising. UPPER EXTREMITIES: Upper extremities are grossly normal. LOWER EXTREMITIES: Grossly normal, no edema. NEURO EXAM: Awake and alert, follows commands, no obvious facial asymmetry, normal speech, moves all 4 extremities. Past Med/Surg History Problem List (Updated 05/19/25 @ 23:22 by Harry Bah MD) Acute hypokalemia (Acute) Acute upper abdominal pain (Acute) Nausea & vomiting (Acute) Elevated troponin (Acute) Anemia S/P cholecystectomy Mass of right elbow H/O lymphoma Health care maintenance Vertebral artery stenosis Vitamin D insufficiency (Acute) Vitamin B12 deficiency (Acute) Osteopenia (Acute) Dyslipidemia (Acute) Coronary artery disease (Acute) Carotid artery stenosis Diabetes mellitus type 2 in nonobese (Acute) Diverticulosis of colon (Acute) Gait disturbance (Acute) Hypercholesteremia (Acute) Hypertension (Acute) Low back pain (Acute) S/P drug eluting coronary stent placement (Acute) Multi-vessel coronary artery stenosis GERD (gastroesophageal reflux disease) (Chronic) Medical History TIA (transient ischemic attack) Acute calculous cholecystitis B-cell lymphoma Cholecystitis, acute with cholelithiasis Vomiting Abdominal pain Imaging abnormalities Nausea COVID-19 Elevated serum creatinine Hypertensive emergency Slurring of speech Word finding difficulty 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 History of malignant neoplasm of skin Paroxysmal atrial fibrillation Dehydration Postoperative atrial fibrillation On intra-aortic balloon pump assist Elevated troponin Syncope NSTEMI (non-ST elevated myocardial infarction) Chest pain Diabetes mellitus TYPE II on Levemir at this time BID Elevated troponin Hypertensive emergency Non Hodgkin's lymphoma (11/20/13) Hypogammaglobulinemia Fever Fever (10/21/13) Metastatic cancer to liver Kidney disease Diffuse large B-cell lymphoma of extranodal site (~07/2013) Surgical History Hx laparoscopic cholecystectomy (02/21/24) Robotic Assisted Laparoscopic Cholecystectomy(Not Applicable) - Deepthi Kumar DO History of open heart surgery S/P CABG (coronary artery bypass graft) S/P CABG x 1 on 09/08/2018; FELIZ to OM1 History of tonsillectomy History of appendectomy H/O tubal ligation Family History Mother Myocardial infarction Diabetes Sister Bladder cancer Daughter Diabetes Heart disease Brother Lung cancer Father Lung disease Denies family history of Ovarian cancer Prostate cancer Breast cancer Colorectal cancer Social History Smoking Status: Never smoker Second Hand Exposure: No; Do You Dip or Chew Tobacco: No; Hx Alcohol Use: No Hx Substance Use: No Preferred Language: Lithuanian Communication Ability: Effective Visual Impairment: No Limitations Hearing Ability: Normal Fun House Operator Required: No Beliefs That Will Affect Care: None marital status: Current Living Situation: Spouse Current Living Situation Comment: lives with Júnior current occupational status: retired current occupation: Retired Feels Safe at Home: Yes Childhood Exposure to Second-Hand Smoke: Yes Dental Care, Regularly: No Physical Activity Frequency: 3-4 Times per Week Seatbelt Use: always Sunscreen Use: Yes Assistive Devices: Denture - Upper and Denture - Lower Allergies Allergies Allergy/AdvReac Type Severity Reaction Status Date / Time oxymetazoline Allergy Mild . Verified 02/22/25 08:58 adhesive Allergy Unknown RASH Verified 02/22/25 08:58 latex Allergy Rash Verified 02/22/25 08:58 prednisone AdvReac Intermediate PT CAN Verified 02/22/25 08:58 TOLERATE DEXAMETHASONE [place] Inhibitors AdvReac Unknown Hypotension Verified 02/22/25 08:58 simvastatin AdvReac Unknown Rash Verified 02/22/25 08:58 oxycodone [From OxyContin] AdvReac Vomiting Verified 02/22/25 08:58 Home Meds Previous Rx's Medication Instructions Recorded blood-glucose meter (OneTouch #1 ea 12/03/22 Ultra2 Meter) lancets 30 gauge (OneTouch Delica #100 ea 12/03/22 Lancets) aspirin 81 mg tablet,delayed 81 mg PO DAILY #90 tabs 06/09/23 release (Adult Low Dose Aspirin) pen needle, diabetic 32 gauge x #200 ea 03/13/24 5/32" (BD Ultra-Fine Komal Pen Needle) blood sugar diagnostic (OneTouch #100 ea 06/09/24 Ultra Test strips) insulin glargine 100 unit/mL (3 25 unit (0.25 mL) subcut QAM #30 mL 08/17/24 mL) subcutaneous pen (Lantus Solostar U-100 Insulin) amlodipine 10 mg tablet (Norvasc) 10 mg PO QAM #90 tabs 08/27/24 omeprazole 20 mg capsule,delayed 20 mg PO DAILYBB #90 caps 11/21/24 release atorvastatin 40 mg tablet (Lipitor) 40 mg PO QAM #100 tabs 01/25/25 cholecalciferol (vitamin D3) 50 50 mcg PO DAILY #90 caps 02/22/25 mcg (2,000 unit) capsule losartan 25 mg tablet 25 mg PO QAM #90 tabs 04/01/25 clopidogrel 75 mg tablet (Plavix) 75 mg PO QAM #90 tabs 04/17/25 Results & Data (ED) Vital Signs Vital Signs - 24 hr 05/19/25 16:44 05/19/25 16:59 05/19/25 17:02 Temperature 37.1 C Temperature Source Oral Pulse Rate 96 H Pulse Rate [Apical] Respiratory Rate 18 Respiratory Effort / Characteristics Non-Labored Spontaneous Respiratory Depth Normal Respiratory Pattern Regular Blood Pressure 156/68 H Blood Pressure [Right Arm] Blood Pressure Mean 97 Blood Pressure Mean [Right Arm] Pulse Oximetry 90 90 Oxygen Delivery Method Room Air Room Air Room Air Nasal Cannula Oxygen Flow Rate 0 Sepsis Recent Fever Within 48 Hours No Sepsis New/Unexplained Change in Mental Status N/A Sepsis Action Taken by Nursing No Action Required Oxygen Flow Rate - Titration 2 Pulse Oximetry Post Tiitration 95 05/19/25 17:04 05/19/25 17:57 Temperature Temperature Source Pulse Rate 88 Pulse Rate [Apical] 89 Respiratory Rate 19 Respiratory Effort / Characteristics Respiratory Depth Respiratory Pattern Blood Pressure Blood Pressure [Right Arm] 149/61 H Blood Pressure Mean Blood Pressure Mean [Right Arm] 90 Pulse Oximetry 93 Oxygen Delivery Method Oxygen Flow Rate Sepsis Recent Fever Within 48 Hours Sepsis New/Unexplained Change in Mental Status Sepsis Action Taken by Nursing Oxygen Flow Rate - Titration Pulse Oximetry Post Tiitration Home Medications Current Medication List: was personally reviewed by me Laboratory Data Attestation: I reviewed the patient's lab results. 05/19/25 16:58 05/19/25 16:58 Lab Results 05/19/25 Range/Units 16:58 WBC 11.82 H (4.8-10.8) K/ul RBC 4.15 L (4.20-5.40) M/uL Hgb 12.1 (12.0-16.0) g/dl Hct 36.4 L (37.0-47.0) % MCV 87.7 (80.0-100.0) fL MCH 29.2 (25.0-34.0) pg MCHC 33.2 (32.0-36.0) g/dL RDW Std Deviation 41.6 (36.4-46.3) fL RDW Coeff of Mark 13.1 (11.5-14.5) % Plt Count 159 (130-400) K/uL MPV 11.9 (9.4-12.4) fL Immature Gran % (Auto) 0.6 % Neut % (Auto) 86.1 % Lymph % (Auto) 3.6 % [place] % (Auto) 9.5 % Eos % (Auto) 0.0 % Baso % (Auto) 0.2 % Neut # (Auto) 10.18 H (1.40-6.50) K/uL Lymph # (Auto) 0.43 L (1.20-3.40) K/uL [place] # (Auto) 1.12 H (0.11-0.59) K/uL Eos # (Auto) 0.00 (0.00-0.50) K/uL Baso # (Auto) 0.02 (0.00-0.20) K/uL Immature Gran # (Auto) 0.07 (0.01-0.20) K/uL Sodium 136 (136-145) mmol/L Potassium 3.2 L (3.5-5.1) mmol/L Chloride 104 (98-107) mmol/L Carbon Dioxide 22 (21-32) mmol/L Anion Gap 10 (3-11) BUN 20 (6-23) mg/dl Creatinine 1.04 (0.6-1.2) mg/dl Est Cr Clr Drug Dosing 40.6 ml/min eGFR 54.00 BUN/Creatinine Ratio 19.2 (10-20) Glucose 175 H (70-99(Fasting)) mg/dl Calcium 8.7 (8.6-10.3) mg/dl Magnesium 1.2 L (1.7-2.4) mg/dl Total Bilirubin 1.0 (0.2-1.0) mg/dl AST 45 H (13-39) U/L ALT 36 (7-52) U/L Alkaline Phosphatase 126 H (34-104) U/L Troponin I High Sens 19.6 H (0-14) pg/ml Total Protein 6.6 (6.0-8.3) gm/dl Albumin 3.7 (3.4-5.0) gm/dl Globulin 2.9 (2.5-4.0) gm/dl Albumin/Globulin Ratio 1.3 (0.9-2) Lipase 17 (11-82) U/L Administered Medications Heparin Sodium (Porcine) (Heparin Sod 5,000 Unit/0.5 Ml Vial) 5,000 units SQ Q12 ROS Stop: 06/18/25 20:59 Last Admin: 05/19/25 22:03 Dose: 5,000 units Documented By: MINE Insulin Aspart (Insulin Aspart Per Unit Charge) 0 units SC ACHS ROS Stop: 06/18/25 20:59 Last Admin: 05/19/25 22:02 Dose: 2 units Documented By: DEDE Co-signed By: STEFANO Ondansetron HCl (Ondansetron Inj 2 Mg/Ml 2 Ml Vial) 4 mg IV Q6H PRN PRN Reason: Nausea Stop: 06/18/25 20:52 Last Admin: 05/19/25 22:03 Dose: 4 mg Documented By: MINE Discontinued Medications Aspirin (Aspirin Chew 324 Mg) 243 mg PO NOW STA Stop: 05/19/25 18:19 Last Admin: 05/19/25 20:12 Dose: 243 mg Documented By: JOSSELINE Sodium Chloride (Nss) 1,000 mls @ 999 mls/hr IV .Q1H1M ROS Stop: 05/19/25 18:30 Last Infusion: 05/19/25 18:25 Dose: Infused Documented By: Admin: 05/19/25 17:24 Dose: 999 mls/hr Documented By: STEFANY Famotidine (Pepcid 20mg Iv Push) 20 mg in 5 mls @ 2.5 mls/min IV NOW STA Stop: 05/19/25 17:20 Last Admin: 05/19/25 17:24 Dose: 2.5 mls/min Documented By: STEFANY Sodium Chloride (Nss) 500 mls @ 999 mls/hr IV .Q31M ONE Stop: 05/19/25 18:48 Last Infusion: 05/19/25 20:16 Dose: Infused Documented By: Admin: 05/19/25 19:11 Dose: 999 mls/hr Documented By: JOSSELINE Potassium Chloride (K Richard / Wtr) 10 meq in 100 mls @ 100 mls/hr IV ONE ONE Stop: 05/19/25 19:21 Last Infusion: 05/19/25 20:16 Dose: Infused Documented By: Admin: 05/19/25 19:13 Dose: 100 mls/hr Documented By: JOSSELINE Magnesium Sulfate/Dextrose (Magnesium Sulfate / D5w) 1 gm in 100 mls @ 50 mls/hr IV ONE ONE Stop: 05/19/25 22:52 Last Admin: 05/19/25 22:02 Dose: 50 mls/hr Documented By: MINE Ondansetron HCl (Ondansetron Inj 2 Mg/Ml 2 Ml Vial) 4 mg IV NOW STA Stop: 05/19/25 17:20 Last Admin: 05/19/25 17:25 Dose: 4 mg Documented By: STEFANY Imaging Data Radiologist's Impression: Chest/Abdomen X-ray 05/19/25 17:20 EXAM: XR abdomen 2V w PA chest CLINICAL HISTORY: Upper abdominal pain, n/v TECHNIQUE: X-ray images of the chest and abdomen were obtained in supine positions including chest PA view. COMPARISON: CT abdomen 06/14/[address] chest on 06/04/2024 FINDINGS: Chest: Pulmonary Parenchyma: Lungs are clear bilaterally. No evidence of consolidation, collapse, or focal opacities. No pulmonary nodules are identified. No evidence of pleural effusion or pleural thickening. Heart and Mediastinum: Enlarged cardiac size. No mediastinal widening or masses. No hilar or mediastinal lymphadenopathy. Retrocardiac air-fluid level of hiatal hernia. Midline sternotomy wires. Abdomen: The gas pattern within the abdomen is normal. No evidence of bowel obstruction or distention. No pneumoperitoneum. Soft Tissues: Soft tissues of the abdomen appear normal without evidence of masses or calcifications. Splenic and mesenteric artery calcifications. Diffuse spondylotic and osteoporotic changes. Bilateral degenerative sacroiliitis. IMPRESSION: 1. No acute abnormalities identified, no pneumoperitoneum or bowel obstruction. 2. Mild cardiomegaly. (stable) 3. Hiatus hernia. (progressed) 4. Midline sternotomy wires. (new) Electronically signed by Sammy Alejandra 05-19-2025 7:57 PM Discharge Plan Visit Data Chief Complaint: Nausea Stated Complaint: NAUSEA, VOMITING, DIZZINESS ED Provider: Harry Bah Discharge Problem: Elevated troponin, Nausea & vomiting, Acute upper abdominal pain, Acute hypokalemia Patient Disposition: Admitted As Inpatient Condition: Good Discharge Instructions Interventions: ED Discharge Assessment Last Done: 05/19/25 20:28 Discharge Problem: Nausea & vomiting Qualifiers: Vomiting type: unspecified Qualified Code(s): R11.2 - Nausea with vomiting, unspecified
[2025-05-19] MEDS: SODIUM CHLORIDE 0.9% 1,000 ML IV SCH (17:24)
[2025-05-19] MEDS: FAMOTIDINE 20MG IV PUSH 20 MG/5 ML SYR IV STA (17:24)
[2025-05-19] MEDS: ONDANSETRON INJ 2 MG/ML 2 ML VIAL IV STA (17:25)
[2025-05-19 17:28] LABS: Hematocrit (blood only) 36.4 % (37.0-47.0); Hemoglobin 12.1 g/dl (12.0-16.0); Immature Granulocytes # (auto) 0.07 K/uL (0.01-0.20); Immature Granulocytes % (auto) 0.6 %; Mean Corpuscular Hemoglobin 29.2 pg (25.0-34.0); Mean Corpuscular Volume 87.7 fL (80.0-100.0); Platelet Count 159 K/uL (130-400); RDW Standard Deviation 41.6 fL (36.4-46.3); Red Blood Count 4.15 M/uL (4.20-5.40); White Blood Count 11.82 K/ul (4.8-10.8)
[2025-05-19 17:44] LABS: Alanine Aminotransferase 36.0 U/L (7-52); Albumin Globulin Ratio 1.3 (0.9-2); Alkaline Phosphatase 126.0 U/L (34-104); Anion Gap 10.0 (3-11); Bilirubin,Total 1.0 mg/dl (0.2-1.0); Blood Urea Nitrogen 20.0 mg/dl (6-23); Calcium 8.7 mg/dl (8.6-10.3); Carbon Dioxide 22.0 mmol/L (21-32); Chloride 104.0 mmol/L (98-107); Creatinine Clr Calc Pharmacy 40.6 ml/min; Globulin 2.9 gm/dl (2.5-4.0); Glucose 175.0 mg/dl (70-99(Fasting)); Potassium 3.2 mmol/L (3.5-5.1); Sodium 136.0 mmol/L (136-145); Total Protein 6.6 gm/dl (6.0-8.3)
--- NOTE | 2025-05-19 18:35 | History & Physical Report ---
Date of Service May 19, 2025 Assessment & Plan (1) Acute upper abdominal pain: (2) Elevated troponin: (3) Diabetes mellitus type 2 in nonobese: (4) B-cell lymphoma: Plan 79-year-old female presents with intractable nausea vomiting abdominal pain for 1 day. Patient is a history of diabetes coronary disease status post CABG and stenting mildly elevated troponin in the emergency department and history of B- cell lymphoma and paroxysmal atrial fibrillation. #Abdominal pain. Concern this could be an anginal equivalent for additional troponins will be checked she was given additional aspirin. At this time we will use Pepcid intravenously. Maalox and treat symptomatically. Patient continues on a PPI, patient is hyponatremic likely from vomiting this to be augmented via intravenous form and recheck in the morning. Stool testing is ordered if she produces diarrhea #Elevated troponin with history of coronary artery disease. Because of her GI upset would not hold many of her oral medications (amlodipine and atorvastatin) we will continue her ARB will not give additional aspirin or Plavix unless the patient's troponins are significantly elevated. Regarding her paroxysmal atrial fibrillation she is not chronically anticoagulated nor on rate controlling medications #Diabetes. Patient will continue on basal bolus insulin therapy #B-cell lymphoma placing her at risk for DVT prevention heparin will be used. Patient is a full code History of Present Illness Primary Care Provider: David Chou MD 79-year-old female with a history of diabetes coronary artery disease status post CABG and stenting previous TIAs B-cell lymphoma paroxysmal atrial fibrillation and a previous cholecystectomy and appendectomy presents with tractable nausea and vomiting that began 1 day prior to admission. 1 day prior to admission she felt like she had to go to the bathroom was lightheaded and dizziness to the point where she almost passed out. This nausea and vomiting persisted and would not is associated with abdominal pain that felt sharp like a knife. No one else has been sick could have been to the picnic she presents to the emergency department with persistent symptoms that look to be clinically dehydrated was rehydrated with IV fluids initial laboratory studies were not significantly abnormal but she did have a mild elevation of troponin to 19.6 with repeat pending LFTs were not significantly abnormal abdomen x-ray was nonspecific Patient admitted for intractable nausea vomiting abdominal pain Allergies Allergy/AdvReac Type Severity Reaction Status Date / Time oxymetazoline Allergy Mild . Verified 02/22/25 08:58 adhesive Allergy Unknown RASH Verified 02/22/25 08:58 latex Allergy Rash Verified 02/22/25 08:58 prednisone AdvReac Intermediate PT CAN Verified 02/22/25 08:58 TOLERATE DEXAMETHASONE [place] Inhibitors AdvReac Unknown Hypotension Verified 02/22/25 08:58 simvastatin AdvReac Unknown Rash Verified 02/22/25 08:58 oxycodone [From OxyContin] AdvReac Vomiting Verified 02/22/25 08:58 Home Medications Medication Instructions Recorded Confirmed Type blood-glucose meter (OneTouch #1 ea 12/03/22 02/22/25 Rx Ultra2 Meter) lancets 30 gauge (OneTouch Delica #100 ea 12/03/22 02/22/25 Rx Lancets) aspirin 81 mg tablet,delayed 81 mg PO DAILY #90 tabs 06/09/23 05/19/25 Rx release (Adult Low Dose Aspirin) pen needle, diabetic 32 gauge x #200 ea 03/13/24 02/22/25 Rx 5/32" (BD Ultra-Fine Komal Pen Needle) blood sugar diagnostic (OneTouch #100 ea 06/09/24 02/22/25 Rx Ultra Test strips) insulin glargine 100 unit/mL (3 25 unit (0.25 mL) subcut QAM #30 mL 08/17/24 05/19/25 Rx mL) subcutaneous pen (Lantus Solostar U-100 Insulin) amlodipine 10 mg tablet (Norvasc) 10 mg PO QAM #90 tabs 08/27/24 05/19/25 Rx omeprazole 20 mg capsule,delayed 20 mg PO DAILYBB #90 caps 11/21/24 05/19/25 Rx release atorvastatin 40 mg tablet (Lipitor) 40 mg PO QAM #100 tabs 01/25/25 05/19/25 Rx cholecalciferol (vitamin D3) 50 50 mcg PO DAILY #90 caps 02/22/25 05/19/25 Rx mcg (2,000 unit) capsule losartan 25 mg tablet 25 mg PO QAM #90 tabs 04/01/25 05/19/25 Rx clopidogrel 75 mg tablet (Plavix) 75 mg PO QAM #90 tabs 04/17/25 05/19/25 Rx Past Med/Surg History Problem List (Updated 05/19/25 @ 18:22 by Harry Bah MD) Acute hypokalemia (Acute) Acute upper abdominal pain (Acute) Nausea & vomiting (Acute) Elevated troponin (Acute) Anemia S/P cholecystectomy Mass of right elbow H/O lymphoma Health care maintenance Vertebral artery stenosis Vitamin D insufficiency (Acute) Vitamin B12 deficiency (Acute) Osteopenia (Acute) Dyslipidemia (Acute) Coronary artery disease (Acute) Carotid artery stenosis Diabetes mellitus type 2 in nonobese (Acute) Diverticulosis of colon (Acute) Gait disturbance (Acute) Hypercholesteremia (Acute) Hypertension (Acute) Low back pain (Acute) S/P drug eluting coronary stent placement (Acute) Multi-vessel coronary artery stenosis GERD (gastroesophageal reflux disease) (Chronic) Medical History TIA (transient ischemic attack) Acute calculous cholecystitis B-cell lymphoma Cholecystitis, acute with cholelithiasis Vomiting Abdominal pain Imaging abnormalities Nausea COVID-19 Elevated serum creatinine Hypertensive emergency Slurring of speech Word finding difficulty 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 History of malignant neoplasm of skin Paroxysmal atrial fibrillation Dehydration Postoperative atrial fibrillation On intra-aortic balloon pump assist Elevated troponin Syncope NSTEMI (non-ST elevated myocardial infarction) Chest pain Diabetes mellitus TYPE II on Levemir at this time BID Elevated troponin Hypertensive emergency Non Hodgkin's lymphoma (11/20/13) Hypogammaglobulinemia Fever Fever (10/21/13) Metastatic cancer to liver Kidney disease Diffuse large B-cell lymphoma of extranodal site (~07/2013) Surgical History Hx laparoscopic cholecystectomy (02/21/24) Robotic Assisted Laparoscopic Cholecystectomy(Not Applicable) - Deepthi Kumar DO History of open heart surgery S/P CABG (coronary artery bypass graft) S/P CABG x 1 on 09/08/2018; FELIZ to OM1 History of tonsillectomy History of appendectomy H/O tubal ligation Family History Mother Myocardial infarction Diabetes Sister Bladder cancer Daughter Diabetes Heart disease Brother Lung cancer Father Lung disease Denies family history of Ovarian cancer Prostate cancer Breast cancer Colorectal cancer Social History Smoking Status: Never smoker Second Hand Exposure: No; Do You Dip or Chew Tobacco: No; Hx Alcohol Use: No Hx Substance Use: No Preferred Language: Com[place]an Communication Ability: Effective Visual Impairment: No Limitations Hearing Ability: Normal 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 Beliefs That Will Affect Care: None marital status: Current Living Situation: Spouse Current Living Situation Comment: lives with Júnior current occupational status: retired current occupation: Retired Feels Safe at Home: Yes Childhood Exposure to Second-Hand Smoke: Yes Dental Care, Regularly: No Physical Activity Frequency: 3-4 Times per Week Seatbelt Use: always Sunscreen Use: Yes Assistive Devices: Cane and Walker Review of Systems Review of Systems: Mild distress and fatigueresolving no headache, no visual changes no speech or swallowing issues no chest pain, pressure or palpitations no shortness of breath, cough or wheezes Epic abdominal pain, nausea or vomiting since resolved now with some loose bowel movement no dysuria, hematuria or frequency no focal joint pain or swelling no back pain, CVA tenderness or radicular pain no bruising, bleeding or rashes no focal signs of weakness or numbness or altered sensation no complaints of anxiety or depression.. Physical Exam Physical Exam: The patient appeared well nourished and normally developed. Vital signs as documented. Head exam is normocephalic atraumatic Neck is without JVD, thyromegaly, or carotid bruits. Lungs are clear to auscultation, no focal loss of breath sounds Cardiac exam, Rhythm is regular.. No murmurs, rubs or gallops. Abdominal exam reveals normal bowel sounds, soft epigastric distress Extremities are nonedematous and both pedal pulses are present Neurologic exam is alert and oriented, no focal loss of strength or sensation Skin is without bruises or rashes Psychologically is without concerns for anxiety or depression.. Results & Data Results & Data Vital Signs (Past 12 Hours) Vital Signs Temp Pulse Pulse Resp BP BP Pulse Ox 05/19/25 17:57 89 19 149/61 H 93 05/19/25 17:04 88 05/19/25 17:02 90 05/19/25 16:59 05/19/25 16:44 98.8 F 96 H 18 156/68 H 90 O2 Del Method O2 Flow Rate 05/19/25 17:57 05/19/25 17:04 05/19/25 17:02 Room Air, Nasal Cannula 0 05/19/25 16:59 Room Air 05/19/25 16:44 Room Air Laboratory Results Reviewed CBC chemistry and LFTs and chest abdomen imaging Discussed the case with Dr. Bah EKG may have some changes in th limb leads but they look similar to old Code Status & VTE Plan VTE Prophylaxis Plan VTE Prophylaxis will be ordered: Yes PG Care Time/CCT Total # of Minutes Spent Total Time Spent with Patient: Total time spent is greater than 50% in coordination of care (as documented) at patient's floor/unit and/or counseling patient: Coding Level of Care Code 37016 INT INP/OBS CARE 3/75MIN Diagnoses Acute upper abdominal pain R10.10 Elevated troponin R79.89 Diabetes mellitus type 2 in nonobese E11.9 B-cell lymphoma C85.10
[2025-05-19 18:41] LABS: Lipase 17.0 U/L (11-82); Magnesium 1.2 mg/dl (1.7-2.4)
[2025-05-19] MEDS: SODIUM CHLORIDE 0.9% 500 ML IV ONE (19:11)
[2025-05-19] MEDS: POTASSIUM CHLORIDE / WTR 10 MEQ/100 ML PLCT IV ONE (19:13)
--- NOTE | 2025-05-19 19:58 | XRay Report ---
EXAM: XR abdomen 2V w PA chest CLINICAL HISTORY: Upper abdominal pain, n/v TECHNIQUE: X-ray images of the chest and abdomen were obtained in supine positions including chest PA view. COMPARISON: CT abdomen 06/14/[address] chest on 06/04/2024 FINDINGS: Chest: Pulmonary Parenchyma: Lungs are clear bilaterally. No evidence of consolidation, collapse, or focal opacities. No pulmonary nodules are identified. No evidence of pleural effusion or pleural thickening. Heart and Mediastinum: Enlarged cardiac size. No mediastinal widening or masses. No hilar or mediastinal lymphadenopathy. Retrocardiac air-fluid level of hiatal hernia. Midline sternotomy wires. Abdomen: The gas pattern within the abdomen is normal. No evidence of bowel obstruction or distention. No pneumoperitoneum. Soft Tissues: Soft tissues of the abdomen appear normal without evidence of masses or calcifications. Splenic and mesenteric artery calcifications. Diffuse spondylotic and osteoporotic changes. Bilateral degenerative sacroiliitis. IMPRESSION: 1. No acute abnormalities identified, no pneumoperitoneum or bowel obstruction. 2. Mild cardiomegaly. (stable) 3. Hiatus hernia. (progressed) 4. Midline sternotomy wires. (new) Electronically signed by Sammy Alejandra 05-19-2025 7:57 PM
[2025-05-19] MEDS: ASPIRIN CHEW 324 MG PO STA (20:12)
[2025-05-19] MEDS ORDERED: GLUCAGON FOR INJ 1 MG VIAL SQ PRN (20:53)
[2025-05-19] MEDS ORDERED: MoRPHine SULFATE 2 MG/ML CARP IV PRN (20:53)
[2025-05-19] MEDS ORDERED: GLUCOSE 40% GEL 15 GM TUBE PO PRN (20:53)
[2025-05-19] MEDS ORDERED: ALUMINUM/MAGNESIUM SUSP 30 ML UDC PO PRN (20:53)
[2025-05-19] MEDS ORDERED: MoRPHine SULFATE 4 MG/ML 1 ML CARP\\VIAL IV PRN (20:53)
[2025-05-19] MEDS ORDERED: GLUCOSE 10 TAB/TUBE PO PRN (20:53)
[2025-05-19] MEDS ORDERED: DEXTROSE 50% 50 ML SYRINGE IV PRN (20:53)
[2025-05-19] MEDS ORDERED: CARBOHYDRATES FOR HYPOGLYCEMIA PO PRN (20:53)
[2025-05-19] MEDS: MAGNESIUM SULFATE / D5W 1 GM/100 ML BAG IV ONE (22:02)
[2025-05-19] MEDS: INSULIN ASPART PER UNIT CHARGE SC SCH (22:02)
[2025-05-19] MEDS: HEPARIN SOD 5,000 UNIT/0.5 ML VIAL SQ SCH (22:03)
[2025-05-19] MEDS: ONDANSETRON INJ 2 MG/ML 2 ML VIAL IV PRN (22:03)
[2025-05-20] MEDS: FAMOTIDINE 20MG IV PUSH 20 MG/5 ML SYR IV SCH (04:55)
[2025-05-20] MEDS: PROMETHAZINE 12.5 MG/50.5 ML BAG IV PRN (05:14)
[2025-05-20] MEDS: ACETAMINOPHEN 1,000 MG/100 ML VIAL IV STA (05:36)
[2025-05-20 05:40] LABS: Hematocrit (blood only) 35.0 % (37.0-47.0); Hemoglobin 11.3 g/dl (12.0-16.0); Mean Corpuscular Hemoglobin 29.1 pg (25.0-34.0); Mean Corpuscular Volume 90.2 fL (80.0-100.0); Platelet Count 140 K/uL (130-400); RDW Standard Deviation 44.5 fL (36.4-46.3); Red Blood Count 3.88 M/uL (4.20-5.40); White Blood Count 9.58 K/ul (4.8-10.8)
[2025-05-20] MEDS: OPTIRAY 320 100ml IV ONE (05:58)
[2025-05-20 06:04] LABS: Cdiff Toxin B Gene (2yr or >) Negative Cdiff Gene (Neg)
[2025-05-20 06:05] LABS: Alanine Aminotransferase 29.0 U/L (7-52); Albumin Globulin Ratio 1.3 (0.9-2); Alkaline Phosphatase 110.0 U/L (34-104); Anion Gap 7.0 (3-11); Bilirubin,Total 0.9 mg/dl (0.2-1.0); Blood Urea Nitrogen 20.0 mg/dl (6-23); Calcium 8.2 mg/dl (8.6-10.3); Carbon Dioxide 23.0 mmol/L (21-32); Chloride 108.0 mmol/L (98-107); Creatinine Clr Calc Pharmacy 41.9 ml/min; Globulin 2.6 gm/dl (2.5-4.0); Glucose 129.0 mg/dl (70-99(Fasting)); Magnesium 1.6 mg/dl (1.7-2.4); Potassium 3.3 mmol/L (3.5-5.1); Sodium 138.0 mmol/L (136-145); Total Protein 6.0 gm/dl (6.0-8.3)
[2025-05-20 06:38] LABS: Adenovirus F 40/41 PCR Not Detected (NotDetected); Campylobacter PCR Not Detected (NotDetected); Enteroaggregative E.coli(EAEC) Not Detected (NotDetected); Shiga-like Toxin E.coli (STEC) Not Detected (NotDetected); Vibrio species PCR Not Detected (NotDetected)
--- NOTE | 2025-05-20 07:18 | CT Scan Report ---
EXAM: CT abd pelvis IV con only CLINICAL HISTORY: N/V, R+umbil abdominal pain, fever. past hx isi TECHNIQUE: Contiguous axial images were obtained from the level of the diaphragm to the pubic symphysis with intravenous contrast. Coronal and sagittal reconstructions were likewise performed and indicated to increase the sensitivity for detecting clinically relevant pathology. If IV contrast material had not been administered, the likelihood of detecting abnormalities relevant to the patient's condition would have been substantially decreased. CT scan was performed according to ALARA (as low as reasonable achievable). 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 Sliding hiatus hernia noted. The liver is normal in size and attenuation. No focal liver lesions are seen. There is no intra or extrahepatic biliary ductal dilatation. Hepatic vasculature is patent. The gallbladder is removed The spleen, pancreas, and adrenal glands are unremarkable. The kidneys are normal in size and attenuation. There is no hydronephrosis . Mild bilateral perinephric fat stranding. No renal calculi or renal masses are identified. Few simple cortical cyst are noted in right kidneys The ureters are normal in caliber and no ureteral calculi are seen. The bladder is normal in contour. Pelvic viscera are unremarkable. No focal or diffuse bowel wall thickening or evidence of bowel obstruction is identified. No evidence of inflammed appendix. Abdominal and pelvic vasculature is patent. No adenopathy or fluid collections are seen. No aggressive appearing osseous lesions are identified. Multiple small uncomplicated descending and sigmoid colonic diverticulosis IMPRESSION: 1. Multiple small uncomplicated descending and sigmoid colonic diverticulosis -increased 2. Sliding hiatus hernia noted. -increased 3. Mild bilateral perinephric fat stranding-new finding. Electronically signed by Dash Jones 05-20-2025 07:18 AM
[2025-05-20 07:22] LABS: Hemoglobin A1C 7.1 % (4.5-5.6)
[2025-05-20] MEDS: ACETAMINOPHEN 325 MG TAB PO PRN (08:56)
[2025-05-20] MEDS: LANTUS PER UNIT CHARGE SQ SCH (08:56)
[2025-05-20] MEDS: LOSARTAN POTASSIUM 25 MG TAB PO SCH (08:56)
--- NOTE | 2025-05-20 09:19 | Hospitalist Progress Note ---
Date of Service May 20, 2025 Assessment & Plan (1) Acute upper abdominal pain: (2) Elevated troponin: (3) Diabetes mellitus type 2 in nonobese: (4) B-cell lymphoma: Plan 79-year-old female presents with intractable nausea vomiting abdominal pain for 1 day. Patient is a history of diabetes coronary disease status post CABG and stenting mildly elevated troponin in the emergency department and history of B- cell lymphoma and paroxysmal atrial fibrillation. #Abdominal pain. Patient with additional vomiting overnight CT scan was performed perinephric stranding was seen. Retrospectively the patient feels she has had some left CVA angle tenderness and urinary frequency. Patient started on Rocephin and urine cultures obtained. Pepcid intravenously. Maalox and treat symptomatically. Patient continues on a PPI, stool BioFire is negative #Elevated troponin repeat troponin without much change, with history of coronary artery disease. Because of her GI upset would not hold many of her oral medications (amlodipine and atorvastatin) we will continue her ARB Regarding her paroxysmal atrial fibrillation she is not chronically anticoagulated nor on rate controlling medications #Diabetes. Patient will continue on basal bolus insulin therapy, A1c is 7 point #Electrolyte abnormalities. Patient is hypokalemic hypomagnesemic these will be repleted intravenously given her vomit #B-cell lymphoma placing her at risk for DVT prevention heparin will be used. Patient is a full code Admission and Anticipated Discharge Date Admission Date: May 19, 2025 Results & Data Results & Data Vital Signs (Past 12 Hours) Vital Signs Temp Pulse Pulse Pulse Resp BP Pulse Ox 05/20/25 07:43 100.2 F H 94 H 18 119/61 98 05/20/25 02:55 97.7 F 66 19 107/67 96 05/19/25 22:57 97.5 F L 64 19 103/60 96 05/19/25 22:00 67 05/19/25 21:20 98.8 F 73 18 124/75 93 O2 Del Method 05/20/25 07:43 Room Air 05/20/25 02:55 Room Air 05/19/25 22:57 Room Air 05/19/25 22:00 05/19/25 21:20 Room Air PG Care Time/CCT Total # of Minutes Spent Total Time Spent with Patient: Total time spent is greater than 50% in coordination of care (as documented) at patient's floor/unit and/or counseling patient: Coding Level of Care Code 74403 SUB INP/OBS CARE 3/50MIN Diagnoses Acute upper abdominal pain R10.10 Elevated troponin R79.89 Diabetes mellitus type 2 in nonobese E11.9 B-cell lymphoma C85.10
[2025-05-20] MEDS: cefTRIAXone SODIUM 2,000 MG/50 ML BAG IV SCH (09:40)
[2025-05-20] MEDS: POTASSIUM CHLORIDE / WTR 10 MEQ/100 ML PLCT IV SCH (09:53)
[2025-05-20] MEDS: MAGNESIUM SULFATE / D5W 1 GM/100 ML BAG IV ONE (09:53)
[2025-05-20 12:00] LABS: Appearance Urine Clear (Clear); Bacteria Urine Automated None Seen (None Seen); Cast Urine Automated 0-2 /lpf (0-2); Glucose Urine UA Negative (Negative); RBC Urine Automated 0-2 /hpf (0-2); WBC Urine Automated 0-5 /hpf (0-5)
--- NOTE | 2025-05-20 12:22 | Electrocardiogram Report ---
Test Reason : Blood Pressure : */* mmHG Vent. Rate : 90 BPM Atrial Rate : 90 BPM P-R Int : 150 ms QRS Dur : 80 ms QT Int : 336 ms P-R-T Axes : 45 13 128 degrees QTcB Int : 411 ms Normal sinus rhythm Possible Left atrial enlargement Possible Inferior infarct , age undetermined Cannot rule out Anterior infarct , age undetermined Abnormal ECG When compared with ECG of 17-Feb-2024 10:22, No significant change Confirmed by Fernando Ruggiero ([id number]) on 05/20/2025 12:22:14 PM Referred By: REFERRED SELF Confirmed By: Fernando Ruggiero
[2025-05-21 06:58] LABS: Alanine Aminotransferase 22.0 U/L (7-52); Albumin Globulin Ratio 1.4 (0.9-2); Alkaline Phosphatase 81.0 U/L (34-104); Anion Gap 5.0 (3-11); Bilirubin,Total 0.5 mg/dl (0.2-1.0); Blood Urea Nitrogen 17.0 mg/dl (6-23); Calcium 8.3 mg/dl (8.6-10.3); Carbon Dioxide 25.0 mmol/L (21-32); Chloride 109.0 mmol/L (98-107); Creatinine Clr Calc Pharmacy 39.9 ml/min; Globulin 2.3 gm/dl (2.5-4.0); Glucose 78.0 mg/dl (70-99(Fasting)); Magnesium 2.1 mg/dl (1.7-2.4); Potassium 3.6 mmol/L (3.5-5.1); Sodium 139.0 mmol/L (136-145); Total Protein 5.5 gm/dl (6.0-8.3)
[2025-05-21 07:41] VITALS: O2SAT 92
--- NOTE | 2025-05-21 08:05 | Hospitalist Progress Note ---
Date of Service May 21, 2025 Assessment & Plan (1) Acute upper abdominal pain: (2) Elevated troponin: (3) Diabetes mellitus type 2 in nonobese: (4) B-cell lymphoma: Plan 79-year-old female presents with intractable nausea vomiting abdominal pain for 1 day. Patient is a history of diabetes coronary disease status post CABG and stenting mildly elevated troponin in the emergency department and history of B- cell lymphoma and paroxysmal atrial fibrillation. #Abdominal pain. Patient with additional vomiting overnight CT scan was performed perinephric stranding was seen. Retrospectively the patient feels she has had some left CVA angle tenderness and urinary frequency. Patient started on Rocephin and urine cultures obtained. Pepcid intravenously. Maalox and treat symptomatically. Patient continues on a PPI, stool BioFire is negative #Elevated troponin repeat troponin without much change, with history of coronary artery disease. Because of her GI upset would not hold many of her oral medications (amlodipine and atorvastatin) we will continue her ARB Regarding her paroxysmal atrial fibrillation she is not chronically anticoagulated nor on rate controlling medications #Diabetes. Patient will continue on basal bolus insulin therapy, A1c is 7 point #Electrolyte abnormalities. replete #B-cell lymphoma placing her at risk for DVT prevention heparin will be used. Patient is a full code Admission and Anticipated Discharge Date Admission Date: May 20, 2025 Results & Data Results & Data Vital Signs (Past 12 Hours) Vital Signs Temp Pulse Pulse Resp BP Pulse Ox O2 Del Method 05/21/25 07:40 98.4 F 61 20 127/67 92 Room Air 05/21/25 07:07 63 05/21/25 03:55 98.1 F 62 18 127/67 94 Room Air 05/20/25 23:19 99.0 F 64 18 120/69 92 Room Air 05/20/25 22:02 70 PG Care Time/CCT Total # of Minutes Spent Total Time Spent with Patient: Total time spent is greater than 50% in coordination of care (as documented) at patient's floor/unit and/or counseling patient: Coding Diagnoses Acute upper abdominal pain R10.10 Elevated troponin R79.89 Diabetes mellitus type 2 in nonobese E11.9 B-cell lymphoma C85.10
[2025-05-21 10:42] VITALS: BP 147/70; RESP 22; TEMP 98.1
[2025-05-21 13:28] VITALS: PULSE 64
--- NOTE | 2025-05-21 13:54 | Discharge Summary ---
Discharge Summary Date of Service May 21, 2025 Principal Dx & Hospital Course #1 = Principal Diagnosis (1) Acute upper abdominal pain: (2) Elevated troponin: (3) Diabetes mellitus type 2 in nonobese: (4) B-cell lymphoma: Plan 79-year-old female presents with intractable nausea vomiting abdominal pain for 1 day. Patient is a history of diabetes coronary disease status post CABG and stenting mildly elevated troponin in the emergency department and history of B- cell lymphoma and paroxysmal atrial fibrillation. #Abdominal pain. Patient with additional vomiting overnight CT scan was performed perinephric stranding was seen. Retrospectively the patient feels she has had some left CVA angle tenderness and urinary frequency. Patient started on Rocephin and urine cultures, did not result but with imaging will treat for u pper urinary infection, . Patient continues on a PPI, stool BioFire is negative #Elevated troponin repeat troponin without much change, with history of coronary artery disease. Because of her GI upset would not hold many of her oral medications (amlodipine and atorvastatin) we will continue her ARB Regarding her paroxysmal atrial fibrillation she is not chronically anticoagulated nor on rate controlling medications, this has been charted as post op afib, will have pt discuss with cardiology #Diabetes. Patient will continue on basal bolus insulin therapy, A1c is 7 point #Electrolyte abnormalities. replete #B-cell lymphoma Patient is a full code Notes For Next Care Provider pt did have some short runs of afib while she was ill and febrile, in the past noted to have post op afib, these runs were asymptomatic, consider outpt cardiac monitoring and follow up with chandler peterson and marline ramon Admission HPI Per Admitting Provider 79-year-old female with a history of diabetes coronary artery disease status post CABG and stenting previous TIAs B-cell lymphoma paroxysmal atrial fibrillation and a previous cholecystectomy and appendectomy presents with tractable nausea and vomiting that began 1 day prior to admission. 1 day prior to admission she felt like she had to go to the bathroom was lightheaded and dizziness to the point where she almost passed out. This nausea and vomiting persisted and would not is associated with abdominal pain that felt sharp like a knife. No one else has been sick could have been to the picnic she presents to the emergency department with persistent symptoms that look to be clinically dehydrated was rehydrated with IV fluids initial laboratory studies were not significantly abnormal but she did have a mild elevation of troponin to 19.6 with repeat pending LFTs were not significantly abnormal abdomen x-ray was nonspecific Patient admitted for intractable nausea vomiting abdominal pain Discharge Exam pleasant no distress cardiac is regular lungs are clear abdomen is soft and non tender Discharge Plan Discharge Items Patient Disposition: Home - Self-Care Reason For Visit: INTRACTABLE NAUSEA AND VOMITING Discharge Diagnosis: nausea and vomiting. urinary infection present on admission chronic back pain Condition on Discharge: Good Activity: Resume your previous activity Non-emergency contact: Primary Care Provider Call non-emergency contact if: your symptoms worsen Follow-up/Referrals: David Chou MD [Primary Care Provider] - 06/06/25 10:30 am (Hospital follow up scheduled June 06 at 10:00) Diet: Carb Consistent or DM2 Addtl Attending Provider Instructions: please drink plenty of fluids and rest complete your antibiotics, certainly if you feel nausea or vomiting or have a fever please seek medical attention for your back pain, consider discussing further ways to treat or be evaluated with your family doctor Addtl Loader Operator Supervisor Provider Instructions: we did check your Hemoglobin a1c and it was 7 meaning you are doing a good job at home controlling your blood sugar Pending Studies at Discharge: No Stand-Alone Forms: My [facility], Smoking Cessation Medications and DC Order Prescriptions: New ciprofloxacin HCl [Cipro] 250 mg tablet 250 mg PO BID Qty: 10 0RF Continued (DME) pen needle, diabetic [BD Ultra-Fine Komal Pen Needle] 32 gauge x 5/32" needle See Rx Instructions .ROUTE .MEDSUPPLY Qty: 200 3RF Rx Instructions: As directed for use with Levemir pen twice daily (DME) OneTouch Ultra Test Strip See Rx Instructions .Route Qty: 100 3RF Rx Instructions: Twice daily and as needed for DM on Insulin insulin glargine [Lantus Solostar U-100 Insulin] 100 unit/mL (3 mL) insulin pen 25 unit subcut QAM Qty: 30 3RF amlodipine [Norvasc] 10 mg tablet 10 mg PO QAM Qty: 90 3RF omeprazole 20 mg capsule,delayed release(DR/EC) 20 mg PO DAILYBB Qty: 90 3RF atorvastatin [Lipitor] 40 mg tablet 40 mg PO QAM Qty: 100 3RF losartan 25 mg tablet 25 mg PO QAM Qty: 90 3RF clopidogrel [Plavix] 75 mg tablet 75 mg PO QAM Qty: 90 3RF aspirin [Adult Low Dose Aspirin] 81 mg tablet,delayed release (DR/EC) 81 mg PO DAILY Qty: 90 3RF (DME) lancets [OneTouch Delica Lancets] 30 gauge misc See Rx Instructions .Route Qty: 100 0RF Rx Instructions: Twice daily and as neeed for DM on Insulin (DME) blood-glucose meter [OneTouch Ultra2 Meter] Misc See Rx Instructions .Route Qty: 1 0RF Rx Instructions: Up to twice daily and as needed for DM on Isulin cholecalciferol (vitamin D3) 50 mcg (2,000 unit) capsule 50 mcg PO DAILY Qty: 90 3RF Rx Instructions: with heaviest meal of the day Discharge Orders: Discharge Order (Routine); Ordered 05/21/25 Ordered By: Kael Orlando/Other Patient Handouts: Managing Type 2 Diabetes Admission Data Admit Date/Time: 05/20/25 11:14 Attending Provider: Kael Cevallos Admit Provider: Kael Cevallos Primary Care Provider: David Chou V. Other Providers: Kael Cevallos Other Interventions: Discharge Summary Assessment (RN) Last Done: 05/21/25 13:40 Hospital Stay Data Consultations 05/19/25 18:23 ED Decision to Admit Stat Diagnostic Imagining Performed 05/20/25 04:59 CT Abd and Pelvis [CT abd pelvis IV con only] Stat Pending Results Patient Have Any Pending Studies at Discharge: No Discharge Instructions Given to Patient (Per Discharging Provider) please drink plenty of fluids and rest complete your antibiotics, certainly if you feel nausea or vomiting or have a fever please seek medical attention for your back pain, consider discussing further ways to treat or be evaluated with your family doctor Total Time Total Time Spent Total Time Spent (In Minutes): It required greater than 30 minutes to prepare this patient for discharge. Coding Level of Care Code 32367 INP/OBS DISCH >30 MIN Diagnoses Acute upper abdominal pain R10.10 Elevated troponin R79.89 Diabetes mellitus type 2 in nonobese E11.9 B-cell lymphoma C85.10
--- NOTE | 2025-06-07 08:06 | Coding Query ---
A supporting diagnosis is required for the test/procedure performed on this patient in order for us to be reimbursed by the patient's insurance. Please provide a supporting diagnosis for the following test/procedure listed below next to the test name. *If there is no additional diagnosis for this patient that would support the following test/procedure please document that below next to the test/procedure. Test(s)/Procedure(s) that require a supporting diagnosis: pt had a cholecystectomy should this not be thru the surgeon? I guess the diagnosis is cholecystitis. * [address] Gastrointestinal Path A DIAGNOSIS: Thank you Samantha Markham [employer] Information [employer] Once completed, please kindly fax back to [phone] For questions please call [phone] [facility]
== END 2025-05-21 14:01 | disposition home or self-care (01) | DRG 690 ==
LOC: EDINP 16:51 → ED 16:51 → 4W 20:28